=== PATIENT | female | born 1955 | race Caucasian/White ===

== ENCOUNTER 2021-10-20 09:18 | Outpatient (CLI) | payer MEDICARE, OTHER, SELFPAY ==
[2021-10-20 18:39] LABS: Alanine Aminotransferase 21 U/L (6-35); Albumin Level 4.3 g/dL (3.5-5.1); Alkaline Phosphatase 104 U/L (38-126); Anion Gap 10 mmol/L (8-16); Aspartate Amino Transferase 28 U/L (14-36); Bilirubin,Total 0.3 mg/dL (0.2-1.3); Blood Urea Nitrogen 24 mg/dL (7-17); Calcium 9.1 mg/dL (8.4-10.2); Carbon Dioxide 25 mmol/L (22-30); Chloride 110 mmol/L (98-107); Estimated Glomerular Filt Rate 30; Glucose 92 mg/dL (65-110); Potassium 3.9 mmol/L (3.4-5.0); Sodium 145 mmol/L (137-145)
[2021-10-20 18:41] LABS: Basophils Percent Auto 0.4 % (0.2-1.2); Eosinophils Absolute Auto 0.2 K/mm3 (0-0.3); Hematocrit 43.1 % (37.0-47.0); Hemoglobin 13.6 g/dL (12.0-15.0); Immature Granulocyte Absolute 0.04 K/mm3 (0.00-0.031); Immature Granulocyte Percent A 0.5 % (0-0.5); Lymphocytes Percent Auto 41.8 % (18.3-44.2); Mean Corpuscular HGB Conc 31.6 g/dl (32-36); Mean Corpuscular Volume 95.1 fl (80-100); Mean Platelet Volume 9.6 fl (7.4-10.4); Monocytes Absolute Auto 0.4 K/mm3 (0.1-0.6); Monocytes Percent Auto 5.7 % (2.6-8.5); Neutrophils Absolute Auto 3.8 K/mm3 (1.3-6.7); Neutrophils Percent Auto 49.6 % (45.5-73.1); Platelet Count Result 238 k/mm3 (150-375); Red Blood Count 4.53 M/mm3 (4.2-5.4); Red Cell Distribution Width 12.5 % (11.5-14.5); White Blood Count 7.7 K/mm3 (4.5-10.0)
[2021-10-20 19:08] LABS: Thyroid Stimulating Hormone 0.343 uIU/mL (0.465-4.680)
== END 2021-10-20 09:19 | disposition home or self-care (01) ==
PROVIDERS: PCP Emergency Medicine; Visit Provider Emergency Medicine
DX: E03.9 Hypothyroidism, unspecified (principal); Z87.448 Personal history of other diseases of urinary system
CPT/HCPCS: 36415; 80053; 84443; 85025

== ENCOUNTER 2021-10-22 15:31 | Outpatient (CLI) | payer MEDICARE, OTHER, SELFPAY ==
[2021-10-22 19:02] LABS: Free T4 Free Thyroxine 1.21 ng/mL (0.78-2.19)
== END 2021-10-22 15:32 | disposition home or self-care (01) ==
LOC: ANHGOSHLAB 15:33
PROVIDERS: PCP Emergency Medicine; Visit Provider Emergency Medicine
DX: E03.9 Hypothyroidism, unspecified (principal)
CPT/HCPCS: 36415; 84439

== ENCOUNTER → 2021-11-09 15:05 | Outpatient (CLI) | payer MEDICARE, OTHER, SELFPAY ==
--- NOTE | ~2021-11-09 | XR_ITS ---
EXAMINATION: XR knee LT 2V DATE: 11/09/2021 15:27 INDICATION: Left knee pain. TECHNIQUE: 2 views of left knee were obtained. COMPARISON: None. FINDINGS: There is a total left knee arthroplasty with patellar resurfacing in near-anatomic alignmen t. No fracture. No periprosthetic lucency to suggest loosening or infection. No knee joint effusion. IMPRESSION: 1. Total left knee arthroplasty in near-anatomic alignment. Reviewed, dictated and finalized at location A.
== END ==
PROVIDERS: PCP Emergency Medicine
DX: M25.562 Pain in left knee (principal)
CPT/HCPCS: 73560

== ENCOUNTER 2021-11-30 00:20 | Day surgery (SDC) | payer MEDICARE, OTHER, SELFPAY ==
[2021-11-15 13:34] VITALS: BMI 28.0
[2021-11-30 09:59] VITALS: BP 114/66; PULSE 64; RESP 16; TEMP 36.2; O2SAT 99; BMI 29.5
[2021-11-30] MEDS: LACTATED RINGERS 1,000 ML 150 ML IV CONT (10:12)
--- NOTE | 2021-11-30 10:47 | PM.HPGS ---
History of Present Illness History of Present Illness Consent: Risks, benefits, and alternatives have been discussed and questions answered. Patient agrees to proceed with procedure. 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 Review of Systems Constitutional: Constitutional: Denies headache(s) and Denies weakness Eyes: Eyes: Denies blurry vision ENT: Reports Normal hearing present, Denies headache(s) and Denies neck pain Cardiovascular: Cardiovascular: Denies chest pain and Denies dyspnea Respiratory: Respiratory: Denies dyspnea Gastrointestinal: Gastrointestinal: Reports no additional gastrointestinal complaints Genitourinary: Genitourinary: Denies dysuria Musculoskeletal: Musculoskeletal: Denies neck pain Integumentary/Breasts: Skin/Breast: Denies dry skin Neurologic: Reports Normal hearing present, Denies headache(s) and Denies weakness Psychiatric: Psychiatric: Denies anxiety Endocrine: Endocrine: Denies change in body appearance Hematologic/Lymphatic: Hematologic/Lymphatic: Denies easy bleeding Allergic/Immunologic: Allergic/Immunologic: Denies urticaria PMFSH Past Medical History Medical History (Updated 10/27/21 @ 15:57 by Kelli Kelly APRN) Colon cancer screening Diarrhea Esophageal dysmotility Obesity Surgical History Surgical History (Updated 10/27/21 @ 15:54 by Kelli Kelly APRN) History of Richy fundoplication Social History Social History Smoking status: Never smoker Alcohol intake: never Substance use: never Substance use type: does not use Living arrangements: with family Spiritual care concerns: No Meds Home Medications and Allergies Home Medications Medication Instructions Recorded Confirmed Type cyanocobalamin (vitamin B-12) 100 mcg subcut MONTHLY 10/18/21 11/30/21 History 1,000 mcg/mL injection solution diazepam 5 mg tablet (Valium) 5 mg PO QHS PRN Migraine Headache 10/18/21 11/30/21 History diphenoxylate-atropine 2.5 1 tablet PO QID PRN Diarrhea 10/18/21 11/30/21 History mg-0.025 mg tablet (Lomotil) droxidopa 200 mg capsule 200 mg PO TID 10/18/21 11/30/21 History fludrocortisone 0.1 mg tablet 0.05 mg PO DAILY 10/18/21 11/30/21 History gabapentin 100 mg capsule 100 mg PO BID 10/18/21 11/30/21 History levothyroxine 75 mcg tablet 75 mcg PO DAILY 10/18/21 11/30/21 History (Synthroid) meclizine 25 mg tablet 25 mg PO BID PRN Dizziness 10/18/21 11/30/21 History mirtazapine 15 mg tablet 15 mg PO QHS 10/18/21 11/30/21 History omega 9-dpt-loh-fish oil 1,200 mg 1,200 cap PO DAILY 10/18/21 11/30/21 History (144 mg-216 mg) capsule potassium citrate 10 mEq (1,080 10 meq PO TID 10/18/21 11/30/21 History mg) tablet,extended release psyllium husk 0.4 gram capsule 0.4 g PO DAILY 10/18/21 11/30/21 History (Daily Fiber) sertraline 50 mg tablet 50 mg PO DAILY 10/18/21 11/30/21 History tizanidine 4 mg capsule 4 mg PO QHS PRN Migraine Headache 10/18/21 11/30/21 History topiramate 100 mg tablet (Topamax) 125 mg PO DAILY 10/18/21 11/30/21 History valacyclovir 1 gram tablet 1,000 mg PO DAILY 10/18/21 11/30/21 History (Valtrex) needle (disp) 25 gauge 25 gauge x #3 ea 10/26/21 11/30/21 Rx 1 (BD PrecisionGlide) atogepant 60 mg tablet (Qulipta) 60 mg PO DAILY 11/15/21 11/30/21 History loratadine 10 mg tablet (Claritin) 10 mg PO DAILY #90 tabs 11/18/21 11/30/21 Rx Allergies Allergy/AdvReac Type Severity Reaction Status Date / Time adhesive Allergy Rash Verified 11/30/21 09:58 aloe Allergy Rash Verified 11/30/21 09:58 celecoxib [From Celebrex] Allergy Hives Verified 11/30/21 09:58 esomeprazole [From Nexium] Allergy Fatigued Verified 11/30/21 09:58 Penicillins Allergy Unknown Verified 11/30/21 09:58 Vital Signs Vital Signs - 24 hr 11/30/21 09:
[2021-11-30 11:05] VITALS: BP 101/52; PULSE 66; RESP 16; O2SAT 100
[2021-11-30 11:15] VITALS: BP 101/53; PULSE 63; RESP 12; O2SAT 100
[2021-11-30 11:25] VITALS: BP 119/68; PULSE 64; RESP 20; O2SAT 100
== END 2021-11-30 11:34 | disposition home or self-care (01) ==
PROVIDERS: PCP Emergency Medicine; Visit Provider Internal Medicine Gastroenterology
PROC: 0DJ08ZZ Inspection of Upper Intestinal Tract, Via Natural or Artificial Opening Endoscopic (ICD-10-PCS; CPT 43235; principal; 2021-11-30 10:30)
DX: R13.19 Other dysphagia (principal); R19.7 Diarrhea, unspecified; E03.9 Hypothyroidism, unspecified; K22.4 Dyskinesia of esophagus
CPT/HCPCS: 43239; 43248; 88305; J2704; J7120

== ENCOUNTER → 2021-12-16 12:53 | Outpatient (CLI) | payer MEDICARE, OTHER, SELFPAY ==
--- NOTE | ~2021-12-16 | XR_ITS ---
EXAMINATION: XR knee RT 2V DATE: 12/16/2021 13:20 INDICATION: Right knee pain TECHNIQUE: Two views of the right knee were obtained. COMPARISON: None. FINDINGS: Alignment is normal. No fracture or osteochondral lesion. There is mild tricompartmental os teoarthritis characterized by tiny marginal osteophytes. No joint effusion/synovitis. Soft tissues a re unremarkable. IMPRESSION: 1. No acute osseous abnormality. Reviewed, dictated and finalized at location F.
== END ==
PROVIDERS: PCP Emergency Medicine
DX: G89.29 Other chronic pain (principal); M25.561 Pain in right knee
CPT/HCPCS: 73560

== ENCOUNTER → 2021-12-21 13:26 | Outpatient (CLI) | payer MEDICARE, OTHER, SELFPAY ==
--- NOTE | ~2021-12-21 | US_ITS ---
US breast LT complete INDICATION: Palpable left breast abnormality TECHNIQUE: Dedicated complete left breast ultrasound including all 4 quadrants in the subareolar loca tion COMPARISON: Mammogram dated 12/21/2021 FINDINGS: At 3:00, 4 cm from the nipple, there is a 5 mm cyst. No suspicious masses are identified in the left breast to suggest malignancy. IMPRESSION: 1: No sonographic evidence for malignancy in the left breast. Benign 5 mm left breast cysts at 3:00. Routine yearly screening mammogram and regular clinical breast examination are recommended. BI-RADS CATEGORY 2 - BENIGN FINDINGS Reviewed, dictated and finalized at location A.
--- NOTE | ~2021-12-21 | MM_ITS ---
EXAMINATION: MM diagnostic milka BI w senthil HISTORY: Bilateral breast pain. Palpable left breast lumps. TECHNIQUE: Additional 3-D tomosynthesis images of the breasts were performed and synthetic 2-D images were generated. CAD analysis was submitted and interpreted. COMPARISON: Comparison to multiple prior studies sequentially, with oldest reviewed study dated 10/2015. BREAST PARENCHYMAL COMPOSITION: Breast composed of scattered areas of fibroglandular density. FINDINGS: The right breast is stable without evidence for malignancy. No masses are identified in the area of palpable concern in the upper outer quadrant. No new masses, calcifications or architectural distortion. IMPRESSION: 1. No evidence for malignancy in either breast. 2. Recommend follow-up targeted ultrasound of the area of palpable concern for complete evaluation. BI-RADS Category 0: Incomplete: Needs additional imaging evaluation. Reviewed, dictated and finalized at location A.
== END ==
PROVIDERS: PCP Emergency Medicine; Visit Provider Emergency Medicine
DX: N64.4 Mastodynia (principal)
CPT/HCPCS: 76641; 77062; 77066; G0279

== ENCOUNTER 2022-03-07 14:07 | Emergency (ER) | payer MEDICARE, OTHER, SELFPAY ==
[2022-03-07 16:00] VITALS: BP 151/93; PULSE 77; RESP 16; TEMP 37.1; O2SAT 100
--- NOTE | 2022-03-07 16:20 | ED.FEMALEGU ---
HPI - Female Genitourinary General Chief complaint: Urogenital-Female Stated complaint: uti Time Seen by Provider: 03/07/22 16:21 Source: patient and RN notes reviewed Mode of arrival: ambulatory Limitations: no limitations History of Present Illness HPI Narrative: 67 y/o female presented for c/o uti symptoms. Onset yesterday. Endorses burning with urination, frequency and urgency. She reports frequent uti's. Follows with urologist, and is scheduled to follow up this week. Denies abdominal pain, flank pain, nausea, vomiting, diarrhea, hematuria, fevers or chills. Related Data Home Medications Medication Instructions Recorded Confirmed cyanocobalamin (vitamin B-12) 100 mcg subcut MONTHLY 10/18/21 02/17/22 1,000 mcg/mL injection solution diazepam 5 mg tablet (Valium) 5 mg PO QHS PRN Migraine Headache 10/18/21 02/17/22 fludrocortisone 0.1 mg tablet 0.05 mg PO DAILY 10/18/21 02/17/22 levothyroxine 75 mcg tablet 75 mcg PO DAILY 10/18/21 02/17/22 (Synthroid) meclizine 25 mg tablet 25 mg PO BID PRN Dizziness 10/18/21 02/17/22 omega 9-oxl-fgw-fish oil 1,200 mg 1,200 cap PO DAILY 10/18/21 02/17/22 (144 mg-216 mg) capsule psyllium husk 0.4 gram capsule 0.4 g PO DAILY 10/18/21 02/17/22 (Daily Fiber) sertraline 50 mg tablet 50 mg PO DAILY 10/18/21 02/17/22 tizanidine 4 mg capsule 4 mg PO QHS PRN Migraine Headache 10/18/21 02/17/22 topiramate 100 mg tablet (Topamax) 125 mg PO DAILY 10/18/21 02/17/22 valacyclovir 1 gram tablet 1,000 mg PO DAILY 10/18/21 02/17/22 (Valtrex) Allergies Allergy/AdvReac Type Severity Reaction Status Date / Time adhesive Allergy Rash Verified 03/07/22 16:10 aloe Allergy Rash Verified 03/07/22 16:10 celecoxib [From Celebrex] Allergy Hives Verified 03/07/22 16:10 esomeprazole [From Nexium] Allergy Fatigued Verified 03/07/22 16:10 Penicillins Allergy Unknown Verified 03/07/22 16:10 Review of Systems Review of Systems: CONSTITUTIONAL: Denies body aches, fever, chills, or sweats. CARDIOVASCULAR: Denies chest pain, palpitations, or edema. RESPIRATORY: Denies cough or dyspnea. GASTROINTESTINAL: Denies abdominal pain, nausea, vomiting, or diarrhea. GENITOURINARY: Per HPI SKIN: Denies rash, itching, or wounds. MUSCULOSKELETAL: Denies back pain or myalgia. [facility] Past Medical History Medical History Colon cancer screening Diarrhea Esophageal dysmotility Irritable bowel syndrome with diarrhea Surgical History Surgical History History of Richy fundoplication Social History Social History Smoking status: Never smoker Alcohol intake: never Substance use: never Substance use type: does not use Spiritual care concerns: No Comments At time of signature, I have reviewed and agree with nursing past medical, surgical, social and family history unless otherwise noted. Please see nursing chart for further information. There is no relevant family history pertinent to the presenting complaint Exam Narrative: GENERAL: Well-appearing and in no acute distress. HEAD: Normocephalic EYES: EOMI. . ENT: Mucous membranes pink and moist. NECK: Normal AROM. Supple. CHEST: No respiratory distress. Clear to auscultation. HEART: Regular rate and rhythm. ABDOMEN: Soft, nontender, nondistended, normal active bowel sounds. No CVA tenderness MUSCULOSKELETAL: No bony tenderness. SKIN: Warm, dry, no rash. NEURO: No focal deficits. Alert and oriented x3. Course Course Emergency Course: Patient is aware of diagnosis, understands and agrees to treatment plan. Anticipatory guidance given. Patient agrees to follow-up as directed and is aware of reasons to seek care at the emergency department. Portions of this record may have been created with voice recognition software Level of Care: Express Care Visit Vital Signs
== END 2022-03-07 16:50 | disposition home or self-care (01) ==
PROVIDERS: Emergency Provider Nurse Practitioner Family; PCP Emergency Medicine
DX: N39.0 Urinary tract infection, site not specified (principal)
CPT/HCPCS: 81003; 87077; 87086; 87186; 99213; G0463

== ENCOUNTER → 2022-03-25 11:40 | Outpatient (CLI) | payer MEDICARE, OTHER, SELFPAY ==
--- NOTE | ~2022-03-25 | XR_ITS ---
XR abdomen/kub 1V DATE: 03/25/2022 12:37 INDICATION: Bilateral kidney stones TECHNIQUE: 2 AP views COMPARISON: None FINDINGS: Status post cholecystectomy. Approximately 3 x 6 mm calcification overlying the left kidney. There are probable calcified phleboliths overlying the lower abdomen and pelvis bilaterally. The psoas shadows are intact. No visceromegaly is detected. No evidence of bowel obstruction. Included skeletal structures are unremarkable. IMPRESSION: Nonspecific abdomen Status post cholecystectomy Reviewed, dictated and finalized at Location A. Reviewed, dictated and finalized at location B. SYSTEMS ENGINEER
== END ==
PROVIDERS: PCP Emergency Medicine; Visit Provider Urology
DX: N20.0 Calculus of kidney (principal); Z90.49 Acquired absence of other specified parts of digestive tract
CPT/HCPCS: 74018

== ENCOUNTER 2022-03-29 13:14 | Outpatient (CLI) | payer MEDICARE, OTHER, SELFPAY ==
[2022-03-29 14:23] LABS: Bilirubin Urine Negative (Negative); Blood Urine Negative (Negative); Color Urine Yellow (Yellow); Glucose Urine UA Negative (Negative); Ketones Urine Negative (Negative); Leukocyte Esterase Ur 1+ LEU/UL (Negative); Nitrate Urine Negative (Negative); Protein Urine Negative (Negative); Specific Grav Ur 1.015 (1.001-1.035); Urobilinogen Urine 0.2 mg/dL (<2.0)
[2022-03-29 14:24] LABS: Appearance Urine Slightly Cloudy (Clear)
[2022-03-29 14:30] LABS: Add Urine Microscopic? YES; Amorphous Sediment Urine Few; Bacteria Urine Trace /hpf; Mucus Urine Rare /lpf; Squamous Epithelial Cell Urine Rare /hpf (Few)
[2022-03-29 14:31] LABS: Anion Gap 8 mmol/L (8-16); Blood Urea Nitrogen 18 mg/dL (7-17); Calcium 9.3 mg/dL (8.4-10.2); Carbon Dioxide 24 mmol/L (22-30); Chloride 110 mmol/L (98-107); Estimated Glomerular Filt Rate 34; Glucose 114 mg/dL (65-110); Potassium 3.5 mmol/L (3.4-5.0); Sodium 142 mmol/L (137-145)
[2022-03-29 14:32] LABS: Partial Thromboplastin Time 27.8 SECONDS (22.3-36.8)
== END 2022-03-29 13:15 | disposition home or self-care (01) ==
PROVIDERS: Anesthesiology; PCP Emergency Medicine; Visit Provider Urology
DX: N18.9 Chronic kidney disease, unspecified (principal); N20.0 Calculus of kidney
CPT/HCPCS: 36415; 80048; 81001; 85610; 85730; 87086

== ENCOUNTER 2022-03-31 01:36 | Day surgery (SDC) | payer MEDICARE, OTHER, SELFPAY ==
[2022-03-29 08:39] VITALS: BMI 27.5
--- NOTE | 2022-03-29 09:18 | PC.NURSE ---
Report to the Outpatient Waiting Room, entrance under the green pavilion located off [facility], at time _10:00AM on date _03/31/22 . Planned Procedure Time: _12:00PM . Time changes happen often and if your time is changed the preop area will call you the afternoon before. - You and your visitor will be asked to self-screen and do not enter if you have any COVID symptoms. - Only one visitor is requested with a max of two and NO children visitors are allowed at this time. - The patient visitor may be requested to leave or wait in car when not with patient due to distancing restrictions. - A mask is optional within the hospital at this time. Patients may have clear liquids (water, carbonated beverages, clear teas, apple juice) until 3 hours prior to surgery with a maximum of 20 ounces. - No food from midnight until time of surgery Take the following medications with a SIP of water the morning of surgery: __DROXIDOPA, FLUDROCORTISONE, GABAPENTIN, LEVOTHYROXINE, MECLIZINE NEEDED, TOPIRAMATE, SERTRALINE DO NOT STOP ANY OF YOUR OTHER PRESCRIPTION MEDICATIONS PRIOR TO SURGERY ?EXCEPT THE FOLLOWING Medications to discontinue per physician ___HOLD ALL VITAMINS/SUPPLEMENTS 3 DAYS [id number] NOW Date to take last dose 03/29/22 Please no make-up, nail uzbek, hairspray, perfume, deodorant, or body powder the day of surgery. No jewelry (including any body piercings) or valuables the day of surgery, leave them at home. Please take a shower or bath the night before, or the morning of, surgery with an antibacterial soap. Wear comfortable, loose fitting clothing. Children are encouraged to wear pajamas. - Jewelry must be removed prior to entering the operating room. Rings and piercings that are not removed may be cut off. - The hospital will not accept responsibility for valuables. - Please leave all valuables, including medications, at home the day of surgery. If you are going home after surgery, a licensed airport driver must drive you home. - NO public transportation without another adult if you receive anesthesia. - We recommend that an adult stay with you for 24 hours following discharge. - We also recommend that you do not drive, make important decision, drink alcoholic beverages, or take any drugs that were not prescribed by your health care provider for at least 24 hours after your discharge time. Follow any additional instructions given to you from your surgeon. If you or anyone in your household have experienced Covid symptoms in the past week, please notify your surgeon or the nurse liaison at the phone number below for possible testing. Telephone instructions given to __PATIENT and asked if any additional questions and then verbalized understanding. Patient advised to call surgeon office or pre surgery nurse liaison [phone] if any additional questions.
--- NOTE | 2022-03-30 12:42 | WPDANESEPPF ---
Anes - Initial Pre Proc Eval Procedure: Operation Date: 03/31/22 12:00 Proposed Procedures p Left Extracorporeal Shock Wave Lithotripsy - Sudhakar Uribe MD Date/Time: 03/30/22 12:42 Surgeon: Sudhakar Uribe MD Pre Op Diagnosis: bilat kidney stones Patient Data Age: 67 Gender: F Height: 1.52 m Weight: 64 kg Allergies Allergy/AdvReac Type Severity Reaction Status Date / Time aloe Allergy SKIN Verified 03/29/22 08:19 IRRITATION/ITCHING celecoxib [From Celebrex] Allergy Hives Verified 03/29/22 08:19 Penicillins AdvReac Severe SEVERE Verified 03/29/22 08:19 WEAKNESS/UNABLE TO WALK adhesive AdvReac SKIN Verified 03/29/22 08:19 IRRITATION esomeprazole [From Nexium] AdvReac Fatigued/AC Verified 03/29/22 08:19 HINESS Home Medications Medication Instructions Recorded Confirmed Type cyanocobalamin (vitamin B-12) 100 mcg subcut MONTHLY 10/18/21 03/29/22 History 1,000 mcg/mL injection solution diazepam 5 mg tablet (Valium) 5 mg PO QHS PRN Insomnia 10/18/21 03/29/22 History fludrocortisone 0.1 mg tablet 0.1 mg PO BID 10/18/21 03/29/22 History levothyroxine 75 mcg tablet 75 mcg PO QAM 10/18/21 03/29/22 History (Synthroid) meclizine 25 mg tablet 25 mg PO BID PRN Dizziness 10/18/21 03/29/22 History omega 9-stz-wxc-fish oil 1,200 mg 1,200 cap PO DAILY 10/18/21 03/29/22 History (144 mg-216 mg) capsule psyllium husk 0.4 gram capsule 0.4 g PO BID 10/18/21 03/29/22 History (Daily Fiber) sertraline 50 mg tablet 50 mg PO QAM 10/18/21 03/29/22 History topiramate 100 mg tablet (Topamax) 125 mg PO BID 10/18/21 03/29/22 History loratadine 10 mg tablet (Claritin) 10 mg PO DAILY #90 tabs 11/18/21 03/29/22 Rx atogepant 60 mg tablet (Qulipta) 60 mg PO DAILY #90 tabs 12/31/21 03/29/22 Rx gabapentin 100 mg capsule 100 mg PO BID #180 caps 12/31/21 03/29/22 Rx mirtazapine 15 mg tablet 15 mg PO QHS #90 tabs 01/20/22 03/29/22 Rx colestipol 1 gram tablet 1 g PO BID #60 tabs 02/17/22 03/29/22 Rx diphenoxylate-atropine 2.5 1 - 2 tablet PO DAILY PRN Diarrhea 02/17/22 03/29/22 Rx mg-0.025 mg tablet (Lomotil) #60 tabs needle (disp) 25 gauge 25 gauge x ##3 02/18/22 Rx 1 (BD PrecisionGlide) cyclosporine 0.05 % eye drops in a 1 drp EACH EYE BID 03/29/22 03/29/22 History dropperette (Restasis) droxidopa 200 mg capsule See Rx Instructions .Route .COMPLEX 03/29/22 03/29/22 History onabotulinumtoxinA 100 unit 200 unit subcut [id number] 03/29/22 03/29/22 History solution for injection (Botox) potassium citrate 10 mEq (1,080 10 meq PO TID 03/29/22 03/29/22 History mg) tablet,extended release rizatriptan 10 mg tablet (Maxalt) 10 mg PO BID PRN Migraine Headache 03/29/22 03/29/22 History vit C 250 mg-vit E 90 mg-zinc 40 1 tablet PO BID 03/29/22 03/29/22 History mg-copper 1 [id number] capsule (PreserVision AREDS-2) Patient hx anesthesia problems: none Family hx anesthesia problems: none Results Review: All pre-operative results and documents have been reviewed as part of the pre-operative evaluation. [facility] Past Medical History Medical History (Updated 03/30/22 @ 12:43 by Hermann Terry DO) Anxiety Chronic kidney disease Colon cancer screening Diarrhea Esophageal dysmotility Hyperlipidemia Hypothyroidism Irritable bowel syndrome with diarrhea Surgical History Surgical History (Updated 03/30/22 @ 12:43 by Hermann Terry DO) History of appendectomy History of cholecystectomy History of Richy fundoplication Social History Social History Smoking status: Never smoker Alcohol intake: never Substance use: never Substance use type: does not use Living arrangements: with family Additional living arrangements comments: HUSB Spiritual care concerns: No Anes - Eval Final PreProcedure Day of Procedure 03/30/22 12:42 Patient weight: overweight Heart: regular rate and rhythm L
[2022-03-31] VITALS (13 sets, daily range): BP systolic 126–162; BP diastolic 64–99; PULSE 76–99; RESP 12–17; TEMP 36.5–36.6; O2SAT 98–100
--- NOTE | ~2022-03-31 | XR_ITS ---
EXAMINATION: XR abdomen/kub 1V DATE: 03/31/2022 09:53 INDICATION: Kidney stone. TECHNIQUE: A supine view of the abdomen on 2 radiographs was obtained. COMPARISON: Abdomen radiograph 03/25/2022 FINDINGS: There are no dilated loops of bowel. There is a 7 mm stone in left kidney. There are multip le calcifications in the pelvis. There are multiple calcifications along the expected courses of the ureters that may be in the ureters or the ovarian veins. IMPRESSION: 1. Left kidney stone. 2. Calcifications in the pelvis and along the expected courses of both ureters that may be renal ston es and/or phleboliths. Reviewed, dictated and finalized at location A. GER FITNESS IMPRESSION: 1. Left kidney stone. 2. Calcifications in the pelvis and along the expected courses of both ureters that may be renal stones and/or phleboliths.
--- NOTE | 2022-03-31 06:39 | WPDHPUPDATE1 ---
History and Physical Update Update Date/Time: 03/31/22 06:39 History and Physical has been reviewed, including an updated exam of the patient. There are NO changes in the patient's condition. Risks, benefits, and alternatives have been discussed and questions answered. Patient agrees to proceed with procedure.
[2022-03-31] MEDS: LACTATED RINGERS 1,000 ML 30 ML IV CONT (10:39)
[2022-03-31] MEDS: ceFAZolin 2 GM/D5W 50 ML 2 GM/50 ML BAG IVPB (11:02)
--- NOTE | 2022-03-31 11:13 | W.PM.PROC2 ---
Procedure Note - Detailed Date of Procedure 03/31/22 Pre-op Diagnosis Bilateral kidney stones Post-op Diagnosis Same Procedure Performed Left ESWL Surgeon Sudhakar Uribe MD Anesthesia General Description of Procedure The patient was brought to the operative suite where she was placed in the supine position on the Dornier lithotripsy table. The focal point of the lithotripter was placed at a 9mm left renal calculus. A total of 2500 shocks were delivered at a power setting of 4. There appeared to be good fragmentation of the stone. The patient tolerated the procedure well and was taken to the recovery room in good condition. Drains No Packing No Pathology None sent Complications No immediate complications Disposition PACU
[2022-03-31] MEDS: fentaNYL CITRATE INJ (*CRX) 100 MCG/2 ML VIAL 25 MCG IV PUSH ×3 (12:50→13:31)
[2022-03-31] MEDS: HYDROmorphone HCL INJ (*CRX) 1 MG/ML SYR 0.5 MG IV PUSH ×2 (13:52→14:44)
--- NOTE | 2022-03-31 14:31 | SUR.PHASEII ---
1428: RN went to check on patient to see if she was ready to get dressed and she stated she was having chest pain. RN contacted Dr. Rodríguez.
--- NOTE | 2022-03-31 15:17 | ECG_ITS ---
Measurements Intervals [place] Rate: 94 P: 38 ND: 176 QRS: -55 QRSD: 126 T: 9 QT: 379 QTc: 476 Interpretive Statements SINUS RHYTHM RIGHT BUNDLE BRANCH BLOCK LEFT ANTERIOR FASCICULAR BLOCK ABNORMAL ECG NO PREVIOUS ECG AVAILABLE FOR COMPARISON Electronically Signed On 03-31-2022 15:34:33 VASC TECH by Ronal Adhikari D.O.
[2022-03-31] MEDS: FAMOTIDINE 20 MG/2 ML VIAL IV PUSH (15:23)
== END 2022-03-31 15:58 | disposition home or self-care (01) ==
PROVIDERS: PCP Emergency Medicine; Visit Provider Urology
PROC: (CPT 50590; principal; 2022-03-31 12:00)
DX: N20.0 Calculus of kidney (principal); N18.9 Chronic kidney disease, unspecified; E78.5 Hyperlipidemia, unspecified; E03.9 Hypothyroidism, unspecified; K58.0 Irritable bowel syndrome with diarrhea; F41.9 Anxiety disorder, unspecified
CPT/HCPCS: 50590; 74018; 93005; A9270; J0131; J0690; J1100; J1170; J2250; J2405; J2704; J3010; J7030; J7120

== ENCOUNTER 2022-04-20 09:52 | Outpatient (CLI) | payer MEDICARE, OTHER, SELFPAY ==
[2022-04-20 21:22] LABS: Cholesterol 181 mg/dL (0-200); HDL Direct 27 mg/dL; Triglycerides 301 mg/dL (<150)
[2022-04-20 21:32] LABS: LDL Cholesterol Direct 78 mg/dL
== END 2022-04-20 09:53 | disposition home or self-care (01) ==
LOC: ANHGOSHLAB 09:54
PROVIDERS: PCP Emergency Medicine; Visit Provider Internal Medicine Cardiovascular Disease
DX: E03.9 Hypothyroidism, unspecified (principal); G90.3 Multi-system degeneration of the autonomic nervous system
CPT/HCPCS: 36415; 80061

== ENCOUNTER 2022-04-22 14:41 | Outpatient (CLI) | payer MEDICARE, OTHER, SELFPAY ==
--- NOTE | ~2022-04-22 | XR_ITS ---
XR abdomen/kub 1V 04/22/2022 14:57 Indication: Renal stones Procedure: KUB Comparison: Comparison to multiple prior studies sequentially, with oldest reviewed study dated 03/25. Findings: There is a stable left renal stone. Bowel gas pattern nonobstructive. There are multiple ca lcifications in the left pelvis along the expected course of the ureter. Cannot exclude distal ureter al stones. No acute osseous abnormality. Impression: 1: Stable left nephrolithiasis. 2: Possible distal left ureteral stones versus phleboliths. Reviewed, dictated and finalized at location A. AUTOMATION ARCHITECT Impression: 1: Stable left nephrolithiasis. 2: Possible distal left ureteral stones versus phleboliths.
== END 2022-04-22 14:42 | disposition home or self-care (01) ==
PROVIDERS: PCP Emergency Medicine; Visit Provider Urology
DX: N20.0 Calculus of kidney (principal)
CPT/HCPCS: 74018

== ENCOUNTER 2022-05-16 09:02 | Outpatient (CLI) | payer MEDICARE, OTHER, SELFPAY ==
--- NOTE | ~2022-05-16 | US_ITS ---
EXAMINATION: US retroperitoneal comp DATE: 05/16/2022 09:41 INDICATION: Bilateral nephrolithiasis TECHNIQUE: Multiple ultrasound grayscale images of the kidneys were obtained. COMPARISON: None. FINDINGS: The right kidney measures 9.2 x 4.8 x 4.5 cm. The left kidney measures 11.1 x 4.9 x 4.7 cm. The kidne ys demonstrate normal echogenicity. 5.1 cm anechoic cyst at the left kidney. Millimeter relatively li near . Relatively linear echogenic foci with associated twinkle artifact on color doppler at both kid neys measuring 1.6 cm in length on the left and 8 mm in length on the right which likely represent st ones/stone fragments. No hydronephrosis. The bladder is normal. IMPRESSION: 1. Hyperechoic likely renal stone/stone fragments at both kidneys. No hydronephrosis. Reviewed, dictated and finalized at location B. IMPRESSION: 1. Hyperechoic likely renal stone/stone fragments at both kidneys. No hydronep hrosis.
--- NOTE | ~2022-05-16 | XR_ITS ---
EXAMINATION: XR abdomen/kub 1V DATE: 05/16/2022 09:46 INDICATION: Bilateral kidney stones. TECHNIQUE: A supine view of the abdomen on 2 radiographs was obtained. COMPARISON: Abdomen radiographs 04/22/2022 FINDINGS: There are no dilated loops of bowel. Surgical clips in the right upper quadrant are likely from cholecystectomy. There are phleboliths in the pelvis. The kidneys are obscured by bowel. There a re least 3 stones in left kidney measuring up to 3 mm. IMPRESSION: 1. Left kidney stones. Reviewed, dictated and finalized at location A. IMPRESSION: 1. Left kidney stones.
--- NOTE | ~2022-05-16 | CT_ITS ---
EXAMINATION: CT brain wo con DATE: 05/16/2022 12:04 INDICATION: Severe headache post fall with head trauma TECHNIQUE: Computed tomography (CT) of the head was performed without intravenous contrast. Sagittal and coronal reconstructions were performed. The mA was adjusted according to patient size. Iterative reconstruction technique was employed. The dose-length product was 529.67 mGy-cm. COMPARISON: None FINDINGS: No fracture. No acute intracranial hemorrhage, acute infarction or abnormal extra axial fluid collect ion. Ventricles are normal and symmetric. No mass/mass effect. Small amount of bubbly mucus in the le ft sphenoid sinus. The orbits and mastoid air cells are normal. IMPRESSION: 1. No fracture or acute intracranial process. 2. Probable mucus in the left sphenoid sinus. Correlate clinically for acute sinusitis. Reviewed, dictated and finalized at location B. IMPRESSION: 1. No fracture or acute intracranial process. 2. Probable mucus in the left sphenoid sinus. Correlate clinically for acute si nusitis.
== END 2022-05-16 09:03 | disposition home or self-care (01) ==
PROVIDERS: PCP Emergency Medicine; Visit Provider Urology
DX: N20.0 Calculus of kidney (principal)
CPT/HCPCS: 70450; 74018; 76770

== ENCOUNTER 2022-05-18 11:11 | Outpatient (CLI) | payer MEDICARE, OTHER, SELFPAY ==
[2022-05-18 11:48] LABS: Add Urine Microscopic? YES; Appearance Urine Clear (Clear); Bacteria Urine None Seen /hpf; Bilirubin Urine Negative (Negative); Blood Urine Negative (Negative); Color Urine Yellow (Yellow); Glucose Urine UA Negative (Negative); Ketones Urine Negative (Negative); Leukocyte Esterase Ur 2+ LEU/UL (Negative); Need Manual Microscopic Reviewed; Nitrate Urine Negative (Negative); Non Pathogenic Casts 0-2; Protein Urine Negative (Negative); RBC Urine 0-2 /hpf (0-2); Specific Grav Ur 1.009 (1.001-1.035); Squamous Epithelial Cell Urine None seen /hpf (Few); Urobilinogen Urine 0.2 mg/dL (<2.0); WBC Urine 21-50 /hpf; pH Urine 5.5 (5.0-9.0)
== END 2022-05-18 11:12 | disposition home or self-care (01) ==
PROVIDERS: PCP Emergency Medicine; Visit Provider Nurse Practitioner
DX: R30.0 Dysuria (principal)
CPT/HCPCS: 81001; 87077; 87086; 87186

== ENCOUNTER 2022-05-18 11:34 | Emergency (ER) | payer MEDICARE, OTHER, SELFPAY ==
--- NOTE | ~2022-05-18 | CT_ITS ---
EXAMINATION: CTA brain carotid DATE: 05/18/2022 15:52 INDICATION: Headache. TECHNIQUE: Computed tomographic angiography (CTA) of the head was performed without and with 100 mL O mnipaque-350 intravenous contrast. CTA of the neck was performed with intravenous contrast. Automated exposure control and iterative reconstruction technique were employed. The dose-length product was 1 507.31 mGy-cm. Maximum intensity projection and volume rendered 3D-reconstructions were created by nelson quijano technologist on a separate workstation. COMPARISON: Head CT 05/16/2022 FINDINGS: HEAD CTA: There are scattered areas of low attenuation in the cerebral white matter and left basal ga nglia. There is no intracranial hemorrhage, acute infarction, or abnormal intracranial mass lesion. T he ventricles are normal in size. There are likely changes of ocular lens replacement surgeries. Ther e is mild mucosal thickening in the paranasal sinuses. The mastoid air cells are normal. The vertebra l arteries are codominant. There is no significant stenosis of basilar artery or the posterior cerebr al arteries. There is no significant stenosis of the intracranial internal carotid arteries or anteri or or middle cerebral arteries. Anterior communicating artery is normal. The posterior communicating arteries are normal. There is no aneurysm. NECK CTA: There are no pathologically enlarged lymph nodes. There is no significant stenosis of the v ertebral arteries. There is mild plaque in the proximal internal carotid arteries. There is 0% stenos is of the proximal right internal carotid artery relative to normal distal artery lumen diameter (JORDANA CET criteria). There is 0% stenosis of the proximal left internal carotid artery relative to normal d istal artery lumen diameter. There is moderate cervical spondylosis. IMPRESSION: 1. Mild nonspecific cerebral white matter disease and disease of the left basal ganglia, which likely represents chronic small vessel ischemic disease. 2. No aneurysm or significant intracranial arterial stenosis. 3. 0% stenosis of the proximal internal carotid arteries relative to normal distal artery lumen diame ters (NASCET criteria). Reviewed, dictated and finalized at location A. IMPRESSION: 1. Mild nonspecific cerebral white matter disease and disease of the left basal ganglia, which likely represents chronic small vessel ischemic disease. 2. No aneurysm or significant intracranial arterial stenosis. 3. 0% stenosis of the proximal internal carotid arteries relative to normal dis hany artery lumen diameters (NASCET criteria).
[2022-05-18 12:09] VITALS: BP 144/88; PULSE 81; RESP 18; TEMP 36.2; O2SAT 98
[2022-05-18] MEDS: diphenhydrAMINE HCl INJ 50 MG/ML VIAL 25 MG IV PUSH (12:59)
[2022-05-18] MEDS: METOCLOPRAMIDE HCL INJ 10 MG/2 ML VIAL IV PUSH (13:00)
--- NOTE | 2022-05-18 13:08 | ED.HA ---
HPI - Headache General Chief Complaint: Headache Stated Complaint: Headache, Fall 1 week ago Time Seen by Provider: 05/18/22 12:29 History of Present Illness HPI Narrative: Patient had fallen a week ago, hit her head, no loss of consciousness, went and saw her doctor who ordered a CT head that was normal. Since then she has been having a worse migraine than she has had in years. No focal numbness/weakness, no nausea/vomiting. Related Data Home Medications Medication Instructions Recorded Confirmed diazepam 5 mg tablet (Valium) 5 mg PO QHS PRN Insomnia 10/18/21 05/18/22 fludrocortisone 0.1 mg tablet 0.1 mg PO BID 10/18/21 05/18/22 meclizine 25 mg tablet 25 mg PO BID PRN Dizziness 10/18/21 05/18/22 omega 1-ngp-kiq-fish oil 1,200 mg 1,200 cap PO DAILY 10/18/21 05/18/22 (144 mg-216 mg) capsule psyllium husk 0.4 gram capsule 0.4 g PO BID 10/18/21 05/18/22 (Daily Fiber) topiramate 100 mg tablet (Topamax) 125 mg PO BID 10/18/21 05/18/22 cyclosporine 0.05 % eye drops in a 1 drp EACH EYE BID 03/29/22 05/18/22 dropperette (Restasis) droxidopa 200 mg capsule See Rx Instructions .Route .COMPLEX 03/29/22 05/18/22 onabotulinumtoxinA 100 unit 200 unit subcut [id number] 03/29/22 05/18/22 solution for injection (Botox) potassium citrate 10 mEq (1,080 10 meq PO TID 03/29/22 05/18/22 mg) tablet,extended release rizatriptan 10 mg tablet (Maxalt) 10 mg PO BID PRN Migraine Headache 03/29/22 05/18/22 vit C 250 mg-vit E 90 mg-zinc 40 1 tablet PO BID 03/29/22 05/18/22 mg-copper 1 jt-fhcbbx-tekkon capsule (PreserVision AREDS-2) Allergies Allergy/AdvReac Type Severity Reaction Status Date / Time aloe Allergy SKIN Verified 05/18/22 11:35 IRRITATION/ITCHING celecoxib [From Celebrex] Allergy Hives Verified 05/18/22 11:35 Penicillins AdvReac Severe SEVERE Verified 05/18/22 11:35 WEAKNESS/UNABLE TO WALK adhesive AdvReac SKIN Verified 05/18/22 11:35 IRRITATION esomeprazole [From Nexium] AdvReac Fatigued/AC Verified 05/18/22 11:35 HINESS Review of Systems Review of Systems: CONST: No fever. HEENT: No sore throat C/V: No chest pain RESP: No cough GI: No nausea or vomiting : No dysuria. M/S: No joint pain. SKIN: No rash. NEURO: [Headache without focal numbness or weakness] PSYCH: [No depression] FORMERLY [facility] Past Medical History Medical History Anxiety Chronic kidney disease Colon cancer screening Diarrhea Dysuria Esophageal dysmotility Headache Hyperlipidemia Hypothyroidism Irritable bowel syndrome with diarrhea Surgical History Surgical History History of appendectomy History of cholecystectomy History of Richy fundoplication Social History Social History Smoking status: Never smoker Alcohol intake: never Substance use: never Substance use type: does not use Lack of Transportation: No Lack of Food: Never True Current Housing: I Have Housing Concerned About Future Housing: No Difficulty Paying Gas/Electric Bills: No Difficulty Paying for Meds: No Currently Unemployed: No Education: High School Diploma/GED Difficulty w/ Childcare or Family Care: No Living arrangements: with family Additional living arrangements comments: HUSB Spiritual care concerns: No Exam Narrative: EXAMINATION OF ORGAN SYSTEMS/BODY AREAS: Constitutional: Vital signs per nursing GENERAL:[No acute distress, non-toxic appearing.] HEAD: Very minimal tenderness occiput EYES: EOMI, conjunctiva normal ENT: Hearing grossly intact NECK: Normal head turning, normal flexion/extension LUNGS: Nonlabored breathing. HEART: [Regular rate and rhythm] ABD: [Soft], [nontender to palpation] EXT: Normal range of motion SKIN: [No rashes or lesions.] NEURO: [Alert and oriented x 3. No focal sensory or strength deficits; good strength upper/lower
[2022-05-18] MEDS: LACTATED RINGERS 1,000 ML 999 ML IV CONT (14:10)
[2022-05-18 14:15] VITALS: BP 140/77; PULSE 68; RESP 16; O2SAT 100
[2022-05-18] MEDS: diphenhydrAMINE HCl INJ 50 MG/ML VIAL IV PUSH (15:14)
[2022-05-18] MEDS: PROCHLORPERAZINE EDISYLATE 10 MG/2 ML VIAL IV PUSH (15:14)
[2022-05-18 15:26] LABS: Basophils Percent Auto 0.3 % (0.2-1.2); Eosinophils Absolute Auto 0.2 K/mm3 (0-0.3); Eosinophils Percent Auto 1.9 % (0-4.4); Hematocrit 36.2 % (37.0-47.0); Hemoglobin 11.4 g/dL (12.0-15.0); Immature Granulocyte Absolute 0.05 K/mm3 (0.00-0.031); Immature Granulocyte Percent A 0.4 % (0-0.5); Lymphocytes Absolute Auto 3.09 K/mm3 (0.9-3.2); Lymphocytes Percent Auto 27.7 % (18.3-44.2); Mean Corpuscular HGB Conc 31.5 g/dl (32-36); Mean Corpuscular Hemoglobin 30.1 pg (26-34); Mean Corpuscular Volume 95.5 fl (80-100); Mean Platelet Volume 8.9 fl (7.4-10.4); Monocytes Absolute Auto 0.6 K/mm3 (0.1-0.6); Neutrophils Absolute Auto 7.2 K/mm3 (1.3-6.7); Neutrophils Percent Auto 64.7 % (45.5-73.1); Platelet Count Result 232 k/mm3 (150-375); Red Blood Count 3.79 M/mm3 (4.2-5.4); Red Cell Distribution Width 13.3 % (11.5-14.5); White Blood Count 11.2 K/mm3 (4.5-10.0)
[2022-05-18 15:34] LABS: Anion Gap 4 mmol/L (8-16); Blood Urea Nitrogen 24 mg/dL (7-17); Calcium 8.9 mg/dL (8.4-10.2); Carbon Dioxide 22 mmol/L (22-30); Chloride 115 mmol/L (98-107); Estimated CRCL calculation 29 ml/min; Estimated Glomerular Filt Rate 37; Glucose 90 mg/dL (65-110); Potassium 3.9 mmol/L (3.4-5.0); Sodium 141 mmol/L (137-145)
[2022-05-18 16:46] VITALS: BP 148/75; O2SAT 100
== END 2022-05-18 17:02 | disposition home or self-care (01) ==
PROVIDERS: Emergency Provider Emergency Medicine; PCP Emergency Medicine
DX: R51.9 Headache, unspecified (principal); N18.9 Chronic kidney disease, unspecified; E78.5 Hyperlipidemia, unspecified; E03.9 Hypothyroidism, unspecified
CPT/HCPCS: 36415; 70496; 70498; 80048; 81001; 85025; 87077; 87086; 87186; 96361; 96365; 96375; 99284; J0131; J0780; J1200; J2765; J7120; Q9967

== ENCOUNTER 2022-05-25 08:03 | Outpatient (CLI) | payer MEDICARE, OTHER, SELFPAY ==
--- NOTE | ~2022-05-25 | CT_ITS ---
EXAMINATION: CT abdomen pelvis w con DATE: 05/25/2022 08:28 INDICATION: Lower abdominal cramping pain TECHNIQUE: Computed tomography (CT) of the abdomen and pelvis was performed with 100 CC Omnipaque 350 intravenous contrast. Automated exposure control and iterative reconstruction technique were employe d. Exam dose: 458.15 mGy-cm total exam DLP. COMPARISON: 05/16/2022 KUB FINDINGS: Minimal bilateral dependent lower lobe atelectasis. Normal heart size. No pericardial or pleural effusion. Small sliding hiatal hernia. Status post cholecystectomy. Mild prominence of the bile ducts is likely secondary to the cholecystec polo. No hepatic, splenic, pancreatic or adrenal space-occupying mass lesion. Prominent left renal atrophy. There are several 3 mm or smaller nonobstructing left renal calculi. There is an up to 4.4 cm wide 2.7 cm AP dimension encapsulated fluid collection along the posteroinfe rior margin of the kidney. Approximately 7 mm right renal cyst. No ureteral calculi or hydroureteronephrosis on either side. Normal caliber of the abdominal aorta. No intraperitoneal or retroperitoneal or pelvic mass lesion or adenopathy or ascites. The urinary bladder is unremarkable. Status post hysterectomy. There is a prominent amount of fecal material in the colon. Occasional colonic diverticula; no CT madison dence of diverticulitis. No bowel obstruction, bowel wall thickening, pneumatosis or intraperitoneal free air is detected. Very small fat-containing umbilical hernia. No suspicious osteolytic or osteoblastic lesions are noted. Diffuse idiopathic skeletal hyperostosis of the thoracolumbar spine. Moderately severe degenerative disc disease and mild retrolisthesis at L5-S1. IMPRESSION: Status post cholecystectomy Status post hysterectomy Left renal atrophy Nonobstructive left nephrolithiasis Encapsulated pararenal left renal fluid collection 7 mm right renal cyst Reviewed, dictated and finalized at Location A. Reviewed, dictated and finalized at location B.
== END 2022-05-25 08:04 | disposition home or self-care (01) ==
PROVIDERS: PCP Emergency Medicine; Visit Provider Nurse Practitioner
DX: N20.0 Calculus of kidney (principal); N28.1 Cyst of kidney, acquired; Z90.49 Acquired absence of other specified parts of digestive tract
CPT/HCPCS: 74177; Q9967

== ENCOUNTER → 2022-07-26 16:28 | Outpatient (CLI) | payer MEDICARE, OTHER, SELFPAY ==
--- NOTE | ~2022-07-26 | MR_ITS ---
EXAMINATION: MR knee RT wo con DATE: 07/27/2022 07:58 INDICATION: Pain in knee. TECHNIQUE: Magnetic resonance imaging (MRI) of the right knee was performed without intravenous contr ast. Sequences included axial PD-weighted FS FSE, coronal PD-weighted FSE and PD-weighted FS FSE, sag ittal PD-weighted FSE, and sagittal T2-weighted FS FSE. COMPARISON: X-ray right knee 12/16/2021 FINDINGS: Medial compartment: Meniscus intact. Severe diffuse near full-thickness and punctate areas of full-thickness cartilage lo ss. Mild osteophytosis. Lateral compartment: Oblique undersurface tear of the body of the lateral meniscus, possibly with some bridging healing gr anulation tissue. Mild extrusion. Mild apical blunting of the body. Mild diffuse cartilage thinning. Moderate osteophytosis. Patellofemoral compartment: Partial-thickness medial and lateral facet cartilage signal abnormality. Full-thickness cartilage los s and fissuring along the median ridge. Retinacula intact. Mild osteophytosis. Ligaments and tendons: The ACL, PCL, MCL, and LCL are intact. Remaining flexor and extensor tendons are intact. Quadriceps a nd patellar enthesopathy. Fluid: Small volume joint fluid. Osseous/other: No suspicious focal or diffuse marrow signal. IMPRESSION: 1. Oblique undersurface tear of the body of the lateral meniscus, with mild protrusion. 2. Moderate tricompartmental knee osteoarthritis. Reviewed, dictated and finalized at location K. IMPRESSION: 1. Oblique undersurface tear of the body of the lateral meniscus, with mild pro trusion. 2. Moderate tricompartmental knee osteoarthritis.
== END ==
PROVIDERS: PCP Emergency Medicine; Visit Provider Orthopaedic Surgery
DX: S83.281A Other tear of lateral meniscus, current injury, right knee, initial encounter (principal); X58.XXXA Exposure to other specified factors, initial encounter; M17.11 Unilateral primary osteoarthritis, right knee
CPT/HCPCS: 73721

== ENCOUNTER → 2022-08-16 15:08 | Outpatient (CLI) | payer MEDICARE, OTHER, SELFPAY ==
--- NOTE | ~2022-08-16 | MR_ITS ---
EXAMINATION: MR cervical spine wo con DATE: 08/16/2022 15:56 INDICATION: Neck pain. TECHNIQUE: Magnetic resonance imaging (MRI) of the cervical spine was performed without intravenous c ontrast. Sequences included sagittal T2-weighted FSE, sagittal T2-weighted FS FSE, sagittal T1-weight ed FSE, axial MERGE, and axial T2-weighted FSE. COMPARISON: None FINDINGS: There is hypolordosis of cervical spine. Vertebral body heights are normal. There is mildly decreased disc height at C6-C7. The spinal cord signal intensity is normal. The following disc level s are specifically discussed: C2-C3: The disc does not extend beyond the endplate margin. There is no uncovertebral joint osteoarth ritis. There is severe bilateral facet joint osteoarthritis. There is mild left neural foraminal sten osis. There is no central canal stenosis. C3-C4: There is a central extrusion. There is mild bilateral uncovertebral joint osteoarthritis. Ther e is severe right and mild left facet joint osteoarthritis. There is mild right neural foraminal sten osis. There is mild central canal stenosis. C4-C5: There is a central extrusion. There is mild bilateral uncovertebral joint osteoarthritis. Ther e is mild right and severe left facet joint osteoarthritis. There is mild left neural foraminal steno sis. There is mild central canal stenosis. C5-C6: The disc is bulging. There is severe bilateral uncovertebral joint osteoarthritis. There is se emile bilateral facet joint osteoarthritis. There is mild bilateral neural foraminal stenosis. There i s mild central canal stenosis. C6-C7: The disc is bulging. There is severe bilateral uncovertebral joint osteoarthritis. There is mo derate right and mild left facet joint osteoarthritis. There is mild bilateral neural foraminal steno sis. There is mild central canal stenosis. C7-T1: There is a central extrusion. There is no uncovertebral joint osteoarthritis. There is severe right and mild left facet joint osteoarthritis. There is mild bilateral neural foraminal stenosis. Th ere is mild central canal stenosis. IMPRESSION: 1. Moderate cervical spondylosis. Reviewed, dictated and finalized at location A.
== END ==
PROVIDERS: PCP Emergency Medicine
DX: M47.892 Other spondylosis, cervical region (principal)
CPT/HCPCS: 72141

== ENCOUNTER → 2022-09-09 09:07 | Outpatient (CLI) | payer MEDICARE, OTHER, SELFPAY ==
--- NOTE | ~2022-09-09 | MMUS_ITS ---
EXAMINATION: MM diagnostic milka BI w senthil, US breast BI limited HISTORY: Bilateral breast pain and multiple palpable bilateral breast lumps TECHNIQUE: Craniocaudal, mediolateral, and mediolateral oblique 3-D tomosynthesis images of the breas ts were performed and synthetic 2-D images were generated. CAD analysis was submitted and interpreted . High resolution limited bilateral breast ultrasound was performed. COMPARISON: 12/21/2021, 06/23/2021, 08/28/2019 BREAST PARENCHYMAL COMPOSITION: There are scattered areas of fibroglandular density. FINDINGS: MAMMOGRAPHIC FINDINGS: No suspicious mass, calcification, or architectural distortion are identified malignancy. There has been no suspicious interval change. No mammographic correlate is identified for the reported palpabl e lumps of the breasts. ULTRASOUND: There is no evidence of focal abnormal solid or cystic mass in the vicinity of the reported palpable lumps of either breast. IMPRESSION: 1. No specific mammographic or sonographic correlate is identified for the reported palpable abnormal ities of concern. Further evaluation at this time should be based on clinical assessment. Continued f ollow-up physical examination is recommended. 2. Recommend routine screening mammography in one year. BI-RADS Category 1: Negative Reviewed, dictated and finalized at location A. IMPRESSION: 1. No specific mammographic or sonographic correlate is identified for the repo rted palpable abnormalities of concern. Further evaluation at this time should be based on clinical assessment. Continued follow-up physical examination is re commended. 2. Recommend routine screening mammography in one year. BI-RADS Category 1: Negative
== END ==
PROVIDERS: PCP Emergency Medicine; Visit Provider Nurse Practitioner Family
DX: N64.4 Mastodynia (principal); N63.0 Unspecified lump in unspecified breast
CPT/HCPCS: 76642; 77062; 77066; G0279

== ENCOUNTER 2022-09-30 14:02 | Outpatient (CLI) | payer MEDICARE, OTHER, SELFPAY ==
--- NOTE | ~2022-09-30 | XR_ITS ---
XR abdomen/kub 1V 09/30/2022 14:30 Indication: Bilateral renal stones. Issues with urination. Procedure: KUB Comparison: Comparison to multiple prior studies sequentially, with oldest reviewed study dated 03/25. Findings: Bowel gas pattern nonobstructive. Moderate colonic fecal loading. There are left renal ston es partially obscured by bowel content. There are cholecystectomy clips. There are unchanged pelvic p hleboliths. Impression: 1: Left nephrolithiasis. Reviewed, dictated and finalized at location A. Impression: 1: Left nephrolithiasis.
== END 2022-09-30 14:03 | disposition home or self-care (01) ==
PROVIDERS: PCP Emergency Medicine; Visit Provider Urology
DX: N20.0 Calculus of kidney (principal)
CPT/HCPCS: 74018

== ENCOUNTER 2022-10-03 14:26 | Outpatient (CLI) | payer MEDICARE, OTHER, SELFPAY ==
[2022-10-03 19:24] LABS: Alanine Aminotransferase 21 U/L (6-35); Albumin Level 4.8 g/dL (3.5-5.1); Alkaline Phosphatase 102 U/L (38-126); Anion Gap 10 mmol/L (8-16); Aspartate Amino Transferase 38 U/L (14-36); Bilirubin,Total 0.6 mg/dL (0.2-1.3); Blood Urea Nitrogen 30 mg/dL (7-17); Calcium 10.4 mg/dL (8.4-10.2); Carbon Dioxide 27 mmol/L (22-30); Chloride 104 mmol/L (98-107); Estimated Glomerular Filt Rate 28; Glucose 79 mg/dL (65-110); Potassium 4.1 mmol/L (3.4-5.0); Sodium 141 mmol/L (137-145)
[2022-10-03 19:46] LABS: Thyroid Stimulating Hormone 0.774 uIU/mL (0.465-4.680)
[2022-10-03 20:47] LABS: Free T4 Free Thyroxine 2.04 ng/mL (0.78-2.19)
== END 2022-10-03 14:27 | disposition home or self-care (01) ==
LOC: ANHGOSHLAB 14:30
PROVIDERS: PCP Emergency Medicine; Visit Provider Nurse Practitioner Family
DX: F41.9 Anxiety disorder, unspecified (principal); G90.3 Multi-system degeneration of the autonomic nervous system; M17.11 Unilateral primary osteoarthritis, right knee; N18.9 Chronic kidney disease, unspecified; R19.7 Diarrhea, unspecified
CPT/HCPCS: 36415; 80053; 82607; 84439; 84443

== ENCOUNTER 2022-10-10 15:18 | Outpatient (CLI) | payer MEDICARE, OTHER, SELFPAY ==
--- NOTE | ~2022-10-10 | CT_ITS ---
EXAMINATION: CT abdomen pelvis wo con DATE: 10/10/2022 15:43 INDICATION: DYSURIA TECHNIQUE: Computed tomography (CT) of the abdomen and pelvis was performed without intravenous contr ast. Automated exposure control and iterative reconstruction technique were employed. The dose-length product was 252.56 mGy-cm. COMPARISON: 05/25/2022. FINDINGS: Lower thorax: Unremarkable Liver: Normal. Biliary/Gallbladder: Gallbladder is absent. No bile duct dilation. Pancreas: No mass or duct dilation. Spleen: Normal. Adrenals:No mass. Kidneys: Interval resolution of the previously described left pararenal collection. The previously de scribed 7 mm right renal hypodensity, not well seen without contrast, associated hyperdensities may r eflect proteinaceous or hemorrhagic content. No stone or hydronephrosis. Left renal atrophy/scar. Non obstructing bilateral renal calcifications. GI tract: No small or large bowel dilation. Appendix not visualized. Mesentery/Peritoneum: No ascites, mass, or free air. Retroperitoneum: No mass. Mild atherosclerotic abdominal aortic and/or arterial calcifications. Pelvis: Absent uterus. Bladder wall thickening with incomplete bladder distention. Soft Tissues: Soft tissues and body wall unremarkable. Bones: No acute osseous finding. IMPRESSION: Cystitis versus wall thickening from incomplete urinary bladder distention. Otherwise, no acute abdominopelvic process detected Reviewed, dictated and finalized at location K.
== END 2022-10-10 15:19 | disposition home or self-care (01) ==
PROVIDERS: PCP Emergency Medicine; Visit Provider Urology
DX: R30.0 Dysuria (principal)
CPT/HCPCS: 74176

== ENCOUNTER 2022-11-28 14:49 | Outpatient (CLI) | payer MEDICARE, OTHER, SELFPAY ==
[2022-11-28 19:34] LABS: Basophils Percent Auto 0.1 % (0.2-1.2); Hemoglobin 12.4 g/dL (12.0-15.0); Immature Granulocyte Absolute 0.05 K/mm3 (0.00-0.031); Immature Granulocyte Percent A 0.3 % (0-0.5); Lymphocytes Absolute Auto 1.71 K/mm3 (0.9-3.2); Lymphocytes Percent Auto 10.6 % (18.3-44.2); Mean Corpuscular HGB Conc 31.8 g/dl (32-36); Mean Corpuscular Hemoglobin 31.2 pg (26-34); Mean Platelet Volume 9.1 fl (7.4-10.4); Monocytes Absolute Auto 0.2 K/mm3 (0.1-0.6); Monocytes Percent Auto 1.4 % (2.6-8.5); Neutrophils Absolute Auto 14.1 K/mm3 (1.3-6.7); Neutrophils Percent Auto 87.6 % (45.5-73.1); Platelet Count Result 355 k/mm3 (150-375); Red Blood Count 3.98 M/mm3 (4.2-5.4); Red Cell Distribution Width 12.1 % (11.5-14.5); White Blood Count 16.1 K/mm3 (4.5-10.0)
== END 2022-11-28 14:50 | disposition home or self-care (01) ==
LOC: ANHGOSHLAB 14:52
PROVIDERS: PCP Emergency Medicine; Visit Provider Emergency Medicine
DX: R23.3 Spontaneous ecchymoses (principal)
CPT/HCPCS: 36415; 85025

== ENCOUNTER 2022-12-02 11:24 | Outpatient (CLI) | payer MEDICARE, OTHER, SELFPAY ==
--- NOTE | ~2022-12-02 | XR_ITS ---
EXAMINATION: XR abdomen/kub 1V INDICATION: Bilateral kidney stones TECHNIQUE: Supine views of the abdomen were obtained on 2 radiographs. COMPARISON: 09/30/2022; CT, 10/10/2022 FINDINGS: Bowel contents project over the kidneys limiting sensitivity for renal stones. Known left k idney stones demonstrated on the comparison CT are not identified. No definite urolithiasis is seen. There are phleboliths of the pelvis. Phleboliths of the right ovarian vein are also noted. The bowel gas pattern is normal. Cholecystectomy clips are seen in the right upper quadrant. The visualized mary g bases are clear. A large volume of colonic stool is present. IMPRESSION: 1. No definite urolithiasis identified. Reviewed, dictated and finalized at location F.
== END 2022-12-02 11:25 | disposition home or self-care (01) ==
LOC: ANHIMG 11:27
PROVIDERS: PCP Emergency Medicine; Visit Provider Urology
DX: N20.0 Calculus of kidney (principal)
CPT/HCPCS: 74018

== ENCOUNTER 2022-12-07 13:30 | Outpatient (CLI) | payer MEDICARE, OTHER, SELFPAY ==
[2022-12-07 19:44] LABS: Thyroid Stimulating Hormone Reflex 0.138 uIU/mL (0.465-4.68)
[2022-12-07 21:03] LABS: Total Triiodothyronine (T3) 1.09 NG/ML (0.97-1.69)
[2022-12-10 22:49] LABS: Immunoglobulin A 264 mg/dL (70-320); TTG IGA AB <1.0 U/mL (<15.0)
== END 2022-12-07 13:31 | disposition home or self-care (01) ==
LOC: ANHGOSHLAB 13:35
PROVIDERS: Nurse Practitioner; PCP Emergency Medicine; Visit Provider Nurse Practitioner Family
DX: K22.4 Dyskinesia of esophagus (principal); R13.10 Dysphagia, unspecified; R30.0 Dysuria; R39.9 Unspecified symptoms and signs involving the genitourinary system; R19.7 Diarrhea, unspecified
CPT/HCPCS: 36415; 82784; 84439; 84443; 84480; 86364; 87086; 87088

== ENCOUNTER → 2023-01-16 10:34 | Outpatient (CLI) | payer MEDICARE, OTHER, SELFPAY ==
--- NOTE | ~2023-01-16 | XR_ITS ---
XR wrist RT min 3V DATE: 01/16/2023 11:34 INDICATION: Fall. Right wrist injury. TECHNIQUE: 4 views COMPARISON: None FINDINGS: There is resection of the trapezium. There is a prominently shortened fifth metacarpal bone. There is fusion at the first metacarpophalangeal joint. There is osteoarthritis at the joints including the radioscaphoid joint, triscaphe joint, second carp ometacarpal and interphalangeal joint of the first digit. No fracture or dislocation, periosteal reaction or bone destruction is detected. IMPRESSION: No recent fracture or dislocation Polyarticular osteoarthritis Status post trapezium resection Reviewed, dictated and finalized at location B. OR SCRUM MASTER
--- NOTE | ~2023-01-16 | XR_ITS ---
XR ankle RT min 3V DATE: 01/16/2023 11:34 INDICATION: Fall. Right ankle injury TECHNIQUE: 4 views COMPARISON: None FINDINGS: Prominent plantar and posterior calcaneal enthesopathy. No fracture or dislocation of the ankle or disruption of the ankle mortise is detected. IMPRESSION: No fracture or dislocation Prominent plantar and posterior calcaneal enthesopathy Reviewed, dictated and finalized at location B. EYING TEACHER
--- NOTE | ~2023-01-16 | XR_ITS ---
XR elbow RT 2V DATE: 01/16/2023 11:34 INDICATION: Fall. Right elbow injury. TECHNIQUE: AP and lateral views COMPARISON: None FINDINGS: Chronic approximately 4.5 and 5 mm corticated ossicles are noted at the lateral aspect of t he elbow joint. There is joint space narrowing and mild spurring at the elbow joint. No fracture or dislocation or joint effusion, periosteal reaction or bone destruction is detected. IMPRESSION: No recent fracture or dislocation or joint effusion Degenerative changes Reviewed, dictated and finalized at location B. CLEANER
== END ==
PROVIDERS: PCP Nurse Practitioner Family; Visit Provider Nurse Practitioner Family
DX: M77.31 Calcaneal spur, right foot (principal); W18.30XA Fall on same level, unspecified, initial encounter; M19.031 Primary osteoarthritis, right wrist; M19.021 Primary osteoarthritis, right elbow
CPT/HCPCS: 73070; 73110; 73610

== ENCOUNTER → 2023-03-01 11:49 | Outpatient (CLI) | payer MEDICARE, OTHER, SELFPAY ==
--- NOTE | ~2023-03-01 | XR_ITS ---
EXAM: XR hand RT min 3V DATE: 03/01/2023 12:27 HISTORY: W18.30XA - Fall on same level, unspecified, initial encou... . COMPARISON: X-ray right wrist 01/16/2023. FINDINGS: Decreased mineralization. No fracture or dislocation. No lytic or blastic lesion. Moderate polyarticular osteoarthritis. Status post trapezium resection. First MCP joint fusion. Short fifth m etacarpal. Stable subchondral cyst in the fifth metacarpal head. No erosion or periosteal change. Sof t tissues within normal limits. IMPRESSION: No acute osseous finding in the left hand. Reviewed, dictated and finalized at location K. 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
== END ==
PROVIDERS: PCP Nurse Practitioner Family; Visit Provider Nurse Practitioner Family
DX: S69.91XD Unspecified injury of right wrist, hand and finger(s), subsequent encounter (principal); X58.XXXD Exposure to other specified factors, subsequent encounter; W18.30XD Fall on same level, unspecified, subsequent encounter
CPT/HCPCS: 73130

== ENCOUNTER 2023-05-01 13:33 | Outpatient (CLI) | payer MEDICARE, OTHER, SELFPAY ==
[2023-05-05 04:40] LABS: Metanephrine, Free 40 pg/mL (<=57); Normetanephrine, Free 77 pg/mL (<=148); Total, Free (MN + NMN) 117 pg/mL (<=205)
== END 2023-05-01 13:34 | disposition home or self-care (01) ==
LOC: ANHLAB 13:36
PROVIDERS: PCP Nurse Practitioner Family; Visit Provider Internal Medicine Cardiovascular Disease
DX: I10 Essential (primary) hypertension (principal)
CPT/HCPCS: 36415; 83835

== ENCOUNTER 2023-05-19 07:38 | Outpatient (CLI) | payer MEDICARE, OTHER, SELFPAY ==
--- NOTE | 2023-05-19 07:56 | ECHO_ITS ---
Patient Info Name: Benita Giron Age: 68 years : 1955 Gender: Female Ht: 60 in Wt: 135 lbs BSA: 1.63 m2 HR: 88 bpm BP: 156 / 93 mmHg Technical Quality: Good Exam Date: 05/19/2023 8:11 AM Exam Location: [facility] Patient Status: Preadmit Admit Date: 05/19/2023 Environmental Sampling Technician: Samreen Carlos RDCS Attending Provider: Ronal Adhikari DO Exam Type: CA echo doppler color flow Study Info Indications I10 - Essential (primary) hypertension Complete two-dimensional, color flow and Doppler transthoracic echocardiogram is performed. Summary 1. Complete two-dimensional, color flow and Doppler transthoracic echocardiogram is performed. 2. Left ventricular chamber dimension is normal. 3. Left ventricular systolic function is normal, estimated at 60-65%. 4. The left ventricular diastolic function is grade I diastolic dysfunction. 5. E/e' 14 is mildly elevated. 6. Global longitudinal strain is mildly abnormal at -16.6%. 7. There is mild mitral valve regurgitation. 8. No pulmonary hypertension, estimated pulmonary arterial systolic pressure is 28 mmHg. Left Ventricle E/e' 14 is mildly elevated. Global longitudinal strain is mildly abnormal at -16.6%. Left ventricular chamber dimension is normal. Left ventricular systolic function is normal, estimated at 60-65%. The left ventricular diastolic function is grade I diastolic dysfunction. Right Ventricle Right ventricular systolic function is normal and with normal TAPSE 2.2 cm. Right ventricular chamber dimension is normal. Left Atria Left atrial chamber dimension is normal. Right Atria Right atrial chamber dimension is normal. Aortic Valve The aortic valve is trileaflet. There is no aortic valve stenosis. There is no aortic valve regurgitation. Pulmonic Valve There is no pulmonic regurgitation. Mitral Valve There is no mitral valve stenosis. There is mild mitral valve regurgitation. Tricuspid Valve There is no tricuspid valve regurgitation. No pulmonary hypertension, estimated pulmonary arterial systolic pressure is 28 mmHg. Pericardium/Pleural There is no pericardial effusion. Inferior Vena Cava Normal inferior vena cava with >50% collapse upon inspiration consistent with normal right atrial pressure, 5 mmHg. Aorta The aortic root size at the sinus of Valsalva is normal. Left Ventricular Outflow Tract Name Value Normal LVOT 2D LVOT Diameter 2.0 cm LVOT Doppler LVOT Peak Gradient 3 mmHg LVOT Mean Gradient 2 mmHg LVOT VTI 18 cm LVOT VTI/AV VTI Ratio 0.9 LVOT Stroke Volume 55 ml LVOT CO 4.8 l/min LVOT CI 2.9 l/min/m2 Pulmonic Valve Name Value Normal RVOT Doppler RVOT Peak Gradient 3 mmHg PV Doppler
== END 2023-05-19 07:39 | disposition home or self-care (01) ==
LOC: ANHCARD 07:38
PROVIDERS: PCP Nurse Practitioner Family; Visit Provider Internal Medicine Cardiovascular Disease
DX: R93.1 Abnormal findings on diagnostic imaging of heart and coronary circulation (principal); I34.0 Nonrheumatic mitral (valve) insufficiency; I10 Essential (primary) hypertension
CPT/HCPCS: 93306

== ENCOUNTER 2023-06-12 15:19 | Outpatient (CLI) | payer MEDICARE, OTHER, SELFPAY ==
--- NOTE | ~2023-06-12 | XR_ITS ---
EXAM: XR wrist LT min 3V DATE: 06/12/2023 15:43 HISTORY: M25.532 - Pain in left wrist . COMPARISON: None available. FINDINGS: Mildly decreased mineralization. No fracture or dislocation. No lytic or blastic lesion. S tatus post trapezium resection. Moderate degenerative change at the first CMC joint. Mild degenerativ e change in the radial carpal joint. Ulnar positive variance. Old ulnar styloid fracture. No erosion or periosteal change. Soft tissues within normal limits. IMPRESSION: No acute osseous finding in the left wrist. Degenerative and postsurgical changes as deta iled above. Reviewed, dictated and finalized at location K. IMPRESSION: No acute osseous finding in the left wrist. Degenerative and postsu rgical changes as detailed above.
--- NOTE | ~2023-06-12 | XR_ITS ---
EXAM: XR ankle RT min 3V DATE: 06/12/2023 15:43 HISTORY: M25.571 - Pain in right ankle and joints of right foot . COMPARISON: 01/16/2023. FINDINGS: Normal mineralization. No fracture or dislocation. No lytic or blastic lesion. Mild degene rative changes at the tibiotalar joint. Moderate Achilles and plantar enthesopathy. No erosion or per iosteal change. Soft tissues within normal limits. IMPRESSION: No acute osseous finding in the right ankle. Reviewed, dictated and finalized at location K.
== END 2023-06-12 15:20 ==
PROVIDERS: PCP Podiatrist Foot & Ankle Surgery; Visit Provider Nurse Practitioner Family
DX: M25.571 Pain in right ankle and joints of right foot (principal); M25.532 Pain in left wrist
CPT/HCPCS: 73110; 73610

== ENCOUNTER 2023-07-17 10:26 | Outpatient (CLI) | payer MEDICARE, OTHER, SELFPAY ==
[2023-07-17 11:18] LABS: Cholesterol 190 mg/dL (0-200); HDL Direct 34 mg/dL; Triglycerides 201 mg/dL (<150)
[2023-07-17 11:28] LABS: LDL Cholesterol Direct 115 mg/dL
[2023-07-17 11:37] LABS: Erythrocyte Sedimentation Rate 19 mm/hr (0-20)
[2023-07-18 14:58] LABS: CRP, High Sensitivity 0.9 mg/L
[2023-07-18 15:32] LABS: ANA Cascade Screen NEGATIVE (NEGATIVE)
== END 2023-07-17 10:27 | disposition home or self-care (01) ==
PROVIDERS: PCP Podiatrist Foot & Ankle Surgery; Referring Provider Nurse Practitioner Family; Visit Provider Internal Medicine Cardiovascular Disease
DX: E78.5 Hyperlipidemia, unspecified (principal); M25.50 Pain in unspecified joint; M79.89 Other specified soft tissue disorders
CPT/HCPCS: 36415; 80061; 85652; 86038; 86141; 86225; 86235; 86364

== ENCOUNTER 2023-07-20 10:58 | Outpatient (CLI) | payer MEDICARE, OTHER, SELFPAY ==
--- NOTE | ~2023-07-20 | XR_ITS ---
EXAMINATION: XR abdomen/kub 1V DATE: 07/20/2023 11:14 INDICATION: Bilateral kidney stones. Right flank pain. TECHNIQUE: A supine view of the abdomen on 2 radiographs was obtained. COMPARISON: Abdomen radiographs 12/02/2022, CT abdomen and pelvis 10/10/2022 FINDINGS: There are no dilated loops of bowel. There are phleboliths in the pelvis. There are two 4 m m stones in left kidney. There are phleboliths in the ovarian veins. Surgical clips in the right uppe r quadrant are likely from cholecystectomy. IMPRESSION: 1. Left kidney stones. Reviewed, dictated and finalized at location E. IMPRESSION: 1. Left kidney stones.
== END 2023-07-20 10:59 | disposition home or self-care (01) ==
LOC: ANHIMG 11:00
PROVIDERS: PCP Podiatrist Foot & Ankle Surgery; Visit Provider Urology
DX: N20.0 Calculus of kidney (principal)
CPT/HCPCS: 74018

== ENCOUNTER 2023-07-26 13:06 | Outpatient (CLI) | payer MEDICARE, OTHER, SELFPAY ==
--- NOTE | ~2023-07-26 | XR_ITS ---
XR shoulder RT min 2V DATE: 07/26/2023 13:27 INDICATION: Fall. Right shoulder injury, pain TECHNIQUE: 4 views of right shoulder COMPARISON: None FINDINGS: There is osteopenia. No fracture, dislocation, periosteal reaction or bone destruction or a bnormal soft tissue calcification is detected. IMPRESSION: Osteopenia Reviewed, dictated and finalized at location B. IMPRESSION: Osteopenia
--- NOTE | ~2023-07-26 | XR_ITS ---
XR knee RT min 4V DATE: 07/26/2023 13:27 INDICATION: Fall. Right knee injury, pain TECHNIQUE: 4 views COMPARISON: None FINDINGS: Superior pole and inferior pole patellar enthesopathy at the quadriceps and patellar tendon insertion sites. No fracture or dislocation or joint effusion, periosteal reaction or bone destruction, radiopaque int ra-articular loose body or chondrocalcinosis is evident. Joint spaces appear relatively preserved. IMPRESSION: No fracture or dislocation or joint effusion Reviewed, dictated and finalized at location B.
== END 2023-07-26 13:07 ==
LOC: MICIMG 13:09
PROVIDERS: PCP Nurse Practitioner Family; Visit Provider Nurse Practitioner Family
DX: M25.561 Pain in right knee (principal); W19.XXXA Unspecified fall, initial encounter; M85.811 Other specified disorders of bone density and structure, right shoulder
CPT/HCPCS: 73030; 73564

== ENCOUNTER 2023-08-07 14:48 | Outpatient (CLI) | payer MEDICARE, OTHER, SELFPAY ==
[2023-08-07 19:51] LABS: Thyroid Stimulating Hormone Reflex 0.538 uIU/mL (0.465-4.68)
== END 2023-08-07 14:49 | disposition home or self-care (01) ==
PROVIDERS: PCP Nurse Practitioner Family; Visit Provider Nurse Practitioner Family
DX: E03.9 Hypothyroidism, unspecified (principal)
CPT/HCPCS: 36415; 84443

== ENCOUNTER 2023-08-11 10:42 | Outpatient (CLI) | payer MEDICARE, OTHER, SELFPAY ==
--- NOTE | ~2023-08-11 | MM_ITS ---
EXAMINATION: MM screening milka BI w senthil HISTORY: Screening TECHNIQUE: Craniocaudal and mediolateral oblique 3-D tomosynthesis images were obtained and synthetic 2-D images were generated. CAD analysis was submitted and interpreted. COMPARISON: Comparison to multiple prior studies sequentially, with oldest reviewed study dated 08/02. BREAST PARENCHYMAL COMPOSITION: Not dense: There are scattered areas of fibroglandular density. FINDINGS: There is no evidence of suspicious mass, calcification, or architectural distortion to sugg est malignancy in either breast. There has been no suspicious interval change. IMPRESSION: 1. No mammographic evidence of malignancy. 2. Recommend routine screening mammography in one year. BI-RADS Category 1: Negative Reviewed, dictated and finalized at location B.
== END 2023-08-11 10:43 ==
PROVIDERS: PCP Surgery; Visit Provider Surgery
DX: Z12.31 Encounter for screening mammogram for malignant neoplasm of breast (principal); N64.4 Mastodynia
CPT/HCPCS: 77063; 77067

== ENCOUNTER 2023-08-11 10:46 | Outpatient (CLI) | payer MEDICARE, OTHER, SELFPAY ==
--- NOTE | ~2023-08-11 | XR_ITS ---
Right Hand Technique: PA, oblique, and lateral views were obtained. Clinical History: Pain COMPARISON: 03/01/2023 Findings: No acute fracture or dislocation is seen. Probable prior resection of the trapezium. There is probable fusion of the first MCP joint. There are scattered moderate degenerative change of the re maining interphalangeal joints in the fingers. Short fifth metacarpal is unchanged. Soft tissues are unremarkable. Impression: No acute abnormality. Status post trapezium resection. Fusion across the first MCP joint. Scattered degenerative changes the remaining bilateral joints. Reviewed, dictated and finalized at location . Impression: No acute abnormality. Status post trapezium resection. Fusion across the first MCP joint. Scattered degenerative changes the remaining bilateral joints.
== END 2023-08-11 10:47 ==
LOC: MICIMG 10:47
PROVIDERS: PCP Nurse Practitioner Family; Visit Provider Nurse Practitioner Family
DX: M79.641 Pain in right hand (principal)
CPT/HCPCS: 73130

== ENCOUNTER 2023-08-25 09:21 | Outpatient (CLI) | payer MEDICARE, OTHER, SELFPAY ==
--- NOTE | ~2023-08-25 | MR_ITS ---
EXAMINATION: MR ankle RT wo con DATE: 08/25/2023 10:06 INDICATION: Right foot and ankle pain TECHNIQUE: Magnetic resonance imaging (MRI) of the right ankle was performed without intravenous cont rast. Sequences included sagittal, coronal, and axial proton-density weighted fast spin echo without and with fat saturation. COMPARISON: None. FINDINGS: Medial ankle ligaments: Small amount of heterotopic ossification along the proximal deep deltoid ligament consistent with seq uela of chronic sprain. There is a lax attenuated appears to be anterior superficial deltoid ligament without surrounding edema also likely sequela of chronic sprain. The spring ligament complex is norm al. Lateral ankle ligaments: The anterior and posterior inferior tibiofibular ligaments are normal. The anterior talofibular, calc aneofibular and posterior talofibular ligaments are normal. Tendons: Minimal Achilles tendinosis without tear or peritendinitis with exercise enthesophytes at its calcane al insertion. The peroneus longus tendon is normal. There is mild tendinopathy and longitudinal split tearing of the peroneus brevis tendon with U-shaped configuration wrap around the anterior margin of the peroneus longus tendon at the level of the retromalleolar groove. The tibialis anterior and exte nsor hallucis longus and extensor digitorum longus tendons are normal. The tibialis posterior, flexor digitorum longus and flexor hallucis longus tendons are normal. Plantar fascia: Tiny plantar calcaneal spur at the calcaneal origin of the otherwise normal plantar aponeurosis. Bones/other: Bone alignment is normal. Normal marrow signal throughout with no reactive edema, fracture or patholo gic marrow replacing process. Fluid: Small amount of fluid extending along the normal tibialis posterior tendon consistent with mild tenos ynovitis. Physiologic amount fluid in the joint spaces. Nonspecific mild subcutaneous edema about the ankle and over the dorsum of the foot. IMPRESSION: 1. Chronic medial ankle sprain with attenuation and laxity of the anterior superficial deltoid ligame nt and small amount of heterotopic ossicles along the deep deltoid ligament. 2. Mild tenosynovitis along the normal tibialis posterior tendon. 3. Mild tendinopathy and longitudinal split tearing of the peroneus brevis tendon. Reviewed, dictated and finalized at location A. IMPRESSION: 1. Chronic medial ankle sprain with attenuation and laxity of the anterior supe rficial deltoid ligament and small amount of heterotopic ossicles along the radha p deltoid ligament. 2. Mild tenosynovitis along the normal tibialis posterior tendon. 3. Mild tendinopathy and longitudinal split tearing of the peroneus brevis tend on.
== END 2023-08-25 09:22 ==
LOC: MICIMG 09:22
PROVIDERS: PCP Nurse Practitioner Family; Visit Provider Podiatrist Foot & Ankle Surgery
DX: S92.001D Unspecified fracture of right calcaneus, subsequent encounter for fracture with routine healing (principal); S93.491D Sprain of other ligament of right ankle, subsequent encounter; X58.XXXD Exposure to other specified factors, subsequent encounter
CPT/HCPCS: 73721

== ENCOUNTER 2023-08-27 12:58 | Emergency (ER) | payer MEDICARE, OTHER, SELFPAY ==
[2023-08-27 13:05] VITALS: BP 129/71; PULSE 64; RESP 16; TEMP 36; O2SAT 100
--- NOTE | 2023-08-27 13:16 | ED.FEMALEGU ---
HPI - Female Genitourinary General Chief complaint: Urogenital-Female Stated complaint: Uti Symptoms Time Seen by Provider: 08/27/23 13:01 Source: patient Mode of arrival: ambulatory Limitations: no limitations History of Present Illness HPI Narrative: Benita is a 68-year-old female patient presenting to the clinic today with complaints of possible urinary tract infection. She reports that symptoms started this morning with burning, frequency, or and urgency. She denies any fever or chills. Does have history of frequent UTIs. She sees Dr. Dior-urologist. Related Data Home Medications Medication Instructions Recorded Confirmed meclizine 25 mg tablet 25 mg PO BID PRN Dizziness 10/18/21 08/27/23 psyllium husk 0.4 gram capsule 0.4 g PO BID 10/18/21 08/27/23 (Daily Fiber) cyclosporine 0.05 % eye drops in a 1 drp EACH EYE BID 03/29/22 08/27/23 dropperette (Restasis) omega 6-ini-qlk-fish oil 1,200 mg 1,000 cap PO BID 07/25/22 08/27/23 (144 mg-216 mg) capsule gabapentin 100 mg capsule 100 mg PO BID 07/14/23 08/27/23 Allergies Allergy/AdvReac Type Severity Reaction Status Date / Time aloe Allergy SKIN Verified 08/27/23 13:11 IRRITATION/ITCHING celecoxib [From Celebrex] Allergy Hives Verified 08/27/23 13:11 Penicillins AdvReac Severe SEVERE Verified 08/27/23 13:11 WEAKNESS/UNABLE TO WALK adhesive AdvReac SKIN Verified 08/27/23 13:11 IRRITATION esomeprazole [From Nexium] AdvReac Fatigued/AC Verified 08/27/23 13:11 HINESS Review of Systems Review of Systems: Pertinent positives per HPI. Patient denies any fever, chills, rash, headache, visual changes, dizziness, cough, runny nose, sore throat, shortness of breath, chest pain, palpitations, nausea, vomiting, diarrhea, constipation, abdominal pain. PMFSH Past Medical History Medical History Anxiety Chronic kidney disease Colon cancer screening Diarrhea Dysuria Esophageal dysmotility Headache Hyperlipidemia Hypothyroidism Irritable bowel syndrome with diarrhea Surgical History Surgical History History of appendectomy History of bilateral knee arthroplasty History of cholecystectomy History of Richy fundoplication Social History Social History Smoking status: Never smoker Alcohol intake: never Substance use: never Substance use type: does not use Lack of Transportation: No Lack of Food: Never True Current Housing: I Have Housing Concerned About Future Housing: No Difficulty Paying Gas/Electric Bills: No Difficulty Paying for Meds: No Currently Unemployed: No Education: High School Diploma/GED Difficulty w/ Childcare or Family Care: No Living arrangements: with family Additional living arrangements comments: [facility] Spiritual care concerns: No Comments At the time of my signature, I reviewed and agree with the nursing past medical, surgical, social, and family history. There is no relevant family history pertinent to the patient complaint. Exam Narrative: General: Well-developed, well nourished, in no apparent distress. Head: Normocephalic, atraumatic. Cardio: Regular rate and rhythm, s1 and s2 normal, no murmur appreciated. Resp: Clear to auscultation bilaterally, no rhonchi, rales, wheezing or rubs. Abdomen: Soft, pliable, bowel sounds present in all quadrants, mild tender to palpation, no organomegly, no CVAT tenderness. Course Course Emergency Course: Portions of this record may have been created with voice recognition software. Level of Care: Express Care Visit Vital Signs Vital signs: Vital Signs Temperature 36.0 C L 08/27/23 13:05 Pulse Rate 64 08/27/23 13:05 Respiratory Rate 16 08/27/23 13:05 Blood Pressure 129/71 08/27/23 13:05 Pulse Oximetry 100 08/27/23 13:05 T
== END 2023-08-27 13:30 | disposition home or self-care (01) ==
PROVIDERS: Emergency Provider Nurse Practitioner Family; PCP Emergency Medicine
DX: N39.0 Urinary tract infection, site not specified (principal); B96.89 Other specified bacterial agents as the cause of diseases classified elsewhere; E78.5 Hyperlipidemia, unspecified; E03.9 Hypothyroidism, unspecified; Z96.653 Presence of artificial knee joint, bilateral
CPT/HCPCS: 81003; 87077; 87086; 87088; 87186; 99213; G0463

== ENCOUNTER 2023-09-11 12:30 | Outpatient (CLI) | payer MEDICARE, OTHER, SELFPAY ==
--- NOTE | ~2023-09-11 | XR_ITS ---
XR hand LT min 3V Ordering provider: Callum Askew, History: . PAIN IN LEFT HAND after fall 2 months ago . Comparison: June 12, 2023 FINDINGS: BONES: No acute fracture or dislocation. JOINT SPACES: Narrowing of the proximal and distal interphalangeal joints. Osteoarthritic changes of the first carpometacarpal joint. Small residual of the trapezium bone is noted. SOFT TISSUES: Unremarkable. IMPRESSION: No acute osseous abnormality left hand. Osteoarthritic changes of the proximal and distal interphalangeal joint. Osteoarthritic changes of th e first carpometacarpal joint. Reviewed, dictated and finalized at location A. IMPRESSION: No acute osseous abnormality left hand. Osteoarthritic changes of the proximal and distal interphalangeal joint. Osteoa rthritic changes of the first carpometacarpal joint.
== END 2023-09-11 12:31 ==
PROVIDERS: PCP Nurse Practitioner Family; Visit Provider Orthopaedic Surgery Hand Surgery
DX: M19.042 Primary osteoarthritis, left hand (principal)
CPT/HCPCS: 73130

== ENCOUNTER 2023-09-14 12:18 | Outpatient (CLI) | payer MEDICARE, OTHER, SELFPAY ==
--- NOTE | ~2023-09-14 | DEXA_ITS ---
Bone Density Report Name: DULCE GALEANA Age: 68 Sex: Female Ethnicity: White Date of : 1955 Indication: postmenopausal; screening for osteoporosis; history of glucocorticoids; hysterectomy; rheumatoid arthritis; Referring Provider: DACIA MG Study: Bone densitometry was performed. Exam Date: September 14, 2023 Accession number: [id number] Bone Density: Region BMD T-score Z-score Classification AP Spine(L1-L4) 1.079 0.3 2.4 Normal Femoral Neck (Left) 0.668 -1.6 0.2 Osteopenia Total Hip (Left) 0.901 -0.3 1.2 Normal Femoral Neck (Right) 0.666 -1.6 0.2 Osteopenia Total Hip (Right) 0.933 -0.1 1.5 Normal Total Hip Mean 0.917 -0.2 1.4 Normal World Health Organization criteria for BMD impression classify patients as: Normal (T-score at or above -1.0), Osteopenia (T-score between -1.0 and -2.5), or Osteoporosis (T-score at or below -2.5). 10-year Fracture Risk(1): Major Osteoporotic Fracture 21% Hip Fracture 4.2% Reported Risk Factors: [place] (), Neck BMD=0.668, BMI=27.4, glucocorticoids, rheumatoid arthritis (1) FRAX(R) Version 3.08. Fracture probability calculated for an untreated patient. Fracture probability may be lower if the patient has received treatment. Clinical Information Provided by Patient: Has taken Glucocorticoids Has rheumatoid arthritis Has the following medical conditions: Hysterectomy, KIDNEY DISEASE, DIVERTICULITIS Patient maximum height was 60.0 Menopause Age: 22 Onset of menses at age 5 Number of children 2 Impression: The patient has low bone mass, based on the Left Femoral Neck T-score. The patient has an estimated ten-year risk of hip fracture of 4.2% and an estimated ten-year risk of major fracture of 21%, based on the WHO FRAX algorithm. The patient has risk factors, including: history of glucocorticoid therapy. Discussion: BONE DENSITY IS LOW AT ONE OR MORE SKELETAL SITES. THE PATIENT'S BMD AND CLINICAL RISK FACTORS CONTRIBUTE TO THIS PATIENT'S HIGH RISK OF FRACTURE. This patient's lowest T-score is low at one or more skeletal sites. It meets the World Health Organization's (WHO) criteria for ?low bone mass? (T-score between -1.0 and -2.5). The patient's 10-year risk of hip fracture and 10 year risk of a major osteoporotic fracture as calculated by FRAX exceeds the threshold where pharmacological therapy is recommended by the National Osteoporosis Foundation (NOF). However, all treatment decisions require clinical judgment and consideration of individual patient factors, including patient preferences, comorbidities, previous drug use, risk factors not captured in the FRAX model (e.g., frailty, falls, vitamin D deficiency, increased bone turnover, interval significant decline in bone density) and possible under or overestimation
== END 2023-09-14 12:19 | disposition home or self-care (01) ==
LOC: ANHIMG 12:20
PROVIDERS: PCP Nurse Practitioner Family; Visit Provider Nurse Practitioner Family
DX: Z78.0 Asymptomatic menopausal state (principal); M85.852 Other specified disorders of bone density and structure, left thigh; M85.851 Other specified disorders of bone density and structure, right thigh
CPT/HCPCS: 77080

== ENCOUNTER 2023-10-07 08:27 | Emergency (ER) | payer MEDICARE, OTHER, SELFPAY ==
--- NOTE | ~2023-10-07 | XR_ITS ---
EXAMINATION: XR abdomen/kub 1V DATE: 10/07/2023 09:41 INDICATION: Left flank pain. TECHNIQUE: A supine view of the abdomen on 2 radiographs was obtained. COMPARISON: Abdomen radiographs 07/20/2023, CT abdomen and pelvis 10/10/2022 FINDINGS: There are dilated loops of small bowel in left abdomen. The colon is normal in caliber. Gamaliel gical clips in the right upper quadrant are likely from cholecystectomy. There are phleboliths in the pelvis and right ovarian vein. IMPRESSION: 1. Dilated small bowel, consistent with adynamic ileus versus small bowel obstruction. Reviewed, dictated and finalized at location A. IMPRESSION: 1. Dilated small bowel, consistent with adynamic ileus versus small bowel obstr uction.
--- NOTE | 2023-10-07 08:33 | ED.FEMALEGU ---
HPI - Female Genitourinary General Chief complaint: Abdominal Pain Stated complaint: Kidney Pain Time Seen by Provider: 10/07/23 09:30 Source: patient and RN notes reviewed Mode of arrival: ambulatory Limitations: no limitations History of Present Illness HPI Narrative: 68-year-old female presents with concern for 2 day history of left flank pain, left lower quadrant abdominal pain. She reports she has history of kidney stones. She reports she did pass material which she believes to be a small stone. She reports pain is worse when she is going from sitting to standing or vice versa. She reports nothing relieves the pain. She reports occasional frequency. She denies dysuria, fever, body aches, chills, sweats. Denies hematuria, nausea, vomiting. MD elicited complaint: UTI Related Data Home Medications Medication Instructions Recorded Confirmed meclizine 25 mg tablet 25 mg PO BID PRN Dizziness 10/18/21 10/07/23 psyllium husk 0.4 gram capsule 0.4 g PO BID 10/18/21 10/07/23 (Daily Fiber) cyclosporine 0.05 % eye drops in a 1 drp EACH EYE BID 03/29/22 10/07/23 dropperette (Restasis) omega 5-ukt-eid-fish oil 1,200 mg 1,000 cap PO BID 07/25/22 10/07/23 (144 mg-216 mg) capsule gabapentin 100 mg capsule 100 mg PO BID 07/14/23 10/07/23 calcium carbonate 600 mg PO BID 09/18/23 10/07/23 cholecalciferol (vitamin D3) 50 50 mcg PO DAILY 09/18/23 10/07/23 mcg (2,000 unit) capsule Allergies Allergy/AdvReac Type Severity Reaction Status Date / Time aloe Allergy SKIN Verified 10/07/23 08:43 IRRITATION/ITCHING celecoxib [From Celebrex] Allergy Hives Verified 10/07/23 08:43 Penicillins AdvReac Severe SEVERE Verified 10/07/23 08:43 WEAKNESS/UNABLE TO WALK adhesive AdvReac SKIN Verified 10/07/23 08:43 IRRITATION esomeprazole [From Nexium] AdvReac Fatigued/AC Verified 10/07/23 08:43 HINESS Review of Systems Review of Systems: CONSTITUTIONAL: Denies malaise, chills, sweats, or fever. CARDIOVASCULAR: Denies chest pain, palpitations, or edema. RESPIRATORY: Denies cough or dyspnea. GASTROINTESTINAL: Reports LLQ abdominal pain. Denies nausea, vomiting, diarrhea GENITOURINARY: Denies dysuria, urgency, suprapubic pressure. Reports left flank pain. Denies hematuria. SKIN: Denies rash or itching. MUSCULOSKELETAL: Denies back pain or myalgia. All systems reviewed & are unremarkable except as noted in HPI and below PMFSH Past Medical History Medical History Anxiety Chronic kidney disease Colon cancer screening Diarrhea Dysuria Esophageal dysmotility Headache Hyperlipidemia Hypothyroidism Irritable bowel syndrome with diarrhea Surgical History Surgical History History of appendectomy History of bilateral knee arthroplasty History of cholecystectomy History of Richy fundoplication Social History Social History Smoking status: Never smoker Alcohol intake: never Substance use: never Substance use type: does not use Lack of Transportation: No Lack of Food: Never True Current Housing: I Have Housing Concerned About Future Housing: No Difficulty Paying Gas/Electric Bills: No Difficulty Paying for Meds: No Currently Unemployed: No Education: High School Diploma/GED Difficulty w/ Childcare or Family Care: No Living arrangements: with family Additional living arrangements comments: [facility] Spiritual care concerns: No Comments At time of signature, agree with nursing past medical, surgical, social and family history. There is no relevant family history pertinent to the presenting complaint Exam Narrative: GENERAL: Well-appearing, well-nourished, and in no acute distress. HEAD: Normocephalic. EYES: PERRLA, conjunctivae clear. NECK: Supple. No lymphadenopathy CHEST: Clear to auscultat
[2023-10-07 08:36] VITALS: BP 134/75; PULSE 71; RESP 16; TEMP 36.3; O2SAT 100
[2023-10-07 09:29] LABS: EDUAAPPEAR Clear; EDUABILI Negative; EDUABLOOD Negative; EDUACOLOR1 Yellow; EDUAGLUCOSE Negative; EDUAKETONE Negative; EDUALEUKO Trace; EDUANITRATE Negative; EDUAPH 7.5; EDUAPROTEIN Negative; EDUASPGRAVITY 1.015; EDUAUROBILI 0.2
== END 2023-10-07 09:59 | disposition short-term general hospital (02) ==
PROVIDERS: Emergency Provider Nurse Practitioner; PCP Emergency Medicine
DX: R10.32 Left lower quadrant pain (principal); R10.9 Unspecified abdominal pain; E78.5 Hyperlipidemia, unspecified; E03.9 Hypothyroidism, unspecified
CPT/HCPCS: 74018; 81003; 99213; G0463

== ENCOUNTER 2023-10-07 10:19 | Emergency (ER) | payer MEDICARE, OTHER, SELFPAY ==
[2023-10-07] VITALS (30 sets, daily range): BP systolic 130–164; BP diastolic 66–92; PULSE 65–97; RESP 12–20; TEMP 36.4–36.6; O2SAT 93–100
--- NOTE | ~2023-10-07 | CT_ITS ---
EXAMINATION: CT abdomen pelvis w con DATE: 10/07/2023 12:49 INDICATION: Left lower quadrant abdominal tenderness. TECHNIQUE: Computed tomography (CT) of the abdomen and pelvis was performed with 100 mL Omnipaque 350 intravenous contrast. Automated exposure control and iterative reconstruction technique were employe d. The dose-length product was 329.89 mGy-cm. COMPARISON: CT abdomen and pelvis 10/10/2022 FINDINGS: The visualized portions of lung bases demonstrate mild atelectasis. There is mild scarring in paraspinal right lower lobe. No pleural effusion. The heart size is normal. No pericardial effusio n. There is mild intrahepatic biliary duct dilatation, likely secondary to cholecystectomy. The splee n, pancreas, and adrenal glands are normal. There is a 7 mm cyst in right kidney. There is moderate a trophy of left kidney. There is a 4 mm stone in left kidney. The bladder is distended. There are no d ilated loops of bowel. The appendix is not enlarged visualized. There are no pathologically enlarged lymph nodes. There is no free intraperitoneal fluid. There is severe lower lumbar spondylosis. IMPRESSION: 1. No etiology for the patient's symptoms. Reviewed, dictated and finalized at location A.
--- NOTE | 2023-10-07 11:24 | ED.ABDPAIN ---
HPI - Abdominal Pain General Chief Complaint: Abdominal Pain Stated Complaint: sent from with abdominal pain Time Seen by Provider: 10/07/23 11:09 History of Present Illness HPI narrative: Patient is a 68 year female presenting with abdominal pain. Patient states that for the last 2 days she has had left lower quadrant pain that goes into her left flank. Has a history of diverticulitis and kidney stones. Went to urgent care today who advised that she come here. Had a normal bowel movement this morning. No dysuria or hematuria but states that she may have passed some stone like material this morning. No fevers or nausea. No further complaints. Related Data Home Medications Medication Instructions Recorded Confirmed meclizine 25 mg tablet 25 mg PO BID PRN Dizziness 10/18/21 10/07/23 psyllium husk 0.4 gram capsule 0.4 g PO BID 10/18/21 10/07/23 (Daily Fiber) cyclosporine 0.05 % eye drops in a 1 drp EACH EYE BID 03/29/22 10/07/23 dropperette (Restasis) omega 2-iam-stf-fish oil 1,200 mg 1,000 cap PO BID 07/25/22 10/07/23 (144 mg-216 mg) capsule gabapentin 100 mg capsule 100 mg PO BID 07/14/23 10/07/23 calcium carbonate 600 mg PO BID 09/18/23 10/07/23 cholecalciferol (vitamin D3) 50 50 mcg PO DAILY 09/18/23 10/07/23 mcg (2,000 unit) capsule Allergies Allergy/AdvReac Type Severity Reaction Status Date / Time aloe Allergy SKIN Verified 10/07/23 10:19 IRRITATION/ITCHING celecoxib [From Celebrex] Allergy Hives Verified 10/07/23 10:19 Penicillins AdvReac Severe SEVERE Verified 10/07/23 10:19 WEAKNESS/UNABLE TO WALK adhesive AdvReac SKIN Verified 10/07/23 10:19 IRRITATION esomeprazole [From Nexium] AdvReac Fatigued/AC Verified 10/07/23 10:19 HINESS Review of Systems Review of Systems: All systems reviewed & are unremarkable except as noted in HPI and below PMFSH Past Medical History Medical History Anxiety Chronic kidney disease Colon cancer screening Diarrhea Dysuria Esophageal dysmotility Headache Hyperlipidemia Hypothyroidism Irritable bowel syndrome with diarrhea Surgical History Surgical History History of appendectomy History of bilateral knee arthroplasty History of cholecystectomy History of Richy fundoplication Social History Social History Smoking status: Never smoker Alcohol intake: never Substance use: never Substance use type: does not use Lack of Transportation: No Lack of Food: Never True Current Housing: I Have Housing Concerned About Future Housing: No Difficulty Paying Gas/Electric Bills: No Difficulty Paying for Meds: No Currently Unemployed: No Education: High School Diploma/GED Difficulty w/ Childcare or Family Care: No Living arrangements: with family Additional living arrangements comments: [facility] Spiritual care concerns: No Exam Narrative: GENERAL: Well-appearing, in no acute distress, pleasant and cooperative HEAD: Normocephalic, atraumatic. EYES: PERRLA and EOMI. ENT: Mucous membranes moist. NECK: Supple. CHEST: Clear to auscultation. No respiratory distress. HEART: Regular rate and rhythm ABDOMEN: Soft, + left lower quadrant tenderness without guarding or rebound; +CVA tenderness EXTREMITIES: Normal range of motion SKIN: Warm, dry, no rash. NEURO: No focal deficits. Alert and oriented x3. PSYCH: Normal mood and affect. Course Vital Signs Vital signs: Vital Signs Temperature 97.6 F 10/07/23 10:25 Pulse Rate 66 10/07/23 10:25 Respiratory Rate 18 10/07/23 10:25 Blood Pressure 148/74 H 10/07/23 10:25 Pulse Oximetry 100 10/07/23 10:25 Oxygen Delivery Room Air 10/07/23 10:25 Temperature 97.7 F 10/07/23 18:42 Pulse Rate 70 10/07/23 18:42 Respiratory Rate 19 10/07/23 18:42 Blood Pressure
[2023-10-07 12:14] LABS: Basophils Percent Auto 0.3 % (0.2-1.2); Eosinophils Absolute Auto 0.1 K/mm3 (0-0.3); Eosinophils Percent Auto 1.7 % (0-4.4); Hematocrit 39.1 % (37.0-47.0); Hemoglobin 13.2 g/dL (12.0-15.0); Immature Granulocyte Absolute 0.02 K/mm3 (0.00-0.031); Immature Granulocyte Percent A 0.3 % (0-0.5); Lymphocytes Absolute Auto 2.57 K/mm3 (0.9-3.2); Lymphocytes Percent Auto 40.2 % (18.3-44.2); Mean Corpuscular HGB Conc 33.8 g/dl (32-36); Mean Corpuscular Hemoglobin 29.7 pg (26-34); Mean Corpuscular Volume 87.9 fl (80-100); Mean Platelet Volume 8.5 fl (7.4-10.4); Monocytes Absolute Auto 0.5 K/mm3 (0.1-0.6); Monocytes Percent Auto 7.4 % (2.6-8.5); Neutrophils Absolute Auto 3.2 K/mm3 (1.3-6.7); Neutrophils Percent Auto 50.1 % (45.5-73.1); Platelet Count Result 232 k/mm3 (150-375); Red Blood Count 4.45 M/mm3 (4.2-5.4); Red Cell Distribution Width 12.1 % (11.5-14.5); White Blood Count 6.4 K/mm3 (4.5-10.0)
[2023-10-07 12:20] LABS: Add Urine Microscopic? YES; Appearance Urine Clear (Clear); Bacteria Urine None Seen /hpf; Bilirubin Urine Negative (Negative); Blood Urine Negative (Negative); Color Urine Yellow (Yellow); Glucose Urine UA Negative (Negative); Ketones Urine Negative (Negative); Leukocyte Esterase Ur Trace LEU/UL (Negative); Nitrate Urine Negative (Negative); Non Pathogenic Casts 0-2; Protein Urine Negative (Negative); RBC Urine 0-2 /hpf (0-2); Specific Grav Ur 1.013 (1.001-1.035); Squamous Epithelial Cell Urine Few /hpf (Few); Urobilinogen Urine 0.2 mg/dL (<2.0); WBC Urine 0-5 /hpf (0-3); pH Urine 7.5 (5.0-9.0)
[2023-10-07] MEDS: MORPHINE SULFATE (*CRX) 4 MG/ML INJ IV PUSH ×2 (12:21→14:56)
[2023-10-07] MEDS: SODIUM CHLORIDE 0.9% IV 1,000 ML 999 ML IV CONT ×2 (12:22→14:55)
[2023-10-07 12:24] LABS: Alanine Aminotransferase 24 U/L (6-35); Albumin Level 4.5 g/dL (3.5-5.1); Alkaline Phosphatase 80 U/L (38-126); Anion Gap 6 mmol/L (4-12); Aspartate Amino Transferase 28 U/L (14-36); Bilirubin,Total 0.7 mg/dL (0.2-1.3); Blood Urea Nitrogen 19 mg/dL (7-17); Calcium 9.3 mg/dL (8.4-10.2); Carbon Dioxide 33 mmol/L (22-30); Chloride 85 mmol/L (98-107); Estimated CRCL calculation 30 ml/min; Estimated Glomerular Filt Rate 40; Glucose 95 mg/dL (65-110); Lipase 275 U/L (23-300); Potassium 3.5 mmol/L (3.4-5.0); Sodium 124 mmol/L (137-145)
[2023-10-07 14:43] LABS: Anion Gap 8 mmol/L (4-12); Blood Urea Nitrogen 17 mg/dL (7-17); Calcium 8.5 mg/dL (8.4-10.2); Carbon Dioxide 29 mmol/L (22-30); Chloride 90 mmol/L (98-107); Estimated CRCL calculation 35 ml/min; Estimated Glomerular Filt Rate 49; Glucose 100 mg/dL (65-110); Potassium 3.7 mmol/L (3.4-5.0); Sodium 127 mmol/L (137-145)
[2023-10-07] MEDS: KETOROLAC 15 MG/ML VIAL (*BKC) IV PUSH (14:56)
[2023-10-07 17:42] LABS: Anion Gap 6 mmol/L (4-12); Blood Urea Nitrogen 15 mg/dL (7-17); Calcium 8.5 mg/dL (8.4-10.2); Carbon Dioxide 28 mmol/L (22-30); Chloride 96 mmol/L (98-107); Estimated CRCL calculation 32 ml/min; Estimated Glomerular Filt Rate 44; Glucose 101 mg/dL (65-110); Potassium 4.1 mmol/L (3.4-5.0); Sodium 130 mmol/L (137-145)
== END 2023-10-07 18:44 | disposition home or self-care (01) ==
PROVIDERS: Emergency Provider Emergency Medicine; PCP Emergency Medicine
DX: R10.32 Left lower quadrant pain (principal); E86.0 Dehydration; N18.9 Chronic kidney disease, unspecified; E78.5 Hyperlipidemia, unspecified; E03.9 Hypothyroidism, unspecified; K58.0 Irritable bowel syndrome with diarrhea; Z87.442 Personal history of urinary calculi; Z96.653 Presence of artificial knee joint, bilateral; Z90.49 Acquired absence of other specified parts of digestive tract; Z79.899 Other long term (current) drug therapy
CPT/HCPCS: 36415; 74018; 74177; 80048; 80053; 81001; 81003; 83690; 85025; 96361; 96374; 96375; 96376; 99284; J1885; J2270; J7030; Q9967

== ENCOUNTER 2023-10-24 14:30 | Outpatient (RCR) | payer MEDICARE, OTHER, SELFPAY ==
--- NOTE | 2023-09-15 16:45 | OPREHPOC ---
Outpatient Therapy Plan of Care This is a Multidisciplinary Plan of Care that may contain components documented by all disciplines (PT, OT, and ST.) PT Problem 1 PT Problem #1 Knowledge Deficit PT Goal 1 Goal Weston with HEP Target Visit 4 PT Problem 2 PT Problem #2 Pain PT Goal 1 Goal Report no pain greater than 3/10 with ambulatory activity Target Visit 8 PT Problem 3 PT Problem #3 Impaired Range of Motion PT Goal 1 Goal Achieve 10 degrees of R ankle dorsiflexion for improved terminal stance of gait Target Visit 8 PT Goal 2 Goal Improve R ankle inversion to 30 degrees to improve gross functional motion Target Visit 8 PT Problem 4 PT Problem #4 Impaired Strength PT Goal 1 Goal Improve gross R ankle strength to 4+/5 to improve stability for proprioceptive activity Target Visit 8 PT Goal 2 Goal Patient will ambulate with even stride length bilaterally and use of single point cane Target Visit 8
--- NOTE | 2023-09-15 16:45 | PTOPEVAL1 ---
Assessment and note entered by Yang Dockery, PT Evaluation Information Assessment Status Evaluation Diagnosis Peroneal tendonitis of Right ankle ICD-10 Condition Codes (PT) M25.571 Subjective Information Reports that she had a miss set last year. She went for a long time with ankle pain and finally was placed in a CAM boot 8 weeks ago. She has been out of the boot for 2 weeks. Reports that she feels being in the boot helped, but she now has a lot of stiffness and pain. She has been having trouble getting around and has been using a cane for about 6 years following her left knee replacement. Pain is not bad in the AM but has more pain the longer she is gone. She is currently driving. Reported Pain Level Pain Score 5: Self Report Assessment PT Clinical Summary Patient presents with loss in ankle ROM and weakness in multidirectional planes affecting gait and gross mobility. 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 Plan of Care Interventions Gait Training,Hot Pack/Cold Pack,Intermittent Compression,Manual Therapy,Neuro Re-education, Therapeutic Activities,Therapeutic Exercise PT Services Indicated Yes Treatment Frequency and 2x/week for 8 visits Duration These treatments will address the objective and functional deficits as defined above. The patient will be advanced safely and appropriately in order for the patient to progress towards his/her prior level of function. Additional exercises will be introduced and as well as a comprehensive home exercise program upon discharge, if needed, ?to ensure carryover of functional gains achieved in the clinic. This treatment plan has been reviewed and agreement upon by the patient.
--- NOTE | 2023-10-24 15:16 | OPREHPOC ---
Outpatient Therapy Plan of Care This is a Multidisciplinary Plan of Care that may contain components documented by all disciplines (PT, OT, and ST.) PT Problem 1 PT Problem #1 Knowledge Deficit PT Goal 1 Goal / Goal Update [place] with HEP Target Visit 4 Progress Met PT Problem 2 PT Problem #2 Pain PT Goal 1 Goal / Goal Update Report no pain greater than 3/10 with ambulatory activity Target Visit 14 Progress Partially Met Comment Was improved prior to reinjury PT Problem 3 PT Problem #3 Impaired Range of Motion PT Goal 1 Goal / Goal Update Achieve 10 degrees of R ankle dorsiflexion for improved terminal stance of gait Target Visit 14 Comment Improved but still lacking due to pain PT Goal 2 Goal / Goal Update Improve R ankle inversion to 30 degrees to improve gross functional motion Target Visit 8 Progress Met PT Problem 4 PT Problem #4 Impaired Strength PT Goal 1 Goal / Goal Update Improve gross R ankle strength to 4+/5 to improve stability for proprioceptive activity Target Visit 8 Progress Partially Met Comment Improved. Some pain limitation PT Goal 2 Goal / Goal Update Patient will ambulate with even stride length bilaterally and use of single point cane Target Visit 8 Progress Partially Met Comment Returned to CAM boot this week secondary to pain
--- NOTE | 2023-10-24 15:16 | PTOPPROG ---
Assessment and note entered by Yang Dockery, PT Evaluation Information Assessment Status Discharge Diagnosis Peroneal tendonitis of Right ankle ICD-10 Condition Codes (PT) M25.571 Subjective Information Reports that she had a fall 10/14/23. She returned home on the and started wearing her CAM boot again because her ankle was hurting so bad after the fall. States that she did not feel that she can wear the brace because it maker her feel worse . She was knocked over by her dog which caused the fall. Reports that she did bump her head. Did not seek medical care. She is following up with the foot doctor on 10/26/23. Reports that before the fall she was still hurting a bit but was getting around okay. She is currently concerned that she may have done more damage to the foot. Pain is on bottom of heel and back of ankle. Patient arrived to clinic in CAM boot. Assessment PT Clinical Summary Patient was making excellent overall progress with therapy and was independent of CAM boot for all activity. Upon return from vacations he reported reinjury and increased pain. She is following up with MD this 10/25 to assess. She has made objective improvement even with reinjury but still lacks mild dorsiflexion ROM due to pain. Gross strength improved. We will follow MD recommendation but plan would be to continue therapy to ensure maintained gait independence and full ankle stability following injury. Plan of Care Interventions Gait Training,Hot Pack/Cold Pack,Intermittent Compression,Manual Therapy,Neuro Re-education, Therapeutic Activities,Therapeutic Exercise PT Services Indicated Yes Treatment Frequency and 1=2x/week for 6 visits Duration These treatments will address the objective and functional deficits as defined above. The patient will be advanced safely and appropriately in order for the patient to progress towards his/her prior level of function. Additional exercises will be introduced and as well as a comprehensive home exercise program upon discharge, if needed, ?to ensure carryover of functional gains achieved in the clinic. This treatment plan has been reviewed and agreement upon by the patient.
--- NOTE | 2023-10-26 14:26 | PCPTNOTE ---
Patient called to cancel appointment and future appointments due to new weight bearing status.
--- NOTE | 2023-10-26 14:26 | PCPTNOTE ---
Pt to be placed on therapy hold at this time. Her orthopedic doctor does not want her completing therapy while in a boot. She will follow up with the clinic 11/23/23 after doctor. Also has order for back, agreed to wait to address this until she is wrapped up with her ankle.
--- NOTE | 2023-12-12 09:20 | PTOPDC ---
Assessment and note entered by Zurdo Gonzalez, PT, DPT Evaluation Information Assessment Status Discharge - Pt Not Present Diagnosis Peroneal tendonitis of Right ankle ICD-10 Condition Codes (PT) M25.571 Subjective Information Called and spoke with pt, she states she had ankle surgery last week and will be in a cast for 4-8 weeks and then a boot for an additional 4 weeks. She is unable to start therapy until she if out of her boot. Will need a new order when she is able to start therapy. Assessment PT Clinical Summary Pt will be d/c'ed at this time d/t a change in medical status warranting a new evaluation.
== END 2023-12-12 13:36 | disposition home or self-care (01) ==
LOC: ANHGOSHPT 14:30
PROVIDERS: PCP Family Medicine
DX: M25.571 Pain in right ankle and joints of right foot (principal); M76.71 Peroneal tendinitis, right leg
CPT/HCPCS: 97110; 97140; 97161; 97530

== ENCOUNTER 2024-03-19 12:26 | Emergency (ER) | payer MEDICARE, OTHER, SELFPAY ==
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
[2024-03-19 12:37] VITALS: BP 119/79; PULSE 64; RESP 16; TEMP 36.3; O2SAT 94
== END 2024-03-19 13:06 | disposition home or self-care (01) ==
PROVIDERS: Emergency Provider Nurse Practitioner Family; PCP Nurse Practitioner Family
DX: L98.499 Non-pressure chronic ulcer of skin of other sites with unspecified severity (principal); L08.9 Local infection of the skin and subcutaneous tissue, unspecified; E78.5 Hyperlipidemia, unspecified; E03.9 Hypothyroidism, unspecified; N18.9 Chronic kidney disease, unspecified
CPT/HCPCS: 99213; G0463

== ENCOUNTER 2024-06-07 09:05 | Outpatient (CLI) | payer MEDICARE, OTHER, SELFPAY ==
--- OUTSIDE RECORDS SUMMARY | 2024-06-07 09:11 | XMS_ITS | Referral Summary ---
Author Organization [facility] Address [address] [place] [address] Care Team Providers Care Natural Science Curator Name Role Phone Yvan Best MD Primary Care Provider [phone] Allergies Active Allergy Reactions Criticality Noted Date Comments Adhesive Rash Medium 12/16/2021 Aloe-Lact Ac-Ceramide 3,3b,6,1 Rash Medium 12/16 Celecoxib Hives Medium 12/16/2021 Esomeprazole Fatigue Low 12/16/2021 Penicillins Unknown 12/16/2021 Medications atogepant 60 mg tablet Take 1 tablet by mouth daily Active diazePAM (VALIUM) 5 mg tablet Take 1 tablet (5 mg total) by mouth Take prior to botox injections. 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 Active cycloSPORINE (RESTASIS) 0.05 % ophthalmic emulsion 1 drop 2 (two) times a day Active docusate sodium (COLACE) 100 mg capsuleIndicati ons:constipatio n Take 1 capsule (100 mg total) by mouth nightly Active vitamins A,C,E-zinc-ebony er 7,160-113-100 aiun-pm-nsdy tablet,delayed release (DR/EC) Take by mouth 2 (two) times a day Active joxzs-0-xbi-epa -dpa-fish oil 1,050-1,200 mg capsule 1 capsule 4 (four) times a day Active potassium citrate ER (UROCIT-K) 10 mEq (1,080 mg) CR tablet Take 1 tablet (10 mEq total) by mouth 3 (three) times a day Active cyanocobalamin (Vitamin B-12) 1,000 mcg/mL injection Inject into the muscle as instructed every 30 (thirty) days 3 Active hyoscyamine ER (LEVBID) 0.375 mg 12 hr tablet TAKE 1 TABLET (0.375 MG) ORALLY EVERY 12 HOU[address] (CYMBALTA) 60 mg capsule Take 1 capsule (60 mg total) by mouth daily 3 Active colestipoL (COLESTID) 1 gram tablet Take 1 tablet (1 g total) by mouth 2 (two) times a day Active polycarbophil (FIBERCON) 625 mg tablet Take 1 tablet (625 mg total) by mouth 2 (two) times a day Active traMADoL (ULTRAM) 50 mg tablet Take 1 tablet (50 mg total) by mouth every 6 (six) hours as needed for pain Active hydrALAZINE (APRESOLINE) 25 mg tablet Take 1 tablet (25 mg total) by mouth 3 (three) times a day Take 1 tab when BP is over 160 Active psyllium (METAMUCIL) powder Take 1 packet by mouth 3 (three) times a day Active carvediloL (COREG) 6.25 mg tablet Take 1 tablet (6.25 mg total) by mouth 2 (two) times a day with meals Active gabapentin (NEURONTIN) 300 mg capsule Take 1 capsule (300 mg total) by mouth 3 (three) times a day Active tiZANidine (ZANAFLEX) 4 mg tablet Take 1 tablet (4 mg total) by mouth every 6 (six) hours as needed for muscle spasms Active Active Problems Problem Noted Date Diagnosed Date Orthostatic dizziness 10/11/2022 Dysphagia 07/06/2022 Social History Tobacco Use Types Packs/Day Years Used Date Smoking Tobacco: Never AUDIT-C Answer Date Recorded Q1: How often do you have a drink containing alc ohol? Monthly or less 12/20/2023 Average Number of Drinks Not on file 024 Frequency of Binge Drinking Not on file 12/04 Personal Safety Answer Date Recorded Have you ever been in or are you currently in a harmful physical or emotional relationship or is someone making you feel afraid or unsafe? 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 Gender Identity Not on file Sexual Orientation Not on file Last Filed Vital Signs Vital Sign Reading Time Taken Comments Blood Pressure 93/59 12/20/2023 1:47 PM CDT Pulse 69 12/20/2023 1:47 PM CDT Temperature 36.4 C (97.6 F) 12/20/2023 1:47 PM CDT Respiratory Rate 16 10/19/2022 9:15 AM CDT Oxygen Saturation 100% 10/19/2022 9:15 AM CDT Inhaled Oxygen Concentration - - Weight 61.2 kg (135 lb) 12/20/2023 1:47 PM CDT Height 152.4 cm (5') 12/20/2023 1:47 PM CDT Body Mass Index 26.37 12/20/2023 1:47 PM CDT Plan of Treatment Not on file Insurance MEDICARE [employer] MEDICARE [facility] MEDICARE [facility] Advance Directives For more information, please contact: [phone] * Full Code (Latest Code Status on File) Date Activated Date Inactivated Comments 09/08/2022 9:23 AM 09/08/2022 3:46 PM * Full Code Date Activated Date Inactivated Comments 03/30/2022 7:13 AM 03/30/2022 1:38 PM Care Teams Natural Science Curator Relationship Specialty Start Date End Date Yvan Best MD PCP - General Family Medicine 12/29/21
--- OUTSIDE RECORDS SUMMARY | 2024-06-07 09:11 | XMS_ITS | Clinical Summary ---
Author Organization [facility] Address [address] [place] [address] Care Team Providers Care Real Estate Broker Associate Name Role Phone Benedict Decker MD Unavailable [phone] Kellie Vernon Primary Care Provider Source Comments [facility],non-owned Affiliates and Associated Physician Practices is amultiple site organization consisting of ambulatory clinics and hospital sitesin [place], [place], [place] and [place]. This disclosure is being madepursuant to the Care Everywhere program and may not contain all information available regarding this patient. Last updated 17.[facility] Allergies Active Allergy Reactions Criticality Noted Date Comments Acetaminophen GI Discomfort Medium 11/17/2023 No vomiting just sick to my stomach Adhesive Sensitivity Rash Medium 08/26/2021 Aloe Itching Medium 10/23/2023 Sulfamethoxazole W-Trimethoprim Other 04/01/2024 Itching to cheeks/neck, redness to skin Celecoxib Rash High 08/26/2021 Ciprofloxacin Rash Medium 08/26/2021 Ibuprofen GI Discomfort Medium 11/17/2023 Latex Rash High 10/23/2023 Esomeprazole Myalgias High 08/26/2021 Penicillins Other Medium 08/26/2021 inablity to walk Medications * Be aware that medications may not be up to date on this document. Alwaysverify current medications with the patient. Medication Sig Dispensed Refills Start Date End Date Status Atogepant (Qulipta) 60 MG TABSIndications:Mi graine Reasons: Migraine Headache 03/16/2023 Active colestipol (Colestid) 1 GM tablet 04/10/2023 Active cyanocobalamin (Vitamin B-12) injection 05/09/2022 Active cycloSPORINE (Restasis) 0.05 % ophthalmic suspension 1 (one) drop 2 times daily Active diphenoxylate-atro pine (Lomotil) 2.5-0.025 MG tablet Take 1 (one) tablet by mouth 3 times daily as needed Active DULoxetine (Cymbalta) 60 MG capsule 03/28/2023 Active fludrocortisone (Florinef) 0.1 MG tablet 01/13/2023 Active levothyroxine (Synthroid) 75 MCG tablet 02/01/2023 Active onabotulinumtoxin A (Botox) 100 units injection Every 90 days Active potassium citrate (Urocit K 10) 10 MEQ (1080 MG) tablet 03/02/2023 Active traZODone (Desyrel) 50 MG tablet PLEASE SEE ATTACHED FOR DETAILED DIRECTIONS 09/02/2022 Active BD SafetyGlide Shielded Needle 25G X 1 MISC 11/13/2022 Active traMADol (Ultram) 50 MG tablet 09/18/2023 Active carvedilol (Coreg) 12.5 MG tablet Take 1 (one) tablet by mouth 2 times daily with morning and evening meal 10/23/2023 Active gabapentin (Neurontin) 300 MG capsuleIndications :Other migraine without status migrainosus, not intractable Take 1 (one) capsule by mouth 3 times daily 90 capsule 12/13/2023 Active fish oil/omega-3 fatty acids (Promega;Cardi-Ome ga 3) 1111.1111 mg/ml syringe Take 0.45 mL by mouth 4 times daily Active diazePAM (Valium) 5 MG tablet Take 1 (one) tablet by mouth every 6 hours as needed Active Calcium Polycarbophil (Fiber) 625 MG Take 1 (one) tablet by mouth 2 times daily Active mupirocin calcium (Bactroban) 2 % cream Apply to affected area 3 times daily 15 g 03/21/2024 Active mupirocin (Bactroban) 2 % ointment Apply to affected area 2 times daily 03/19/2024 Active valACYclovir (Valtrex) 1 GM tabletIndications: Scalp lesion Take 1 (one) tablet by mouth 3 times daily 21 tablet 03/27/2024 Active mupirocin (Bactroban) 2 % ointmentIndication s:Scalp lesion Apply to affected area 3 times daily 22 g 04/05/2024 Active clobetasol (Temovate) 0.05 % ointmentIndication s:Rash and other nonspecific skin eruption Apply to rash on the forehead and scalp twice daily as needed. Use for a maximum for 1 week then take a 3-4 day break before resuming. 60 g 1 04/10/2024 Active doxycycline hyclate 100 MG tabletIndications: Rash and other nonspecific skin eruption TAKE 1 (ONE) TABLET BY MOUTH 2 TIMES DAILY FOR 21 DAYS FOR ACNE 42 tablet 05/22/2024 Active doxycycline hyclate 100 MG tabletIndications: Acne Vulgaris TAKE 1 (ONE) TABLET BY MOUTH 2 TIMES DAILY FOR 21 DAYS REASONS: COMMON ACNE 42 tablet 04/30/2024 05/23/19 Discontinued Active Problems Problem Noted Date Diagnosed Date Lumbar spondylosis 05/28/2024 GERD without esophagitis 05/28/2024 Depression, major, in remission 05/28/2024 Chronic pain disorder 05/28/2024 Intractable chronic migraine with aura and without status migrainosus 11/17/2023 Secondary osteoarthritis, right hand 09/14/2023 Irritable bowel syndrome with diarrhea Hyperlipidemia 09/08/2023 Esophageal dysmotility 09/08/2023 Chronic kidney disease 09/08/2023 Anxiety 09/08/2023 Acquired hypothyroidism 09/08/2023 Ptosis of both eyelids 08/26/2023 Encounters Date Type Department Care Team Description 06/05/2024 1:45 PM CDT Office Visit [facility] - Plastic Surgery [address] [address] Juan Samson MD Impetigo (Primary Dx) 06/05/2024 Travel 05/28/2024 9:00 AM CDT Office Visit [facility] - Infectious Disease [address] [place] [phone] Ricky Sherman MD Rash (Primary Dx) 05/28/2024 Travel 05/21/2024 Refill [facility] - Dermatology [address] [place] [phone] Derrell Ovalle MD Refill Request 05/07/2024 Orders Only [facility] - [facility]astic Surgery [address] [place] [address], [place] [address] Juan Samson MD Scalp lesion 05/03/2024 Telephone [facility] Dermatology [address] , [facility] [address] [place] [phone] Derrell Ovalle MD 04/28/2024 Refill [facility] - Dermatology [address] [place] [address], [place] [address] Derrell Ovalle MD Refill Request 04/10/2024 8:20 AM RESIDENTIAL COLLECTIONS [facility] [address] [place] [address], [place] [address] Derrell Ovalle MD Rash and other nonspecific skin eruption (Primary Dx); Scalp lesion 04/10/2024 Travel 04/05/2024 Orders Only [facility] - Plastic Surgery [address] [place] [address], [place] [address] Juan Samson MD Scalp lesion 04/01/2024 Orders Only [facility] - Plastic Surgery [address] [place] [address], [place] [address] Juan Samson MD Scalp lesion 03/27/2024 1:15 PM RESIDENTIAL COLLECTIONS [facility] [address] [facility] [address] [place] [address] Juan Samson MD Impetigo (Primary Dx) 03/27/2024 Orders Only [facility]astic Surgery [address] [place] [address], [place] [address] Juan Samson MD Scalp lesion 03/27/2024 Orders Only [facility] - [facility]astic Surgery [address] [place] [address], [place] [address] Juan Samson MD Scalp lesion 03/27/2024 Travel 03/21/2024 12:20 PM RESIDENTIAL COLLECTIONS Clinical Support [facility] - Ophthalmology [address] [place] [address] Abena Cary, PUBLIC HEALTH DIETITIAN-SUPERVISOR AREA Ptosis, left (Primary Dx) 03/21/2024 11:00 AM RESIDENTIAL COLLECTIONS Office Visit [facility] - Ophthalmology [address] [place] [address] Abena Cary, PUBLIC HEALTH DIETITIAN-SUPERVISOR AREA Ptosis, left (Primary Dx) 03/21/2024 Orders Only [facility] [address] [place] [address] Candice Rocha MD 03/21/2024 Travel from Last 3 Months Immunizations Name Administration Dates Next Due INFLUENZA VACCINE, QUADR. (F LUZONE; FLULAVAL; FLUARIX; AFLURIA QUADRIVALENT; 6MO+), 0.5 ML (IIV4) 12/13/2018 PNEUMOCOCCAL PPSV23 02/09/2019 Social History Tobacco Use Types Packs/Day Years Used Date Smoking Tobacco: Never Smokeless Tobacco: Never Tobacco Cessation:Counseling Given: Not Answered Alcohol Use Standard Drinks/Week Comments Yes 0 (1 standard drink = 0.6 oz pur e alcohol) very rare PHQ-2 Answer Date Recorded Patient Health Questionnaire-2 Score 2 05/28/2024 Sex and Gender Information Value Date Recorded Sex Assigned at Not on file Gender Identity Not on file Sexual Orientation Not on file Last Filed Vital Signs Vital Sign Reading Time Taken Comments Blood Pressure 154/73 06/05/2024 2:18 PM CDT Pulse 65 06/05/2024 2:18 PM CDT Temperature 36.2 C (97.2 F) 06/05/2024 2:18 PM CDT Respiratory Rate 16 06/05/2024 2:18 PM CDT Oxygen Saturation 92% 06/05/2024 2:18 PM CDT Inhaled Oxygen Concentration - - Weight 59 kg (130 lb) 06/05/2024 2:18 PM CDT Height 154.9 cm (5' 1 ) 06/05/2024 2:18 PM CDT Body Mass Index 24.56 06/05/2024 2:18 PM CDT Plan of Treatment Upcoming Encounters Date Type Department Care Team (Late st Contact Info) Description 06/12/2024 11:00 AM CDT Office Visit [facility] - Dermatology [address] [facility] [place] [address] Derrell Ovalle MD [facility] [facility] [address] [place] [phone] 06/26/2024 1:00 PM CDT Office Visit [facility] - Plastic Surgery [address] [facility] [address] [place] [address] Juan Samson MD [address] [place] [address] 09/04/2024 1:30 PM CDT Office Visit [facility] - Plastic Surgery [address] [facility] [address] [place] [address] Juan Samson MD [address] [place] [address] Health Maintenance Due Date Last Done Comments COLOGUARD (AGES 45-75) - COL ON CA SCREENING [address] COLONOGRAPHY - COLON CA SCREENING 1955 FIT - COLON CA SCREENING 1955 FLEX SIG - COLON CA SCREENING 1955 LIPID TESTING 1955 MAMMOGRAM 1955 MEDICARE AWV 12 MONTHS 1953 HEPATITIS C SCREENING 01/11/1971 DTAP/TDAP/TD VACCINES (1 - Tdap) 01/16/1972 ZOSTER VACCINE (1 of 2) 2003 Respiratory Syncytial Virus (RSV) Vaccine Pt: or over 60 yrs (1 - Risk 60-74 years 1-dose series) 2013 PNEUMOCOCCAL VACCINE 50+ (2 of 2 - PCV) 02/10/2020 02/09/2019 COVID-19 VACCINE ( - 2023-2 5 season) 2023 INFLUENZA VACCINE (Season Ended) 2024 12/14/19 COLONOSCOPY - COLON CA SCREENING 12/05/2028 12/06/19 Colorectal Cancer Screening 12/05/2028 BONE DENSITY TESTING Completed 05/31/2021 DEPRESSION SCREENING Completed 05/28/2024 HEPATITIS B VACCINE Aged Out No longe r eligible based on patient's age to complete this topic HIB VACCINE Aged Out No longer eligi ble based on patient's age to complete this topic HPV VACCINE Aged Out No longer eligi ble based on patient's age to complete this topic MENINGOCOCCAL (Group B) VACC INE SHARED DECISION-MAKING Aged Out No longer eligibl e based on patient's age to complete this topic MENINGOCOCCAL GROUPS A/C/Y/W VACCINE Aged Out No longer eligible b ased on patient's age to complete this topic Medical Devices Implanted Type Area Pharmacy Manager Device Identifier Shelf Expiration Date Model / Serial / Lot Ultratine Forehead 3.5 Bioabsorbable Implant Implanted:Qty: 2 on 11/17/2023 by Juan Samson MD at [facility] Forehead [employer] 07/03/2025 [id number] / / [id number] Procedures Procedure Name Priority Date/Time Associated Diagnosis Comments MILLAN AUTO VISUAL FIELD EXTENDED Routine 03/21/2024 12:17 PM RESIDENTIAL COLLECTIONS Ptosis, left from Last 3 Months Results * MILLAN AUTO VISUAL FIELD EXTENDED (03/21/2024 12:17 PM RESIDENTIAL COLLECTIONS) Anatomical Region Laterality Modality Head External-Camera Photography Narrative 04/01/2024 2:05 PM RESIDENTIAL COLLECTIONS Images from the original result were not included. Millan visual field Reversible superior visual field deficit Left: 26 degrees to 38 degrees Abena Cary PUBLIC HEALTH DIETITIAN-SUPERVISOR AREA OPHTHALMOLOGY S CHED ORD W PACS from Last 3 Months Advance Directives * Full Code (Latest Code Status on File) Date Activated Date Inactivated Comments 11/17/2023 3:46 PM 11/18/2023 4:34 PM Care Teams Real Estate Broker Associate Relationship Specialty Start Date End Date Kellie Vernon PCP - General 03/01/24 Benedict Decker MD [facility] [address] [place] [address] Nephrology 11/04/21
--- OUTSIDE RECORDS SUMMARY | 2024-06-07 09:11 | XMS_ITS | Encounter Summary ---
Author Organization [facility] Address [address] [place] [address] Care Team Providers Care Flight/Transport Nurse Name Role Phone Ronal Adhikari DO Unavailable None, Provider Primary Care Provider Unavaila ble Encounter Details Date Type Department Care Team (Late st Contact Info) Description 12/08/2023 Prep for Procedure [facility] Pre-[place] [address] Rolf Prather, DPM [address] [address] Social History Tobacco Use Types Packs/Day Years Used Date Smoking Tobacco: Never Smokeless Tobacco: Never Alcohol Use Standard Drinks/Week Comments Not Currently 0 (1 standard drink = 0.6 oz pur e alcohol) a rare glass of wine Comments No Sex and Gender Information Value Date Recorded Sex Assigned at Not on file Legal Sex Female 2:51 PM CDT Gender Identity Not on file Sexual Orientation Not on file documented as of this encounter Plan of Treatment Not on file documented as of this encounter Results * (ABNORMAL) BASIC METABOLIC PANEL (12/08/2023 7:40 AM CDT) GLUCOSE 101(H) 70 - 99 MG/DL 12/08/2023 8:12 AM CDT [facility] BUN 18 7 - 18 MG/DL 12/08/2023 8:12 AM CDT [facility] CREATININE S/P/B 1.51(H) 0.55 - 1.02 MG/DL 12/08/2023 8:12 AM CDT [facility] SODIUM S/P/B 133(L) 136 - 145 MMOL/L 12/08/2023 8:12 AM CDT [facility] POTASSIUM S/P/B 4.2 3.5 - 5.1 MMOL/L 12/08/2023 8:12 AM CDT [facility] CHLORIDE S/P/B 99 97 - 115 MMOL/L 12/08/2023 8:12 AM CDT [facility] CO2 28.9 21 - 32 MMOL/L 12/08/2023 8:12 AM T [facility] CALCIUM S/P/B 9.6 8.5 - 10.1 MG/DL 12/08/2023 8:12 AM T [facility] ANION GAP 5.1 2 - 10 MMOL/L 12/08/2023 8:12 AM T [facility] BUN CREATININE RATIO 11.9 6 - 26 12/08/2023 8:12 AM T [facility] GFR ESTIMATE 37(L) >90 ML/MIN/1.7 3 M2 12/08/2023 8:12 AM T [facility] Comment: NOTE: eGFR is not calculated for patients <18 years of age or gender unknown. This is an estimated GFR calculation using the new CKD EPI creatinine equation without race and so does not require a correction factor for race. This estimated GFR should not be used for calculating drug doses. 12/08/2023 7:40 AM CDT Hillary Escudero ASSISTANT CUSTOMER SERVICE MANAGER LABORATORY Final R esult [facility] [address] [place] [address], documented in this encounter Visit Diagnoses Diagnosis Preoperative testing- Primary Preoperative examination, unspecified documented in this encounter Care Teams Flight/Transport Nurse Relationship Specialty Start Date End Date None, Provider, PCP - General UNKNOWN PHYSICIAN SPECIALTY 12/08/23 Ronal Adhikari DO [address] [place] [address] INTERNAL MEDICINE 11/30/23 documented as of this encounter
--- OUTSIDE RECORDS SUMMARY | 2024-06-07 09:11 | XMS_ITS | Clinical Summary ---
Author Organization [facility] Address [address] [place] [address] Care Team Providers Care English Professor Name Role Phone Yvan Best MD Primary Care Provider [phone] Allergies Active Allergy Reactions Criticality Noted Date [...] 1 tablet (75 mcg total) by mouth swimming coach before breakfast Active cycloSPORINE (RESTASIS) 0.05 % ophthalmic emulsion 1 drop 2 (two) times a day Active docusate sodium (COLACE) 100 mg capsuleIndicati ons:constipatio n Take 1 capsule (100 mg total) by mouth nightly Active vitamins A,C,E-zinc-ebony er 7,160-113-100 ymuq-nw-qgty tablet,delayed release (DR/EC) Take by mouth 2 (two) times a day Active cglcz-6-brp-epa -dpa-fish oil 1,050-1,200 mg capsule 1 capsule [...] Diagnosed Date Orthostatic dizziness 10/11/2022 Dysphagia 07/06/2022 Surgical History Surgery Date Site/Laterality Comments CHOLECYSTECTOMY APPENDECTOMY MURPHY FUNDOPLICATION HYSTERECTOMY N/A OTHER SURGICAL HISTORY 03/15/2022 Right eyelid lift ESOPHAGEAL DILATION Medical History Medical History Date Comments Kidney stones Chronic diarrhea Hypothyroidism Depression Migraine CKD (chronic kidney disease) Family History Medical History Relation Name Comments solitary kidney Brother Heart disease Father Stomach cancer Maternal Grandmother Cancer Sister Relation Name Status Comments Brother Father Maternal Grandmother Sister Social History Tobacco Use Types Packs/Day Years [...] on file Legal Sex 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 Gender Identity Not on file Sexual Orientation Not on file Obstetrics History Last Filed Vital Signs Vital Sign Reading [...] 12/20/2023 1:47 PM CDT Plan of Treatment Health Maintenance Due Date Last Done Comments Breast Cancer Screening-Mammogram 1955 Colon Cancer Screening-Colonoscopy 1955 Depression Screening 1955 Hepatitis C Screening 1955 DTaP/Tdap/Td Vaccine (1 - Tdap) 01/16/1964 Hepatitis B Screening 1971 Pneumococcal vaccine 65+ (1 of 1 - PCV) 2003 Well Visit 65+ 2018 Zoster Vaccine (2 of 2) 03/04/2022 01/07/2022 Osteoporosis Screening-Bone Density Scan 06/01/2023 05/31/2021, 05/31/2021 Fall Risk Assessment 09/09/2023 09/08/2022 Influenza Vaccine (Season Ended) 2024 01/07/20 22, 01/05/2010 Insurance MEDICARE [facility] Address: [address] [phone] FOR LIFE MEDICARE [facility] Address: [address] [place] [phone] FOR LIFE MEDICARE [facility] Advance Directives For more information, please contact: [phone] * Full Code (Latest Code Status on File) Date Activated Date Inactivated Comments 09/08/2022 9:23 AM 09/08/2022 3:46 PM * Full Code Date Activated Date Inactivated Comments 03/30/2022 7:13 AM 03/30/2022 1:38 PM Care Teams English Professor Relationship Specialty Start Date End Date Yvan Best MD PCP - General Family Medicine 12/29/21
--- OUTSIDE RECORDS SUMMARY | 2024-06-07 09:12 | XMS_ITS | Patient Health Record ---
Author Organization [facility] Address [address] [place], [place] [id number] Care Team Providers Care Edi Consultant Name Role Phone LATA QURESHI Unavailable [phone] Yvan Best Unavailable Unavailable Allergies Allergen (clinical drug ingredient) Drug/Non Drug Allergy documented on EMR Reaction Allergy Type Onset Date Status celecoxib CeleBREX Unknown Drug Allergy Active esomeprazole NexIUM Unknown Drug Allergy Acti ve Penicillin Unknown Drug Allergy Active Results Component Value Reference Range Notes MRI : Ankle, Right Without C ontrast Reviewed date:08/28/2023 03:14:29 PM Interpretation:SEE MRI REPORT Performing Lab: Notes/Report: SEE MRI REPORT Reason For Referral No Information Medications Medication SIG (Take, Route, Frequency, Duration) Notes Start Date End Date Status Medrol 4 MG as directed Orally Active Social History Tobacco Use: Social History Observation Description Date Details (start date - stop date) Never Smoker NA - NA Tobacco Use/Smoking Question Answer Notes Tobacco use: nonsmoker Vital Signs Height-cm 152.4 cm 03/21/2024 Weight-kg 63.5 kg 03/21/2024 Height 60 in 03/21/2024 Weight 140 lbs 03/21/2024 BMI 27.34 kg/m2 03/21/2024 Procedures Procedure Date Ordered Date Performed Result Body Sit e PHYSICAL THERAPY 08/31/2023 09/15/2023 SEE PHYSICAL THERAP Y REPORT PHYSICAL THERAPY 01/11/2024 02/06/2024 SEE PHYSICAL THERAP Y REPORT Encounters Encounter Location Date Provider Diagnosis [address] [id number] 12/08/2023 LATA QURESHI [facility] [place] [address] [address] [place] [address] [id number] 06/30/2023 LATA JANBURG Achilles tendinitis of right lower extremity M76.61 ; 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 ; Unspecified fracture of right calcaneus, initial encounter for closed fracture S92.001A and Pain in right foot M79.671 [facility] [place] [address] [address] [place] [id number] 07/28/2023 LATA JANBURG Achilles tendinitis of right lower extremity M76.61 ; Unspecified fracture of right calcaneus, subsequent encounter for fracture with routine healing S92.001D ; 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 and Pain in right foot M79.671 [facility] [place] [address] [address] [place] [address] [id number] 08/17/2023 LATA KIERA Achilles tendinitis of right lower extremity M76.61 ; Unspecified fracture of right calcaneus, subsequent encounter for fracture with routine healing S92.001D ; 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 and Pain in right foot M79.671 [facility] [place] [address] [address] [place] [address] [id number] 08/31/2023 LATA KIERA Achilles tendinitis of right lower extremity M76.61 ; Unspecified fracture of right calcaneus, subsequent encounter for fracture with routine healing S92.001D ; 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 and Pain in right foot M79.671 [facility] [place] [address] [address] [place] [address] [id number] 10/26/2023 LATA KIERA Achilles tendinitis of right lower extremity M76.61 ; Unspecified fracture of right calcaneus, subsequent encounter for fracture with routine healing S92.001D ; 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 and Pain in right foot M79.671 [facility] [address] [id number] 11/03/2023 LATAJUAN QURESHI Tarsal tunnel syndrome, right lower limb G57.51 ; Achilles tendinitis of right lower extremity M76.61 ; Unspecified fracture of right calcaneus, subsequent encounter for fracture with routine healing S92.001D ; 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 and Pain in right foot M79.671 [facility] [place] [address] [place] [address] [id number] 11/23/2023 LATA QURESHI Tarsal tunnel syndrome, right lower limb G57.51 ; Achilles tendinitis of right lower extremity M76.61 ; Unspecified fracture of right calcaneus, subsequent encounter for fracture with routine healing S92.001D ; 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 and Pain in right foot M79.671 [facility] [place] [facility] [address] [place] [id number] 12/21/2023 LATA KIERA Peroneal tendinitis of right lower extremity M76.71 and Encounter for other specified surgical aftercare Z48.89 [facility] [address] [facility] [address] [place], [place] [id number] 01/02/2024 LATA KIERA Peroneal tendinitis of right lower extremity M76.71 and Encounter for other specified surgical aftercare Z48.89 [facility] [place] [facility] [address] [place] [address] [id number] 01/11/2024 LATA KIERA Peroneal tendinitis of right lower extremity M76.71 and Encounter for other specified surgical aftercare Z48.89 [facility] [place] [address] [place] [address] [id number] 01/25/2024 LATA KIERA Peroneal tendinitis of right lower extremity M76.71 ; Encounter for other specified surgical aftercare Z48.89 ; Achilles tendinitis, right leg M76.61 ; Achilles tendinitis, left leg M76.62 ; Pain in right foot M79.671 and Left foot pain M79.672 [facility] [place] [address] [place] [address] [id number] 02/22/2024 LATA KIERA Peroneal tendinitis of right lower extremity M76.71 ; Encounter for other specified surgical aftercare Z48.89 ; Achilles tendinitis, right leg M76.61 ; Achilles tendinitis, left leg M76.62 ; Pain in right foot M79.671 and Left foot pain M79.672 [facility] [place] [address] [id number] 03/21/2024 LATA QURESHI Peroneal tendinitis of right lower extremity M76.71 ; Encounter for other specified surgical aftercare Z48.89 ; Achilles tendinitis, right leg M76.61 ; Achilles tendinitis, left leg M76.62 ; Pain in right foot M79.671 and Left foot pain M79.672 [facility] [place] [address] [id number] 08/28/2023 LATA QURESHI [facility] [address] [id number] 08/31/2023 LATA QURESHI [facility] [address] [id number] 11/27/2023 LATA QURESHI [facility] [place] [address] [id number] 01/01/2024 LATA QURESHI [facility] [place] [address] [id number] 01/23/2024 LATA QURESHI [facility] [address] [id number] 02/07/2024 LATA QURESHI Assessments Encounter Date Diagnosis (ICD Code) Assessment Notes Treatment Notes Treatment Clinical Notes Section Notes 06/30/2023 Other acquired deformities of right foot (ICD-10 - M21.6X1) 06/30/2023 Achilles tendinitis of right lower extremity (ICD-10 - M76.61) 07/28/2023 Unspecified fracture of right calcaneus, subsequent encounter for fracture with routine healing (ICD-10 - S92.001D) 07/28/2023 Achilles tendinitis of right lower extremity (ICD-10 - M76.61) 08/17/2023 Achilles tendinitis of right lower extremity (ICD-10 - M76.61) 08/31/2023 Achilles tendinitis of right lower extremity (ICD-10 - M76.61) 10/26/2023 Achilles tendinitis of right lower extremity (ICD-10 - M76.61) 11/03/2023 Tarsal tunnel syndrome, right lower limb (ICD-10 - G57.51) 11/23/2023 Tarsal tunnel syndrome, right lower limb (ICD-10 - G57.51) 12/21/2023 Encounter for other specified surgical aftercare (ICD-10 - Z48.89) 12/21/2023 Peroneal tendinitis of right lower extremity (ICD-10 - M76.71) 01/11/2024 Peroneal tendinitis of right lower extremity (ICD-10 - M76.71) She has a cam walker at home that she will start wearing. It was emphasized that she cannot put any weight on the foot without the boot Refer to PT 01/02/2024 Peroneal tendinitis of right lower extremity (ICD-10 - M76.71) 01/25/2024 Encounter for other specified surgical aftercare (ICD-10 - Z48.89) 01/25/2024 Peroneal tendinitis of right lower extremity (ICD-10 - M76.71) 02/22/2024 Peroneal tendinitis of right lower extremity (ICD-10 - M76.71) 03/21/2024 Peroneal tendinitis of right lower extremity (ICD-10 - M76.71) 02/22/2024 Encounter for other specified surgical aftercare (ICD-10 - Z48.89) 03/21/2024 Encounter for other specified surgical aftercare (ICD-10 - Z48.89) 01/11/2024 Encounter for other specified surgical aftercare (ICD-10 - Z48.89) 01/25/2024 Achilles tendinitis, right leg (ICD-10 - M76.61) Reading heel lifts were dispensed 01/02/2024 Encounter for other specified surgical aftercare (ICD-10 - Z48.89) 11/23/2023 Achilles tendinitis of right lower extremity (ICD-10 - M76.61) 11/03/2023 Unspecified fracture of right calcaneus, subsequent encounter for fracture with routine healing (ICD-10 - S92.001D) Following skin prep, a total of 3 ccs of a 1-1-1 mix of 0.5% marcaine plain, Kenalog, and dexamethasone sodium phosphate was injected into the patients right tarsal tunnel. 11/03/2023 Achilles tendinitis of right lower extremity (ICD-10 - M76.61) 08/31/2023 Unspecified fracture of right calcaneus, subsequent encounter for fracture with routine healing (ICD-10 - S92.001D) 10/26/2023 Unspecified fracture of right calcaneus, subsequent encounter for fracture with routine healing (ICD-10 - S92.001D) 06/30/2023 Unspecified fracture of right calcaneus, initial encounter for closed fracture (ICD-10 - S92.001A) 08/17/2023 Unspecified fracture of right calcaneus, subsequent encounter for fracture with routine healing (ICD-10 - S92.001D) 07/28/2023 Other acquired deformities of right foot (ICD-10 - M21.6X1) 07/28/2023 Pain in right foot (ICD-10 - M79.671) 06/30/2023 Pain in right foot (ICD-10 - M79.671) 08/17/2023 Other acquired deformities of right foot (ICD-10 - M21.6X1) 08/31/2023 Other acquired deformities of right foot (ICD-10 - M21.6X1) 10/26/2023 Other acquired deformities of right foot (ICD-10 - M21.6X1) 11/03/2023 Other acquired deformities of right foot (ICD-10 - M21.6X1) 11/23/2023 Unspecified fracture of right calcaneus, subsequent encounter for fracture with routine healing (ICD-10 - S92.001D) 01/25/2024 Achilles tendinitis, left leg (ICD-10 - M76.62) 02/22/2024 Achilles tendinitis, right leg (ICD-10 - M76.61) Reading heel lifts were dispensed 03/21/2024 Achilles tendinitis, right leg (ICD-10 - M76.61) Surgical correction was discussed. The patient opted not to proceed at this time. 03/21/2024 Achilles tendinitis, left leg (ICD-10 - M76.62) 02/22/2024 Achilles tendinitis, left leg (ICD-10 - M76.62) 01/25/2024 Pain in right foot (ICD-10 - M79.671) 11/03/2023 Pain in right foot (ICD-10 - M79.671) 11/23/2023 Other acquired deformities of right foot (ICD-10 - M21.6X1) 10/26/2023 Pain in right foot (ICD-10 - M79.671) 08/31/2023 Pain in right foot (ICD-10 - M79.671) 08/17/2023 Pain in right foot (ICD-10 - M79.671) 11/23/2023 Pain in right foot (ICD-10 - M79.671) A trilok ankle brace was dispensed for the pateint's right and the patient was instructed on it's use. 02/22/2024 Pain in right foot (ICD-10 - M79.671) 01/25/2024 Left foot pain (ICD-10 - M79.672) 03/21/2024 Pain in right foot (ICD-10 - M79.671) 03/21/2024 Left foot pain (ICD-10 - M79.672) 02/22/2024 Left foot pain (ICD-10 - M79.672) 06/30/2023 Other Continue with c am walker for another month 07/28/2023 Other Continue with cam walker for another month If not improved will consider MRI 08/17/2023 Other Discontinue: Patient was advised to discontinue wearing the cam walker. MRI of the right ankle ordered 08/31/2023 Other Discussed tx options. She is unable to have surgery now so we will try PT and a trilok brace. May consider surgery in late october. 10/26/2023 Other She is having rastafarian surgery in 2 weeks so we will immobilize for 1 month and then revisit surgical correction of the tendon Dispense: A cam walker was fitted and dispensed. The patient was instructed in its use. 11/23/2023 Other We discussed ngoc th conservative and surgical treatment options. We discussed the intra-operative and post-operative treatment course. We discussed the risks and complications including, but not limited to: pain, infection, swelling, numbness, under-correction, over-correction, stiffness, no improvement, and need for further surgery. No guarantees were given, nor implied. Questions encouraged and answered. Consent reviewed and placed in chart. The following procedures are proposed - peroneal tendon repair 12/21/2023 Other Below the Knee (BK) Cast: The patient was fitted with a well-padded below the knee fiberglass cast. Suture Removal: The sutures were removed. 01/02/2024 Other Below the Knee (BK) Cast: The patient was fitted with a well-padded below the knee fiberglass cast. Plan Of Treatment No Information Insurance Providers Payer Name Payer Address Payer Phone Subscriber Number Group Number Insured Name Patient Relationship to Insured Coverage Start Date Coverage End Date Medicare Part B [place] [address] [place] [address] [id number] Benita Giron Self - patient is the insured [facility] [employer] [address] [place], [place] [phone] [id number] Benita Giron Self - patient is the insured [facility] [address] [place], [place] [phone] [id number] Benita Giron Self - patient is the insured Medical (General) History Medical History History ICD Code artificial joint kidney stones Leg/Feet cramps Arthritis hypertension
--- OUTSIDE RECORDS SUMMARY | 2024-06-07 09:12 | XMS_ITS ---
Author Organization [facility] Address [address] [place] [address] Care Team Providers Care Ware Finisher Name Role Phone Nasir Yvan Primary Care Provider Dr. Kevin Tuttle Unavailable [phone] Carmenza Alvarado Unavailable [phone] Allergies Allergen (clinical drug ingredient) Drug/Non Drug Allergy documented on EMR Reaction Allergy Type Onset Date Status celecoxib CeleBREX rash Drug Allergy Active esomeprazole NexIUM other reaction Drug Allergy Active Penicillin other reaction Drug Allergy A ctive REASON FOR VISIT Xeomin BB Only Medications Medication SIG (Take, Route, Frequency, Duration) Notes Start Date End Date Status Voltaren Arthritis Pain 1 % as directed applied topically 4 times a day Not-Taking Qulipta 60 MG 1 tab(s) orally once a day Not-Taking SERTRALINE 50 mg 1 tab(s) orally once a day Not-Taking Eszopiclone 1 MG 1 tab(s) orally once a day (at bedtime) Not-Taking Sertraline HCl 50 MG 1 tab(s) orally onc e a day Not-Taking VOLTAREN ARTHRITIS PAIN 1% as directed applied topically 4 times a day Not-Taking QULIPTA 60 mg 1 tab(s) orally once a day Not-Taking ESZOPICLONE 1 mg 1 tab(s) orally once a day (at bedtime) Not-Taking Rizatriptan Benzoate 10 MG 1 tab(s) orally once a day Active Gabapentin 100 MG 1 cap(s) orally 3 times a day for 30 days Active Northera 200 MG 3 cap(s) orally 3 times a day 07/28/2022 Active Potassium Citrate ER 10 MEQ (1080 MG) 1 tab(s) orally 3 times a day for 30 day(s) 07/28/2022 Active Fludrocortisone Acetate 0.1 MG 1 tab(s) orally once a day for 30 day(s) 07/28/2022 Active PreserVision AREDS 2 ANTIOXIDANT MULTIPLE VITAMINS AND MINERALS 1 TAB(S) CHEWED 2 TIMES A DAY *Please review and pick correct strength-formula tion from [employer] options. If intended option is not shown, discontinue and re-order from Quick Search* 07/28/2022 Active Fish Oil 1000 MG 1 cap(s) orally qid 07/28/2022 Active Cyanocobalamin 1000 MCG/ML as directed intramuscularly once a month for 30 day(s) Active Lomotil 2.5-0.025 MG 2 tab(s) orally 4 times a day Active Synthroid 75 MCG 1 tab(s) orally once a day for 30 day(s) 07/28/2022 Active Restasis 0.05 % 1 gtt in each affected eye every 12 hours for 30 day(s) Active FiberCon 625 MG 2 tab(s) orally Qday Active RIZATRIPTAN 10 mg 1 tab(s) orally once a day Active DULOXETINE 60 mg 1 cap(s) orally Qday Active GABAPENTIN 100 mg 1 cap(s) orally 3 times a day for 30 days Active QULIPTA 60 mg 1 tab(s) orally once a day Active Belsomra 10 MG 1 tab(s) orally once a day (at bedtime) Active PRESERVISION AREDS 2 Antioxidant Multiple Vitamins and Minerals 1 tab(s) chewed 2 times a day 07/28/2022 Active NORTHERA 200 mg 3 cap(s) orally 3 times a day 07/28/2022 Active POTASSIUM CITRATE 10 mEq 1 tab(s) orally 3 times a day for 30 day(s) 07/28/2022 Active DULoxetine HCl 60 MG 1 cap(s) orally Onc e a day for 30 days Active FISH OIL 1000 mg 1 cap(s) orally qid 07/28/2022 Active FIBERCON 625 mg 2 tab(s) orally Qday Active SYNTHROID 75 mcg (0.075 mg) 1 tab(s) orally once a day for 30 day(s) 07/28/2022 Active FLUDROCORTISONE 0.1 mg 1 tab(s) orally once a day for 30 day(s) 07/28/2022 Active CYANOCOBALAMIN 1000 mcg/mL as directed intramuscularly once a month for 30 day(s) Active LOMOTIL 0.025 mg-2.5 mg 2 tab(s) orally 4 times a day Active Qulipta 60 MG 1 tab(s) orally once a day for 30 days Active RESTASIS 0.05% 1 gtt in each affected eye every 12 hours for 30 day(s) Active BELSOMRA 10 mg 1 tab(s) orally once a day (at bedtime) Active Social History Tobacco Use: Social History Observation Description Date Details (start date - stop date) Never Smoker NA - NA Smoking Smart Form: Question Answer Notes Are you a: never smoker Vital Signs Blood pressure systolic 105 mm Hg 04/04/19 25 Blood pressure diastolic 69 mm Hg 025 Height 60 in 04/04/2024 Weight 144 lbs 04/04/2024 BMI 28.12 kg/m2 04/04/2024 Oximetry 100 % 04/04/2024 Encounters Encounter Location Date Provider Diagnosis [facility] [address] [facility] [address] [place] [address] 04/04/2024 Carmenza Alvarado Chronic migraine without aura, intractable, with status migrainosus G43.711 ; Occipital neuralgia M54.81 and Myalgia, unspecified site M79.10 Assessments Encounter Date Diagnosis (ICD Code) Assessment Notes Treatment Notes Treatment Clinical Notes Section Notes 04/04/2024 Chronic migraine without aura, intractable, with status migrainosus (ICD-10 - G43.711) -Abortive treatment plan: Continue rizatriptan. Continue tramadol. Continue Nerivio device. -Preventive treatment plan: Continue Botox. Continue Qulipta. -Educated the patient on migraine lifestyle recommendations. I recommended the following measures: avoid known triggers of migraine, drink > 100 fluid ounces of non-caffeinated fluid daily, limit caffeine to 2 servings/day, sleep 7-8 hours/night and address any sleep concerns with us and report symptoms of snoring or fatigue; healthy management of stress; avoid treating headaches more than 2 days/week with abortive medication unless approved in treatment plan; can take Riboflavin 400 mg and Magnesium 500 mg daily as supplements; keep scheduled follow-up appointments 04/04/2024 Occipital neuralgia (ICD-10 - M54.81) Continue duloxetine. 04/04/2024 Myalgia, unspecified site (ICD-10 - M79.10) Symptoms have improved with Botox injections. Plan Of Treatment Medication Medication Name Sig Start Date Stop Date Notes DULoxetine HCl 60 MG 1 cap(s) orally Onc e a day for 30 days Qulipta 60 MG 1 tab(s) orally once a day for 30 days Treatment Notes Assessment Notes Chronic migraine without aur a, intractable, with status migrainosus -Abortive treatment plan: Continue rizatriptan. Continue tramadol. Continue Nerivio device. -Preventive treatment plan: Continue Botox. Continue Qulipta. -Educated the patient on migraine lifestyle recommendations. I recommended the following measures: avoid known triggers of migraine, drink > 100 fluid ounces of non-caffeinated fluid daily, limit caffeine to 2 servings/day, sleep 7-8 hours/night and address any sleep concerns with us and report symptoms of snoring or fatigue; healthy management of stress; avoid treating headaches more than 2 days/week with abortive medication unless approved in treatment plan; can take Riboflavin 400 mg and Magnesium 500 mg daily as supplements; keep scheduled follow-up appointments Occipital neuralgia Continue duloxetine. Myalgia, unspecified site Symptoms have improved with Botox injections. Next Appt Details Follow Up: 3 Months, Reason: Evaluation and Management. Toxin injection Provider Name:Carmenza avalos, 06/27/2024 10:50:00 AM, [address] [facility], [address], [place], [address], Procedure Notes * Category Sub-Category Detail Notes Toxin Administration incobotulinumtoxinA (XEOMIN) Administration Indication: Chronic Migraine Locations and Dosages: Tempo ralis (Left) 30 Units, Temporalis (Right) 30 Units, Occipitalis (Left) 25 Units, Occipitalis (Right) 25 Units, Cervical paraspinals (Left) 10 Units, Cervical paraspinals (Right) 10 Units, Trapezius (Left) 15 Units, Trapezius (Right) 15 Units, Masseter (Left) 5 Units, Masseter (Right) 5 Units No frontalis, procerus, or bone glue maker injections due to a skin infection. Frequency: 12 weeks Lot Number / Expiration: See Notes Xeomi n Lot# [id number], Exp 03/2026 Medication Source: Buy and Bill Source Verification:: Who pu lled drug (please type name in notes)? Emnaa Felderigley Units Administered: See Notes 170 Units Units Wasted: See Notes 30 Units Adverse Reaction(s): None Progress Notes * Benita GIRON SDOB:[birth year] (69 yo F)Acc No.[id number]:04/04/2024 Progress Notes Patient: Benita FRAGA Provider: Carl Alvarado APRN :1955 A ge:69 Y S ex:Female Date:04/04/2024 Address:[address] [place] [address] [id number] Pcp:Yvan Best Subjective: * Chief Complaints: * X eomin BB Only * HPI: * Introduction: I had the pleasure of seeing Wally Giron, who presented for botulinum toxin. * Initial History: INITIAL VISIT HISTORY: The patient first developed migraine at age 5 and has persisted throughout adult life. There is a strong family history. Her migraines did not improve after menopause, she actually had a hysterectomy at age 21 and went through early menopause, there was never a correlation with migraines and hormones. Typical migraine starts in the posterior head, develops in the right scientology region, always starts on the right side then can generalize, feels sharp and throbbing, worsened with movement or activity, associated with light sensitivity and sometimes sound sensitivity, associated with dizziness, associated with blurry vision, no associated nausea, if unsuccessfully treated can hours to days. She has always had a fairly high frequency of migraine, she developed chronic migraine 15 years ago. She has had medication overuse headaches compounding this pattern for this timeframe as well. She has been through numerous anti-migraine treatments, the only one that helped was Botox, which she did respond to for several years, but over time the effect seemed to wane. She is on topiramate and Qulipta; she is not sure if the topiramate has helped or not, has been on it for years, the Qulipta does help some, because when she ran out of it recently she was worse. She has a constant daily headache in the posterior head region which feels like aching pain, with superimposed migrainous headaches about 16-17 days/month. She is treating headaches daily with Maxalt (she apparently gets 30 pills per month). Other symptom is chronic neck pain as described below. In addition, she has intermitent bilateral hand paresthesias, which can awaken from sleep with paresthesias. She has a remote h/o bilateral carpal tunnel surgery and redo surgery x 2, symptoms initially remitted but now have recurred. LAST VISIT HISTORY: Last visit was on 0 09/14/2023 for botulinum toxin injection. She is s/p bilateral occipital nerve surgery by Dr. Samson. Dr. Samson is planning on bilateral supraorbital and auriculotemporal nerve surgeries next month. She presents for nerve blocks today. * Previous Impression & Plan: Notes Previous Diagnoses: 1. Chronic migraine without aura, intractable, with status migrainosus - G43.711 (Primary) 2. Occipital neuralgia - M54.81 3. Myalgia, unspecified site - M79.10 Previous Recommendations: 1. Continue current treatment. Proceed with surgery next month with Dr. Samson. 2. Resolved s/p bilateral occipital nerve surgery by Dr. Samson. 3. Assess effect of injections today. Proceed with surgery next month with Dr. Samson. * Interval History: Notes Pharmacologic Treatment: -Current abortive treatment: Rizatriptan 10 mg (partially effective) and/or tramadol, Nerivio -Previous abortive treatment: Imitrex (side effects), Relpax (ineffective), Ubrelvy (ineffective), Nurtec (ineffective), Reyvow (ineffective) -Current preventive treatment: Duloxetine 60 mg, Qulipta 60 mg, Botulinum toxin -Previous preventive treatment: Vyepti (she did a single infusion which was ineffective), Topiramate (ineffective), Propranolol (ineffective), Metoprolol (ineffective), Amitriptyline (ineffective), Depakote (ineffective), Gabapentin (ineffective), Aimovig (ineffective), Emgality (ineffective), Ajovy (ineffective) -Medication overuse: Present (taking rizatriptan, tramadol at least 5 days/week) -Other modalities: Chiropractic, Physical Therapy, Massage therapy Headache Frequency: Initial/baseline headache/migraine days/month: 30/15 Current headache/migraine days/month (after Botox + Qulipta): 20/4-6 Headache Scales: HIT-6 current score: 57 Interval History: Last visit was on 03/12/2023 for Botox injection. She reports that her headaches have been less frequent and intense since her occiptal nerve and supraorbital nerve decompression surgery. Her migraine frequency improved from 30 days per month to 20 days per month. She has at least ten headache free days per month. Rizatriptan and Tramadol have been reliable abortive medications. She is concerned about an allergic reaction that she had two months ago following an at home hair coloring treatment. She states that her forehead and scalp broke out in open sores that have since scabbed over. The scabs, redness, and irritation are still present after two months. . * Headache: Last injection on 01/11/24: Procerus 5 Units, Cv Rn (Left) 5 Units, Cv Rn (Right) 5 Units, Frontalis (Left) 12.5 Units, Frontalis (Right) 12.5 Units, Temporalis (Left) 25 Units, Temporalis (Right) 25 Units, Occipitalis (Left) 20 Units, Occipitalis (Right) 20 Units, Cervical paraspinals (Left) 10 Units, Cervical paraspinals (Right) 10 Units, Trapezius (Left) 15 Units, Trapezius (Right) 15 Units, Masseter (Left) 10 Units, Masseter (Right) 10 Units. * ROS: A LLERGY: itchy eyes Y es. C ONSTITUTIONAL: weight gain Y es. l oss of appetite Y es. w eakness Y es. f atigue Y es. E NT: cough Y es. R ESPIRATORY: cough Y es. O PHTHALMOLOGY: itching Y es. s ensitivity to light Y es. b lurring of vision Y es. E NDOCRINOLOGY: fatigue Y es. c old intolerance Y es. ? C ARDIOLOGY: dizziness Y es. G ASTROENTEROLOGY: abdominal pain Y es. d iarrhea Y es. ? U ROLOGY: recurrent UTI Y es. D ERMATOLOGY: Positive for n one. N EUROLOGY: headache Y es. t ingling numbness Y es. d izziness Y es. H EMATOLOGY/LYMPH: Positive for n one. M USCULOSKELETAL: joint stiffness Y es. j oint pain Y es. j oint swelling Y es. P SYCHOLOGY: depression Y es. a nxiety Y es. * Medical History: * Surgical History: S /p ureteral stent and lithotripsy S/p knee replacement * Hospitalization/Major Diagno stic Procedure: * Family History: S iblings: Yes. C hildren: Yes. 3 brother(s) , 2 sister(s) - healthy. . sister, hx of breast cancer 1 sister 1 brother . * Social History: M arital Status What is your marital status? m arried A lcohol Screening Do you ever drink alcoholic beverages? N o C affeine: No. S moking Additional Findings: Tobacco Non-User N ever chewed tobacco Are you a : n ever smoker S moking Smart Form Are you a: n ever smoker O ccupation Are you currenly employed? N o Have you ever worked in any of the following: f [employer] Have you had any job with high exposure to fumes, chemicals, dust or other noxious substances? N o Are you currently a student? N o * Medications: T akingBELSOMRA 10 mg tablet 1 tab(s) orally once a day (at bedtime) RESTASIS 0.05% emulsion 1 gtt in each affected eye every 12 hours FIBERCON 625 mg tablet 2 tab(s) orally Qday CYANOCOBALAMIN 1000 mcg/mL solution as directed intramuscularly once a month LOMOTIL 0.025 mg-2.5 mg tablet 2 tab(s) orally 4 times a day SYNTHROID 75 mcg (0.075 mg) tablet 1 tab(s) orally once a day FLUDROCORTISONE 0.1 mg tablet 1 tab(s) orally once a day PRESERVISION AREDS 2 Antioxidant Multiple Vitamins and Minerals tablet, chewable 1 tab(s) chewed 2 times a day NORTHERA 200 mg capsule 3 cap(s) orally 3 times a day POTASSIUM CITRATE 10 mEq tablet, extended release 1 tab(s) orally 3 times a day FISH OIL 1000 mg capsule 1 cap(s) orally qid GABAPENTIN 100 mg capsule 1 cap(s) orally 3 times a day RIZATRIPTAN 10 mg tablet 1 tab(s) orally once a day DULOXETINE 60 mg delayed release capsule 1 cap(s) orally Qday QULIPTA 60 mg tablet 1 tab(s) orally once a day Belsomra 10 MG Tablet 1 tab(s) orally once a day (at bedtime) Restasis 0.05 % Emulsion 1 gtt in each affected eye every 12 hours FiberCon 625 MG Tablet 2 tab(s) orally Qday Cyanocobalamin 1000 MCG/ML Solution as directed intramuscularly once a month Lomotil 2.5-0.025 MG Tablet 2 tab(s) orally 4 times a day Synthroid 75 MCG Tablet 1 tab(s) orally once a day Fludrocortisone Acetate 0.1 MG Tablet 1 tab(s) orally once a day PreserVision AREDS 2 ANTIOXIDANT MULTIPLE VITAMINS AND MINERALS TABLET, CHEWABLE 1 TAB(S) CHEWED 2 TIMES A DAY , Notes to Pharmacist: *Please review and pick correct strength-formulation from [employer] options. If intended option is not shown, discontinue and re-order from Quick Search*Northera 200 MG Capsule 3 cap(s) orally 3 times a day Potassium Citrate ER 10 MEQ (1080 MG) Tablet Extended Release 1 tab(s) orally 3 times a day Fish Oil 1000 MG Capsule 1 cap(s) orally qid Gabapentin 100 MG Capsule 1 cap(s) orally 3 times a day Rizatriptan Benzoate 10 MG Tablet 1 tab(s) orally once a day DULoxetine HCl 60 MG Capsule Delayed Release Particles 1 cap(s) orally Qday Qulipta 60 MG Tablet 1 tab(s) orally once a day Taking BELSOMRA 10 mg tablet 1 tab(s) orally once a day (at bedtime) Taking RESTASIS 0.05% emulsion 1 gtt in each affected eye every 12 hours Taking FIBERCON 625 mg tablet 2 tab(s) orally Qday Taking CYANOCOBALAMIN 1000 mcg/mL solution as directed intramuscularly once a month Taking LOMOTIL 0.025 mg-2.5 mg tablet 2 tab(s) orally 4 times a day Taking SYNTHROID 75 mcg (0.075 mg) tablet 1 tab(s) orally once a day Taking FLUDROCORTISONE 0.1 mg tablet 1 tab(s) orally once a day Taking PRESERVISION AREDS 2 Antioxidant Multiple Vitamins and Minerals tablet, chewable 1 tab(s) chewed 2 times a day Taking NORTHERA 200 mg capsule 3 cap(s) orally 3 times a day Taking POTASSIUM CITRATE 10 mEq tablet, extended release 1 tab(s) orally 3 times a day Taking FISH OIL 1000 mg capsule 1 cap(s) orally qid Taking GABAPENTIN 100 mg capsule 1 cap(s) orally 3 times a day Taking RIZATRIPTAN 10 mg tablet 1 tab(s) orally once a day Taking DULOXETINE 60 mg delayed release capsule 1 cap(s) orally Qday Taking QULIPTA 60 mg tablet 1 tab(s) orally once a day Taking Belsomra 10 MG Tablet 1 tab(s) orally once a day (at bedtime) Taking Restasis 0.05 % Emulsion 1 gtt in each affected eye every 12 hours Taking FiberCon 625 MG Tablet 2 tab(s) orally Qday Taking Cyanocobalamin 1000 MCG/ML Solution as directed intramuscularly once a month Taking Lomotil 2.5-0.025 MG Tablet 2 tab(s) orally 4 times a day Taking Synthroid 75 MCG Tablet 1 tab(s) orally once a day Taking Fludrocortisone Acetate 0.1 MG Tablet 1 tab(s) orally once a day Taking PreserVision AREDS 2 ANTIOXIDANT MULTIPLE VITAMINS AND MINERALS TABLET, CHEWABLE 1 TAB(S) CHEWED 2 TIMES A DAY , Notes to Pharmacist: *Please review and pick correct strength-formulation from [employer] options. If intended option is not shown, discontinue and re-order from Quick Search*Taking Northera 200 MG Capsule 3 cap(s) orally 3 times a day Taking Potassium Citrate ER 10 MEQ (1080 MG) Tablet Extended Release 1 tab(s) orally 3 times a day Taking Fish Oil 1000 MG Capsule 1 cap(s) orally qid Taking Gabapentin 100 MG Capsule 1 cap(s) orally 3 times a day Taking Rizatriptan Benzoate 10 MG Tablet 1 tab(s) orally once a day Taking DULoxetine HCl 60 MG Capsule Delayed Release Particles 1 cap(s) orally Qday Taking Qulipta 60 MG Tablet 1 tab(s) orally once a day Not-Taking/PRNVOLTAREN ARTHRITIS PAIN 1% gel as directed applied topically 4 times a day QULIPTA 60 mg tablet 1 tab(s) orally once a day ESZOPICLONE 1 mg tablet 1 tab(s) orally once a day (at bedtime) SERTRALINE 50 mg tablet 1 tab(s) orally once a day Voltaren Arthritis Pain 1 % Gel as directed applied topically 4 times a day Qulipta 60 MG Tablet 1 tab(s) orally once a day Eszopiclone 1 MG Tablet 1 tab(s) orally once a day (at bedtime) Sertraline HCl 50 MG Tablet 1 tab(s) orally once a day Not-Taking/PRN VOLTAREN ARTHRITIS PAIN 1% gel as directed applied topically 4 times a day Not-Taking/PRN QULIPTA 60 mg tablet 1 tab(s) orally once a day Not-Taking/PRN ESZOPICLONE 1 mg tablet 1 tab(s) orally once a day (at bedtime) Not-Taking/PRN SERTRALINE 50 mg tablet 1 tab(s) orally once a day Not-Taking/PRN Voltaren Arthritis Pain 1 % Gel as directed applied topically 4 times a day Not-Taking/PRN Qulipta 60 MG Tablet 1 tab(s) orally once a day Not-Taking/PRN Eszopiclone 1 MG Tablet 1 tab(s) orally once a day (at bedtime) Not-Taking/PRN Sertraline HCl 50 MG Tablet 1 tab(s) orally once a day * Allergies: P enicillin: other reactionCeleBREX: rashNexIUM: other reaction Objective: * Vitals: B P:105/69mm Hg, HR:71/min, Pulse Oximetry:100%, Ht: 60 in, Wt:144lbs, BMI:28.12Index. * Examination: G eneral examination: General appearance: P leasant, well-developed, no distress.? HEENT: N ormocephalic, atraumatic. Neck, thyroid : S upple. Neurologic exam: A lert and oriented x 4. Fluent speech. CN II-XII intact. Motor 5/5 strength in all extremities. Reflexes 2+/2 and symmetric in all extremities. Cerebellar testing no tremors. Gait normal. Assessment: * Assessment: 1. C hronic migraine without aura, intractable, with status migrainosus - G43.711 (Primary)? 2. O ccipital neuralgia - M54.81 3 . M yalgia, unspecified site - M79.10 Plan: * Treatment: 2. O ccipital neuralgia Refill DULoxetine HCl Capsule Delayed Release Particles, 60 MG, 1 cap(s), orally, Once a day, 30 days, 30, Refills 5. Notes:Continue duloxetine. 3. M yalgia, unspecified site Notes:Symptoms have improved with Botox injections. * Procedures: T oxin Administration: incobotulinumtoxinA (XEOMIN) Administration I ndication C hronic Migraine L ocations and Dosages T emporalis (Left) 30 Units, Temporalis (Right) 30 Units, Occipitalis (Left) 25 Units, Occipitalis (Right) 25 Units, Cervical paraspinals (Left) 10 Units, Cervical paraspinals (Right) 10 Units, Trapezius (Left) 15 Units, Trapezius (Right) 15 Units, Masseter (Left) 5 Units, Masseter (Right) 5 Units No frontalis, procerus, or bone glue maker injections due to a skin infection. F requency 1 2 weeks L ot Number / Expiration S ee Notes Xeomin Lot# [id number], Exp 03/2026 M edication Source B lluvia and Jay Avalos ourelier Verification: W ho pulled drug (please type name in notes)? Em De Luna U nits Administered S ee Notes 170 Units U nits Wasted S ee Notes 30 Units A dverse Reaction(s) N one * Procedure Codes: 6 4615 CHEMODENERV MUSC [id number] PT-FOCUSED HLTH RISK [id number] DOC MEDS VERIFIED W/PT OR [id number] Complex e/m visit add [id number] INJECTION INCOBOTULINUMTOXIN 1 UNIT, Units: 170.00 J0588 INJECTION INCOBOTULINUMTOXIN 1 UNIT, Units: 30.00 , Modifiers: JW * Follow Up: 3 Months (Reason: Evaluation and Management. Toxin injection) * Billing Information: * Visit Code: 29828 Office Visit, Est Pt., Level 4. Modifiers: 25 * Procedure Codes: 99209 CHEMODENERV MUSC MIGRAINE. 03650 PT-FOCUSED HLTH RISK ASSMT. G8427 DOC MEDS VERIFIED W/PT OR RE. G2211 Complex e/m visit add on. J0588 INJECTION INCOBOTULINUMTOXIN 1 UNIT. Units: 170.00. J0588 INJECTION INCOBOTULINUMTOXIN 1 UNIT. Units: 30.00. Modifiers: JW * TRY KILLER Electronically co-signed by Dr. Kevin Baptiste MD on 04/18/2024 at 08:09 AM POULTRY KILLER Sign off status: Completed true * Provider: Carl Alvarado APRN Date: 0 04/04/2024 Generated for Marycarmeni ng/Fajamieg/eTransmitting on: 0 06/07/2024 09:11 AM CDT History and Physical Notes * HPI (History of Present Illness) Category Sub-Category Detail Notes Category Notes *Introduction I had the pleasure of seeing Benita Giron, who presented for botulinum toxin *Headache Last injection on 01/11/24: Procerus 5 Units, Cv Rn (Left) 5 Units, Cv Rn (Right) 5 Units, Frontalis (Left) 12.5 Units, Frontalis (Right) 12.5 Units, Temporalis (Left) 25 Units, Temporalis (Right) 25 Units, Occipitalis (Left) 20 Units, Occipitalis (Right) 20 Units, Cervical paraspinals (Left) 10 Units, Cervical paraspinals (Right) 10 Units, Trapezius (Left) 15 Units, Trapezius (Right) 15 Units, Masseter (Left) 10 Units, Masseter (Right) 10 Units *Initial History INITIAL VISIT HISTORY: The patient first developed migraine at age 5 and has persisted throughout adult life. There is a strong family history. Her migraines did not improve after menopause, she actually had a hysterectomy at age 21 and went through early menopause, there was never a correlation with migraines and hormones. Typical migraine starts in the posterior head, develops in the right scientology region, always starts on the right side then can generalize, feels sharp and throbbing, worsened with movement or activity, associated with light sensitivity and sometimes sound sensitivity, associated with dizziness, associated with blurry vision, no associated nausea, if unsuccessfully treated can hours to days. She has always had a fairly high frequency of migraine, she developed chronic migraine 15 years ago. She has had medication overuse headaches compounding this pattern for this timeframe as well. She has been through numerous anti-migraine treatments, the only one that helped was Botox, which she did respond to for several years, but over time the effect seemed to wane. She is on topiramate and Qulipta; she is not sure if the topiramate has helped or not, has been on it for years, the Qulipta does help some, because when she ran out of it recently she was worse. She has a constant daily headache in the posterior head region which feels like aching pain, with superimposed migrainous headaches about 16-17 days/month. She is treating headaches daily with Maxalt (she apparently gets 30 pills per month). Other symptom is chronic neck pain as described below. In addition, she has intermitent bilateral hand paresthesias, which can awaken from sleep with paresthesias. She has a remote h/o bilateral carpal tunnel surgery and redo surgery x 2, symptoms initially remitted but now have recurred. LAST VISIT HISTORY: Last visit was on 09/14/2023 for botulinum toxin injection. She is s/p bilateral occipital nerve surgery by Dr. Samson. Dr. Samson is planning on bilateral supraorbital and auriculotemporal nerve surgeries next month. She presents for nerve blocks today *Previous Impression & Plan Notes Previous Diagnoses:1. Chroni c migraine without aura, intractable, with status migrainosus - G43.711 (Primary)2. Occipital neuralgia - M54.813. Myalgia, unspecified site - M79.10Previous Recommendations:1. Continue current treatment. Proceed with surgery next month with Dr. Samson. 2. Resolved s/p bilateral occipital nerve surgery by Dr. Samson. 3. Assess effect of injections today. Proceed with surgery next month with Dr. Samson *Interval History Notes Pharmacologic Treatment: -Cu rrent abortive treatment: Rizatriptan 10 mg (partially effective) and/or tramadol, Nerivio -Previous abortive treatment: Imitrex (side effects), Relpax (ineffective), Ubrelvy (ineffective), Nurtec (ineffective), Reyvow (ineffective) -Current preventive treatment: Duloxetine 60 mg, Qulipta 60 mg, Botulinum toxin -Previous preventive treatment: Vyepti (she did a single infusion which was ineffective), Topiramate (ineffective), Propranolol (ineffective), Metoprolol (ineffective), Amitriptyline (ineffective), Depakote (ineffective), Gabapentin (ineffective), Aimovig (ineffective), Emgality (ineffective), Ajovy (ineffective) -Medication overuse: Present (taking rizatriptan, tramadol at least 5 days/week) -Other modalities: Chiropractic, Physical Therapy, Massage therapy Headache Frequency: Initial/baseline headache/migraine days/month: 30/15 Current headache/migraine days/month (after Botox + Qulipta): 20/-6 Headache Scales: HIT-6 current score: 57 Interval History: Last visit was on 01/11/2024 for Botox injection. She reports that her headaches have been less frequent and intense since her occiptal nerve and supraorbital nerve decompression surgery. Her migraine frequency improved from 30 days per month to 20 days per month. She has at least ten headache free days per month. Rizatriptan and Tramadol have been reliable abortive medications. She is concerned about an allergic reaction that she had two months ago following an at home hair coloring treatment. She states that her forehead and scalp broke out in open sores that have since scabbed over. The scabs, redness, and irritation are still present after two months. Examination Category Sub-Category Detail Notes Category Not es General examination HEENT: Normocephalic, atraum atic Neck, thyroid : Supple General appearance: Pleasant, well-devel oped, no distress Neurologic exam: Alert and oriented x 4. Fluent speech. CN II-XII intact. Motor 5/5 strength in all extremities. Reflexes 2+/2 and symmetric in all extremities. Cerebellar testing no tremors. Gait normal
--- OUTSIDE RECORDS SUMMARY | 2024-06-07 09:13 | XMS_ITS | Clinical Summary ---
Author Organization [facility] Address [address] [place] [address] Care Team Providers Care Supreme Court Judge Name Role Phone Ronal Adhikari DO Unavailable None, Provider MD Primary Care Provider Unavaila ble Allergies Active Allergy Reactions Criticality Noted Date Comments Celecoxib Anaphylaxis,Hives,Rash High 08/26/2021 Other reaction(s): Not available Ciprofloxacin Palpitations Low 08/26/2021 Does not remember Esomeprazole Fatigue,Itching,Hive s,Pal pitations Low 08/26/2021 All over body soreness Other reaction(s): Not available Latex Hives 12/08/2023 Penicillins Nausea and Vomiting,Palpitations,Unk nown Low 08/26/2021 inablity to walk Tape Rash Medium 08/26/2021 Medications [place]-3 Fatty Acids (OMEGA 3 500 OR) Take 1 capsule by mouth 4 (four) times daily. Active Multiple Vitamin (MULTIVITAMIN) capsule Take 1 capsule by mouth daily. Active levothyroxine (SYNTHROID) 75 MCG tablet Take 1 tablet (75 mcg total) by mouth every morning. 3 Active hydroCHLOROthia zide (HYDRODIURIL) 25 MG tablet Take 1 tablet (25 mg total) by mouth daily. 4 Active hydrALAZINE (APRESOLINE) 25 MG tablet Take 1 tablet (25 mg total) by mouth 2 (two) times daily. 3 Active gabapentin (NEURONTIN) 100 MG capsule Take 1 capsule (100 mg total) by mouth 2 (two) times daily. 4 Active fludrocortisone (FLORINEF) 0.1 MG tablet Take 1 tablet (0.1 mg total) by mouth daily. 3 Active DULoxetine (CYMBALTA) 60 MG capsule Take 1 capsule (60 mg total) by mouth daily. 4 Active Docusate Sodium (DSS) 100 MG Cap Take 100 mg by mouth nightly. Active diphenoxylate-a tropine (LOMOTIL) 2.5-0.025 MG tablet Take 1 tablet by mouth 4 (four) times daily. Active diazePAM (VALIUM) 5 MG tablet Take 1 tablet (5 mg total) by mouth every 6 (six) hours as needed for Anxiety. Before botox injections only Active cycloSPORINE (RESTASIS) 0.05 % ophthalmic emulsion Place 1 drop into both eyes 2 (two) times daily. Active colestipol (COLESTID) 1 g tablet Take 1 tablet (1 g total) by mouth daily. 4 Active polycarbophil (FIBERCON) 625 MG tablet Take 1 tablet (625 mg total) by mouth 2 (two) times daily. Active oxyCODONE-aceta minophen (PERCOCET) 5-325 MG tabletIndicatio ns:Acute Pain < 7 Day Supply Take 1 tablet by mouth every 4 (four) hours as needed for Pain. Indications: Acute Pain < 7 Day Supply 21 tablet 4 Active Active Problems No known active problems Social History Tobacco Use Types Packs/Day Years Used Date Smoking Tobacco: Never Smokeless Tobacco: Never Tobacco Cessation:Counseling Given: Not Answered Alcohol Use Standard Drinks/Week Comments Not Currently [...] Sign Reading Time Taken Comments Blood Pressure 127/75 12/08/2023 1:50 PM CDT Pulse 82 12/08/2023 1:50 PM CDT Temperature 36.2 C (97.2 F) 12/08/2023 1:50 PM CDT Respiratory Rate 16 12/08/2023 1:50 PM CDT Oxygen Saturation 100% 12/08/2023 1:50 PM CDT Inhaled Oxygen Concentration - - Weight 63.1 kg (139 lb 1.8 oz) 12/08/2023 8:15 A M CDT Height 152.4 cm (5') 12/08/2023 8:15 AM CDT Body Mass Index 27.17 12/08/2023 8:15 AM CDT Plan of Treatment Health Maintenance Due Date Last Done Comments Colorectal Cancer Screening Colonoscopy (10 Years) 1955 Hepatitis C 1971 DTaP, Tdap and Td Vaccines ( 1 - Tdap) 01/16/1972 Mammogram Screening 1993 Annual Medicare Wellness Visit 2018 COVID-19 Vaccine (2 - 2023-2 5 season) 2023 12/26/2022 PHQ-2 (Physician [place]) 03/06/2024 RSV Immunization or 60+ Years (1 - 1-dose 75+ series) 01/16/2028 Dexa Scan (General) Completed 05/31/2021 Zoster Vaccines Completed 05/04/2022, 01/07/2022 Pneumococcal Vaccine: 65+ Years Completed 12/26/2022 Meningococcal B Vaccine Aged Out No l onger eligible based on patient's age to complete this topic Meningococcal Vaccine Aged Out No raina sharad eligible based on patient's age to complete this topic RSV Immunizations Under 20 Months Aged Out No longer eligible b ased on patient's age to complete this topic Medical Devices Implanted Type Area Mainframe Systems Administrator Device Identifier Shelf Expiration Date Model / Serial / Lot Graft Jacket Now Implanted:Qty: 1 on 12/08/2023 by Rolf Prather DPM at [facility] Right: Foot 05/28/2024 [id number] / / [id number] Viaflow Implanted:Qty: 1 on 12/08/2023 by Rolf Prather DPM at [facility] Right: Foot 03/30/2028 [id number] / [id number] / Insurance MEDICARE MEDICARE Care Teams Supreme Court Judge Relationship Specialty Start Date End Date None, Provider, MD PCP - General UNKNOWN PHYSICIAN SPECIALTY 12/08/23 Ronal Adhikari DO [address] [place] [address] INTERNAL MEDICINE 11/30/23
--- OUTSIDE RECORDS SUMMARY | 2024-06-07 09:13 | XMS_ITS | Encounter Summary ---
Author Organization [facility] Address [address] [place] [address] Care Team Providers Care Trend Investigator Name Role Phone Benedict Decker MD Unavailable [phone] Kellie Vernon Primary Care Provider [phone] Encounter Details Date Type Department Care Team (Late Contact Info) Description 05/03/2024 Telephone [facility] - Dermatology [address] [place] [address] Derrell Ovalle MD [address] [place] [address] Social History Tobacco Use Types Packs/Day Years Used Date Smoking Tobacco: Never Smokeless Tobacco: Never Alcohol Use Standard Drinks/Week Comments Yes 0 (1 standard drink = 0.6 oz pur e alcohol) very rare Sex and Gender Information Value Date Recorded Sex Assigned at Not on file Gender Identity Not on file Sexual Orientation Not on file documented as of this encounter Miscellaneous Notes * Telephone Encounter - Geovanni Tapia - 05/03/2024 8:45 AM CST Clobetasol is causing irritaions. Please reach out to pt for further instructions. O AND CONTAINER INSPECTOR documented in this encounter Plan of Treatment Upcoming Encounters Date Type Department Care Team (Late Contact Info) Description 06/12/2024 11:00 AM CDT Office Visit [facility] - Dermatology [address] [facility] [place] [address] Derrell Ovalle MD [address] [facility] [address] [place] [address] 06/26/2024 1:00 PM CDT Office Visit [facility] - Plastic Surgery [address] [address] Juan Samson MD [address] [place] [address] 09/04/2024 1:30 PM CDT Office Visit [facility] - Plastic Surgery [address] [address] Juan Samson MD [facility] [place] [address] documented as of this encounter Visit Diagnoses Not on filedocumented in this encounter Care Teams Trend Investigator Relationship Specialty Start Date End Date Saulo Kellie PCP - General 03/01/24 Benedict Decker MD [address] [facility] [address] [address] Nephrology 11/04/21 documented as of this encounter
--- OUTSIDE RECORDS SUMMARY | 2024-06-07 09:13 | XMS_ITS ---
Author Organization [facility] Address [address] [place], [place] [id number] Care Team Providers Care Diet Kitchen Cook Name Role Phone KIERA LATA Unavailable [phone] Yvan Best Unavailable Unavailable REASON FOR VISIT *Post operative - no xrays Medications Medication SIG (Take, Route, Frequency, Duration) Notes Start Date End Date Status Medrol 4 MG as directed Orally Active Encounters Encounter Location Date Provider Diagnosis [facility] [address] [place], [place] [id number] 02/22/2024 LATA PRATHER Peroneal tendinitis of right lower extremity M76.71 ; Encounter for other specified surgical aftercare Z48.89 ; Achilles tendinitis, right leg M76.61 ; Achilles tendinitis, left leg M76.62 ; Pain in right foot M79.671 and Left foot pain M79.672 Assessments Encounter Date Diagnosis (ICD Code) Assessment Notes Treatment Notes Treatment Clinical Notes Section Notes 02/22/2024 Peroneal tendinitis of right lower extremity (ICD-10 - M76.71) 02/22/2024 Encounter for other specified surgical aftercare (ICD-10 - Z48.89) 02/22/2024 Achilles tendinitis, right leg (ICD-10 - M76.61) Katy heel lifts were dispensed 02/22/2024 Achilles tendinitis, left leg (ICD-10 - M76.62) 02/22/2024 Pain in right foot (ICD-10 - M79.671) 02/22/2024 Left foot pain (ICD-10 - M79.672) Plan Of Treatment Medication Medication Name Sig Start Date Stop Date Notes Medrol 4 MG as directed Orally Treatment Notes Assessment Notes Achilles tendinitis, right leg Katy heel lifts were dispensed Progress Notes * Benita GIRONB:1955 (69 yo F)Acc No.[id number]:02/22/2024 Patient: Benita FRAGA Provider: Mayelin Prather DPM :1955 A ge:69 Y S ex:Female Date:02/22/2024 Address:[place] [address] [id number] Subjective: * Chief Complaints: * * Post operative - no xrays * HPI: H PI: Follow Up Visit P dustin presents for follow-up visit for surgery on her right foot. She states she has been doing physical therapy, and she thinks its helping, but she is still having a lot of pain in both her heels. She is hoping to get out of the boot today. Patient states their problem is improving. MA: curt. * ROS: G eneral / Constitutional: Patient denies c hills, fever. C ardiovascular: Patient denies c hest pain. * Medical History: * Surgical History: * Hospitalization/Major Diagno stic Procedure: * Medications: T akingMedrol 4 MG Tablet Therapy Pack as directed Orally Medication List reviewed and reconciled with the patientTaking Medrol 4 MG Tablet Therapy Pack as directed Orally Medication List reviewed and reconciled with the patient Objective: * Vitals: * Examination: P hysical Examination: Gen: T he patient is awake, alert, well developed, well groomed and well nourished. They are in no apparent distress. . Musc: T he pain is decreasing. Foot structure is normal. Pain on palpation of b il A chilles tendon. . Derm: W ound clean and well approximated without drainage.?. Neuro: G rossly intact to light touch bilateral. . Vasc: D orsalis pedis and posterior tibial pulses 2+ bilaterally. Edema consistent with post-operative course noted. Capillary fill time < 3 seconds to all digits. Negative Hemal's sign . X -Ray: LEFT FOOT X -rays reveal a retrocalcaneal exostosis. . RIGHT FOOT X -rays reveal a retrocalcaneal exostosis. .? Assessment: * Assessment: 1. P eroneal tendinitis of right lower extremity - M76.71 (Primary) 2 . E ncounter for other specified surgical aftercare - Z48.89 3 . A chilles tendinitis, right leg - M76.61 4 . A chilles tendinitis, left leg - M76.62 5. P ain in right foot - M79.671 6 . L eft foot pain - M79.672 ? Plan: * Treatment: * Procedure Codes: 9 9024 POSTOP FOLLOW-UP VISIT * Billing Information: * Visit Code: 99671 Office Visit, Est Pt., Level 3. Modifiers: 24 * Procedure Codes: 09311 POSTOP FOLLOW-UP VISIT. * Sign off status: Completed true * Provider: Mayelin Prather DPM Date: 04/24/2023 Generated for Rola paris/Kym/Gustabo on: 0 06/07/2024 09:12 AM CDT History and Physical Notes * HPI (History of Present Illness) Category Sub-Category Detail Notes Category Not es HPI Follow Up Visit Patient presents for follow-up visit for surgery on her right foot. She states she has been doing physical therapy, and she thinks its helping, but she is still having a lot of pain in both her heels. She is hoping to get out of the boot today. Patient states their problem is improving. MA: sea Examination Category Sub-Category Detail Notes Category Not es X-Ray LEFT FOOT X-rays reveal a retrocalcane al exostosis. RIGHT FOOT X-rays reveal a retr ocalcaneal exostosis. Physical Examination Gen: The patient is awake, alert, well developed, well groomed and well nourished. They are in no apparent distress. Vasc: Dorsalis pedis and p osterior tibial pulses 2+ bilaterally. Edema consistent with post-operative course noted. Capillary fill time < 3 seconds to all digits. Negative Hemal's sign Neuro: Grossly intact to li ght touch bilateral. Musc: The pain is decreasi ng. Foot structure is normal. Pain on palpation of nate Achilles tendon. Dressing: Derm: Wound clean and well approximated without drainage.
--- OUTSIDE RECORDS SUMMARY | 2024-06-07 09:13 | XMS_ITS | Data Portability ---
Author Organization [facility] Dumont [facility] (In patient) Address [address] [place] [address] Care Team Providers Care Destination Coordinator Name Role Phone LUIS SELLERS Primary Care Provider MALAIKA STONE Referring Provider [phone] LUIS SELLERS Primary Care Provider Assessment Encounter Date Assessment Date Assessment LastModified by Organization Details LastModified Time 09/17/2020 09/17/2020 assessment: Chronic osteoarthritis right knee unresponsive to previous nonsurgical treatment Plan: At patient's request, we will schedule for right total knee replacement. Discussed with her the iindications for the pprocedure, possible complications and hopeful prognosis. We will need medical clearance prior to surgery. We will schedule as the patient wishes. Not available 09/18/2020 13:46:48 02/22/2021 02/22/2021 Assessment: Contusion right lateral elbow Plan: I explained her diagnosis to her in detail. Also reviewed x-rays. I believe that she had an aggravation of previous chronic elbow issue as well. She will apply ice and modify activities. Otherwise follow-up as needed. Not available 02/22/2021 17:52:45 04/14/2021 04/14/2021 Assessment: Inflammation right forearm with lateral epicondylitis of the elbow Plan: Patient is unable to tolerate NSAIDs. We will place her on a Medrol Dosepak and asked her to modify activities. I will see her back in 2 to 3 weeks for recheck. At that point should she continue to be significantly symptomatic, formal physical therapy or consideration of lateral epicondylar injection may be given. Not available 04/14/2021 11:55:07 05/10/2021 05/10/2021 Assessment: Chronic lateral epicondylitis right elbow Plan: [place] decision was made for lateral epicondylar injection. This was performed as dictated tolerated well. Postinjection instructions given. Patient to follow-up after 6 weeks as needed. Not available 05/10/2021 16:27:35 08/11/2021 08/11/2021 Assessment: #1 recurrent lateral epicondylitis right elbow #2 lateral right ankle inflammation. Plan: Patient request repeat right elbow injection which was performed as dictated tolerated well. Postinjection instructions given. With regards to the right ankle we will place her in a likely lace up ankle support and have her apply ice at night. I have asked her to give this 2 to 3 weeks and follow-up from that point as needed. Not available 08/11/2021 16:21:51 Plan of Treatment Reminders Order Date Submit Date Provider Last Modified By Organization Details Last Modified Time Details Appointments None recorded. Lab None recorded. Referral None recorded. Procedures None recorded. Surgeries None recorded. Imaging XR, elbow, 3 or more view 021 In-House Test, For Internal Use Only, Do Not Delete/merge, [id number] 17:44:54 XR, knee, 3 view 021 In-House Test, For Internal Use Only, Do Not Delete/merge, [id number] 18:27:32 Medication Orders Medrol (Blayne) 4 mg tablets in a dose pack 022 022 [facility] [id number], [address], [place], [address], 15:37:24 Patient TargetsNo targets recorded. Patient Instructions Encounter Date Encounter Id Patient Instructions Last Modified By Organization Details Last Modified Time 09/17/2020 [id number] This encounter was documented with the use of voice recognition software and may contain errors. Not available 09/17/2020 14:33:31 02/22/2021 [id number] This encounter was documented with the use of voice recognition software and may contain errors. [email or web address] Not available 02/22/2021 16:35:27 04/14/2021 [id number] This encounter was documented with the use of voice recognition software and may contain errors. Not available 04/14/2021 11:32:19 05/10/2021 [id number] This encounter was documented with the use of voice recognition software and may contain errors. Not available 05/10/2021 15:58:36 08/11/2021 [id number] This encounter was documented with the use of voice recognition software and may contain errors. [email or web address] Not available 08/11/2021 14:43:05 Reason for Referral None Reported. Results Created Date Observation Date Name Description Value Unit Range Abnormal Flag Note LastModifiedBy Organization Detail LastModifiedTime 09/18/19 21 XR, knee, 3 view No observ ation record ed. In-House Test For Internal Use Only, Do Not Delete/merge, [id number] 09/18/2020 13:48:01 02/23/20 21 XR, elbow , 3 or more view No observ ation record ed. In-House Test For Internal Use Only, Do Not Delete/merge, [id number] 02/22/2021 17:53:12 Result Notes None recorded. Problems Name Problem SNOMED Code Status Onset Date Resolution Date Notes Provider Name and Address Organization Details Recorded Time Muscle weakness 46665028 Active Sydney Jeffrey null, [place] - [facility] 16:33:18 Knee stiff 822493225 Active Sydney Jeffrey null[place] [facility] 16:33:18 Knee pain Active Sydney Jeffrey null[place] [facility] 16:33:18 Joint stiffness 38316174 Active Sydney Jeffrey null, [place] [facility] 16:33:18 Shoulder joint painful on movement 160476255 Active Sydney Jeffrey null, [place] [facility] 16:33:18 Impingemen t syndrome of shoulder region 665251210 Active Sydney Jeffrey null, - [facility] 16:33:18 Glenoid labrum tear 252888941 Active Sydney Jeffrey null, - [facility] 16:33:18 Shoulder pain 17632410 Active Sydney Jeffrey null, - [facility] 16:33:18 Shoulder stiff 719975880 Active Sydney Jeffrey null, [facility] 16:33:18 Shoulder girdle weakness 859188804 Active Sydney Jeffrey null, - [facility] 16:33:18 Chronic pain syndrome 082620233 Active Sydney Jeffrey null, - [facility] 16:33:18 Low back pain 138438524 Active Sydney Jeffrey null, [facility] 16:33:18 Lumbosacra l radiculiti s 00296100 Active Sydney Jeffrey null, - [facility] 16:33:18 Lumbar spondylosi s 733054902 Active Sydney Jeffrey null, - [facility] 16:33:18 Pain in wrist 85676348 Active Sydney Jeffrey null, - [facility] 16:33:18 Foot pain 62242462 Active Sydney Jeffrey null, - [facility] 16:33:18 Sprain of ankle 55075316 Active David Fagan Jr, MD [address] [place], [address] , - [facility] 16:27:09 Sprain of wrist 53219373 Active Sydney Jeffrey null, - [facility] 16:33:18 Sprain of right wrist 1724809125902 9103 Active Sydney Jeffrey null, - [facility] 16:33:18 Small joint arthritis 616699660 Active Sydney Jeffrey null, - [facility] 16:33:18 Interverte bral disc disorder 74028490 Active Sydney Jeffrey null, [place] - [facility] 16:33:18 Pain in right hand 8778130748682 09 Active 2018 Meet Ballesteros null, [place] - [facility] 13:55:15 Ankle pain 810846684 Active 2021 Kasandra Bahena null, [place] - [facility] 15:39:50 Problem Notes None recorded. Procedures Surgical History Date Name Laterality Status Provider Name and Address Organization Details Recorded Time 10/14/19 62443: Therapeutic Exercise (1:1) completed Yousuf Gonzalez [address], [address], [place] - [facility] 10/14/2019 11:55:43 10/14/19 99320: Neuromuscular Re-Education completed Yousuf Gonzalez [address], [address], [place] - [facility] 10/14/2019 13:56:24 10/14/19 G0283: E-Stim - Unattended completed Yousuf Gonzalez [address], [address], [place] [facility] 10/14/2019 11:55:43 10/10/19 55298: Therapeutic Exercise (1:1) completed Yousuf Gonzalez [address], [address], [place] [facility] 10/10/2019 10:41:42 10/10/19 71619: Neuromuscular Re-Education completed Yousuf Gonzalez [address], [address], [place] [facility] 10/10/2019 12:04:18 10/10/19 G0283: E-Stim - Unattended completed Yousuf Gonzalez [address], [address], [place] - [facility] 10/10/2019 10:41:42 10/09/19 74285: Therapeutic Exercise (1:1) completed Yousuf Gonzalez [address], [address], [place] - [facility] 10/09/2019 14:20:53 10/09/19 20 16614: Neuromuscular Re-Education completed Yousuf Gonzalez, KATHRIN [address] [place] [address] [place], [address], [place] [facility] 10/09/2019 11:29:36 10/09/19 20 G0283: E-Stim - Unattended completed Yousuf Gonzalez, KATHRIN [address] [place] [address] [place], [address], [place] [facility] 10/09/2019 11:29:36 10/04/19 20 73613: Therapeutic Exercise (1:1) completed THELMA MONZON [address] [place] [address] [place], [address], [place] - [facility] 10/04/2019 12:55:15 10/04/19 83242: Neuromuscular Re-Education completed THELMA MONZON [address] [place] [address] [place], [address], [place] - [facility] 10/04/2019 10:12:26 10/04/19 20 G0283: E-Stim - Unattended completed THELMA MONZON [address] [place] [address] [place], [address], [place] [facility] 10/04/2019 10:12:26 10/01/19 82738: Therapeutic Exercise (1:1) completed Yousuf Gonzalez, KATHRIN [address] [place] [address] [place], [address], [place] [facility] 10/01/2019 15:58:55 10/01/19 20 28195: Neuromuscular Re-Education completed Yousuf Gonzalez, LITIGATOR [address] [place] [address] [place], [address], [place] [facility] 10/01/2019 15:58:55 10/01/19 20 G0283: E-Stim - Unattended completed Yousuf Gonzalez, [address], [address], [place] [facility] 10/01/2019 15:58:55 09/27/19 20 68481: Therapeutic Exercise (1:1) completed THELMA MONZON [address] [place] [address] [place], [address], [place] - [facility] 09/27/2019 10:16:56 09/27/19 91834: Neuromuscular Re-Education completed [address], [address], [facility] - [facility] 09/27/2019 10:16:24 09/27/19 G0283: E-Stim - Unattended completed [address], [address], [facility] - [facility] 09/27/2019 10:16:52 09/23/19 PT Evaluation completed [address], [address], [facility] - [facility] 09/23/2019 12:49:42 09/23/19 60840: Therapeutic Exercise (1:1) completed [address], [address], [facility] - [facility] 09/23/2019 12:49:37 09/23/19 37738: ADL/Self Care Management completed [address], [address], [facility] - [facility] 09/23/2019 12:49:40 09/13/19 Intramuscular Depo-Medrol completed Carrie Cedeno [place] - [facility] 09/13/2019 09:39:21 08/22/19 20 FS Injection - Knee completed David Fagan Jr, MD [address] [place] [address], [address], [place] - [facility] 08/23/2019 13:10:51 06/26/19 20 FS Injection - Knee completed David Fagan Jr, MD [address] [place] [address], [address], [facility] - [facility] 06/26/2019 13:24:21 11/16/19 19 [place]oulkes off BASAL JNT INJ completed Peter Gilmore [place] - [facility] 11/15/2018 14:33:55 07/07/19 19 PT Evaluation completed Yarely Nicolas, PT, MS, ATC, [address], [address], [place] - [facility] 07/06/2018 11:19:57 07/07/19 19 71394: Therapeutic Exercise (1:1) completed Yarely Nicolas, PT, MS, ATC, [address], [address], [place] [facility] 07/06/2018 11:20:28 07/07/19 19 18175: Manual Therapy completed Yarely Nicolas PT, MS, ATC, [address], [address], [place] - [facility] 07/06/2018 11:20:13 06/26/19 19 FS Injection - Shoulder completed Franco Porter PA-C [address] [place] [address], [address], [place] - [facility] 06/25/2018 17:14:28 05/25/19 19 FS Injection - Knee completed David Fagan Jr, MD [address] [place] [address], [address], [place] [facility] 05/28/2018 18:03:37 01/11/20 18 FS Injection - Knee completed David Fagan Jr, MD [address] [place] [address], [address], [place] [facility] 01/11/2018 13:38:23 Imaging Results Imaging Date Name Status LastModified by Organiz ation Details LastModified Time 09/17/2020 XR, knee, 3 view completed In-House Test For Internal Use Only, Do Not Delete/merge, [id number] 09/18/2020 13:48:01 02/22/2021 XR, elbow, 3 or more view completed In-House Test For Internal Use Only, Do Not Delete/merge, [id number] 02/22/2021 17:53:12 Procedure Notes None recorded. Medical Equipment None Reported. Allergies Allergen ID Allergen Name Allergen Category Reaction Reaction Severity Criticality Documentation Date Start Date Code Code System Note Provider Name and Address Organization Details Recorded Time 002460 Celebrex medicatio n rash severe Not available 10/30/2015 64279 7 RxNorm Sophie Clubb null, - [facility] 14:29:38 746209 adhesive environme nt,medica tion rash severe Not available 10/30/2015 43047 UNK Sophie Clubb null, [facility] 14:29:38 089469 Nexium medicatio n other severe Not available 10/30/2015 43721 9 RxNorm PER PATIE NT WHOL E BODY HURTS Rosemarie Sanabria null, [facility] 10:30:06 17351 gabapenti n medicatio n Not available Not available Not available 04/15/2014 78124 RxNorm Sophie Clubb null, [facility] 14:29:38 83995 latex environme nt,medica tion rash severe Not available 04/15/2014 35716 91 RxNorm Irish Frank null, [facility] 23:35:37 56188 Substance with sulfonami de structure and antibacte rial mechanism of action (substanc e) medicatio n Not available Not available Not available 04/15/2014 91190 8003 SNOMED Sophie Clubb null, [facility] 14:29:38 12028 ampicilli n medicatio n Not available Not available Not available 04/15/2014 733 RxNorm Sophie Clubb null, [facility] 14:29:38 34600 codeine medicatio n Not available Not available Not available 04/15/2014 2670 RxNorm Sophie Clubb null, - [facility] 14:29:38 10153 Product containin g penicilli n (product) medicatio n other severe Not available 04/15/2014 90036 8001 SNOMED PER PATIE NT CAN' T WALK AFTER Rosemarie Sanabria null, [facility] 10:30:06 Medications Name Sig Start Date Stop Date Status Note LastModified by Organization Details LastModified Time fluoxetine 40 mg capsule active Not Available Not Available Not Available cyclobenzap rine 10 mg tablet 06/25 completed Not Available Not Available Not Available fluconazole 100 mg tablet 06/25 completed Not Available Not Available Not Available oxybutynin chloride ER 15 mg tablet,exte nded release 24 hr 06/25 completed Not Available Not Available Not Available cefuroxime axetil 250 mg tablet 11/15 completed Not Available Not Available Not Available clindamycin HCl 300 mg capsule 02/22 completed Not Available Not Available Not Available hydrocortis one-pramoxi ne 2.5 %-1 % rectal cream active Not Available Not Available Not Available trazodone 50 mg tablet 02/22 completed Not Available Not Available Not Available amitriptyli ne 150 mg tablet 11/15 completed Not Available Not Available Not Available Iron (ferrous sulfate) 325 mg (65 mg iron) tablet Take 1 tablet every day by oral route. active Not Available Not Available No t Available oxybutynin chloride ER 10 mg tablet,exte nded release 24 hr 06/25 completed Not Available Not Available Not Available ibuprofen 800 mg tablet active Not Available Not Available Not Available ofloxacin 0.3 % eye drops 11/15 completed Not Available Not Available Not Available nystatin 100,000 unit/gram topical ointment 09/15 completed Not Available Not Available Not Available tizanidine 4 mg tablet active Not Available Not Available Not Available fluconazole 150 mg tablet TAKE 1 TABLET BY MOUTH 1 TIME FOR 1 DOSE active Not Available Not Available No t Available valacyclovi r 1 gram tablet Take 1 tablet every day by oral route. active Not Available Not Available No t Available hydrocodone 5 mg-acetamin ophen 325 mg tablet Take 1 tablet(s) EVERY 6 HOURS by oral route. 06/25 completed Not Available Not Available Not Available ondansetron HCl 8 mg tablet Take 1 tablet every 8 hours by oral route as needed. 06/25 completed Not Available Not Available Not Available Medrol (Blayne) 4 mg tablets in a dose pack Take by oral route. 2021 active Not Available Not Available Not Avai lable prednisone 20 mg tablet active Not Available Not Available Not Available clonazepam 0.5 mg tablet Take 1 tab BID active Not Available Not Available No t Available rizatriptan 10 mg tablet Take as needed by oral route. active Not Available Not Available No t Available sertraline 100 mg tablet 11/15 completed Not Available Not Available Not Available methylpredn isolone 4 mg tablet active Not Available Not Available No t Available midodrine 5 mg tablet BID 02/22 completed Not Available Not Available Not Available diphenoxyla te-atropine 2.5 mg-0.025 mg tablet Take 2 tablets 4 times a day by oral route as needed. active Not Available Not Available No t Available topiramate 25 mg tablet bid active Not Available Not Available Not Available metronidazo le 500 mg tablet active Not Available Not Available Not Available ciprofloxac in 250 mg tablet 06/25 completed Not Available Not Available Not Available prochlorper azine maleate 10 mg tablet 11/15 completed Not Available Not Available Not Available doxepin 10 mg capsule active Not Available Not Available N ot Available valacyclovi r 500 mg tablet one tab PO daily active Not Available Not Available No t Available ciprofloxac in 500 mg tablet 02/22 completed Not Available Not Available Not Available sulfamethox azole 800 mg-trimetho prim 160 mg tablet 01/10 completed Not Available Not Available Not Available omeprazole 40 mg capsule,del ayed release active Not Available Not Available Not Available aspirin 81 mg tablet,pastor yed release Take 1 tablet every day by oral route. 11/15 completed Not Available Not Available Not Available tramadol 50 mg tablet Take 1 tablet every 4-6 hours by oral route. active Not Available Not Available No t Available amitriptyli ne 50 mg tablet Take 1 tablet every day by oral route. 05/04 completed Not Available Not Available Not Available triamcinolo ne acetonide 0.1 % topical cream 11/15 completed Not Available Not Available Not Available temazepam 7.5 mg capsule 02/22 completed Not Available Not Available Not Available ketorolac 10 mg tablet 06/25 completed Not Available Not Available Not Available levothyroxi ne 75 mcg tablet active Not Available Not Available Not Available zonisamide 100 mg capsule 11/15 completed Not Available Not Available Not Available cyproheptad ine 4 mg tablet Take 1 tablet 3 times a day by oral route. active Not Available Not Available No t Available oxycodone-a cetaminophe n 5 mg-325 mg tablet Take 1 tablet every 8 hours by oral route as needed. active Not Available Not Available No t Available levothyroxi ne 88 mcg tablet one tab PO daily 01/10 completed Not Available Not Available Not Available amitriptyli ne 25 mg tablet 01/10 completed Not Available Not Available Not Available prednisolon e acetate 1 % eye drops,suspe nsion 11/15 completed Not Available Not Available Not Available temazepam 15 mg capsule Take 1 capsule every day by oral route. 06/25 completed Not Available Not Available Not Available tamsulosin 0.4 mg capsule 06/25 completed Not Available Not Available Not Available dicyclomine 20 mg tablet active Not Available Not Available Not Available temazepam 30 mg capsule one capsule daily at bedtime 06/25 completed Not Available Not Available Not Available amitriptyli ne 10 mg tablet one tab daily 01/10 completed Not Available Not Available Not Available meclizine 25 mg tablet active Not Available Not Available Not Available phenazopyri dine 100 mg tablet 11/15 completed Not Available Not Available Not Available potassium citrate ER 10 mEq (1,080 mg) tablet,exte nded release active Not Available Not Available Not Available hyoscyamine 0.125 mg disintegrat ing tablet 06/25 completed Not Available Not Available Not Available hydrocodone 7.5 mg-acetamin ophen 325 mg tablet Take 1 tablet every 4-6 hours by oral route. active Not Available Not Available No t Available cyanocobala min (vit B-12) 1,000 mcg/mL injection solution one inj monthly active Not Available Not Available No t Available fluoxetine 20 mg tablet active Not Available Not Available Not Available triamcinolo ne acetonide 0.1 % topical ointment active Not Available Not Available Not Available cevimeline 30 mg capsule 11/15 completed Not Available Not Available Not Available clotrimazol e-betametha sone 1 %-0.05 % topical cream 09/15 completed Not Available Not Available Not Available pyridostigm ine bromide 60 mg tablet 11/15 completed Not Available Not Available Not Available lansoprazol e 30 mg capsule,del ayed release 06/25 completed Not Available Not Available Not Available fluoxetine 10 mg capsule 1 tab PO daily active Not Available Not Available No t Available Synthroid 50 mcg tablet active Not Available Not Available Not Available oxybutynin chloride ER 5 mg tablet,exte nded release 24 hr one tab daily 05/04 completed Not Available Not Available Not Available sertraline 25 mg tablet Take 1 tablet every day by oral route. 02/22 completed Not Available Not Available Not Available omeprazole 20 mg capsule,del ayed release active Not Available Not Available Not Available magnesium 250 mg tablet Take by oral route. 09/15 completed Not Available Not Available Not Available mirtazapine 15 mg tablet active Not Available Not Available Not Available gabapentin 100 mg capsule active Not Available Not Available Not Available diazepam 10 mg tablet 11/15 completed Not Available Not Available Not Available levofloxaci n 500 mg tablet 02/22 completed Not Available Not Available Not Available oxycodone-a cetaminophe n 7.5 mg-325 mg tablet Take 1 tablet every 4-6 hours by oral route as needed. active Not Available Not Available No t Available topiramate 100 mg tablet active Not Available Not Available Not Available fluticasone propionate 50 mcg/actuati on nasal spray,suspe nsion active Not Available Not Available Not Available clotrimazol e 1 % topical cream active Not Available Not Available Not Available sertraline 50 mg tablet Take 1 tablet every day by oral route. active Not Available Not Available No t Available fludrocorti sone 0.1 mg tablet TAKE 2 TABLETS BY MOUTH EVERY DAY active Not Available Not Available No t Available amitriptyli ne 100 mg tablet 01/10 completed Not Available Not Available Not Available loratadine 10 mg tablet active Not Available Not Available Not Available Lotemax 0.5 % eye drops,suspe nsion active Not Available Not Available Not Available diazepam 5 mg tablet Take 1 tablet every 3 months by oral route. 02/22 completed Not Available Not Available Not Available tobramycin 0.3 %-dexametha sone 0.1 % eye drops,suspe nsion 11/15 completed Not Available Not Available Not Available Botox 100 unit injection one injection every 3 months active Not Available Not Available No t Available desmopressi n 0.1 mg tablet 02/22 completed Not Available Not Available Not Available neomycin 3.5 mg/g-polymy jamie B 10,000 unit/g-dexa meth 0.1 % eye oint 11/15 completed Not Available Not Available Not Available midodrine 10 mg tablet 06/25 completed Not Available Not Available Not Available eletriptan 40 mg tablet 11/15 completed Not Available Not Available Not Available cyclobenzap rine 5 mg tablet 06/25 completed Not Available Not Available Not Available Restasis 0.05 % eye drops in a dropperette one drop each eye BID active Not Available Not Available No t Available acyclovir 5 % topical cream 06/25 completed Not Available Not Available Not Available Premarin 0.625 mg tablet one tab daily 06/25 completed Not Available Not Available Not Available Golytely 227.1 gram-21.5 gram-6.36 gram oral powder packet active Not Available Not Available Not Available vitamin O90-almnc acid injection solution Take by injection route. 11/15 completed Not Available Not Available Not Available cholestyram ine (with sugar) 4 gram powder for susp in a packet Take 1 packet twice a day by oral route. 05/04 completed Not Available Not Available Not Available memantine 10 mg tablet 06/25 completed Not Available Not Available Not Available zonisamide 25 mg capsule 01/10 completed Not Available Not Available Not Available topiramate 50 mg tablet 10/23 completed Not Available Not Available Not Available mirtazapine 7.5 mg tablet 02/22 completed Not Available Not Available Not Available nitrofurant oin monohydrate /macrocryst als 100 mg capsule 05/04 completed Not Available Not Available Not Available duloxetine 30 mg capsule,del ayed release 05/14 completed Not Available Not Available Not Available duloxetine 60 mg capsule,del ayed release 06/25 completed Not Available Not Available Not Available eszopiclone 3 mg tablet 06/25 completed Not Available Not Available Not Available Enablex 15 mg tablet,exte nded release active Not Available Not Available Not Available tizanidine 4 mg capsule 06/25 completed Not Available Not Available Not Available Lyrica 75 mg capsule active Not Available Not Available N ot Available aspirin 81mg daily active Not Available Not Available No t Available vitamin E 1 tab PO daily active Not Available Not Available No t Available Fish Oil active Not Available Not Avai lable Not Available ferrous sulfate active Not Available Not Available Not Available iron 65mg daily active Not Available Not Available No t Available Colace active Not Available Not Availa ble Not Available Synthroid active Not Available Not Sudha ilable Not Available FiberCon BID active Not Available Not Avai lable Not Available multivitami n one tab daily 09/15 completed Not Available Not Available Not Available Calcium 500 1 tab PO daily active Not Available Not Available No t Available Premarin active Not Available Not Avai lable Not Available vitamin I26-tffoo acid active Not Available Not Available Not Available cholestyram ine (bulk) active Not Available Not Available N ot Available Lyrica active Not Available Not Availa ble Not Available magnesium oxide (bulk) active Not Available Not Available Not Available oxycodone 10 mg tablet active Not Available Not Available Not Available diclofenac 1 % topical gel APPLY 2 GRAM TO THE AFFECTED AREA(S) BY TOPICAL ROUTE 4 TIMES PER DAY 11/15 completed Not Available Not Available Not Available Gavilyte-C 240 gram-22.72 gram-6.72 gram-5.84 gram oral solution 06/25 completed Not Available Not Available Not Available Botox 200 unit injection 06/25 completed Not Available Not Available Not Available Dexilant 60 mg capsule, delayed release active Not Available Not Available Not Available Xifaxan 550 mg tablet 09/15 completed Not Available Not Available Not Available Butrans 10 mcg/hour transdermal patch APPLY 1 PATCH (10 MCG/HOUR) BY TRANSDERM AL ROUTE EVERY 7 DAYS active Not Available Not Available No t Available Oscimin SL 0.125 mg sublingual tablet active Not Available Not Available Not Available Myrbetriq 25 mg tablet,exte nded release TAKE 1 TABLET (25 MG) BY ORAL ROUTE ONCE DAILY SWALLOWIN G WHOLE WITH WATER. DO NOT CRUSH, CHEW AND/OR DIVIDE. active Not Available Not Available No t Available Myrbetriq 50 mg tablet,exte nded release active Not Available Not Available Not Available Prolensa 0.07 % eye drops 11/15 completed Not Available Not Available Not Available Trokendi XR 50 mg capsule, extended release active Not Available Not Available Not Available Trokendi XR 100 mg capsule, extended release one tab PO daily active Not Available Not Available No t Available Trokendi XR 200 mg capsule, extended release one tab PO daily active Not Available Not Available No t Available Trokendi XR active Not Available Not A vailable Not Available Butrans 15 mcg/hour transdermal patch apply 1 patch every 7 days active Not Available Not Available No t Available Monovisc 88 mg/4 mL intra-artic ular syringe Take 1 mL by intraarti cular route. 10/23 completed RT KNEE Not Available Not Available Not Available droxidopa 300 mg capsule active Not Available Not Available Not Available droxidopa 200 mg capsule 08/11 completed Not Available Not Available Not Available Belbuca [address] 1 film twice a day by buccal route. active Not Available Not Available No t Available Fluzone Quad 2017-(PF) 60 mcg(15 mcgx4)/0.5 mL intramuscul ar syringe 05/04 completed Not Available Not Available Not Available Ajovy Syringe 225 mg/1.5 mL subcutaneou s 06/25 completed Not Available Not Available Not Available Emgality Pen 120 mg/mL subcutaneou s pen injector active Not Available Not Available Not Available Emgality 120 mg/mL subcutaneou s syringe 02/22 completed Not Available Not Available Not Available Reyvow 100 mg tablet active Not Available Not Available No t Available Qulipta 60 mg tablet active Not Available Not Available No t Available Vitals Date Recorded Body height Body mass index (BMI) Body weight Provider Name and Address Organization Details Last Updated DateTime 09/17/2020 152.4 cm 24.4 kg/m2 70074.05 g Veronique BOTELLO - [facility] 09/17/2020 14:33:36 Date Recorded Body height Body mass index (BMI) Body weight Provider Name and Address Organization Details Last Updated DateTime 02/22/2021 152.4 cm 24.4 kg/m2 19370.05 g Maricarmen Cuellar [facility] 02/22/2021 16:50:44 Date Recorded Body height Body mass index (BMI) Body weight Provider Name and Address Organization Details Last Updated DateTime 04/14/2021 152.4 cm 24.4 kg/m2 43984.05 g Maricarmen BOTELLO [facility] 04/14/2021 11:32:25 Date Recorded Body height Body mass index (BMI) Body weight Provider Name and Address Organization Details Last Updated DateTime 05/10/2021 152.4 cm 24.4 kg/m2 68537.05 g Maricarmen BOTLELO - [facility] 05/10/2021 15:58:44 Date Recorded Body height Body mass index (BMI) Body weight Provider Name and Address Organization Details Last Updated DateTime 08/11/2021 152.4 cm 24.4 kg/m2 81246.05 stevo Bahena AYAN Cuellar [facility] 08/11/2021 14:43:24 Social History Question Answer Notes LastModified by Organizat ion Details LastModified Time Tobacco Smoking Status Never Smoker Sophie MathisAYAN bell [facility] 03/10/2015 11:31:38 What Is Your Level Of Alcohol Consumption? None Information not available 03/10/2015 Auto Related Injury? No Information not available 05/10/2021 How Much Tobacco Do You Chew? None Information not available 04/15/2014 Are You Currently Employed? No Information not available 06/02/2014 Which Illicit Or Recreational Drugs Have You Used? None Information not available 03/10/2015 Do You Or Have You Ever Used E-cigarettes Or Vape? Never Used Electronic Cigarettes Information not available 05/10/2021 Which Of Your Hands Is Dominant? Right Information not available 04/15/2014 Currently ? No [email or web address] Information not available 11/15/2018 Marital Status [email or web address] Informatio n not available 05/10/2021 What Was The Date Of Your Most Recent Tobacco Screening? 07/06/2018 Information not available 05/10/2021 If Injured, Is Litigation Ongoing? No Information not available 05/10/2021 Do You Or Have You Ever Used Smokeless Tobacco? Never Used Smokeless Tobacco Information not available 05/10/2021 How Much Tobacco Do You Smoke? No Information not available 04/15/2014 Work Related Injury? No Information not available 05/10/2021 Sex: Unknown Functional Status None recorded. Mental Status None recorded. Family History Relationship Description Onset Age of this Age Resolved Age Notes LastModified by Organization Details LastModified Time Father Malignant neoplastic disease [email or web address] Not available 2015 16:34:31 Father Heart disease [email or web address] Not available 2015 16:34:31 Father Osteoarthrit is Not available 03/07/ 2022 15:54:47 Father Osteoporosis Not avail able 05/10/2021 15:54:48 Mother Diabetes mellitus [email or web address] Not available 2015 16:34:31 Mother Osteoporosis bree Not avail able 05/10/2021 15:54:48 Medical History Condition Response THYROID DISEASE Y DEPRESSION Y LATEX ALLERGY Y MIGRAINE HEADACHES Y KIDNEY DISEASE Y HEART DISEASE N BLOOD THINNERS Y Gynecological HistoryNo gynecological history recorded. Obstetrics History GPAL:G 0 P 0 0 0 0 Past Encounters Encounter ID Performer Location Encounter Start Date Encounter Closed Date Diagnosis/Indication Diagnosis SNOMED-CT Code Diagnosis ICD10 Code Diagnosis Note [id number] [facility] [address] [place] [address] 01/22/2014 16:31:18 02/08/2014 09:16:55 Replacement of total knee joint 411106459 Muscle weakness 75882529 Knee stiff 077216527 Knee pain 13756471 [id number] [facility] [address] [place] [address] 01/24/2014 10:24:29 01/24/2014 14:09:35 Replacement of total knee joint 014211944 Muscle weakness 07200256 Knee stiff 971506174 Knee pain 84749782 [id number] [facility] [address] [place] [address] 01/27/2014 13:31:37 01/27/2014 15:16:07 Replacement of total knee joint 127848663 Muscle weakness 95895586 Knee stiff 718617348 Knee pain 74391700 [id number] [facility] [address] [place] [address] 01/29/2014 15:57:39 01/29/2014 17:27:52 Replacement of total knee joint 962271212 Muscle weakness 02432940 Knee stiff 339912011 Knee pain 68152768 [id number] [facility] [address] [place] [address] 02/03/2014 14:10:59 02/03/2014 17:33:49 Replacement of total knee joint 183535802 Muscle weakness 52690775 Knee stiff 908773782 Knee pain 42868263 [id number] [facility] [address] [place] [address] 02/05/2014 16:34:20 02/05/2014 18:20:26 Replacement of total knee joint 794352746 Muscle weakness 10888328 Knee stiff 477271209 Knee pain 77924322 [id number] [facility] [address] [place] [address] 02/07/2014 16:26:44 02/07/2014 18:22:42 Replacement of total knee joint 198033393 Muscle weakness 37932914 Knee stiff 756390120 Knee pain 71462638 [id number] [facility] [address] [place] [address] 02/11/2014 16:33:00 02/12/2014 09:13:56 Replacement of total knee joint 625489438 Muscle weakness 46188591 Knee stiff 520513268 Knee pain 96712217 [id number] [facility] [address] [place] [address] 02/14/2014 16:29:57 02/18/2014 03:45:45 Replacement of total knee joint 542542760 Muscle weakness 49217709 Knee stiff 293499870 Knee pain 73272007 [id number] [facility] [address] [place] [address] 02/17/2014 17:23:04 02/17/2014 18:49:31 Replacement of total knee joint 250686623 Muscle weakness 14679085 Knee stiff 848544252 Knee pain 09528275 [id number] [facility] (PT) [address] [place] [address] 02/20/2014 16:27:58 02/23/2014 20:07:15 Replacement of total knee joint 679750905 Muscle weakness 07303453 Knee stiff 730928070 Knee pain 84259594 [id number] [facility] [address] [place] [address] 02/21/2014 16:18:58 02/21/2014 18:37:16 Replacement of total knee joint 945716112 Muscle weakness 12092047 Knee stiff 153541448 Knee pain 21354624 [id number] [facility] [address] [place] [address] 02/24/2014 16:27:36 02/24/2014 17:46:33 Replacement of total knee joint 355703574 Muscle weakness 10720941 Knee stiff 497199324 Knee pain 39878744 [id number] [facility] [address] [place] [address] 02/25/2014 16:27:48 02/25/2014 18:11:53 Replacement of total knee joint 214910068 Muscle weakness 60453098 Knee stiff 500288329 Knee pain 24606129 [id number] [facility] [address] [place] [address] 02/26/2014 08:43:34 02/26/2014 13:09:21 Replacement of total knee joint 942096664 Muscle weakness 69368879 Knee stiff 202930612 Knee pain 95459290 [id number] [facility] [address] [place] [address] 03/03/2014 16:23:19 03/04/2014 11:36:29 Replacement of total knee joint 194360973 Muscle weakness 10798531 Knee stiff 544728514 Knee pain 24222992 [id number] [facility] [address] [place] [address] 03/05/2014 10:56:47 03/05/2014 14:32:09 Replacement of total knee joint 516510574 Muscle weakness 76763503 Knee stiff 050903310 Knee pain 98489757 [id number] [facility] [address] [place] [address] 03/12/2014 16:40:38 03/13/2014 07:48:50 Replacement of total knee joint 783806404 Muscle weakness 45118127 Knee stiff 750028824 Knee pain 54992685 [id number] [facility] [address] [place] [address] 03/14/2014 16:32:38 03/16/2014 20:52:13 Replacement of total knee joint 848494243 Muscle weakness 85312005 Knee stiff 422609631 Knee pain 09961940 [id number] [facility] [address] [place] [address] Renard Blankenship joi Neftali AYAN RAMOS [address] 03/17/2014 15:03:28 03/17/2014 16:40:46 Replacement of total knee joint 866833710 Muscle weakness 65275695 Knee stiff 738674167 Knee pain 46585376 [id number] [facility] [address] [place] [address] Renard Blankenship joi Neftali AYAN RAMOS [address] 03/19/2014 14:58:26 03/20/2014 07:40:27 Replacement of total knee joint 883238393 Muscle weakness 23264667 Knee stiff 890600595 Knee pain 16669071 [id number] [facility] [address] [place] [address] Renard Blankenship joi Neftali AYAN RAMOS [address] 03/21/2014 14:58:24 03/23/2014 16:06:49 Replacement of total knee joint 164084004 Muscle weakness 27788514 Knee stiff 288903655 Knee pain 29050393 [id number] [facility] [address] [place] [address] Renard Blankenshipkacy Neftali AYAN RAMOS [address] 4 03/24/2014 14:26:36 03/24/2014 16:34:32 Replacement of total knee joint 288452825 Muscle weakness 23202742 Knee stiff 694600528 Knee pain 89462252 [id number] [facility] [address] [place] [address] Renard Blankenship joi Neftali AYAN RAMOS [address] 4 03/26/2014 14:51:14 03/26/2014 16:40:21 Replacement of total knee joint 649390589 Muscle weakness 25108642 Knee stiff 176419243 Knee pain 83522789 [id number] [facility] [address] [place] [address] Estee Blankenshipgodfrey tamez Neftali AYAN RAMOS [address] 03/28/2014 14:58:17 03/28/2014 17:43:22 Replacement of total knee joint 136221756 Muscle weakness 65864155 Knee stiff 200626802 Knee pain 17111176 [id number] [facility] [address] [place] [address] Estee BlankenshipAYAN Turk [address] 04/02/2014 14:45:32 04/02/2014 16:25:27 Replacement of total knee joint 214312276 Muscle weakness 98947965 Knee stiff 588797005 Knee pain 86883802 [id number] [facility] [address] [place] [address] [place] [address] 04/04/2014 15:02:50 04/07/2014 08:22:55 Replacement of total knee joint 121242354 Muscle weakness 91228960 Knee stiff 620864340 Knee pain 65941249 [id number] [facility] [address] [place] [address] [place] [address] 04/07/2014 15:08:39 04/07/2014 17:07:59 Replacement of total knee joint 323029754 Muscle weakness 20220507 Knee stiff 564375074 Knee pain 38627786 [id number] [facility] [address] [place] [address] [place] [address] 04/11/2014 14:58:03 04/11/2014 17:15:04 Replacement of total knee joint 590948292 Muscle weakness 71864197 Knee stiff 598193848 Knee pain 14214510 [id number] [facility] [address] [place] [address] [place] [address] 04/14/2014 10:45:31 04/14/2014 13:14:56 Replacement of total knee joint 250490854 Muscle weakness 35885826 Knee stiff 038120262 Knee pain 09455283 [id number] [facility] [address] [place] [address] [place] [address] 04/16/2014 14:57:17 04/17/2014 08:22:55 Replacement of total knee joint 335475908 Muscle weakness 74962511 Knee stiff 245627576 Knee pain 81496195 [id number] David Fagan Jr, MD [facility] [address] [facility] [address] 04/17/2014 15:18:54 04/17/2014 16:23:12 Postoperative visit 939359660 Joint stiffness 75973544 [id number] Florentin Bingham, PT Rehab (PT) [address] [place] [address] 04/18/2014 09:39:25 04/18/2014 16:15:59 Replacement of total knee joint 977582523 Muscle weakness 05158551 Knee stiff 893902198 Knee pain 93526438 [id number] David Fagan Jr, MD [facility] [address] [place] [address] 06/02/2014 16:00:59 06/02/2014 16:49:08 Postoperative visit 178742161 [id number] [facility] [address] [place] [address] 09/10/2014 16:02:59 09/10/2014 17:50:13 Replacement of total knee joint 459074226 [id number] [facility] [address] [place] [address] 10/08/2014 15:14:38 10/08/2014 15:46:56 Impingement syndrome of shoulder region 447442705 Shoulder j oint painful on movement 278008089 [id number] Blanca Harrington [address] [address] 11/27/2014 15:30:01 11/27/2014 16:12:38 Shoulder joint painful on movement 344842232 Impingemen t syndrome of shoulder region 955927523 [id number] David Fagan Jr, MD [address] [address] 12/24/2014 16:19:36 12/24/2014 17:20:24 Postoperative visit 200210654 Z09 Impingemen t syndrome of shoulder region 938878879 M75.41 Glenoid labrum tear 3 93269 S43.431S [id number] Avery Rowland MD [facility] [address] [place] [address] 12/29/2014 16:01:28 12/29/2014 17:20:25 Shoulder joint painful on movement 357102427 M25.519 [id number] Bree Fernandop, OTR/L, CHT Rehab (OT) [address] [place], [place] [address]kacy [place] [address] 01/01/2015 14:03:21 01/01/2015 14:45:28 Joint stiffness 65735240 M25.611 [id number] Bree Andria, OTR/L, CHT Rehab (OT) [address] [place], [place] [address] [address] 01/13/2015 13:26:56 01/13/2015 14:26:59 Joint stiffness 46472258 M25.611 [id number] Bree Andria, OTR/L, CHT Rehab (OT) [address] [place], [place] [address] [address] 2015 10:13:49 2015 11:12:43 Joint stiffness 16343376 M25.611 [id number] Bree Andria, OTR/L, CHT Rehab (OT) [address] [place], [place] [address] [address] 01/20/2015 09:55:55 01/20/2015 10:29:07 Joint stiffness 43093700 M25.611 [id number] Bree Andria, OTR/L, CHT Rehab (OT) [address] [place], [place] [address] [address] 01/22/2015 09:44:09 01/22/2015 10:30:02 Joint stiffness 90880804 M25.611 [id number] Bree Andria, OTR/L, CHT Rehab (OT) [address] [place], [place] [address] [address] 01/26/2015 14:38:42 01/26/2015 15:41:52 Joint stiffness 53190411 M25.611 [id number] Avery Rowland MD [facility] [address] [place] [address] 01/26/2015 15:48:37 01/26/2015 16:39:41 Shoulder pain 38810309 M25.511 [id number] Avery Rowland MD [facility] [address] [place] [address] 03/09/2015 15:51:22 03/09/2015 16:54:06 Impingement syndrome of shoulder region 547637768 M75.41 Joint stiffness 43319382 M25.611 [id number] [facility] [address] [place] [address] 03/10/2015 11:07:32 03/10/2015 16:35:18 [id number] HENRRY PrattT, CERT MDT [facility] (PT) [address] [place] [address] 03/20/2015 13:58:33 03/20/2015 15:55:06 Shoulder pain 08645487 M25.511 Shoulder stiff 419816299 M25.611 Shoulder g irdle weakness 800415444 M99.07 [id number] Pam Hicks DPT, CERT MDT [facility] (PT) [address] [place] [address] 03/23/2015 16:45:04 03/23/2015 18:18:17 Shoulder pain 63311715 M25.511 Shoulder stiff 649281725 M25.611 Shoulder g irdle weakness 380400775 M99.07 [id number] Erin Matta, PT, Cert. MDT [facility] (PT) [address] [place] [address] 03/25/2015 16:04:55 03/25/2015 17:57:12 Shoulder pain 07486413 M25.511 Shoulder stiff 814964217 M25.611 Shoulder g irdle weakness 808412627 M99.07 [id number] Melisa Jarrett, PT, Cert. MDT [facility] (PT) [address] [place] [address] 03/27/2015 15:58:13 03/27/2015 16:44:13 Shoulder pain 04101610 M25.511 Shoulder stiff 978531990 M25.611 Shoulder g irdle weakness 446741018 M99.07 [id number] Melisa Jarrett, PT, Cert. MDT [facility] (PT) [address] [place] [address] 03/30/2015 16:04:40 03/30/2015 16:57:44 Shoulder pain 36222226 M25.511 Shoulder stiff 953972222 M25.611 Shoulder g irdle weakness 474519947 M99.07 [id number] Pam Hicks DPT, CERT MDT [facility] (PT) [address] [place] [address] 04/01/2015 16:12:03 04/01/2015 18:01:18 Shoulder pain 94762741 M25.511 Shoulder stiff 868370090 M25.611 Shoulder g irdle weakness 257783234 M99.07 [id number] Dmitriy Westbrook, OFFICE MAIL CLERK-C [facility] [address] [place] [address] 04/03/2015 10:00:37 04/03/2015 10:41:44 Aftercare 509558656 Z47.89 [id number] Pam Hicks DPT, CERT MDT [facility] (PT) [address] [place] [address] 04/03/2015 10:46:02 04/06/2015 09:32:43 Shoulder pain 01557620 M25.511 Shoulder stiff 684762343 M25.611 Shoulder g irdle weakness 199649294 M99.07 [id number] Pam Hicks DPT, CERT MDT [facility] (PT) [address] [place] [address] 04/06/2015 16:29:17 04/06/2015 18:03:08 Shoulder pain 04077258 M25.511 Shoulder stiff 329449920 M25.611 Shoulder g irdle weakness 275919045 M99.07 [id number] Pam Hicks DPT, CERT MDT [facility] (PT) [address] [place] [address] 04/08/2015 16:37:27 04/08/2015 17:26:08 Shoulder pain 23304565 M25.511 Shoulder stiff 847967950 M25.611 Shoulder g irdle weakness 357382236 M99.07 [id number] Pam Hicks DPT, CERT MDT [facility] (PT) [address] [place] [address] 8 04/10/2015 16:39:00 04/10/2015 17:50:35 Shoulder pain 00462264 M25.511 Shoulder stiff 123468282 M25.611 Shoulder g irdle weakness 705461372 M99.07 [id number] Pam Hicks DPT, CERT MDT [facility] (PT) [address] [place] [address] 8 04/13/2015 16:34:16 04/14/2015 13:49:33 Shoulder pain 83783935 M25.511 Shoulder stiff 197073030 M25.611 Shoulder g irdle weakness 346068435 M99.07 [id number] Pam Hicks DPT, CERT MDT [facility] (PT) [address] [place] [address] 8 04/15/2015 16:33:49 04/15/2015 17:12:18 Shoulder pain 33852152 M25.511 Shoulder stiff 564513328 M25.611 Shoulder g irdle weakness 258039583 M99.07 [id number] Dmitriy Westbrook, OFFICE MAIL CLERK-C [facility] [address] [place] [address] 04/17/2015 15:09:14 04/17/2015 15:39:32 Aftercare 994374263 Z47.89 [id number] Pam Hicks DPT, CERT MDT [facility] (PT) [address] [place] [address] 8 04/20/2015 16:22:24 04/20/2015 17:37:26 Shoulder pain 37532756 M25.511 Shoulder stiff 484309616 M25.611 Shoulder g irdle weakness 828427653 M99.07 [id number] Pam Hicks DPT, CERT MDT [facility] (PT) [address] [place] [address] 8 04/22/2015 16:30:00 04/23/2015 13:38:05 Shoulder pain 42196090 M25.511 Shoulder stiff 018792721 M25.611 Shoulder g irdle weakness 797757156 M99.07 [id number] Pam Hicks DPT, CERT MDT [facility] (PT) [address] [place] [address] 8 04/24/2015 16:28:16 04/24/2015 17:36:47 Shoulder pain 09579694 M25.511 Shoulder stiff 805338981 M25.611 Shoulder g irdle weakness 514465594 M99.07 [id number] Pam Hicks DPT, CERT MDT [facility] (PT) [address] [place] [address] 8 04/27/2015 16:00:10 04/27/2015 18:18:10 Shoulder pain 35763168 M25.511 Shoulder stiff 265713857 M25.611 Shoulder g irdle weakness 016234445 M99.07 [id number] Pam Hicks DPT, CERT [facility]T [facility] (PT) [address] [place] [address] 8 04/29/2015 16:32:15 04/29/2015 17:46:59 Shoulder pain 53353636 M25.511 Shoulder stiff 226150680 M25.611 Shoulder g irdle weakness 909288597 M99.07 [id number] Pam Hicks DPT, CERT MDT [facility] (PT) [address] [place] [address] 8 05/01/2015 16:31:11 05/01/2015 18:28:42 Shoulder pain 65798411 M25.511 Shoulder stiff 834958861 M25.611 Shoulder g irdle weakness 123029653 M99.07 [id number] Pam Hicks DPT, CERT MDT [facility] (PT) [address] [place] [address] 8 05/04/2015 14:57:29 05/04/2015 15:36:22 Shoulder pain 79985979 M25.511 Shoulder stiff 652460392 M25.611 Shoulder g irdle weakness 272788590 M99.07 [id number] Avery Rowland MD [facility] [address] [place] [address] 8 05/04/2015 15:51:43 05/04/2015 17:05:33 Aftercare 044655471 Z47.89 [id number] Pam Hicks DPT, CERT MDT [facility] (PT) [address] [place] [address] 05/06/2015 17:00:49 05/06/2015 17:42:10 Shoulder pain 16260173 M25.511 Shoulder stiff 538695547 M25.611 Shoulder g irdle weakness 013813277 M99.07 [id number] Melisa Jarrett, PT, Cert. MDT [facility] (PT) [address] [place] [address] 8 05/08/2015 16:30:58 05/08/2015 17:40:40 Shoulder pain 66512608 M25.511 Shoulder stiff 422274956 M25.611 Shoulder g irdle weakness 647898323 M99.07 [id number] Pam Hicks DPT, CERT MDT [facility] (PT) [address] [place] [address] 8 05/11/2015 16:21:02 05/12/2015 12:53:21 Shoulder pain 98425615 M25.511 Shoulder stiff 868399120 M25.611 Shoulder g irdle weakness 232245047 M99.07 [id number] Melisa Jarrett, PT, Cert. MDT [facility] (PT) [address] [place] [address] 8 05/22/2015 16:32:55 05/22/2015 17:23:06 Shoulder pain 02607459 M25.511 Shoulder stiff 617527959 M25.611 Shoulder g irdle weakness 019848099 M99.07 [id number] Pam Hicks DPT, CERT MDT [facility] (PT) [address] [place] [address] 8 05/25/2015 15:06:36 05/25/2015 17:36:39 Shoulder pain 41021127 M25.511 Shoulder stiff [id number] M25.611 Shoulder g irdle weakness 169165177 M99.07 [id number] Dmitriy Westbrook, OFFICE MAIL CLERK-C [facility] [address] [place] [address] 99945-067 8 05/25/2015 15:57:35 05/25/2015 17:12:46 Aftercare [id number] Z47.89 [id number] Pam Hicks DPT, CERT MDT Rehab FS (PT) [address] [place] [address] 78495-882 8 05/27/2015 16:33:19 05/27/2015 17:55:22 Shoulder pain 70047100 M25.511 Shoulder stiff 963470839 M25.611 Shoulder g irdle weakness 013144064 M99.07 [id number] Pam Hicks DPT, CERT MDT Rehab FS (PT) [address] [place] [address] 30135-111 8 05/29/2015 16:30:21 05/29/2015 17:12:38 Shoulder pain 49947481 M25.511 Shoulder stiff 284387014 M25.611 Shoulder g irdle weakness 171067438 M99.07 [id number] Pam Hicks DPT, CERT MDT Rehab FS (PT) [address] [place] [address] 06/01/2015 16:29:04 06/01/2015 18:16:29 Shoulder pain 82439230 M25.511 Shoulder stiff 978491675 M25.611 Shoulder g irdle weakness 439283361 M99.07 [id number] Pam Hicks DPT, CERT MDT Rehab FS (PT) [address] [place] [address] 12003-800 8 06/03/2015 16:23:12 06/03/2015 18:01:17 Shoulder pain 54691101 M25.511 Shoulder stiff 184907537 M25.611 Shoulder g irdle weakness 543165025 M99.07 [id number] Pam Hicks DPT, CERT MDT Rehab FS (PT) [address] [place] [address] 56154-846 8 06/05/2015 16:19:28 06/05/2015 16:55:18 Shoulder pain 54125901 M25.511 Shoulder stiff 972858882 M25.611 Shoulder g irdle weakness 796596943 M99.07 [id number] Pam Hicks DPT, CERT MDT Rehab FS (PT) [address] [place] [address] 95163-525 8 06/08/2015 16:33:24 06/08/2015 17:23:33 Shoulder pain 99508666 M25.511 Shoulder stiff 907575038 M25.611 Shoulder g irdle weakness 755187077 M99.07 [id number] Pam Hicks DPT, CERT MDT Rehab FS (PT) [address] [place] [address] 78133-611 8 06/12/2015 16:16:03 06/12/2015 17:52:48 Shoulder pain 07802201 M25.511 Shoulder stiff 521757488 M25.611 Shoulder g irdle weakness 603273308 M99.07 [id number] Pam Fabiola, DPT, CERT MDT Rehab FS (PT) [address] [place] [address] 64311-030 8 06/15/2015 15:59:58 06/16/2015 15:58:40 Shoulder pain 95209813 M25.511 Shoulder stiff 574033997 M25.611 Shoulder g irdle weakness 789509742 M99.07 [id number] Pam Hicks DPT, CERT MDT Rehab FS (PT) [address] [place] [address] 03972-816 8 06/19/2015 16:32:51 06/19/2015 17:07:36 Shoulder pain 83056252 M25.511 Shoulder stiff 227211589 M25.611 Shoulder g irdle weakness 204795204 M99.07 [id number] Avery Rowland MD [facility] [address] [place] [address] 20933-494 8 06/22/2015 15:08:34 06/22/2015 15:37:37 Knee pain 53908608 M25.562 Aftercare [id number] Z47. 89 [id number] Avery Rowland MD [facility] [address] [place] [address] 94610-464 8 07/31/2015 07:57:20 07/31/2015 08:34:51 Knee pain 96276815 M25.562 M25.561 [id number] Dmitriy Westbrook NP-C [facility] [address] [place] [address] 99262-842 8 10/02/2015 08:11:12 10/02/2015 08:40:18 Aftercare [id number] Z47.89 Knee pain 86380576 M25.5 62 M25.561 [id number] FRIDA Joseph [facility] [address] [place] [address] 64720[address]761 8 10/21/2015 09:03:34 10/21/2015 09:49:02 Knee pain 97035718 M25.562 History of total knee arthroplasty 9346081157 105 Z96.659 Chronic pain syndrome 37 5016861 G89.4 [id number] Sophie Dos Santos [facility] [address] [place] [address] 02584-288 8 10/30/2015 14:09:29 10/30/2015 14:47:06 [id number] Avery Rowland MD [facility] [address] [place] [address], [place] [address] 8 11/02/2015 15:54:36 11/02/2015 16:45:42 Shoulder pain 70306219 M25.511 [id number] José Miguel Gregory MD [facility] [address] [place] [address] 11/05/2015 10:07:00 11/05/2015 11:42:27 [id number] FRIDA Joseph [facility] [address] [place] [address] 8 12/02/2015 08:54:12 12/02/2015 09:24:56 Knee pain 26546975 M25.562 History of total knee arthroplasty 8785687078 105 Z96.659 Chronic pain syndrome 37 3714561 G89.4 Low back pain 839734649 M54.5 Lumbosacra l radiculitis 92704905 M54.17 Lumbar spondylosis 78554 0009 M47.896 [id number] Meagan Mix [place] [address] [place] [address]80-963 4 12/10/2015 14:50:46 12/13/2015 23:48:27 Pain in wrist 58909244 M25.531 Foot pain 59537833 M79.6 71 Sprain of ankle 10397371 S93.431A Sprain of wrist 41723507 S63.521A [id number] Dmitriy Westbrook NP-C [facility] [address] [place] [address]95[address]988 8 12/22/2015 15:14:43 12/22/2015 15:48:42 Knee pain 09486061 M25.562 M25.561 Shoulder pain 10005068 M 25.511 Aftercare 902882250 Z47. 89 [id number] Peter Gilmore [facility] Office [address] [place] [address]306 4 12/31/2015 12:59:15 12/31/2015 17:47:29 Pain in wrist 48511790 M25.531 Sprain of right wrist 11 05695320 9769513 S63.501A Small joint arthritis 25 7197322 M15.2 [id number] David Fagan Jr, MD [facility] [address] [place] [address] 01/04/2016 15:51:38 01/04/2016 16:43:41 Sprain of ankle 65877437 S93.491D [id number] FRIDA Joseph [facility] [address] [place] [address] 8 01/06/2016 10:00:10 01/06/2016 10:28:37 Lumbar spondylosis 130602056 M47.896 Chronic pain syndrome 37 6890864 G89.4 Knee pain 72082555 M25.5 62 Knee stiff 232912581 M25 .669 Interverte bral disc disorder 77224080 M51.9 Lumbosacra l radiculitis 27331083 M54.17 History of total knee arthroplasty 3760681115 105 Z96.659 [id number] Elvie Olmedo [facility] [address] [place] [address] 8 01/11/2016 15:48:12 01/11/2016 16:16:26 [id number] José Miguel Gregory MD [facility] [address] [place] [address] 8 01/12/2016 13:55:53 01/12/2016 16:18:32 [id number] David Fagan Jr, MD [facility] [address] [place] [address] 31176[address]766 8 02/01/2016 16:30:11 02/01/2016 16:56:36 Sprain of ankle 31553687 S93.491D [id number] Brianne Yao , PT Rehab FS (PT) [address] [place] [address] 40366[address] 8 02/04/2016 13:53:09 02/09/2016 13:56:00 Ankle pain 156688716 M25.571 Muscle weakness 29521438 M62.81 [id number] Brianne Yao , PT Rehab FS (PT) [address] [place] [address] 05952-592 8 02/09/2016 12:07:19 02/09/2016 13:56:23 Ankle pain 819836996 M25.571 Muscle weakness 49253073 M62.81 [id number] Brianne Yao , PT Rehab FS (PT) [address] [place] [address] 21272-207 8 02/11/2016 12:46:06 02/12/2016 10:34:30 Ankle pain 115607051 M25.571 Muscle weakness 31154111 M62.81 [id number] Peter Gimlore [facility] [address] [facility] [address] [place] [address] 02/11/2016 14:35:34 02/11/2016 18:08:34 Sprain of right wrist 2468457615 0057457 S63.501A [id number] FRIDA Joseph [facility] [address] [place] [address] 02/12/2016 09:14:44 02/12/2016 10:17:15 Knee pain 95664068 M25.562 Low back pain 141910701 M54.5 Lumbosacra l radiculitis 92215775 M54.17 Lumbar spondylosis 32813 0009 M47.896 [id number] Brianne Yao , PT Rehab [facility] (PT) [address] [place] [address] 19996-482 8 02/16/2016 11:54:42 02/16/2016 13:59:31 Ankle pain 838412140 M25.571 Muscle weakness 79517077 M62.81 [id number] Brianne Yao , PT Rehab [facility] (PT) [address] [place] [address] 26901[address]012 8 02/18/2016 11:58:33 02/18/2016 13:49:09 Ankle pain 578985601 M25.571 Muscle weakness 83640935 M62.81 [id number] Frank Amado MD [facility] [address] [place] [address] 8 02/18/2016 13:01:11 02/18/2016 14:24:05 Lumbar radiculopathy 461187975 M54.16 Spinal lowell nosis of lumbar region 58792570 M48.06 [id number] David Fagan Jr, MD [facility] [address] [place] [address] 16669[address] 8 01/10/2018 09:36:06 01/10/2018 10:23:49 Knee pain 90668457 M25.569 Osteoarthr itis of knee 790366304 M17.11 [id number] David Fagan Jr, MD [facility] [address] [place] [address] [place] [address] 4 05/04/2018 08:41:12 05/04/2018 09:26:56 Pain in right knee 0527454514 45764 M25.561 History of total knee arthroplasty 1025024357 105 Z96.882 [id number] David Fagan Jr, MD [facility] [address] [place] [address] [place] [address] 4 05/14/2018 15:48:13 05/14/2018 16:26:07 Osteoarthritis of right knee joint 7881551090 26460 M17.11 [id number] David Fagan Jr, MD [facility] [address] [place] [address] [place] [address] 4 05/24/2018 09:20:29 05/24/2018 10:15:07 Osteoarthritis of right knee joint 2129068057 14531 M17.11 [id number] Franco Porter PA-C [facility] [address] [place] [address] [place] [address] 4 06/25/2018 15:11:58 06/25/2018 16:58:47 Pain of right shoulder joint 5579329755 5360050 M25.034 [id number] Yarely Nicolas, PT, MS, ATC, CSCS Rehab [facility] (PT) [address] [place] [address] [place] [address] 4 07/06/2018 09:48:17 07/06/2018 11:21:45 Shoulder stiff 608006161 M25.612 Shoulder pain 68117223 M 25.040 [id number] Peter Gilmore [facility] Office [address] [place] [address] [place] [address] 4 11/15/2018 13:37:20 11/15/2018 14:45:05 Pain in right hand 6187414037 57708 M79.975 [id number] David Fagan Jr, MD [facility] [address] [place] [address] [place] [address] 4 06/26/2019 09:53:42 06/26/2019 11:05:28 Knee pain 52013853 M25.569 Osteoarthr itis of right knee joint 1741056079 96300 M17.11 Chronic pa in following left total knee arthroplasty 4616194014 5563080 T84.84XD [id number] David Fagan Jr, MD [facility] [address] [place], [place] [address] [address] 4 08/22/2019 09:26:46 08/22/2019 10:00:20 Osteoarthritis of right knee joint 2154899269 88782 M17.11 [id number] Mehreen Thompson NP-C [facility] [address] [place], [place] [address] [address] 4 09/13/2019 08:53:40 09/17/2019 10:44:34 Low back pain 826775265 M54.5 Degenerati on of lumbar intervertebral disc 41816002 M51.36 Lumbar radiculopathy 128 597784 M54.16 [id number] THELMA MONZON Rehab (PT) [address] [place], [place] [address] [address] 4 09/23/2019 11:05:00 09/23/2019 12:50:42 Low back pain 718102103 M54.5 Lumbar radiculopathy 128 757808 M54.16 Muscle weakness 12487120 M62.81 [id number] THELMA MONZON Rehab (PT) [address] [place], [place] [address] [address] 4 09/27/2019 08:56:56 09/27/2019 11:07:03 Low back pain 043168891 M54.5 Lumbar radiculopathy 128 466264 M54.16 Muscle weakness 06374882 M62.81 [id number] Yousuf Gonzalez PTA Rehab (PT) [address] [place], [place] [address] [address] 4 10/01/2019 15:51:38 10/01/2019 17:42:39 Low back pain 749643334 M54.5 Lumbar radiculopathy 128 827013 M54.16 Muscle weakness 90402522 M62.81 [id number] Mehreen Thompson NP-C [facility] [address] [place], [place] [address] [address] 4 10/04/2019 09:25:51 10/08/2019 10:30:55 Neck pain 39797812 M54.2 Low back pain 220844913 M54.5 [id number] THELMA NA Rehab (PT) [address] [place] [address] [employer] AYAN [address] 4 10/04/2019 10:09:35 10/04/2019 12:55:44 Low back pain 419983936 M54.5 Lumbar radiculopathy 128 615822 M54.16 Muscle weakness 37384543 M62.81 [id number] Yousuf Gonzalez LITIGATOR Rehab (PT) [address] [place] [address] [employer] AYAN [address]1183[address] 4 10/09/2019 11:24:01 10/09/2019 14:21:41 Low back pain 953422974 M54.5 Lumbar radiculopathy 128 918306 M54.16 Muscle weakness 64561531 M62.81 [id number] Yousuf Gonzalez LITIGATOR Rehab (PT) [address] [place] [address] [employer] AYAN [address] 4 10/10/2019 10:27:31 10/10/2019 12:05:27 Low back pain 546046238 M54.5 Lumbar radiculopathy 128 758578 M54.16 Muscle weakness 73658002 M62.81 [id number] Yousuf Gonzalez LITIGATOR Rehab (PT) [address] [place] [address] [employer] AYAN 38689-313 4 10/14/2019 11:46:13 10/14/2019 14:15:55 Low back pain 800139024 M54.5 Lumbar radiculopathy 128 340398 M54.16 Muscle weakness 30129301 M62.81 [id number] Yousuf Gonzalez LITIGATOR Rehab (PT) [address] [place] [address] [employer] AYAN [address]83[address]-117 4 10/16/2019 11:25:41 10/16/2019 13:48:18 Low back pain 328028727 M54.5 Lumbar radiculopathy 128 305660 M54.16 Muscle weakness 86336718 M62.81 [id number] Mehreen Thompson OFFICE MAIL CLERK-C [facility] [address] [place] [address] [employer] AY[place] [address] 4 10/23/2019 08:36:37 10/28/2019 08:55:42 Low back pain 113578276 M54.5 Degenerati on of lumbar intervertebral disc 72322201 M51.36 Cervical spondylosis 387 916726 M47.812 Degenerati on of cervical intervertebral disc 27245109 M50.30 [id number] David Fagan Jr, MD [facility] [address] [place] [address]-259 4 10/24/2019 10:30:28 10/24/2019 11:05:08 Knee pain 13406002 M25.569 Contusion of left knee 4109364760 4922488 S80.02XA [id number] David Fagan Jr, MD [facility] [address] [place] [address]90-450 4 06/01/2020 15:58:48 06/01/2020 16:43:12 History of total knee arthroplasty 0195810238 105 Z96.652 Knee pain 91460396 M25.5 69 [id number] David Fagan Jr, MD [facility] [address] [place] [address] 46553-839 4 09/17/2020 14:20:57 09/17/2020 15:37:22 Pain in right knee 8646631764 04134 M25.561 Osteoarthr itis of right knee joint 4133518527 35597 M17.11 [id number] David Fagan Jr, MD [facility] [address] [place] [address] 29167-420 4 02/22/2021 15:42:35 02/22/2021 17:05:16 Pain of right elbow joint 2075777618 5211976 M25.171 [id number] David Fagan Jr, MD [facility] [address] [place] [address] 26628-284 4 04/14/2021 11:17:52 04/14/2021 11:52:45 Pain of right elbow joint 2621792912 3498544 M25.521 Lateral ep icondylitis of right humerus 7182887636 37073 M77.11 Swelling o f right upper limb 4498480152 2682444 R22.31 [id number] David Fagan Jr, MD [facility] [address] [place] [address] [place] [address] 4 05/10/2021 15:48:45 05/10/2021 16:34:59 Lateral epicondylitis of right humerus 1081397455 06887 M77.11 [id number] David Fagan Jr, MD [facility] [address] [place] [address],[place] [address] 4 08/11/2021 14:16:48 08/11/2021 15:40:36 Ankle pain 135617469 M25.579 Lateral ep icondylitis of right humerus 9882325045 64645 M77.11 Health Concerns Section Related Observation LastModified by Organization Detai ls LastModified Time None Recorded Concern Status LastModified by Organization Details LastModified Time None Recorded Advance Directives Directive None Recorded Payers Encounter Date Sequence Insurance Name Policy Number Policy [place] Covered Member ID Kan Member ID Guarantor Name 09/17/2020 1 [place] Benita S Mack [id number] Benita S Mack 09/17/2020 2 WPS - FOR LIFE (MEDICARE SUPPLEMENT) Frank Giron [id number] Benita S Mack 02/22/2021 1 [place] Benita S Mack [id number] Benita S Mack 02/22/2021 2 WPS - FOR LIFE (MEDICARE SUPPLEMENT) Frank Giron [id number] Benita S Mack 04/14/2021 1 [place] Benita S Mack [id number] Benita S Mack 04/14/2021 2 WPS - FOR LIFE (MEDICARE SUPPLEMENT) Frank Giron [id number] Benita S Mack 05/10/2021 1 [place] Benita S Mack [id number] Benita S Mack 05/10/2021 2 WPS - FOR LIFE (MEDICARE SUPPLEMENT) Frank Giron [id number] Benita S Mack 08/11/2021 1 [place] Benita S Mack [id number] Benita S Mack 08/11/2021 2 WPS - FOR LIFE (MEDICARE SUPPLEMENT) Frank Giron [id number] Benita Giron Notes Date Note Type Note Provider Name and Address Organization Details Recorded Time 09/17/2020 text/html patient today fo r follow-up of her chronic right knee pain and discomfort. She unfortunately continues to be significantly symptomatic despite previous treatment over the last several months. She states that she cannot go on with the pain as it currently is. She has not responded to activity modifications, NSAIDs, pull injections to include both thhis go supplements and steroid, the supports, etc. 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 she request scheduling for right total knee arthroplasty. David Fagan Jr, MD [address] [place] [address], [phone], [facility] 09/18/2020 13:48:29 02/22/2021 text/html Patient is in to day with chief complaint right lateral elbow discomfort. She states that she hit her elbow during a fall that occurred last Monday which I believe was 12 February. She does not recall the specifics of the injury. The patient has had a previous right elbow dislocation approximately 26 years ago. The patient states that she had no significant bruising about the elbow but did have some swelling that has resolved. David Fagan Jr, MD [address] [place] [address], [phone], [facility] 02/22/2021 17:53:29 04/14/2021 text/html Patient is in to see me today with chief complaint of right forearm and hand swelling and some mild tingling. She states that she did actually bump this again a couple of days ago but was having some swelling in the extremity prior to that. She has had no treatment for this complaint. She does not feel that she has any weakness in the right arm. She denies any neck pain. David Fagan Jr, MD [address] [place] [address], [phone], [facility] 04/14/2021 11:55:39 05/10/2021 text/html Patient returns today for follow-up lateral epicondylitis right elbow. She states that she is no better after taking the Dosepak. She continues to have some swelling in the forearm with pain when lifting objects and extending the elbow. David Fagan Jr, MD [address] [place] [address], [phone], [facility] 05/10/2021 17:29:05 08/11/2021 text/html Patient returns today with complaints of recurrent lateral right elbow pain and discomfort. And also states that she has had more cute onset of lateral right ankle pain and discomfort not associated with any history of injury or trauma. She states that previous injection of the elbow that was performed on May 10 worked extremely well but the pain has returned. She has not had recent treatment for the right ankle complaint. She states that she only has a minimal limp but she does have soreness to touch on the lateral side of the ankle. David Fagan Jr, MD [address] [place] [address], [phone], [facility] 08/11/2021 16:22:56 OBGyn Episode No OBEpisode recorded.
--- OUTSIDE RECORDS SUMMARY | 2024-06-07 09:13 | XMS_ITS | Patient Health Record ---
Author Organization [facility] Address [address] [place], [place] [id number] Care Team Providers Care Meat Grader Name Role Phone Adrian South Primary Care Provider [phone] Allergies Allergen (clinical drug ingredient) Drug/Non Drug Allergy documented on EMR Reaction Allergy Type Onset Date Status celecoxib Celebrex dizziness Drug Allergy Active esomeprazole Nexium hives Drug Allergy Acti ve penicillin G Penicillin G Sodium anaphylaxis Drug Allergy Active Reason For Referral No Information Medications Medication SIG (Take, Route, Frequency, Duration) Notes Start Date End Date Status Fish Oil 1200 MG 1 capsule Orally Once a day Active Topiramate 100 MG TAKE ONE TABLET BY MOUTH TWICE A DAY; Duration: 30 Active valACYclovir HCl 1 GM 1 tablet as needed for herpes flare up Orally TID Active Topiramate 25 MG 1 tablet Orally Twice a day with 100 mg topiramate twice a day Active Doxepin HCl 10 MG TAKE ONE CAPSULE BY MOUTH EVERY NIGHT AT BEDTIME; Duration: 30 Active Synthroid 75 MCG 1 tablet on an empty stomach in the morning Orally Once a day Active Restasis 0.05 % 1 drop into affected eye Ophthalmic Twice a day Active Flonase 50 MCG/ACT 1 spray in each nostril Nasally Once a day; Duration: 30 day(s) *Reorder from [employer]) for eRx and Interaction Alerts* 06/29/2020 Active Sertraline HCl 50 MG TAKE ONE TABLET BY MOUTH EVERY MORNING; Duration: 90 Active traMADol HCl 50 MG 1 tablet as needed Orally Once a day Active Loratadine 10 MG TAKE ONE TABLET BY MOUTH DAILY; Duration: 30 Active Mirtazapine 15 MG 1 tablet at bedtime Orally Once a day; Duration: 90 days Active Magnesium 400 MG 1 tablet with a meal Orally Once a day Active Reyvow 100 MG 1 tablet as needed Orally Once a day; Duration: 30 days 05/31/2021 Active Hyoscyamine Sulfate 0.125 MG 1 tablet as needed Orally every 4 hrs Active Qulipta 60 MG 1 tablet Orally Once a day *Reorder from [employer] ([employer]) for eRx and Interaction Alerts* Active Fludrocortisone Acetate 0.1 MG 2 tablet Orally Once a day Active Gabapentin 100 MG 1 capsule Orally Two times a day; Duration: 90 days 05/29/2021 Active Klor-Con 10 10 MEQ 1 tablet with food Orally TID Active Northera 300 MG 1 capsule Orally Three times a day Active Immunizations Vaccine Route Administration Date Status Comme nts Influenza, quadrivalent (IIV4), split virus, 6-35 months dosage IM Intramuscular 12/13/2018 Administered Pneumococcal polysaccharide PPV23 IM Intramuscular 02/09/2019 Administered Social History Social History Additional Details Category Social Info Options Details Migrated Social History Drugs/Alcohol: (Do you smoke marijuana?): Denies (Do you drink alcohol?): No (Alcohol Screen (Audit-C)): Did you have a drink containing alcohol in the past year?: No, Points: 0, Interpretation: Negative Tobacco/ (Smoking History): :: nonsmoker Problems Problem Type SNOMED Code ICD Code Onset Dates Problem Status W/U Status Risk Notes Problem 379603407 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) Active confirmed Problem Irritable bowel syndrome with diarrhea (272125475) Irritable bowel syndrome with diarrhea (K58.0) Active confirmed Problem 95632888 Age-related osteoporosis without current pathological fracture (M81.0) Active confirmed Problem 591351184 Overactive bladder (N32.81) Active confirmed Problem 61154035 Alzheimer''s disease with early onset (G30.0) Active confirmed Problem 519863418 GERD without esophagitis (K21.9) Active confirmed Problem 763319719 Pre-syncope (R55) Active confirmed Problem 267718270 Acquired hypothyroidism (E03.9) Active confirmed Problem 96874394 Depression, major, 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) Active confirmed Problem 593594815 Intractable migraine with aura without status migrainosus (G43.119) Active confirmed Problem Insomnia due to mental disorder (22286577) Insomnia due to mental disorder (F51.05) Active confirmed Problem 49211010290158394 White matter disease (R90.82) Active confirmed Plan Of Treatment No Information Insurance Providers Payer Name Payer Address Payer Phone Subscriber Number Group Number Insured Name Patient Relationship to Insured Coverage Start Date Coverage End Date [employer] of [place] [address] SUDEEP LOZANO [id number] [phone] [id number] DULCE GIRON Self - patient is the insured [facility] [address] [place], [place] [phone] [id number] DULCE GIRON Self - patient is the insured Medications Administered Medication Instructions Date of Administration Dosage Notes Dexamethasone(decadron) 06/01/2019 10 mg Ketorolac (Toradol) 30MG 05/18/2021 30 mg Medical (General) History Medical History History ICD Code migraines lightheaded, low blood pressure left knee replacement diverticulitis Surgical History Surgery Date(Month/Year) hesterectomy shoulder surgeis bilateral knee surgery left wyvnk-gyoywarrb-kfblaj tunnel Hernia eye surgery breast reduction
--- OUTSIDE RECORDS SUMMARY | 2024-06-07 09:13 | XMS_ITS ---
Author Organization [facility] Address [address] [place], [place] [id number] Care Team Providers Care Timber Treatment [employer] Operator Name Role Phone KIERA LATA Unavailable [phone] Yvan Best Unavailable Unavailable Allergies Allergen (clinical drug ingredient) Drug/Non Drug Allergy documented on EMR Reaction Allergy Type Onset Date Status celecoxib CeleBREX Unknown Drug Allergy Active esomeprazole NexIUM Unknown Drug Allergy Acti ve Penicillin Unknown Drug Allergy Active REASON FOR VISIT *Post operative no x-rays and haglunds follow-up Medications Medication SIG (Take, Route, Frequency, Duration) Notes Start Date End Date Status Medrol 4 MG as directed Orally Active Social History Tobacco Use: Social History Observation Description Date Details (start date - stop date) Never Smoker NA - NA Tobacco Use/Smoking Question Answer Notes Tobacco use: nonsmoker Vital Signs Height 60 in 03/21/2024 Weight 140 lbs 03/21/2024 BMI 27.34 kg/m2 03/21/2024 Height-cm 152.4 cm 03/21/2024 Weight-kg 63.5 kg 03/21/2024 Encounters Encounter Location Date Provider Diagnosis [facility] [address] [place], [place] [id number] 03/21/2024 LATA PRATHER Peroneal tendinitis of right lower extremity M76.71 ; Encounter for other specified surgical aftercare Z48.89 ; Achilles tendinitis, right leg M76.61 ; Achilles tendinitis, left leg M76.62 ; Pain in right foot M79.671 and Left foot pain M79.672 Assessments Encounter Date Diagnosis (ICD Code) Assessment Notes Treatment Notes Treatment Clinical Notes Section Notes 03/21/2024 Peroneal tendinitis of right lower extremity (ICD-10 - M76.71) 03/21/2024 Encounter for other specified surgical aftercare (ICD-10 - Z48.89) 03/21/2024 Achilles tendinitis, right leg (ICD-10 - M76.61) Surgical correction was discussed. The patient opted not to proceed at this time. 03/21/2024 Achilles tendinitis, left leg (ICD-10 - M76.62) 03/21/2024 Pain in right foot (ICD-10 - M79.671) 03/21/2024 Left foot pain (ICD-10 - M79.672) Plan Of Treatment Treatment Notes Assessment Notes Achilles tendinitis, right leg Surgical correction was discussed. The patient opted not to proceed at this time. Progress Notes * Benita GIRONDOB:1955 (69 yo F)Acc No.[id number]:03/21/2024 Patient: Tushar SAWYER Benita Provider: Mayelin Prather DPM :1955 A ge:69 Y S ex:Female Date:03/21/2024 [address] [id number] Subjective: * Chief Complaints: * * Post operative no x-rays and haglunds follow-up * HPI: H PI: Follow Up Visit P atient presents for follow-up visit for bilateral heel pain and surgery on her right foot. Patient states her left heel is really hurting her today. She has been doing physical therapy and states it helps for a couple of hours. She was dispensed a Trilock last visit, but states physical therapy told her not to wear. MA: sea. * ROS: G eneral / Constitutional: Patient denies c hills, fever. C ardiovascular: Patient denies c hest pain. * Medical History: * Surgical History: * Hospitalization/Major Diagno stic Procedure: * Family History: F ather: unknown, heart disease. M other: unknown, COPD. B rother: unknown, COPD. S ister: unknown, Cancer. * Social History: T obacco Use: T obacco Use/Smoking T obacco use: n onsmoker D rugs/Alcohol: D o you drink alcohol?: No. * Medications: T akingMedrol 4 MG Tablet Therapy Pack as directed Orally Taking Medrol 4 MG Tablet Therapy Pack as directed Orally * Allergies: P enicillinNexIUMCeleBREX Objective: * Vitals: S hoe Size: 6, Wt:140lbs, Wt-k.5 kg, Ht: 60 in, Ht-cm: 152.4 cm, BMI:27.34Index, Body Surface Area: 1.64. * Examination: P hysical Examination: Gen: T [...] to all digits. Negative Hemal's sign . Assessment: * Assessment: 1. P eroneal tendinitis [...] VISIT * Billing Information: * Visit Code: * Procedure Codes: 17626 POSTOP FOLLOW-UP VISIT. * [place] MARKETING MANAGER Sign off status: Completed true * Provider: Mayelin Prather DPM Date: 0 03/21/2024 Generated for Rola paris/Kym/Gustabo on: 0 06/07/2024 09:13 AM CDT History and Physical Notes * HPI (History of Present Illness) Category Sub-Category Detail Notes Category Not es HPI Follow Up Visit Patient presents for follow-up visit for bilateral heel pain and surgery on her right foot. Patient states her left heel is really hurting her today. She has been doing physical therapy and states it helps for a couple of hours. She was dispensed a Trilock last visit, but states physical therapy told her not to wear. MA: sea Examination Category Sub-Category Detail Notes Category Not es Physical Examination Gen: The patient is awake, [...]
--- OUTSIDE RECORDS SUMMARY | 2024-06-07 09:14 | XMS_ITS ---
Author Organization [facility] Address [address] [place], [place] [id number] Care Team Providers Care Motor Bus Driver Name Role Phone LATA QURESHI Unavailable [phone] Yvan Best Unavailable Unavailable Encounters Encounter Location Date Provider Diagnosis [facility] [address] [place], [place] [phone] 02/07/2024 LATA QURESHI Plan Of Treatment No Information Progress Notes * Benita GIRONDOB:1955 (69 yo F)Acc No.[id number]:02/07/2024 Patient: Benita FRAGA :1955 A ge:69 Y S ex:Female [place] [address] * true * Date: Generated for Rola paris/Kym/eTurbanosmitting on: 0 06/07/2024 09:14 AM CDT
--- OUTSIDE RECORDS SUMMARY | 2024-06-07 09:14 | XMS_ITS | Patient Health Record ---
Author Organization [facility] Billing Info Address [address] [place] [address] [place] [address] Care Team Providers Care Rolls Baker Name Role Phone Adrian South Primary Care Provider STUART Bond Unavailable [phone] SAIGE GOMEZ Unavailable Unavailable Allergies Allergen (clinical drug ingredient) Drug/Non Drug Allergy documented on EMR Reaction Allergy Type Onset Date Status Aloe Unknown Drug Allergy Active celecoxib Celebrex Unknown Drug Allergy Active nitrofurantoin Macrodantin Unknown Drug Allergy Active esomeprazole Nexium Unknown Drug Allergy Acti ve Bactrim Unknown Drug Allergy Active codeine Codeine Unknown Drug Allergy Active Penicillin Unknown Drug Allergy Active Reason For Referral No Information Medications Medication SIG (Take, Route, Frequency, Duration) Notes Start Date End Date Status Sertraline HCl 25 MG (Prior Auth#:[id number]) Oral for 30 Active Valium 5 MG 1 tablet as needed Orally Once a day 06/16/2020 Active Cholestyramine 4 GM Orally Not-Taking Diphenoxylate-Atropine 2.5-0.025 MG (Schedule V Drug) (Prior Auth#:[id number]) Oral for 30 Active Fish Oil 1000 MG 1 capsule Orally Onc e a day for 30 day(s) 06/16/2020 Active Aspirin 81 MG Orally Active Amitriptyline HCl No t-Taking Potassium Citrate ER 10 MEQ (1080 MG) (Prior Auth#:[id number]) Oral for 90 Active Lomotil 2.5-0.025 MG 1 tablet as needed Orally Four times a day 06/16/2020 Active Botox 100 UNIT as directed Injection 06/16/2020 Active Rizatriptan Benzoate 10 MG (Prior Auth#:[id number]) Oral for 90 Active Memantine HCl 10 MG Orally Not-Taking Maxalt 10 MG Orally Active Valacyclovir HCl 1 GM (Prior Auth#:[id number]) Oral for 90 Active Fludrocortisone Acetate 0.1 MG TAKE 2 TABLETS BY MOUTH EVERY DAY Oral for 30 Active Emgality 120 MG/ML (Prior Auth#:[id number]) Subcutaneous for 90 Active Topiramate 100 MG (Prior Auth#:[id number]) Oral for 30 Active Synthroid 50 MCG Orally Act obi Premarin Not-Taking Iron 325 (65 Fe) MG 1 tablet Orally Once a day for 30 day(s) 06/16/2020 Active Oxybutynin Chloride Not-Taking Omeprazole 40 MG Orally Once a day Not-Taking Trazodone HCl 50 MG (Prior Auth#:[id number]) Oral for 30 Active Dicyclomine HCl 20 MG (Prior Auth#:[id number]) Oral for 20 Active Stool Softener 100 MG 1 capsule as neede d Orally Once a day for 30 day(s) 06/16/2020 Active Temazepam 30 MG Orally Not- Taking Restasis 0.05 % Ophthalmic Act obi Xifaxan 550 MG (Prior Auth#:[id number]) Oral for 14 Active Cyanocobalamin 1000 MCG/ML (Prior Auth#:[id number]) Injection for 90 Active Social History Tobacco Use: Social History Observation Description Date Details (start date - stop date) Never Smoker NA - NA Sex Assigned At : Social History Observation Description Sex Assigned At Female Tobacco Status: Question Answer Notes Patient is a never smoker Problems Problem Type SNOMED Code ICD Code Onset Dates Problem Status W/U Status Risk Notes Problem 01409529 Other chronic pain (G89.29) Active confirmed Problem 666994367 Gastro-esophagea l reflux disease without esophagitis (K21.9) Active confirmed Problem 091547984 Dorsalgia, unspecified (M54.9) Active confirmed Problem 6689927 Arthritis (M19.90) Active confirmed Problem 06658322 Essential hypertension (I10) Active confirmed Problem 86222835 Mastalgia (N64.4) Active confirmed Tender area in the lower outer quadrant left breast and it is unclear why she has pain in that area. She cannot use topical Voltaren because of her renal insufficiency but will try to use Aspercreme for the pain. I really do not have an explanation as to why she is hurting, I do not think this is due to costochondriti s, there is no abnormality in the breast in this location to explain the pain. This lady has had a long history of pain management issues. Problem 139903116 History of kidney stones (Z87.442) Active confirmed Problem 585897013 Acquired hypothyroidism (E03.9) Active confirmed Problem 238564189 GERD without esophagitis (K21.9) Active confirmed Problem 482851369 History of migraine (Z86.69) Active confirmed Problem 027243691282457 History of diverticulitis (Z87.19) Active confirmed Problem 844785529 Migraine with status migrainosus, not intractable, unspecified migraine type (G43.901) Active confirmed Problem 768723232 Chronic renal impairment, unspecified CKD stage (N18.9) Active confirmed Plan Of Treatment No Information Insurance Providers Payer Name Payer Address Payer Phone Subscriber Number Group Number Insured Name Patient Relationship to Insured Coverage Start Date Coverage End Date [place] [address] [address] [place], [place] [id number] Benita Giron Self - patient is the insured 7 1 [employer] [facility] [address] [place], [place] [id number] Benita Giron Self - patient is the insured 1 1 Medical (General) History Medical History History ICD Code Other chronic pain G89.29 Dorsalgia, unspecified M54.9 History of diverticulitis Z87.19 GERD without esophagitis K21.9 History of migraine Z86.69 Chronic renal impairment, unspecified CK D stage N18.9 Arthritis M19.90 Acquired hypothyroidism E03.9 History of kidney stones Z87.442 Surgical History Surgery Date(Month/Year) total hysterectomy breast reduction knee replacement, left elbow surgery, left bilateral shoulder surgery foot surgery lap shakir carpal tunnel release colonoscopy, had polyps now on 5yr f/u r outine 2015 Hospitalization History Reason Date(Month/Year) see surgical hx
--- OUTSIDE RECORDS SUMMARY | 2024-06-07 09:14 | XMS_ITS | Data Portability ---
Author Organization [place] [facility], [facility] V[facility] Address [address] [place] [address] Care Team Providers [employer] Specialist Name Role Phone KEVIN ASKEW Referring Provider [phone] DACIA MG Primary Care Provider KEVIN ASKEW Orthopedic Surgeon Assessment No assessment recorded. Plan of Treatment Reminders Order Date Submit Date Provider Last Modified By Organization Details Last Modified Time Details Appointments None recorded. Lab None recorded. Referral None recorded. Procedures None recorded. Surgeries None recorded. Imaging None recorded. Medication Orders Kenalog 40 mg/mL suspension for injection 2023 024 [email or web address] Not available 4 15:44:09 Medrol (Blayne) 4 mg tablets in a dose pack 2023 024 [email or web address] [facility] [id number] In [facility], [facility] [place], [address], 17:24:46 Patient TargetsNo targets recorded. Patient InstructionsNo instructions recorded. Reason for Referral None Reported. Results Created Date Observation Date Name Description Value Unit Range Abnormal Flag Note LastModifiedBy Organization Detail LastModifiedTime 09/06/19 24 08/11/2023 XR, hand, 3 or more view No observ ation record ed. [email or web address] Not Available 2023 11:16:22 09/06/19 24 06/12/2023 XR, wrist , 3 or more view No observ ation record ed. [email or web address] Not Available 2023 11:16:43 09/06/19 24 03/01/2023 XR, hand, 3 or more view No observ ation record ed. [email or web address] Not Available 2023 11:16:59 09/06/19 24 01/16/2023 XR, wrist , 3 or more view No observ ation record ed. [email or web address] Not Available 2023 11:17:15 09/26/19 24 09/11/2023 XR, hand, 3 or more view No observ ation record ed. [email or web address] [facility] [address], [place], [address], 10/03/2023 11:17:42 Result Notes None recorded. Problems Name Problem SNOMED Code Status Onset Date Resolution Date Notes Provider Name and Address Organization Details Recorded Time Anxiety 63025430 Active 2023 Skylar davidson, [facility] 4 09:35:22 Chronic kidney disease 048664523 Active 2023 Skylar Merino null, [facility] 4 09:35:31 Diarrhea 19738345 Active 2023 Skylar Wilber null, [facility] 4 09:35:39 Dysuria 15270412 Active 2023 Skylar Merino null, [facility] 4 09:35:46 Esophageal dysmotility 522757505 Active 2023 Skylar Merino null, [facility] 4 09:36:00 Hyperlipide trevor 21950637 Active 2023 Skylar Merino null, [facility] 4 09:36:07 Hypothyroid ism 83144458 Active 2023 Skylar Merino null, [facility] 4 09:36:17 Irritable bowel syndrome 95818590 Active 2023 Skylar Merino null, [facility] 4 09:36:29 Pain of left hand 3548619823190 03 Active 2023 Skylar Merino null, [facility] 4 10:08:28 Pain of right wrist 9478541658454 00 Active 2023 Earl davidson, [facility] 17:12:19 Secondary osteoarthri tis of bilateral hands Active 2023 Kevin Askew MD [address] [place], [address], [place] [facility] 17:23:51 Problem Notes None recorded. Procedures Surgical History Date Name Laterality Status Provider Name and Address Organization Details Recorded Time Appendectomy completed Skylar Daltonrobert [facility] 09/08/2023 09:38:03 arthroplasty of knee completed Skylar Daltonrobert [facility] 09/08/2023 09:38:32 [facility] 09/08/2023 09:38:41 Richy fundoplication completed Skylar Daltonrobert [facility] 09/08/2023 09:38:54 Imaging Results Imaging Date Name Status LastModified by Organiz ation Details LastModified Time 08/11/2023 XR, hand, 3 or more view completed Information not available 10/03/2023 11:16:22 06/12/2023 XR, wrist, 3 or more view completed Information not available 10/03/2023 11:16:43 03/01/2023 XR, hand, 3 or more view completed Information not available 10/03/2023 11:16:59 01/16/2023 XR, wrist, 3 or more view completed Information not available 10/03/2023 11:17:15 09/11/2023 XR, hand, 3 or more view completed [email or web address] [facility] [address], [place], [address], 10/03/2023 11:17:42 Procedure Notes None recorded. Medical Equipment None Reported. Allergies Allergen ID Allergen Name Allergen Category Reaction Reaction Severity Criticality Documentation Date Start Date Code Code System Note Provider Name and Address Organization Details Recorded Time 027870 aloe extract food,medi cation itching Not available Not available 09/08/2023 23521 RxNorm Skylar Wilber [facility], [facility] 4 09:30:27 954966 celecoxib medicatio n hives Not available Not available 09/08/2023 90149 7 RxNorm Skylar Wilber [facility], [facility] 4 09:30:41 206114 Product containin g penicilli n (product) medicatio n Not available Not available Not available 09/08/2023 45341 8001 SNOMED Skylar Wilber [facility], [facility] 4 09:30:58 637534 adhesive environme nt,medica tion Not available Not available Not available 09/08/2023 82140 UNK Skylar Merino [facility], [facility] 4 09:31:11 506159 esomepraz ole Not available Not available Not available Not available 09/08/2023 33974 2 RxNorm Skylar Merino [facility], [facility] 4 09:31:21 Medications Name Sig Start Date Stop Date Status Note LastModified by Organization Details LastModified Time BD Luer-Claudy Syringe 3 mL 23 x 1 USE TO INJECT B12 MONTHLY active Not Available Not Available No t Available carvedilo l 6.25 mg tablet TAKE 2 TABLETS BY MOUTH EVERY 12 HOURS MUST ADMINIST ER WITH A MEAL/SALVADOR D active Not Available Not Available No t Available prednison e 10 mg tablet TAKE 1 TABLET DAILY FOR 3 WEEKS, THEN TAKE 1/2 TABLET DAILY FOR 2 WEEKS DIRECTED 09/07 completed Not Available Not Available Not Available azithromy cynthia 250 mg tablet TAKE 2 TABLETS BY MOUTH TODAY, THEN TAKE 1 TABLET DAILY FOR 4 DAYS 09/07 completed Not Available Not Available Not Available tizanidin e 4 mg tablet TAKE 1 TABLET BY MOUTH EVERY DAY AT BEDTIME NEEDED FOR MUSCLE SPASTICI TY active Not Available Not Available No t Available benzonata te 200 mg capsule TAKE 1 CAPSULE BY MOUTH THREE TIMES A DAY NEEDED FOR COUGH 09/07 completed Not Available Not Available Not Available sulfameth oxazole 400 mg-trimet hoprim 80 mg tablet TAKE 1 TABLET ORALLY TWICE A DAY FOR 7 DAYS 09/07 completed Not Available Not Available Not Available prednison e 20 mg tablet TAKE 1 TABLET BY MOUTH EVERY DAY 09/07 completed Not Available Not Available Not Available midodrine 5 mg tablet PLEASE SEE ATTACHED FOR DETAILED DIRECTIO NS active Not Available Not Available No t Available clobetaso l 0.05 % topical cream APPLY TOPICALL Y TWICE A DAY FOR 2 WEEKS 09/07 completed Not Available Not Available Not Available diphenoxy late-atro pine 2.5 mg-0.025 mg tablet TAKE 1 - 2 TABLET(S ) BY MOUTH DAILY NEEDED FOR DIARRHEA active Not Available Not Available No t Available hydralazi ne 25 mg tablet PLEASE SEE ATTACHED FOR DETAILED DIRECTIO NS active Not Available Not Available No t Available ciproflox acin 500 mg tablet TAKE 1 TABLET BY MOUTH TWICE A DAY 09/07 completed Not Available Not Available Not Available tramadol 50 mg tablet TAKE 1 TABLET BY MOUTH EVERY 6 HOURS NEEDED FOR PAIN active Not Available Not Available No t Available triamcino lone acetonide 0.1 % topical cream APPLY TOPICALL Y TO AFFECTED AREA(S) TWICE A DAY 09/07 completed Not Available Not Available Not Available Kenalog 40 mg/mL suspensio n for injection Take 2 mL by injectio n route. 10/18 completed 2ml Kenalog 40mg/ml with 2ml 1% lidocain e injected into right wrist Not Available Not Available Not Available potassium citrate ER 10 mEq (1,080 mg) tablet,ex tended release TAKE 1 TABLET BY MOUTH 3 TIMES A DAY active Not Available Not Available No t Available benzonata te 100 mg capsule TAKE 1 CAPSULE BY MOUTH THREE TIMES A DAY NEEDED FOR COUGH 09/07 completed Not Available Not Available Not Available cyanocoba jorge (vit B-12) 1,000 mcg/mL injection solution active Not Available Not Available Not Available Synthroid 75 mcg tablet active Not Available Not Available Not Available codeine 10 mg-guaife nesin 100 mg/5 mL oral liquid TAKE 5 ML ORALLY EVERY 6 HOURS NEEDED FOR COUGH 09/07 completed Not Available Not Available Not Available hydrochlo rothiazid e 25 mg tablet TAKE 1 TABLET BY MOUTH EVERY DAY active Not Available Not Available No t Available midodrine 2.5 mg tablet PLEASE SEE ATTACHED FOR DETAILED DIRECTIO NS 09/07 completed Not Available Not Available Not Available zolpidem 5 mg tablet TAKE ONE-HALF TABLET BY MOUTH EVERY DAY AT BEDTIME active Not Available Not Available No t Available furosemid e 20 mg tablet TAKE 1 TABLET BY MOUTH EVERY MORNING 09/07 completed Not Available Not Available Not Available gabapenti n 100 mg capsule TAKE 1 CAPSULE BY MOUTH THREE TIMES A DAY FOR 30 DAYS active Not Available Not Available No t Available methylpre dnisolone 4 mg tablets in a dose pack TAKE 6 TABLETS ON DAY 1 DIRECTED ON PACKAGE AND DECREASE BY 1 TAB EACH DAY FOR A TOTAL OF 6 DAYS active Not Available Not Available No t Available Symax-SR 0.375 mg tablet,ex tended release 09/07 completed Not Available Not Available Not Available fludrocor tisone 0.1 mg tablet active Not Available Not Available Not Available colestipo l 1 gram tablet TAKE 1 TABLET BY MOUTH TWICE A DAY active Not Available Not Available No t Available neomycin 3.5 mg/g-poly myxin B 10,000 unit/g-de xameth 0.1 % eye oint PLEASE SEE ATTACHED FOR DETAILED DIRECTIO NS 09/07 completed Not Available Not Available Not Available cyclospor ine 0.05 % eye drops in a dropperet te active Not Available Not Available Not Available nitrofura ntoin monohydra te/macroc rystals 100 mg capsule TAKE 1 CAPSULE BY MOUTH TWICE A DAY active Not Available Not Available No t Available BD Integra Syringe 3 mL 23 gauge x 1 USE TO INJECT B12 09/07 completed Not Available Not Available Not Available duloxetin e 30 mg capsule,d elayed release TAKE 1 CAPSULE BY MOUTH EVERY DAY 09/07 completed Not Available Not Available Not Available duloxetin e 60 mg capsule,d elayed release active Not Available Not Available Not Available BD SafetyGli de Needle 25 gauge x 1 active Not Available Not Available Not Available droxidopa 200 mg capsule active Not Available Not Available Not Available Belsomra 5 mg tablet TAKE 1 TABLET BY MOUTH EVERY DAY AT BEDTIME 10/18 completed Not Available Not Available Not Available Belsomra 15 mg tablet TAKE 1 TABLET BY MOUTH AT BEDTIME active Not Available Not Available No t Available Belsomra 10 mg tablet TAKE 1 TABLET BY MOUTH EVERY DAY AT BEDTIME 09/07 completed Not Available Not Available Not Available Qulipta 60 mg tablet active Not Available Not Available Not Available Vitals Date Recorded Body height Body mass index (BMI) Body weight Heart rate Oxygen saturation Oxygen saturation in Arterial blood by Pulse oximetry Systolic blood pressure Diastolic blood pressure Provider Name and Address Organization Details Last Updated DateTime 4 152.4 cm 27.3 kg/m2 21130.9 3 g 142 /min 96 % 96 % 117 mm[Hg] 74 mm[Hg] Skylar Merino [facility] 16:44:41 Social History Question Answer Notes LastModified by Organizat ion Details LastModified Time Tobacco Smoking Status Never Smoker Skylar Merino [facility] 09/08/2023 09:37:49 What Was The Date Of Your Most Recent Tobacco Screening? 11/02/2023 Information not available 10/19/2023 Do You Use Any Illicit Or Recreational Drugs? No Information not available 09/14/2023 Do You Or Have You Ever Used Any Other Forms Of Tobacco Or Nicotine? No Information not available 09/08/2023 Sex: Unknown Functional Status None recorded. Mental Status None recorded. Family History Nothing Reported. Medical History Condition Response HIGH CHOLESTEROL / HYPERLIPIDEMIA Y ANXIETY DISORDER Y Gynecological HistoryNo gynecological history recorded. Obstetrics History GPAL:G 0 P 0 0 0 0 Past Encounters Encounter ID Performer Location Encounter Start Date Encounter Closed Date Diagnosis/Indication Diagnosis SNOMED-CT Code Diagnosis ICD10 Code Diagnosis Note [id number] Kevin Askew MD [facility] [address] [address] 09/14/2023 15:26:15 09/14/2023 17:28:11 Body mass index 25-29 - overweight 983918417 Z68.27 Pain of right wrist 3169 408207 53260 M25.531 sterile technique standard protocol injected the right scaphotrap ezoid joint with 2 cc of xylocaine and 2 cc or 80 mg of Kenalog sterile technique standard protocol. She can continue with protective bracing. No improvemen t over time consider resection of the proximal half of the trapezoid with palmaris longus tendon interposit ion Secondary osteoarthritis of bilateral hands 4108035367 3007564 M19.241 We will put her on Medrol Dosepak for the flare-up of the arthritis in both hands. We will see her in 6 weeks for follow-up. Health Concerns Section Related Observation LastModified by Organization Detai ls LastModified Time None Recorded Concern Status LastModified by Organization Details LastModified Time None Recorded Advance Directives Directive None Recorded Payers Encounter Date Sequence Insurance Name Policy Number Policy [place] Covered Member ID [place] Member ID Guarantor Name 09/14/2023 2 [employer] - FOR LIFE (MEDICARE SUPPLEMENT) Benita Giron [id number] Benita Giron 09/14/2023 1 [place] Benita Giron [id number] Benita Giron Notes Date Note Type Note Provider Name and Address Organization Details Recorded Time 09/14/2023 text/html patient years ag o had left and right [facility] arthroplasties. She has developed [id number] at the right scaphotrapezoid joint and having lot of pain on the right. Patient still has some pain intermittently on the left comes in for evaluation no triggering or numbing or tingling Kevin Askew MD [address] [place], [address], [facility] 09/14/2023 17:24:39 OBGyn Episode No OBEpisode recorded.
--- OUTSIDE RECORDS SUMMARY | 2024-06-07 09:14 | XMS_ITS | Data Portability ---
Author Organization [facility] [employer], Main Office Address [address] [place] [address] Care Team Providers Care Information Services Manager Name Role Phone LINDA BEST Primary Care Provider LINDA BEST Referring Provider [phone] Assessment Encounter Date Assessment Date Assessment LastModified by Organization Details LastModified Time 07/18/2022 07/18/2022 Impression: Apolonia ruiz has anterior knee pain right knee and generalized rather severe tenderness. . She has had symptoms since 2019 with a fall and has had cortisone injection and physical therapy and continues to have problems with the right knee. I recommended obtaining an MRI scan to evaluate this further. I am suspicious she may have more significant patellofemoral arthritis than the x-rays which show today. Clinically her symptoms are most consistent with anterior knee pain syndrome. I have discussed her previous physical therapy with her that she had for her right knee which consisted of quadriceps strengthening primarily and recommended different approach focusing on hip abduction external rotation core strengthening and hamstring and quadriceps stretching and specifically avoiding any quadriceps strengthening. We will arrange this for. She does have history of depression and she might benefit from medication such as Cymbalta as that can help with chronic pain and I would recommend she discuss this with her primary care physician Dr. Best. Will see her back after the MRI is completed. 45 minutes were spent in total care this patient than half the time spent in [id number] care per Not available 08/03/2022 09:48:59 08/15/2022 08/15/2022 Patient returns after MRI scan of right knee. It demonstrates oblique undersurface tear of the body lateral meniscus which looks like maceration of the inner 30-40% of the midbody lateral meniscus with mild extrusion. The medial compartment there is near full-thickness cartilage loss in localized areas and there is some full-thickness cartilage loss and fissuring along the median ridge the patella. Patient states she started Cymbalta 2 and half weeks ago for pain management. Her right knee is her chief complaint today. She has chronic but tolerable mild pain in her left knee where she has had a knee replacement years ago. We obtained Stork view x-rays which demonstrate mild medial joint space narrowing and spurring along the medial femoral condyle consistent with mild medial compartment osteoarthritis. Patient cannot take nonsteroidal anti-inflammatory medications because of history of diverticulosis which gets aggravated when she takes Nonsteroidals. She has been going to physical therapy and feels this is helping. Impression: Patient has mild patellofemoral and medial compartment osteoarthritis the right knee as well as some maceration type tearing of the inner margin of the midbody of the lateral meniscus. I have discussed treatment options with her. We talked about the option of a cortisone shot. She has had 1 in the past that worked very well for her and would like 1 today. I discussed risks of injection including risk of infection with her. After ChloraPrep prep, 20 mg of Kenalog and 4 cc of 0.5% ropivacaine were injected into the right knee without difficulty. She will continue with physical therapy I will see her back in 6 weeks assess her progress. 20 minutes were spent in total care this patient with more than half of this time spent in hefc-ca-ahub care Not available 09/04/2022 09:30:31 09/26/2022 09/26/2022 Patient returns. We saw her 6 weeks ago for her right knee and we gave her cortisone shot that time she felt it was very helpful and she feels that physical therapy also has been very helpful which she finished. She is tolerating the Cymbalta in taking that. She reports that at worst the pain the right knee is 4/10 at rest 0 10. Her x-rays MRI scan demonstrate mild patellofemoral and medial compartment arthritis in the knee and some maceration of the inner margin of the lateral meniscus which is not thought to be contributing to her symptoms. I have discussed possible side effects of having numerous cortisone shots repeated which may Cell rate progression of arthritis. We also discussed the option of viscosupplementation injections as another option which might be appropriate for her. She had those on the left knee thought they were helpful as well. I will see her back in 6 weeks assess her progress. If she is asymptomatic she was simply: Canceled. 20 minutes were spent in total care this patient more than half the time spent in bjlk-cs-scpc care. Not available 09/26/2022 16:28:20 11/14/2022 11/14/2022 HPI: Patient ret urns. She had cortisone injection right knee 3 months ago. She does not think that it helped a lot. She did fall going up the stairs at the house. Her dog got under her feet and she slipped forward while going up the stairs. She hit both of the anterior aspects of both knees on the steps. This was 3 or 4 days ago. Previous MRI showed early osteoarthritis of the patellofemoral joint as well as the medial compartment. There was some chronic wear to the lateral meniscus but no jared tear noted. Patient is unable take anti-inflammatories due to GI intolerance. Patient has had viscosupplementation injections in the past before having her left knee replaced and she wished to have 1 in the right knee today to see if it would do any better than the cortisone. Physical exam: 67-year-old female she walks with a cane. She has a very mild effusion in the right knee. Range of motion from 0-135 degrees. Moderate tenderness over medial joint line to palpation moderate patellofemoral grind. No swelling in either lower extremity. ChloraPrep was used on the skin 3mg of 0.5% ropivacaine was used to inject a local area to the lateral knee to this area Monovisc injection given through 20 gauge needle. Patient tolerated this well. Impression: 67-year-old female who has early osteoarthritis behind the patellofemoral joint as well as the medial compartment seen on the MRI scan. She has no tolerance for anti-inflammatories due to GI irritability. Cortisone 3 months ago did not seem to give her satisfactory improvement. Again she wished to try the Visco injection. She can repeat has a 6 month since she will keep that in mind. At this point we will see her back as needed. 20 minutes was spent in treatment patient more than half of this in ysec-ir-folm conversation Not available 11/14/2022 14:22:48 Plan of Treatment Reminders Order Date Submit Date Provider Last Modified By Organization Details Last Modified Time Details Appointments None recorded. Lab None recorded. Referral None recorded. Procedures knee aspiration/ injection (PROC) 2022 023 In-Office Order, Internal Use Only DO Not Attach Compendium DO Not Attach Compendium, Do Not Delete/merge, [id number] 3 14:13:15 injection/a spiration joint/bursa (PROC) - in office procedure, administere d by provider 2022 023 [email or web address] In-Office Order, Internal Use Only DO Not Attach Compendium DO Not Attach Compendium, Do Not Delete/merge, [id number] 3 16:19:44 Surgeries None recorded. Imaging XR, knee 2022 023 [email or web address] [facility] [place], [address], [place], [address], 3 09:30:42 XR, knee 2022 023 [email or web address] [facility] [place], [address], [place], [address], 3 12:03:43 Medication Orders ropivacaine (PF) 5 mg/mL (0.5 %) injection solution 2022 023 [email or web address] Not available 4 10:44:31 Monovisc 88 mg/4 mL intra-artic ular syringe 2022 023 [email or web address] Not available 4 10:43:34 Kenalog 10 mg/mL suspension for injection 2022 023 [email or web address] [id number] [place], [address], 3 14:49:39 ropivacaine (PF) 5 mg/mL (0.5 %) injection solution 2022 023 [email or web address] [facility] [address], [place], [address], 10:44:31 Patient TargetsNo targets recorded. Patient Instructions Encounter Date Encounter Id Patient Instructions Last Modified By Organization Details Last Modified Time 03/16/2023 [id number] plantar fasciitis: exercises Not available 04/04/2023 13:37:58 plantar fasciiti s education Not available 04/04/2023 13:37:58 achilles tendon: exercises Not available 04/04/2023 13:38:16 achilles tendonitis education Not available 04/04/2023 13:38:15 Reason for Referral None Reported. Results Created Date Observation Date Name Description Value Unit Range Abnormal Flag Note LastModifiedBy Organization Detail LastModifiedTime 07/19/19 XR, knee No observ ation record ed. [facility] [place] [address], [place], [address], 08/03/2022 09:46:25 07/20/1912/16/2021 XR, knee No observ ation record ed. [email or web address] Not Available 2022 09:29:43 07/28/1907/27/2022 MRI, knee, w/o contr ast No observ ation record ed. [email or web address] [facility] [address], [place], [address], 07/27/2022 15:57:52 08/16/19 XR, knee No observ ation record ed. [facility] [place] [address], [place], [address], 09/04/2022 09:25:55 09/06/1907/26/2022 MRI, knee, w/o contr ast No observ ation record ed. [email or web address] Not Available 2022 18:27:13 07/24/19 24 07/20/2023 XR, abdom en + pelvi s No observ ation record ed. [facility] [address], [place], [address], 07/25/2023 12:41:53 Result Notes None recorded. Problems Name Problem SNOMED Code Status Onset Date Resolution Date Notes Provider Name and Address Organization Details Recorded Time Pain of right knee joint 9248883963349 00 Active 2022 Sophie Patterson RMNeftali davidson, [place] [facility] 3 13:54:25 Pain of bilateral knee joints 0343673173204 04 Active 2022 Sophie Patterson RMA null, [place] [facility] 3 15:03:57 Osteoarthr itis of right knee joint 1446200886378 00 Active 2022 Sophie Patterson RMA null, [place] - [facility] 3 13:55:23 Arthritis 0703025 Active 2023 Jessica davidson, [place] - [facility] 4 10:46:01 Bowel problem 633938547 Active 2023 Jessica davidson, [place] [facility] 4 10:46:11 Breast problem 645895981 Active 2023 Jessica davidson, [place] [facility] 4 10:46:24 Dizziness 766306079 Active 2023 Jessica davidson, [place] [facility] 4 10:46:32 Disorder of eye 038459184 Active 2023 Jessica davidson, [place] [facility] 4 10:46:40 Headache 43519828 Active 2023 Jessica davidson, [place] [facility] 4 10:46:52 Migraine 92448512 Active 2023 Jessica davidson, [place] [facility] 4 10:47:06 Plantar fasciitis of right foot 3326962527234 9101 Active 2023 Emanuel Edward DPM [address], [address], [place], [address] , [facility] [employer] 10:49:42 Right Achilles tendinitis 8984017352294 02 Active 2023 Emanuel Edward DPM [address], [address], [place], [address] , [facility] [employer] [facility] 10:49:48 Notes:URINARY/BLADDER/KIDNEY Problem Notes None recorded. Procedures Surgical History Date Name Laterality Status Provider Name and Address Organization Details Recorded Time 03/16/19 Plantar Fascia Injection Right Foot completed Emanuel Edward DPM [address], [address], [place], [address], [facility] 03/16/2023 10:49:32 Hysterectomy completed Sophie Patterson [facility] 07/18/2022 13:53:25 Breast Surgery completed Sophie santana [facility] 07/18/2022 13:53:33 Knee Surgery completed Sophie Patterson [facility] 07/18/2022 13:53:50 Imaging Results Imaging Date Name Status LastModified by Organiz ation Details LastModified Time 07/18/2022 XR, knee completed [facility] [place] [address], [place], [address], 08/03/2022 09:46:25 12/16/2021 XR, knee completed Information no t available 07/19/2022 09:29:43 07/27/2022 MRI, knee, w/o contrast completed [facility] [address], [place], [address], 07/27/2022 15:57:52 08/15/2022 XR, knee completed [facility] [place] [address], [place], [address], 09/04/2022 09:25:55 07/26/2022 MRI, knee, w/o contrast completed Information not available 09/05/2022 18:27:13 07/20/2023 XR, abdomen + pelvis completed [facility] [address], [place], [address], 07/25/2023 12:41:53 Procedure Notes None recorded. Medical Equipment None Reported. Allergies Allergen ID Allergen Name Allergen Category Reaction Reaction Severity Criticality Documentation Date Start Date Code Code System Note Provider Name and Address Organization Details Recorded Time 56828 Product containin g penicilli n (product) medicatio n Not available Not available Not available 07/18/2022 64593 8001 SNOMED Sophie Patterson RMA null, [facility] 13:52:22 23535 Celebrex medicatio n Not available Not available Not available 07/18/2022 89620 7 RxNorm Sophie Patterson RMA null, [facility] 13:52:34 17508 Nexium medicatio n Not available Not available Not available 07/18/2022 48047 9 RxNorm Sophie Patterson RMA null, [facility] 13:52:44 Medications Name Sig Start Date Stop Date Status Note LastModified by Organization Details LastModified Time BD Luer-Caludy Syringe 3 mL 23 x 1 USE [...] 1/2 TABLET DAILY FOR 2 WEEKS DIRECTED active Not Available Not Available No t Available trazodone 50 mg tablet PLEASE SEE ATTACHED FOR DETAILED DIRECTIO NS 03/16 completed Not Available Not Available Not Available azithromy cynthia 250 mg tablet TAKE 2 TABLETS BY MOUTH TODAY, THEN TAKE 1 TABLET DAILY FOR 4 DAYS 03/16 completed Not Available Not Available Not Available Lidocaine Viscous 2 % mucosal solution APPLY TO THE AFFECTED AREA FOUR TIMES DAILY NEEDED FOR PAIN. 11/14 completed Not Available Not Available Not Available tizanidin e 4 mg tablet TAKE 1 TABLET BY MOUTH EVERY DAY AT BEDTIME NEEDED FOR MUSCLE SPASTICI TY active Not Available Not Available No t Available benzonata te 200 mg capsule TAKE 1 CAPSULE BY MOUTH THREE TIMES A DAY NEEDED FOR COUGH active Not Available Not Available No t Available hydrocodo ne 5 mg-acetam inophen 325 mg tablet TAKE 1 TABLET BY MOUTH EVERY 6 HOURS NEEDED FOR SEVERE PAIN 09/26 completed Not Available Not Available Not Available sucralfat e 100 mg/mL oral suspensio n TAKE 1 GRAM (10 MILLILIT ERS) BY MOUTH FOUR TIMES DAILY NEEDED FOR THROAT PAIN 08/15 completed Not Available Not Available Not Available prednison e 20 mg tablet TAKE 1 TABLET BY MOUTH EVERY DAY active Not Available Not Available No t Available rizatript an 10 mg tablet 08/15 completed Not Available Not Available Not Available metronida zole 250 mg tablet TAKE 1 TABLET BY MOUTH EVERY 8 HOURS 08/15 completed Not Available Not Available Not Available midodrine 5 mg tablet PLEASE SEE ATTACHED FOR DETAILED DIRECTIO NS active Not Available Not Available No t Available clobetaso l 0.05 % topical cream APPLY TOPICALL Y TWICE A DAY FOR 2 WEEKS active Not Available Not Available No t Available diphenoxy late-atro pine 2.5 mg-0.025 mg tablet TAKE 1 - 2 TABLET(S ) BY MOUTH DAILY NEEDED FOR DIARRHEA 03/16 completed Not Available Not Available Not Available topiramat e 25 mg tablet 11/14 completed Not Available Not Available Not Available hydralazi ne 25 mg tablet PLEASE SEE ATTACHED FOR DETAILED DIRECTIO NS active Not Available Not Available No t Available doxepin 10 mg capsule 11/14 completed Not Available Not Available Not Available ciproflox acin 500 mg tablet TAKE 1 TABLET BY MOUTH TWICE A DAY active Not Available Not Available No t Available sulfameth oxazole 800 mg-trimet hoprim 160 mg tablet TAKE 1 TABLET BY MOUTH TWICE A DAY 08/15 completed Not Available Not Available Not Available omeprazol e 40 mg capsule,d elayed release TAKE 1 CAPSULE BY MOUTH EVERY MORNING 30 MINUTES BEFORE MORNING MEAL 03/16 completed Not Available Not Available Not Available tramadol 50 mg tablet TAKE 1 TABLET BY MOUTH EVERY 6 HOURS NEEDED FOR PAIN active Not Available Not Available No t Available triamcino lone acetonide 0.1 % topical cream APPLY TOPICALL Y TO AFFECTED AREA(S) TWICE A DAY active Not Available Not Available No t Available Kenalog 10 mg/mL suspensio n for injection in office braedenur e, administ ered by provider 09/26 completed [facility]: [id number] 4-20 Not Available Not Available Not Available meclizine 25 mg tablet TAKE 1 TABLET BY MOUTH EVERY 8 HOURS NEEDED FOR DIZZINES S 08/15 completed Not Available Not Available Not Available potassium citrate ER 10 mEq (1,080 mg) tablet,ex tended release TAKE 1 TABLET BY MOUTH 3 TIMES A DAY active Not Available Not Available No t Available benzonata te 100 mg capsule TAKE 1 CAPSULE BY MOUTH THREE TIMES A DAY NEEDED FOR COUGH 03/16 completed Not Available Not Available Not Available cephalexi n 500 mg capsule TAKE 1 CAPSULE BY MOUTH EVERY 8 HOURS 08/15 completed Not Available Not Available Not Available erythromy cynthia 5 mg/gram (0.5 %) eye ointment PLEASE SEE ATTACHED FOR DETAILED DIRECTIO NS 08/15 completed Not Available Not Available Not Available cyanocoba jorge (vit B-12) 1,000 mcg/mL injection solution active Not Available Not Available Not Available Synthroid 75 mcg tablet TAKE 1 TABLET BY MOUTH EVERY MORNING active Not Available Not Available No t Available codeine 10 mg-guaife nesin 100 mg/5 mL oral liquid TAKE 5 ML ORALLY EVERY 6 HOURS NEEDED FOR COUGH 03/16 completed Not Available Not Available Not Available midodrine 2.5 mg tablet PLEASE SEE ATTACHED FOR DETAILED DIRECTIO NS 09/26 completed Not Available Not Available Not Available zolpidem 5 mg tablet TAKE ONE-HALF TABLET BY MOUTH EVERY DAY AT BEDTIME 03/16 completed Not Available Not Available Not Available furosemid e 20 mg tablet TAKE 1 TABLET BY MOUTH EVERY MORNING active Not Available Not Available No t Available mirtazapi ne 15 mg tablet TAKE 1 TABLET BY MOUTH EVERY NIGHT AT BEDTIME 08/15 completed Not Available Not Available Not Available gabapenti n 100 mg capsule TAKE 1 CAPSULE BY MOUTH THREE TIMES A DAY FOR 30 DAYS active Not Available Not Available No t Available methylpre dnisolone 4 mg tablets in a dose pack PLEASE SEE ATTACHED FOR DETAILED DIRECTIO NS active Not Available Not Available No t Available Symax-SR 0.375 mg tablet,ex tended release TAKE 1 TABLET (0.375 MG) ORALLY EVERY 12 HOURS 03/16 completed Not Available Not Available Not Available topiramat e 100 mg tablet 09/26 completed Not Available Not Available Not Available sertralin e 50 mg tablet 03/16 completed Not Available Not Available Not Available fludrocor tisone 0.1 mg tablet active Not Available Not Available Not Available colestipo l 1 gram tablet TAKE 1 TABLET BY MOUTH TWICE A DAY active Not Available Not Available No t Available loratadin e 10 mg tablet 11/14 completed Not Available Not Available Not Available neomycin 3.5 mg/g-poly myxin B 10,000 unit/g-de xameth 0.1 % eye oint PLEASE SEE ATTACHED FOR DETAILED DIRECTIO NS 09/26 completed Not Available Not Available Not Available cyclospor ine 0.05 % eye drops in a dropperet te active Not Available Not Available Not Available nitrofura ntoin monohydra te/macroc rystals 100 mg capsule TAKE 1 CAPSULE BY MOUTH EVERY 12 HOURS FOR 7 DAYS MUST ADMINIST ER WITH A MEAL/SALVADOR D active Not Available Not Available No t Available duloxetin e 30 mg capsule,d elayed release TAKE 1 CAPSULE BY MOUTH EVERY DAY 03/16 completed Not Available Not Available Not Available duloxetin e 60 mg capsule,d elayed release active Not Available Not Available Not Available eszopiclo ne 1 mg tablet TAKE 1 TABLET BY MOUTH EVERY DAY AT BEDTIME 08/15 completed Not Available Not Available Not Available BD Precision Marion 25 gauge x 1 needle INJECT INTRAMUS CULARLY IN DELTOID AREA ONCE A MONTH 07/18 completed Not Available Not Available Not Available BD SafetyGli de Needle 25 gauge x 1 active Not Available Not Available Not Available ropivacai ne (PF) 5 mg/mL (0.5 %) injection solution in office 03/16 completed [facility] 81628-18 06-04 lot [id number] exp:10/24 23 Not Available Not Available Not Available Monovisc 88 mg/4 mL intra-art icular syringe in office 03/16 completed [facility]: [id number] 20- lot: [id number] exp:05/03 Not Available Not Available Not Available droxidopa 200 mg capsule active Not Available Not Available Not Available Belsomra 5 mg tablet TAKE 1 TABLET BY MOUTH EVERY DAY AT BEDTIME 03/16 completed Not Available Not Available Not Available Belsomra 10 mg tablet TAKE 1 TABLET BY MOUTH EVERY DAY AT BEDTIME active Not Available Not Available No t Available Reyvow 100 mg tablet TAKE 1 TABLET BY MOUTH ONCE DAILY 08/15 completed Not Available Not Available Not Available Qulipta 60 mg tablet TAKE 1 TABLET BY MOUTH DAILY active Not Available Not Available No t Available Vitals Date Recorded Body height Body mass index (BMI) Body weight Provider Name and Address Organization Details Last Updated DateTime 07/18/2022 152.4 cm 28.5 kg/m2 97826.49 g Sophie Leonardo [facility] [employer] [facility] [employer] 07/18/2022 14:00:06 Date Recorded Body height Provider Name an d Address Organization Details Last Updated DateTime 08/15/2022 152.4 cm Sophie Leonardo [facility] [employer] [facility] [employer] 08/15/2022 15:00:31 Date Recorded Body height Provider Name an d Address Organization Details Last Updated DateTime 09/26/2022 152.4 cm Sophie Patterson [facility] [employer] [facility] [employer] [facility] 09/26/2022 14:47:10 Date Recorded Body height Provider Name an d Address Organization Details Last Updated DateTime 11/14/2022 152.4 cm Sophie Leonardo [facility] [employer] [facility] [employer] [facility] 11/14/2022 13:53:48 Date Recorded Body height Heart rate Respiratory rate Oxygen saturation Oxygen saturation in Arterial blood by Pulse oximetry Systolic blood pressure Diastolic blood pressure Provider Name and Address Organization Details Last Updated DateTime 152.4 cm 76 /min 14 /min 98 % 98 % 152 mm[Hg] 91 mm[Hg] Kayleigh Jarvis [employer] [facility] [employer] 10:06:23 Date Recorded Body mass index (BMI) Body weight Provider Name and Address Organization Details Last Updated DateTime 03/16/2023 24.4 kg/m2 08590.05 g Jessica Cook [place] [facility] [employer] [facility] 03/16/2023 10:41:34 Social History Question Answer Notes LastModified by Organizat ion Details LastModified Time Tobacco Smoking Status Never Smoker Jessica davidson, [place] - [facility] 03/16/2023 10:47:31 What Is Your Level Of Alcohol Consumption? None [email or web address] Information not available 03/16/2023 Sex: Unknown Functional Status None recorded. Mental Status None recorded. Family History Nothing Reported. Medical History Condition Response ARTHRITIS Y BOWEL PROBLEMS Y HEADACHES/MIGRAINES Y DIZZINESS Y URINARY/BLADDER/KIDNEY PROBLEMS Y Gynecological HistoryNo gynecological history recorded. Obstetrics History GPAL:G 0 P 0 0 0 0 Past Encounters Encounter ID Performer Location Encounter Start Date Encounter Closed Date Diagnosis/Indication Diagnosis SNOMED-CT Code Diagnosis ICD10 Code Diagnosis Note [id number] Jaskaran Elliott MD [facility] [address] [facility] [address] [place] [address] 07/18/2022 13:26:54 08/03/2022 12:03:43 Pain of right knee joint [id number] 01186 M25.[id number] [facility] [address] [place] [address] 08/15/2022 14:43:37 09/05/2022 09:30:42 Pain of right knee joint [id number] M25.561 [id number] J[address]aran Elliott MD [facility] [address] [place] [address] 09/26/2022 14:33:27 09/26/2022 16:36:07 Pain of right knee joint [id number] 38626 M25.[id number] [facility] [address] [facility] [address] [place] [address] 11/14/2022 13:46:58 11/14/2022 14:35:49 Osteoarthritis of right knee joint [id number] 92437 M17.11 [id number] Emanuel Edward DPM [facility] [address] [place] [address] 03/16/2023 09:54:32 04/04/2023 19:07:32 Plantar fasciitis of right foot [id number] M72.2 injection, right plantar heel onlyrice therapystr etching revieweded ucated on shoe gearfollow up in 4 weeks Right Achi lles tendinitis [id number] 87933 M76.61 as above Health Concerns Section Related Observation LastModified by Organization Detai ls LastModified Time None Recorded Concern Status LastModified by Organization Details LastModified Time None Recorded Advance Directives Directive None Recorded Payers Encounter Date Sequence Insurance Name Policy Number Policy [place] Covered Member ID Kan Member ID Guarantor Name 07/18/2022 1 [place]ICARE[place] (MEDICARE[place] Benita Giron [id number] Benita Giron 07/18/2022 2 EAST - [place] PRIOR TO 2024 - [employer] () Benita Giron [id number] Benita Giron 08/15/2022 1 [place]) Benita Giron [id number] Benita Giron 08/15/2022 2 EAST - [place] PRIOR TO 2024 - [employer] () Benita Giron [id number] Benita Giron 09/26/2022 1 [place] Benita Giron [id number] Benita Giron 09/26/2022 2 EAST - [place] PRIOR TO 2024 - [employer] () Benita Giron [id number] Benita Giron 11/14/2022 1 [place] Benita Giron [id number] Benita Giron 11/14/2022 2 EAST - DOS PRIOR TO 2024 - [employer] () Benita Giron [id number] Benita Giron 03/16/2023 1 [place] ([place]ARE) Benita Giron [id number] Benita Giron 03/16/2023 2 EAST - DOS PRIOR TO 2024 - [employer] () Benita Giron [id number] Benita Giron Notes Date Note Type Note Provider Name and Address Organization Details Recorded Time 07/18/2022 text/html patient is a 67-year-old female referred better [facility] [place] for evaluation of her right knee. She also has longstanding pain in her left knee. Both knees hurt in a band distribution across the infrapatellar tendon. She had physical therapy for right knee many years ago. She had a cortisone shot in the right knee 7 months ago that helped for about 5 or 6 months. She is unable to tolerate nonsteroidal anti-inflammatory medications because of diverticulitis. She states she has had problems with right since a fall June 26, 2019 when she fell onto both knees. Her right knee bothers her walking squatting kneeling going up and down stairs standing up from a seated position and she complains of giving way symptoms. Occasionally she limps when very painful. She underwent left total knee arthroplasty cemented with patellar resurfacing in 2010. She has had problems with chronic pain in the left knee ever since. she underwent left knee genicular nerve block radiofrequency ablation of the superior medial superolateral inferomedial genicular nerves on May 02, 2022 at [facility]. She has history of chronic lower back pain Patient moved here September of 2021 from [place]. Her knee replacement was in [place]. The Jaskaran Elliott MD [address], [facility] [address], [place], [address], [facility] 08/03/2022 09:49:15 03/16/2023 text/html . Patient is a 68-year-old female who presents the office with complaints of right foot pain. Patient states the pain started on 2007 when she slipped and hit her foot. Patient states that walking causes more pain she rates it as 7 out 10 and describes it as stabbing, aching and constant nature. Patient states that she has tried using walker to alleviate some of the discomfort but continues to have pain. Patient states when she is at rest it does feel better. Patient denies any other complaints. Emanuel Edward DPM [address], [facility] [address], [place], [address], [facility] 04/04/2023 13:39:11 OBGyn Episode No OBEpisode recorded.
--- OUTSIDE RECORDS SUMMARY | 2024-06-07 09:14 | XMS_ITS ---
Author Organization [facility] Address [address] [place] [address] Care Team Providers Care Farm Tractor Operator Name Role Phone Yvan Best Primary Care Provider Dr. Kevin Tuttle Unavailable [phone] Carmenza Alvarado [phone] REASON FOR VISIT Headache follow-up Encounters Encounter Location Date Provider Diagnosis [facility] [address] [place] [address] 12/28/2023 Carmenza Alvarado Plan Of Treatment Next Appt Details Provider Name:Carmenza avalos, 06/27/2024 10:50:00 AM, [address], [place], [address], Progress Notes * Benita GIRON SDOB:[birth year] (69 yo F)Acc No.[id number]:12/28/2023 Progress Notes Patient: Randal FRAGAtru Avalos Provider: Carl Alvarado APRN :1955 A ge:68 Y S ex:Female Date:12/28/2023 [id number] Pcp:Yvan Best Subjective: * Chief Complaints: * 1 . Headache follow-up. * Medical History: Objective: * Vitals: Assessment: Plan: * Treatment: * Billing Information: * Visit Code: * Procedure Codes: * Electronic signature of PRAKASH Barroso-Jeanne on 06/07/2024 at 09:14 AM CDT Sign off status: Pending * Provider: Carl Alvarado APRN Date: 1 Generated for Rola paris/Kym/Gustabo on: 0 06/07/2024 09:14 AM CDT
--- OUTSIDE RECORDS SUMMARY | 2024-06-07 09:14 | XMS_ITS ---
Author Organization [facility] Address [address] [place] [address] Care Team Providers Care Windows Application Administrator Name Role Phone Yvan Best Primary Care Provider UnavailDr. Kevin Lovell Unavailable [phone] Carmenza Alvarado Unavailable [phone] Allergies Allergen (clinical drug ingredient) Drug/Non Drug Allergy documented on EMR Reaction Allergy Type Onset Date Status celecoxib CeleBREX rash Drug Allergy Active esomeprazole NexIUM other reaction Drug Allergy Active Penicillin other reaction Drug Allergy A ctive REASON FOR VISIT Headache follow-up, Occipital neuralgia, Myalgia Medications Medication SIG (Take, Route, Frequency, Duration) Notes Start Date End Date Status SERTRALINE 50 mg 1 tab(s) orally once a day Not-Taking Eszopiclone 1 MG 1 tab(s) orally once a day (at bedtime) Not-Taking Voltaren Arthritis Pain 1 % as directed applied topically 4 times a day Not-Taking Qulipta 60 MG 1 tab(s) orally once a day Not-Taking Sertraline HCl 50 MG 1 tab(s) orally onc e a day Not-Taking ESZOPICLONE 1 mg 1 tab(s) orally once a day (at bedtime) Not-Taking VOLTAREN ARTHRITIS PAIN 1% as directed applied topically 4 times a day Not-Taking QULIPTA 60 mg 1 tab(s) orally once a day Not-Taking DULoxetine HCl 60 MG 1 cap(s) orally Qday Active Qulipta 60 MG 1 tab(s) orally once a day Active Potassium Citrate ER 10 MEQ (1080 MG) 1 tab(s) orally 3 times a day for 30 day(s) 07/28/2022 Active Fish Oil 1000 MG 1 cap(s) orally qid 07/28/2022 Active Northera 200 MG 3 cap(s) orally 3 times a day 07/28/2022 Active Gabapentin 100 MG 1 cap(s) orally 3 times a day for 30 days Active Rizatriptan Benzoate 10 MG 1 tab(s) orally once a day Active Synthroid 75 MCG 1 tab(s) orally once a day for 30 day(s) 07/28/2022 Active Fludrocortisone Acetate 0.1 MG 1 tab(s) orally once a day for 30 day(s) 07/28/2022 Active Cyanocobalamin 1000 MCG/ML as directed intramuscularly once a month for 30 day(s) Active Lomotil 2.5-0.025 MG 2 tab(s) orally 4 times a day Active PreserVision AREDS 2 ANTIOXIDANT MULTIPLE VITAMINS AND MINERALS 1 TAB(S) CHEWED 2 TIMES A DAY *Please review and pick correct strength-formula tion from Lagiar options. If intended option is not shown, discontinue and re-order from Quick Search* 07/28/2022 Active FiberCon 625 MG 2 tab(s) orally Qday Active DULOXETINE 60 mg 1 cap(s) orally Qday Active QULIPTA 60 mg 1 tab(s) orally once a day Active Belsomra 10 MG 1 tab(s) orally once a day (at bedtime) Active Restasis 0.05 % 1 gtt in each affected eye every 12 hours for 30 day(s) Active POTASSIUM CITRATE 10 mEq 1 tab(s) orally 3 times a day for 30 day(s) 07/28/2022 Active FISH OIL 1000 mg 1 cap(s) orally qid 07/28/2022 Active NORTHERA 200 mg 3 cap(s) orally 3 times a day 07/28/2022 Active GABAPENTIN 100 mg 1 cap(s) orally 3 times a day for 30 days Active RIZATRIPTAN 10 mg 1 tab(s) orally once a day Active PRESERVISION AREDS 2 Antioxidant Multiple Vitamins and Minerals 1 tab(s) chewed 2 times a day 07/28/2022 Active CYANOCOBALAMIN 1000 mcg/mL as directed intramuscularly once a month for 30 day(s) Active FLUDROCORTISONE 0.1 mg 1 tab(s) orally once a day for 30 day(s) 07/28/2022 Active LOMOTIL 0.025 mg-2.5 mg 2 tab(s) orally 4 times a day Active SYNTHROID 75 mcg (0.075 mg) 1 tab(s) orally once a day for 30 day(s) 07/28/2022 Active FIBERCON 625 mg 2 tab(s) orally Qday Active BELSOMRA 10 mg 1 tab(s) orally once a day (at bedtime) Active RESTASIS 0.05% 1 gtt in each affected eye every 12 hours for 30 day(s) Active Social History Tobacco Use: Social History Observation Description Date Details (start date - stop date) Never Smoker NA - NA Smoking Smart Form: Question Answer Notes Are you a: never smoker Encounters Encounter Location Date Provider Diagnosis [facility] [address] [facility] [address] [place] [address] 01/11/2024 Carmenza Alvarado Chronic migraine without aura, not intractable, without status migrainosus G43.709 Assessments Encounter Date Diagnosis (ICD Code) Assessment Notes Treatment Notes Treatment Clinical Notes Section Notes 01/11/2024 Chronic migraine without aura, not intractable, without status migrainosus (ICD-10 - G43.709) Plan Of Treatment Next Appt Details Follow Up: 3 Months, Reason: Toxin injection Provider Name:Carmenza avalos, 06/27/2024 10:50:00 AM, [address] [facility], [address], [place], [address], Procedure Notes * Category Sub-Category Detail Notes Toxin Administration incobotulinumtoxinA (XEOMIN) Administration Indication: Chronic Migraine Locations and Dosages: Proce corrie 5 Units, Patent Solicitor (Left) 5 Units, Patent Solicitor (Right) 5 Units, Frontalis (Left) 12.5 Units, Frontalis (Right) 12.5 Units, Temporalis (Left) 25 Units, Temporalis (Right) 25 Units, Occipitalis (Left) 20 Units, Occipitalis (Right) 20 Units, Cervical paraspinals (Left) 10 Units, Cervical paraspinals (Right) 10 Units, Trapezius (Left) 15 Units, Trapezius (Right) 15 Units, Masseter (Left) 10 Units, Masseter (Right) 10 Units Frequency: 12 weeks Lot Number / Expiration: See Notes Xeshini n Lot# [id number], Exp 03/2026 Medication Source: Buy and Bill Units Administered: 200 Units Units Wasted: 0 Units Adverse Reaction(s): None Progress Notes * Benita GIRON SDOB:[birth year] (69 yo F)Acc No.[id number]:01/11/2024 Progress Notes Patient: Benita FRAGA Provider: Carl Alvarado APRN :1955 A ge:68 Y S ex:Female Date:01/11/2024 [id number] Pcp:Yvan Best Subjective: * Chief Complaints: * H eadache follow-upOccipital neuralgiaMyalgia * HPI: * Headache: Last injection on 09/14/23: Procerus 5 Units, Patent Solicitor (Left) 5 Units, Patent Solicitor (Right) 5 Units, Frontalis (Left) 12.5 Units, Frontalis (Right) 12.5 Units, Temporalis (Left) 30 Units, Temporalis (Right) 30 Units, Occipitalis (Left) 25 Units, Occipitalis (Right) 25 Units, Cervical paraspinals (Left) 10 Units, Cervical paraspinals (Right) 10 Units, Trapezius (Left) 15 Units, Trapezius (Right) 15 Units -Current abortive treatment: Rizatriptan 10 mg (partially [...] (ineffective), Aimovig (ineffective), Emgality (ineffective), Ajovy (ineffective) Baseline Headache/Migraine Frequency (prior to Botox) ( days/month): 3 0/15 Current Headache/Migraine Frequency with Botox ( days/month): 20/6-8 In the interim about 6 weeks ago she underwent bilateral supraorbital and auriculotemporal neurectomies by Dr. Samson. * Medical History: * Surgical History: S [...] worked in any of the following: f [employer] Have you had any job with high [...] *Please review and pick correct strength-formulation from Lagiar options. If intended option is not shown, [...] *Please review and pick correct strength-formulation from Medispan options. If intended option is not shown, [...] reactionCeleBREX: rashNexIUM: other reaction Objective: * Vitals: Assessment: * Assessment: 1. C hronic migraine without aura, not intractable, without status migrainosus - G43.709 (Primary) Plan: * Treatment: * Procedures: T oxin Administration: incobotulinumtoxinA (XEOMIN) Administration I ndication C hronic Migraine L ocations and Dosages P rocerus 5 Units, Patent Solicitor (Left) 5 Units, Patent Solicitor (Right) 5 Units, Frontalis (Left) 12.5 Units, Frontalis (Right) 12.5 Units, Temporalis (Left) 25 Units, Temporalis (Right) 25 Units, Occipitalis (Left) 20 Units, Occipitalis (Right) 20 Units, Cervical paraspinals (Left) 10 Units, Cervical paraspinals (Right) 10 Units, Trapezius (Left) 15 Units, Trapezius (Right) 15 Units, Masseter (Left) 10 Units, Masseter (Right) 10 Units F requency 1 2 weeks L ot Number / Expiration S ee Notes X[employer]omin Lot# [id number], Exp 03/2026 M edication Source B uy and Bill U nits Administered 2 00 Units U nits Wasted 0 Units A dverse Reaction(s) N one * Procedure Codes: 6 4615 CHEMODENERV MUSC [id number] INJECTION INCOBOTULINUMTOXIN 1 UNIT, Units: 200.00 , Modifiers: JZ * Follow Up: 3 Months (Reason: Toxin injection) * Billing Information: * Visit Code: * Procedure Codes: 82182 CHEMODENERV MUSC MIGRAINE. J0588 INJECTION INCOBOTULINUMTOXIN 1 UNIT. Units: 200.00. Modifiers: JZ * Y DRIER OPERATOR Sign off status: Completed true * Provider: Carl Alvarado APRN Date: 1 03/12/2023 Generated for Rola ng/Faxing/eTransmitting on: 0 06/07/2024 09:14 AM CDT History and Physical Notes * HPI (History of Present Illness) Category Sub-Category Detail Notes Category Not es *Headache Last injection on 09/14/23: Procerus 5 Units, Patent Solicitor (Left) 5 Units, Patent Solicitor (Right) 5 Units, Frontalis (Left) 12.5 Units, Frontalis (Right) 12.5 Units, Temporalis (Left) 30 Units, Temporalis (Right) 30 Units, Occipitalis (Left) 25 Units, Occipitalis (Right) 25 Units, Cervical paraspinals (Left) 10 Units, Cervical paraspinals (Right) 10 Units, Trapezius (Left) 15 Units, Trapezius (Right) 15 Units -Current abortive treatment: Rizatriptan 10 mg (partially [...] (ineffective), Aimovig (ineffective), Emgality (ineffective), Ajovy (ineffective) Baseline Headache/Migraine Frequency (prior to Botox) (days/month): Current Headache/Migraine Frequency with Botox (days/month): 20/6-8 In the interim about 6 weeks ago she underwent bilateral supraorbital and auriculotemporal neurectomies by Dr. Samson.
--- OUTSIDE RECORDS SUMMARY | 2024-06-07 09:14 | XMS_ITS | Encounter Summary ---
Author Organization [facility] Address [address] [place] [address] Care Team Providers Care Recording Studio Intern Name Role Phone Yvan Best Primary Care Provider Benedict Ansari MD Unavailable [phone] Kellie Vernon Primary Care Provider [phone] Reason for Visit * Reason Onset Date Comments Appointment 05/18/2023 Encounter Details Date Type Department Care Team (Late st Contact Info) Description 05/18/2023 Telephone [facility] - Centralized Scheduling [address] [place] [address] Yeny Wilde MD [address] [facility] [place] [address] Appointment Social History Tobacco Use Types Packs/Day Years Used Date Smoking Tobacco: Never Smokeless Tobacco: Never Alcohol Use Standard Drinks/Week Comments Never 0 (1 standard drink = 0.6 oz pur e alcohol) Sex and Gender Information Value Date Recorded Sex Assigned at Not on file Gender Identity Not on file Sexual Orientation Not on file documented as of this encounter Miscellaneous Notes * Telephone Encounter - Wenide Mo - 05/18/2023 4:24 PM CDT Patient called for her appt in August with Dr Wilde, she would like to know if there was anything sooner cbn [phone] documented in this encounter Plan of Treatment Upcoming Encounters Date Type Department Care Team (Late st Contact Info) Description 06/12/2024 11:00 AM CDT Office Visit [facility] - Dermatology [address] [facility] [place] [address] Derrell Ovalle MD [facility] [facility] [address] [place] [address] 06/26/2024 1:00 PM CDT Office Visit [facility] - Plastic Surgery [address] [facility] [address] [place] [address] Juan Samson MD [facility] [place] [address] 09/04/2024 1:30 PM CDT Office Visit [facility] - Plastic Surgery [address] [facility] [address] [place] [address] Juan Samson MD [address] [place] [address] documented as of this encounter Visit Diagnoses Not on filedocumented in this encounter Care Teams Recording Studio Intern Relationship Specialty Start Date End Date Yvan Best PCP - General 02/03/23 02/29/24 Kellie Vernon PCP - General 03/01/24 Benedict Decker MD [address] [facility] [address] [address] Nephrology 11/04/21 documented as of this encounter
[2024-06-07 14:54] LABS: Alanine Aminotransferase 28 U/L (6-35); Albumin Level 4.2 g/dL (3.5-5.1); Alkaline Phosphatase 94 U/L (38-126); Anion Gap 10 mmol/L (4-12); Aspartate Amino Transferase 43 U/L (14-36); Bilirubin,Total 0.4 mg/dL (0.2-1.3); Blood Urea Nitrogen 23 mg/dL (7-17); Calcium 9.6 mg/dL (8.4-10.2); Carbon Dioxide 28 mmol/L (22-30); Chloride 105 mmol/L (98-107); Cholesterol 195 mg/dL (0-200); Estimated Glomerular Filt Rate 31; Glucose 88 mg/dL (65-110); HDL Direct 39 mg/dL; Potassium 4.6 mmol/L (3.4-5.0); Sodium 143 mmol/L (137-145); Triglycerides 236 mg/dL (<150)
[2024-06-07 15:08] LABS: LDL Cholesterol Direct 100 mg/dL
[2024-06-07 15:28] LABS: Thyroid Stimulating Hormone 0.839 uIU/mL (0.465-4.680)
== END 2024-06-07 09:06 | disposition home or self-care (01) ==
PROVIDERS: PCP Nurse Practitioner Family; Visit Provider Nurse Practitioner Family
DX: E03.9 Hypothyroidism, unspecified (principal); E78.5 Hyperlipidemia, unspecified; N18.9 Chronic kidney disease, unspecified
CPT/HCPCS: 36415; 80053; 80061; 84443

== ENCOUNTER 2024-06-15 08:11 | Outpatient (CLI) | payer MEDICARE, OTHER, SELFPAY ==
--- NOTE | ~2024-06-15 | MR_ITS ---
MRI of the cervical spine Clinical History: Upper extremity weakness and numbness Technique: Axial T2-weighted and gradient images, and sagittal T1-weighted, T2-weighted, and STIR sylvia ges were acquired. COMPARISON: 08/16/2022 Findings: There is no acute fracture or subluxation of the cervical spine. Osseous alignment is uncha nged from prior exam. No suspicious bone marrow signal abnormality seen. At C2-C3, there is no disc bulge or herniation. There is minimal facet arthropathy. No central canal stenosis, cord compression, or neural foraminal narrowing. At C3 and C4, there is no significant disc bulge or herniation. There is bilateral facet arthropathy, right worse than left, probable minimal right neural foraminal narrowing. Left neural foramen preser dev. No canal stenosis or cord compression. At C4-C5, there is minimal disc osteophyte complex and minimal facet arthropathy. No central canal st enosis, cord compression, or definite neural foraminal narrowing. At C5-C6, there is mild disc osteophyte complex, most prominent at the right foraminal region. There is mild bilateral neural foraminal narrowing, right worse than left. No canal stenosis or cord compre ssion. At C6-C7, there is minimal disc osteophyte complex. No canal stenosis or cord compression. Probable m ild bilateral neural foraminal narrowing. No abnormal signal seen in the spinal cord. Paravertebral soft tissues are unremarkable. Impression: Mild to moderate degenerative spondylosis overall, with multilevel mild neural foraminal narrowing. P lease see details above. Reviewed, dictated and finalized at location . Impression: Mild to moderate degenerative spondylosis overall, with multilevel mild neural foraminal narrowing. Please see details above.
== END 2024-06-15 08:12 | disposition home or self-care (01) ==
LOC: MICIMG 08:12
PROVIDERS: PCP Nurse Practitioner Family; Visit Provider Nurse Practitioner Family
DX: M47.812 Spondylosis without myelopathy or radiculopathy, cervical region (principal); R29.898 Other symptoms and signs involving the musculoskeletal system
CPT/HCPCS: 72141

== ENCOUNTER 2024-06-28 12:03 | Outpatient (CLI) | payer MEDICARE, OTHER, SELFPAY ==
--- NOTE | ~2024-06-28 | MM_ITS ---
EXAMINATION: MM diagnostic milka BI w senthil HISTORY: Breast pain TECHNIQUE: Additional 3-D tomosynthesis images of the breasts were performed and synthetic 2-D images were generated. CAD analysis was submitted and interpreted. COMPARISON: Comparison to multiple prior studies sequentially, with oldest reviewed study dated 07/03. BREAST PARENCHYMAL COMPOSITION: Not dense: There are scattered areas of fibroglandular density. FINDINGS: There are no suspicious masses, calcifications or architectural distortion in either breast to suggest malignancy. IMPRESSION: 1. No mammographic evidence for malignancy in either breast. 2. Routine yearly screening mammogram and regular clinical breast examination are recommended. BI-RADS Category 1: Negative Reviewed, dictated and finalized at location A. IMPRESSION: 1. No mammographic evidence for malignancy in either breast. 2. Routine yearly screening mammogram and regular clinical breast examination a re recommended. BI-RADS Category 1: Negative
== END 2024-06-28 12:04 | disposition home or self-care (01) ==
LOC: MICIMG 12:05
PROVIDERS: PCP Nurse Practitioner Family; Visit Provider Surgery
DX: N64.4 Mastodynia (principal); Z98.890 Other specified postprocedural states
CPT/HCPCS: 77062; 77066; G0279

== ENCOUNTER 2024-07-19 14:01 | Outpatient (CLI) | payer MEDICARE, OTHER, SELFPAY ==
--- NOTE | ~2024-07-19 | XR_ITS ---
XR abdomen/kub 1V Ordering provider: Lowell Dior MD History: . Left renal mass; KUB; Bilateral kidney stones . Comparison: None. FINDINGS: BOWEL: Nonobstructive bowel gas pattern. ORGANOMEGALY: None. SIGNIFICANT PATHOLOGIC CALCIFICATIONS: Faint calcification seen between the right transverse process of L2 and L3. OTHER: No free air is seen under the diaphragm. Degenerative spine. Bilateral hip severe osteoarthrit ic changes. IMPRESSION: NO ACUTE ABDOMINAL FINDINGS. Highly suggestive stone in the right paraspinal area. Follow-up and further evaluation with noncontra st CT is advised. Reviewed, dictated and finalized at location A. IMPRESSION: NO ACUTE ABDOMINAL FINDINGS. Highly suggestive stone in the right paraspinal area. Follow-up and further ricardo luation with noncontrast CT is advised.
--- OUTSIDE RECORDS SUMMARY | 2024-07-19 14:05 | XMS_ITS | Referral Summary ---
Author Organization [facility] Address [address] [place] [address] Care Team Providers Care Corporate Development Officer Name Role Phone Yvan Best MD Primary Care Provider [phone] Encounters Date Type Department Care Team Description 06/19/2024 Results Follow-Up [facility] Nephrology at [address] [place] [phone] Benedict Decker MD 06/19/2024 1:05 PM CDT Lab [facility] [address] [place] [phone] Stage 3b chronic kidney disease (HCC) 06/19/2024 1:30 PM CDT Office Visit [facility] Nephrology at [address] [phone] Benedict Decker MD Stage 3b chronic kidney disease (HCC) (Primary Dx); Nephrolithiasis; 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); Secondary hyperparathyroidism from Last 3 Months Allergies Active Allergy Reactions Criticality Noted Date [...] 1 tablet (75 mcg total) by mouth arc cutter before breakfast Active cycloSPORINE (RESTASIS) 0.05 % ophthalmic emulsion 1 drop 2 (two) times a day Active docusate sodium (COLACE) 100 mg capsuleIndicati ons:constipatio n Take 1 capsule (100 mg total) by mouth nightly Active vitamins A,C,E-zinc-ebony er 7,160-113-100 tmiu-bo-ioep tablet,delayed release (DR/EC) Take by mouth 2 (two) times a day Active mqjaa-6-jdb-epa -dpa-fish oil 1,050-1,200 mg capsule 1 capsule [...] tab when BP is over 160 Active carvediloL (COREG) 6.25 mg tablet Take [...] drink containing alc ohol? Monthly or less 06/19/2024 Average Number of Drinks Not on file 025 Frequency of Binge Drinking Not on file 06/04 Personal Safety Answer Date Recorded Have you ever been in or are you currently in a harmful physical or emotional relationship or is someone making you feel afraid or unsafe? Denies 09/08/2022 Comments No Sex and Gender Information Value Date Recorded Sex Assigned at Not on file Legal Sex Female 2:18 AM [employer] Gender Identity Not on file Sexual Orientation Not on file Last Filed Vital Signs Vital Sign Reading Time Taken Comments Blood Pressure 140/77 06/19/2024 1:24 PM CDT Pulse 75 06/19/2024 1:24 PM CDT Temperature 36.1 C (97 F) 06/19/2024 1:24 PM CDT Respiratory Rate 16 10/19/2022 9:15 AM CDT Oxygen Saturation 100% 10/19/2022 9:15 AM CDT Inhaled Oxygen Concentration - - Weight 64.9 kg (143 lb) 06/19/2024 1:24 PM CDT Height 152.4 cm (5') 06/19/2024 1:24 PM CDT Body Mass Index 27.93 06/19/2024 1:24 PM CDT Plan of Treatment Not on file Procedures Procedure Name Priority Date/Time Associated Diagnosis Comments PROTEIN / CREATININE RATIO, URINE, RANDOM Routine 06/19/2024 1:19 PM CDT Stage 3b chronic kidney disease (HCC) EGFR Routine 06/19/2024 1:16 PM CDT Stage 3b chronic kidney disease (HCC) DIFFERENTIAL AUTO Routine 06/19/2024 1:1 6 PM CDT Stage 3b chronic kidney disease (HCC) CBC WITH AUTO DIFFERENTIAL Routine 06/19/2024 1:16 PM CDT Stage 3b chronic kidney disease (HCC) VITAMIN D 25 HYDROXY Routine 06/19/2024 1:16 PM CDT Stage 3b chronic kidney disease (HCC) RENAL FUNCTION PANEL Routine 06/19/2024 1:16 PM CDT Stage 3b chronic kidney disease (HCC) PTH Routine 06/19/2024 1:16 PM CDT Stage 3b chronic kidney disease (HCC) from Last 3 Months Results * Protein / creatinine ratio, urine, random (06/19/2024 1:19 PM CDT) Protein, ur, quant 16.0 mg/dL Comment: Interpretive Data No reference range established. Current interpretive data was last revised 2018. Testing performed by: [address] [address] Creatinine Ur 150.0 mg/dL MIGUELINA FINE Comment: Interpretive Data No reference range established. Current interpretive data was last revised 2018. Testing performed by: [address] [address] Protein/creatinin e ratio 106.7 0.0 - 180.0 mg/g CR MIGUELINA Comment:Testing performed by : [address] [address] Urine 06/19/2024 1:19 PM CDT 06/19/2024 4:04 PM CDT Benedict Decker MD LAB URINE ORDERABLES Final Result Performing Organization Address [facility] de Phone Number MIGUELINA [address] [facility] [place] [address] * (ABNORMAL) eGFR (06/19/2024 1:16 PM CDT) eGFR 37(L) >=60 mL/min/1. 73 m2 Comment: Interpretive Data Reference Interval Normal >/= 90 mL/min/1.73m2 Mildly decreased* 60 - 89 mL/min/1.73m2 Mildly to moderately decreased 45 - 59 mL/min/1.73m2 Moderately to severely decreased 30 - 44 mL/min/1.73m2 Severely decreased 15 - 29 mL/min/1.73m2 Kidney Failure < 15 mL/min/1.73m2 *Relative to young adult level Estimated glomerular filtration rate is determined by the 2020 CKD-EPI equation recommended by the National Kidney Foundation (A Unifying Approach to GFR Estimation: Recommendations of the NKF-ASK Task Force on Reassessing the Inclusion of Race in Diagnosing Kidney Disease, JASN 2020). The CKD-EPI equation should not be used for patients with unstable renal function and has not been validated in children and those over 70. Current interpretive data was last reviewed 2021. Testing performed by: [address] [address] Blood 06/19/2024 1:16 PM CDT 06/19/2024 1:40 PM CDT Benedict Decker MD LAB BLOOD ORDERABLES Final Result Performing Organization Address [facility] Co de Phone Number MIGUELINA [address] [facility] [employer] [place] [address] * Differential, auto (06/19/2024 1:16 PM CDT) Neutrophil abs 4.53 1.50 - 6.50 K/cumm Comment:Testing performed by : [address] [address] Imm gran abs 0.02 0.00 - 0.10 K/cumm MIGUELINA Comment:Testing performed by : [address] [address] Lymphocyte abs 2.41 0.80 - 3.30 K/cumm MIGUELINA Comment:Testing performed by : [address], [place]., [address] Monocyte abs 0.50 0.20 - 0.80 K/cumm MIGUELINA Comment:Testing performed by : [address], [place]., [address] Eosinophil abs 0.15 0.00 - 0.50 K/cumm MIGUELINA Comment:Testing performed by : [address], [place]., [address] Basophil abs 0.03 0.00 - 0.10 K/cumm MIGUELINA Comment:Testing performed by : [address] [address] Neutrophil pct 59.3 % [facility] Comment: Interpretive Data Percent cell count reference ranges are not reported, since discordance with absolute values may lead to misinterpretation of CBC data. Current Interpretive Data was last revised on 2017. Testing performed by: [address] [address] Imm gran pct 0.3 % [facility] Comment: Interpretive Data Percent cell count reference ranges are not reported, since discordance with absolute values may lead to misinterpretation of CBC data. Current Interpretive Data was last revised on 2017. Testing performed by: [address] [address] Lymphocyte pct 31.5 % [facility] Comment: Interpretive Data Percent cell count reference ranges are not reported, since discordance with absolute values may lead to misinterpretation of CBC data. Current Interpretive Data was last revised on 2017. Testing performed by: [address] [address] Monocyte pct 6.5 % [facility] Comment: Interpretive Data Percent cell count reference ranges are not reported, since discordance with absolute values may lead to misinterpretation of CBC data. Current Interpretive Data was last revised on 2017. Testing performed by: [address] [address] Eosinophil pct 2.0 % MIGUELINA FINE Comment: Interpretive Data Percent cell count reference ranges are not reported, since discordance with absolute values may lead to misinterpretation of CBC data. Current Interpretive Data was last revised on 2017. Testing performed by: [address] [address] Basophil pct 0.4 % MIGUELINA FINE Comment: Interpretive Data Percent cell count reference ranges are not reported, since discordance with absolute values may lead to misinterpretation of CBC data. Current Interpretive Data was last revised on 2017. Testing performed by: [address] [address] Blood 06/19/2024 1:16 PM CDT 06/19/2024 1:40 PM CDT Benedict Decker MD LAB BLOOD ORDERABLES Final Result Performing Organization Address City/State/[facility] Co de Phone Number MIGUELINA [facility] [place] [address] * (ABNORMAL) CBC with auto differential (06/19/2024 1:16 PM CDT) WBC 7.64 3.80 - 9.90 K/cumm Comment:Testing performed by : [address] [address] Hgb 12.6 11.9 - 15.5 g/dL MIGUELINA FINE Comment:Testing performed by : [address] [address] Hct 39.2 35.6 - 45.5 % MIGULEINA FINE Comment:Testing performed by : [address] [address] Plt 262 150 - 400 K/cumm MIGUELINA FINE Comment:Testing performed by : [address] [address] MPV 8.7(L) 9.1 - 12.3 fL MIGUELINA FINE Comment:Testing performed by : [address] [address] RBC 4.25 3.90 - 5.20 M/cumm MIGUELINA FINE Comment:Testing performed by : [address], [address] MCV 92.2 81.3 - 96.4 fL MIGUELINA FINE Comment:Testing performed by : [address] [address] MCH 29.6 27.1 - 33.3 pg MIGUELINA FINE Comment:Testing performed by : [address] [address] MCHC 32.1(L) 32.3 - 35.7 g/dL MIGUELINA FINE Comment:Testing performed by : [address], [address] RDW CV 13.4 11.1 - 14.9 % MIGUELINA FINE Comment:Testing performed by : [address], [address] RDW SD 46.0 35.7 - 48.1 fL MIGUELINA Comment:Testing performed by : [address] [address] NRBC abs 0.00 0.00 - 0.01 K/cumm MIGUELINA Comment:Testing performed by : [address], [address] Blood 06/19/2024 1:16 PM CDT 06/19/2024 1:40 PM CDT Benedict Decker MD LAB BLOOD ORDERABLES Final Result [facility] [address] [facility] Department of Laboratories [place], [place] [id number] * Vitamin D 25 hydroxy (06/19/2024 1:16 PM CDT) [facility] Vitamin D 25-OH 38.0 30.0 - 80.0 ng/mL Blood 06/19/2024 1:16 PM CDT 06/19/2024 5:13 PM CDT us Benedict Decker MD LAB BLOOD ORDERABLES Final Result Performing Organization Address City/[facility] Co de Phone Number [address] [address] * PTH (06/19/2024 1:16 PM CDT) [facility] PTH 49 15 - 65 pg/mL Comment:Testing performed by : [address] [address] Blood 06/19/2024 1:1 6 PM CDT 06/19/2024 1:40 PM CDT Result [facility] us Benedict Decker MD LAB BLOOD ORDERABLES Final Result Performing Organization Address [facility] Co de Phone Number [address] [address] * (ABNORMAL) Renal function panel (06/19/2024 1:16 PM CDT) [facility] Sodium 141 135 - 145 mmol/L Comment:Testing performed by : [address] [address] Potassium, pl 4.4 3.3 - 4.9 mmol/L MIGUELINA Comment:Testing performed by : [address] [address] Chloride 104 97 - 110 mmol/L MIGUELINA Comment:Testing performed by : [address] [address] CO2 29 22 - 32 mmol/L MIGUELINA Comment:Testing performed by : [address] [address] Anion gap 8 2 - 15 mmol/L MIGUELINA Comment:Testing performed by : [address] [address] BUN 19 6 - 25 mg/dL MIGUELINA Comment:Testing performed by : [address] [address] Creatinine 1.51(H) 0.60 - 1.10 mg/dL MIGUELINA Comment:Testing performed by : [address] [address] Glucose 74 70 - 199 mg/dL MIGUELINA Comment: Interpretive Data Fasting glucose >/= 126 mg/dl is diagnostic for diabetes. Fasting is defined as no caloric intake for at least 8 hours. Fasting glucose between 100 mg/dl to 125 mg/dl is diagnostic of prediabetes. In a patient with classic symptoms of hyperglycemia or hyperglycemic crisis, a random glucose >/= 200 mg/dl is diagnostic for diabetes. In the absence of unequivocal hyperglycemia, results should be confirmed by repeat testing. The classification and Diagnosis of Diabetes Diabetes Care 202; 46: S19-S40. Current interpretive data was last revised 2022. Testing performed by: [address] [address] Calcium 9.8 8.5 - 10.3 mg/dL MIGUELINA Comment:Testing performed by : [address] [address] Phosphorus, pl 3.1 2.3 - 4.5 mg/dL MIGUELINA Comment:Testing performed by : [address] [address] Albumin 4.1 3.5 - 5.0 g/dL MIGUELINA Comment:Testing performed by : [address] [address] Blood 06/19/2024 1:16 PM CDT 06/19/2024 1:40 PM CDT Benedict Decker MD LAB BLOOD ORDERABLES Final Result Performing Organization Address City/State/[facility] Co de Phone Number [facility] [address] [facility] [place] [address] from Last 3 Months Insurance MEDICARE FOR LIFE MEDICARE FOR LIFE MEDICARE FOR LIFE Advance Directives For more information, please contact: [phone] * Full Code (Latest Code Status on File) Date Activated Date Inactivated Comments 09/08/2022 9:23 AM 09/08/2022 3:46 PM * Full Code Date Activated Date Inactivated Comments 03/30/2022 7:13 AM 03/30/2022 1:38 PM Care Teams Corporate Development Officer Relationship Specialty Start Date End Date Yvan Best MD PCP - General Family Medicine 12/29/21
--- OUTSIDE RECORDS SUMMARY | 2024-07-19 14:05 | XMS_ITS | Data Portability ---
Author Organization [facility], Main Office Address [address] [place] [address] Care Team Providers Care A/C Tech Name Role Phone LINDA BEST Primary Care Provider LINDA BEST Referring Provider [phone] Assessment Encounter Date Assessment Date Assessment LastModified [...] patient than half the time spent in ahwk-nm-mcxk care per Not available 08/03/2022 09:48:59 08/15/2022 [...] than half of this time spent in dxcj-sa-nima care Not available 09/04/2022 09:30:31 09/26/2022 09/26/2022 [...] more than half the time spent in lrmr-ee-plxq care. Not available 09/26/2022 16:28:20 11/14/2022 11/14/2022 [...] patient more than half of this in rjfm-zn-zfel conversation Not available 11/14/2022 14:22:48 Plan of Treatment Reminders Order Date Submit Date Provider Last Modified By Organization Details Last Modified Time Details Appointments None recorded. Lab None recorded. Referral None recorded. Procedures knee aspiration/ injection (PROC) 2022 023 [email or web address] In-Office Order, Internal Use Only DO Not Attach Compendium DO Not Attach Compendium, Do Not Delete/merge, [id number] 3 14:13:15 injection/a spiration joint/bursa (PROC) - in office procedure, administere d by provider 2022 023 [email or web address] In-Office Order, Internal Use Only DO Not Attach Compendium DO Not Attach Compendium, Do Not Delete/merge, [id number] 3 16:19:44 Surgeries None recorded. Imaging XR, knee 2022 023 [email or web address] [facility] [place], [address], [place], [address], 3 09:30:42 XR, knee 2022 023 [email or web address] [facility] [place], [address], [place], [address], 3 12:03:43 Medication Orders ropivacaine (PF) 5 mg/mL (0.5 %) injection solution 2022 023 [email or web address] Not available 4 10:44:31 Monovisc 88 mg/4 mL intra-artic ular syringe 2022 023 [email or web address] Not available 4 10:43:34 Kenalog 10 mg/mL suspension for injection 2022 023 [email or web address] [facility] In [facility], [facility] [place], [address], 3 14:49:39 ropivacaine (PF) 5 mg/mL (0.5 %) injection solution 2022 023 [email or web address] [facility] [address] In [facility] [address], [place], [address], 10:44:31 Patient TargetsNo targets recorded. Patient Instructions Encounter Date Encounter Id Patient Instructions Last Modified By Organization Details Last Modified Time 03/16/2023 [id number] plantar fasciitis: exercises Not available 04/04/2023 13:37:58 plantar fasciiti s education Not available 04/04/2023 13:37:58 achilles tendon: exercises Not available 04/04/2023 13:38:16 achilles tendonitis education Not available 04/04/2023 13:38:15 Reason for Referral None Reported. Results Created Date Observation Date Name Description Value Unit Range Abnormal Flag Note LastModifiedBy Organization Detail LastModifiedTime 07/19/19 XR, knee No observ ation record ed. [facility] [place] [address], [place], [address], 08/03/2022 09:46:25 07/20/1912/16/2021 XR, knee No observ ation record ed. [email or web address] Not Available 2022 09:29:43 07/28/1907/27/2022 MRI, knee, w/o contr ast No observ ation record ed. [email or web address] [place] [address], [place], [address], 07/27/2022 15:57:52 08/16/19 XR, knee No observ ation record ed. [facility] [place] [address], [place], [address], 09/04/2022 09:25:55 09/06/1907/26/2022 MRI, knee, w/o contr ast No observ ation record ed. [email or web address] Not Available 2022 18:27:13 07/24/19 24 07/20/2023 XR, abdom en + pelvi s No observ ation record ed. [facility] [address], [place], [address], 07/25/2023 12:41:53 Result Notes None recorded. Problems Name Problem SNOMED Code Status Onset Date Resolution Date Notes Provider Name and Address Organization Details Recorded Time Pain of right knee joint 3641190698160 00 Active 2022 Sophie Patterson RMNeftali davidson, [place] - [facility] 3 13:54:25 Pain of bilateral knee joints 4696365813870 04 Active 2022 Sophie Patterson RMA null, [place] - [facility] 3 15:03:57 Osteoarthr itis of right knee joint 6918230408793 00 Active 2022 Sophie Patterson RMA null, [place] - [facility] 3 13:55:23 Arthritis 7969918 Active 2023 Jessica davidson, [place] - [facility] 4 10:46:01 Bowel problem 762802126 Active 2023 Jessica davidson, [place] - [facility] 4 10:46:11 Breast problem 463285467 Active 2023 Jessica davidson, [place] - [facility] 4 10:46:24 Dizziness 454941531 Active 2023 Jessica davidson, [place] - [facility] 4 10:46:32 Disorder of eye 098684468 Active 2023 Jessica davidson, [place] - [facility] 4 10:46:40 Headache 42329289 Active 2023 Jessica davidson, [place] - [facility] 4 10:46:52 Migraine 49402995 Active 2023 Jessica davidson, [place] - [facility] 4 10:47:06 Plantar fasciitis of right foot 6470394612732 9101 Active 2023 Emanuel Edward DPM [address], [address], [place], [address] , [facility] [employer] 10:49:42 Right Achilles tendinitis 7295813433781 02 Active 2023 Emanuel Edward DPM [address], [address], [place], [address] , [facility] [place] [employer] [facility] 10:49:48 Notes:URINARY/BLADDER/KIDNEY Problem Notes None recorded. Procedures Surgical History Date Name Laterality Status Provider Name and Address Organization Details Recorded Time 03/16/19 Plantar Fascia Injection Right Foot completed Emanuel Edward DPM [address], [address], [place], [address], [facility] 03/16/2023 10:49:32 Hysterectomy completed Sophie Patterson [facility] 07/18/2022 13:53:25 Breast Surgery completed Sophie santana [facility] 07/18/2022 13:53:33 Knee Surgery completed Sophie Patterson [facility] 07/18/2022 13:53:50 Imaging Results Imaging Date Name Status LastModified by Organiz ation Details LastModified Time 07/18/2022 XR, knee completed [facility] [place] [address], [place], [address], 08/03/2022 09:46:25 12/16/2021 XR, knee completed Information no t available 07/19/2022 09:29:43 07/27/2022 MRI, knee, w/o contrast completed [email or web address] [facility] [address], [place], [address], 07/27/2022 15:57:52 08/15/2022 XR, knee completed [facility] [place] [address], [place], [address], 09/04/2022 09:25:55 07/26/2022 MRI, knee, w/o contrast completed Information not available 09/05/2022 18:27:13 07/20/2023 XR, abdomen + pelvis completed [place] [id number], [place], [address], 07/25/2023 12:41:53 Procedure Notes None recorded. Medical Equipment None Reported. Allergies Allergen ID Allergen Name Allergen Category Reaction Reaction Severity Criticality Documentation Date Start Date Code Code System Note Provider Name and Address Organization Details Recorded Time 75604 Product containin g penicilli n (product) medicatio n Not available Not available Not available 07/18/2022 05696 8001 SNOMED Sophie Patterson RMA null, [facility] 13:52:22 35932 Celebrex medicatio n Not available Not available Not available 07/18/2022 80202 7 RxNorm Sophie Patterson RMA null, [facility] 13:52:34 99284 Nexium medicatio n Not available Not available Not available 07/18/2022 25010 9 RxNorm Sophie Patterson RMA null, [facility] 13:52:44 Medications Name Sig Start Date Stop [...] e, administ ered by provider 09/[address] [facility]: [id number] 4-20 Not Available Not Available Not [...] Available Not Available Not Available BD Precision [place] 25 gauge x 1 needle INJECT INTRAMUS CULARLY IN DELTOID AREA ONCE A MONTH 07/18 completed Not Available Not Available Not Available BD SafetyGli de Needle 25 gauge x 1 active Not Available Not Available Not Available ropivacai ne (PF) 5 mg/mL (0.5 %) injection solution in office 03/[address] [facility] 20496-76 06-04 lot [id number] exp:10/24 23 Not Available Not Available Not Available Monovisc 88 mg/4 mL intra-art icular syringe in office 03/16 completed [facility]: 48549-50 20- lot: [id number] exp:05/03 Not Available Not Available Not [...] Updated DateTime 07/18/2022 152.4 cm 28.5 kg/m2 06778.49 g Sophie Leonardo [facility] [employer] [facility] 07/18/2022 14:00:06 Date Recorded Body height Provider Name an d Address Organization Details Last Updated DateTime 08/15/2022 152.4 cm Sophie Leonardo [facility] [employer] [facility] 08/15/2022 15:00:31 Date Recorded Body height Provider Name an d Address Organization Details Last Updated DateTime 09/26/2022 152.4 cm Sophie Patterson [facility] [employer] [facility] [employer] [facility] 09/26/2022 14:47:10 Date Recorded Body height Provider Name an d Address Organization Details Last Updated DateTime 11/14/2022 152.4 cm Sophie Leonardo [facility] [employer] [facility] [employer] [facility] 11/14/2022 13:53:48 Date Recorded Body height Heart rate Respiratory rate Oxygen saturation Oxygen saturation in Arterial blood by Pulse oximetry Systolic blood pressure Diastolic blood pressure Provider Name and Address Organization Details Last Updated DateTime 152.4 cm 76 /min 14 /min 98 % 98 % 152 mm[Hg] 91 mm[Hg] Kayleigh Jarvis [employer] [facility] 10:06:23 Date Recorded Body mass index (BMI) Body weight Provider Name and Address Organization Details Last Updated DateTime 03/16/2023 24.4 kg/m2 80573.05 g Jessica Cook [place] - [facility] [employer] 03/16/2023 10:41:34 Social History None recorded. Functional Status Question Answer Note LastModified by Organization D etails LastModified Time What is your level of alcohol consumption? None [email or web address] Information not available 03/16/2023 Mental Status None recorded. Family History Nothing Reported. Medical History Condition Response ARTHRITIS Y HEADACHES/MIGRAINES Y URINARY/BLADDER/KIDNEY PROBLEMS Y BOWEL PROBLEMS Y DIZZINESS Y Gynecological HistoryNo gynecological history recorded. Obstetrics History GPAL:G 0 P 0 0 0 0 Past Encounters Encounter ID Performer Location Encounter Start Date Encounter Closed Date Diagnosis/Indication Diagnosis SNOMED-CT Code Diagnosis ICD10 Code Diagnosis Note [id number] Jaskaran Elliott MD [facility] [place] [address] [place] [address] 07/18/2022 13:26:54 08/03/2022 12:03:43 Pain of right knee joint 5172526289 56420 M25.561 [id number] Jaskaran Elliott MD [facility] [place] [address] [place] [address] 08/15/2022 14:43:37 09/05/2022 09:30:42 Pain of right knee joint 4079998299 28834 M25.561 [id number] Jaskaran Elliott MD [facility] [place] [address] [place] [address] 09/26/2022 14:33:27 09/26/2022 16:36:07 Pain of right knee joint 7612476041 54469 M25.862 [id number] Jaskaran Elliott MD [facility] [place] [address] [place] [address] 11/14/2022 13:46:58 11/14/2022 14:35:49 Osteoarthritis of right knee joint 3102487925 52901 M17.11 [id number] Emanuel Edward DPM [facility] [place] [address] [place] [address] 03/16/2023 09:54:32 04/04/2023 19:07:32 Plantar fasciitis of right foot 7768243386 1886864 M72.2 injection, right plantar heel onlyrice therapystr etching revieweded ucated on shoe gearfollow up in 4 weeks Right Achi lles tendinitis 8423086930 64726 M76.61 as above Health Concerns Section Related Observation LastModified by Organization Detai ls LastModified Time None Recorded Concern Status LastModified by Organization Details LastModified Time None Recorded Advance Directives Directive None Recorded Payers Encounter Date Sequence Insurance Name Policy Number Policy [place] Covered Member ID Kan Member ID Guarantor Name 07/18/2022 [place] Benita Giron [id number] Benita Giron 07/18/2022 2 [place] [employer] [place] Benita Giron [id number] Benita Giron 08/15/2022 1 [place] Benita Giorn [id number] Benita Giron 08/15/2022 2 [place] [employer] [place] Benita Giron [id number] Benita Giron 09/26/2022 1 [place] Benita Giron [id number] Benita Giron 09/26/2022 2 [place] [employer] [place] Benita Giron [id number] Benita Giron 11/14/2022 1 [place] Benita Giron [id number] Benita Giron 11/14/2022 2 [place] [employer] () Benita Giron [id number] Benita Giron 03/16/2023 1 [place] Benita Giron [id number] Benita Giron 03/16/2023 2 [place] () Benita Giron [id number] Benita Giron Notes Date Note Type Note Provider Name and Address Organization Details Recorded Time 07/18/2022 text/html patient is a 67-year-old female referred better high at [place] for evaluation of her right knee. She [...] Patient moved here September of 2021 from [place]. Her knee replacement was in [place]. The Jaskaran Elliott MD [address], [place] [address], [place], [address], [employer] 08/03/2022 09:49:15 03/16/2023 text/html . Patient is [...] other complaints. Emanuel Edward DPM [address], [facility] [address], [place], [address], [employer] 04/04/2023 13:39:11 OBGyn Episode No OBEpisode recorded.
--- OUTSIDE RECORDS SUMMARY | 2024-07-19 14:05 | XMS_ITS | Clinical Summary ---
Author Organization [facility] Address [address] [place] [address] Care Team Providers Care Granular Operator Name Role Phone Benedict Decker MD Unavailable [phone] Kellie Vernon Primary Care Provider [phone] Source Comments [facility],non-owned Affiliates and Associated Physician Practices is amultiple site organization consisting of ambulatory clinics and hospital sitesin [place], [place], [place] and [place]. This disclosure is being madepursuant to the Care Everywhere program and may not contain all information available regarding this patient. Last updated 17.[facility] Allergies Active Allergy Reactions Criticality Noted Date [...] document. Alwaysverify current medications with the patient. Atogepant (Qulipta) 60 MG TABSIndications:M igraine Reasons: Migraine Headache 01/11/202 4 Active colestipol (Colestid) 1 GM tablet 4 Active cyanocobalamin (Vitamin B-12) injection 3 Active cycloSPORINE (Restasis) 0.05 % ophthalmic suspension 1 (one) drop 2 times daily Active diphenoxylate-atr opine (Lomotil) 2.5-0.025 MG tablet Take 1 (one) tablet by mouth 3 times daily as needed Active DULoxetine (Cymbalta) 60 MG capsule 4 Active fludrocortisone (Florinef) 0.1 MG tablet 3 Active levothyroxine (Synthroid) 75 MCG tablet 3 Active onabotulinumtoxin A (Botox) 100 units injection Every 90 days Active potassium citrate (Urocit K 10) 10 MEQ (1080 MG) tablet 3 Active traZODone (Desyrel) 50 MG tablet PLEASE SEE ATTACHED FOR DETAILED DIRECTIONS 3 Active BD SafetyGlide Shielded Needle 25G X 1 MISC 3 Active traMADol (Ultram) 50 MG tablet 4 Active carvedilol (Coreg) 12.5 MG tablet Take 1 (one) tablet by mouth 2 times daily with morning and evening meal 4 Active gabapentin (Neurontin) 300 MG capsuleIndication s:Other migraine without status migrainosus, not intractable Take 1 (one) capsule by mouth 3 times daily 90 capsule 4 Active fish oil/omega-3 fatty acids (Promega;Cardi-Om ega 3) 1111.1111 mg/ml syringe Take 0.45 mL by mouth 4 times daily Active diazePAM (Valium) 5 MG tablet Take 1 (one) tablet by mouth every 6 hours as needed Active Calcium Polycarbophil (Fiber) 625 MG Take 1 (one) tablet by mouth 2 times daily Active mupirocin calcium (Bactroban) 2 % cream Apply to affected area 3 times daily 15 g 5 Active mupirocin (Bactroban) 2 % ointment Apply to affected area 2 times daily 5 Active valACYclovir (Valtrex) 1 GM tabletIndications :Scalp lesion Take 1 (one) tablet by mouth 3 times daily 21 tablet 5 Active mupirocin (Bactroban) 2 % ointmentIndicatio ns:Scalp lesion Apply to affected area 3 times daily 22 g 5 Active clobetasol (Temovate) 0.05 % ointmentIndicatio ns:Rash and other nonspecific skin eruption Apply to rash on the forehead and scalp twice daily as needed. Use for a maximum for 1 week then take a 3-4 day break before resuming. 60 g 1 5 Active doxycycline hyclate 100 MG tabletIndications :Rash and other nonspecific skin eruption TAKE 1 (ONE) TABLET BY MOUTH 2 TIMES DAILY FOR 21 DAYS FOR ACNE 42 tablet 5 Active triamcinolone acetonide (Kenalog) 0.1 % ointmentIndicatio ns:Rash and other nonspecific skin eruption Apply pea size amount to red and itchy areas up to BID PRN rash/pruritus, use 2 weeks max then 4-5 day holiday before restarting. 80 g 3 5 Active doxycycline hyclate 100 MG tabletIndications :Rash and other nonspecific skin eruption Take 1 (one) tablet by mouth 2 times daily 60 tablet 2 5 Active Active Problems Problem Noted Date Diagnosed [...] Encounters Date Type Department Care Team Description 07/10/2024 8:30 AM CDT Office Visit [facility] - Dermatology [address] [place] [address], [place] [address] Derrell Ovalle MD Rash and other nonspecific skin eruption (Primary Dx); Senile purpura 07/10/2024 Travel 06/25/2024 Telephone [facility] - Plastic Surgery [address] [place] [address], [place] [address] Juan Samson MD Appointment 06/17/2024 Results [facility] [address] [place] [phone] Derrell Ovalle MD 06/12/2024 11:00 AM CDT [facility] [address] [place] [phone] Derrell Ovalle MD Rash and other nonspecific skin eruption (Primary Dx) 06/12/2024 Travel 06/12/2024 Refill [facility] - Dermatology [address] [place] [phone] Derrell Ovalle MD Refill Request 06/05/2024 1:45 PM CDT Office Visit [facility] - Plastic Surgery [address] [facility] [address] [place] [address] Juan Samson MD Impetigo (Primary Dx) 06/05/2024 Travel 05/28/2024 9:00 AM CDT Office Visit [facility] - Infectious Disease [address] [place] [address] Ricky Sherman MD Rash (Primary Dx) 05/28/2024 Travel 05/21/2024 Refill [facility] Dermatology [address] [place] [phone] Derrell Ovalle MD Refill Request 05/07/2024 Orders Only [facility] - Plastic Surgery [address] [place] [phone] Juan Samson MD Scalp lesion 05/03/2024 Telephone [facility] Dermatology [address] , [facility] [address] [place] [address] Derrell Ovalle MD 04/28/2024 Refill [facility] - Dermatology [address] [place] [address] [place] [phone] Derrell Ovalle MD Refill Request from Last 3 Months Immunizations Immunization Administration Dates Next Due INFLUENZA VACCINE, QUADR. 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, [place] [address] [place] [address] Juan Samson MD [address] [place] [address] 10/09/2024 10:00 AM CDT Office Visit [facility]erm[facility] [address] [place] [phone] Derrell Ovalle MD [address] [facility] [address] [place] [phone] Health Maintenance Due Date Last Done Comments [...] 2 - PCV) 02/10/2020 02/09/2019 COVID-19 VACCINE (1 - 2023-2 5 season) 2023 INFLUENZA VACCINE (Season Ended) 2024 12/13/2018, 01/05/2010 COLONOSCOPY - COLON CA SCREENING 12/05/2028 12/05/2018 Colorectal Cancer Screening 12/05/2028 BONE DENSITY TESTING [...] to complete this topic MENINGOCOCCAL (Group B) VACCINE SHARED DECISION-MAKING Aged Out No longer eligible based on patient's age to complete this topic MENINGOCOCCAL GROUPS A/C/Y/W VACCINE Aged Out No longer eligible b ased on patient's age to complete this topic Medical Devices Implanted Type Area Ed Tech Device Identifier Shelf Expiration Date Model / Serial / Lot Ultratine Forehead 3.5 Bioabsorbable Implant Implanted:Qty: 2 on 11/17/2023 by Juan Samson MD at [facility] Forehead [employer] 07/03/2025 [id number] / / [id number] Procedures Procedure Name Priority Date/Time Associated Diagnosis Comments CULTURE AEROBIC Routine 06/15/2024 9:00 AM CDT Rash and other nonspecific skin eruption from Last 3 Months Results * CULTURE AEROBIC (06/15/2024 9:00 AM CDT) Pathologist [facility] Comment: CULTURE, AEROBIC BACTERIA Micro Number: [id number] Test Status: Final Specimen Source: Face Specimen Quality: Adequate Result: Growth of skin marshall (note: Growth does not include S. aureus, beta-hemolytic Streptococci or P. aeruginosa). Comment: No collection date was provided. The specimen is generally defined as stable up to 48 hours. The result(s) need(s) to be interpreted cautiously. Clinicopathologic correlation is required. Repeat testing is recommended as clinically indicated. NO COLLECTION DATE RECEIVED. WE HAVE USED THE DATE THE SPECIMEN WAS RECEIVED BY THIS LABORATORY THE COLLECTION DATE. IF THIS IS INCORRECT, PLEASE CONTACT CLIENT SERVICES. PHONE NUMBER: [phone] Test Performed at: [facility] [address] RACHELE LEMUS MD Microbiology FACE STRUCTURE / Unknown 06/13/2024 12:15 AM CDT Derrell Ovalle MD LAB - MICROBIOLOGY ORDERABLES Final Result [address] [address] from Last 3 [place] [phone] Advance Directives * Full Code (Latest Code Status on File) Date Activated Date Inactivated Comments 11/17/2023 3:46 PM 11/18/2023 4:34 PM Care Teams Granular Operator Relationship Specialty Start Date End Date Kellie Vernon PCP - General 03/01/24 Benedict Decker MD [facility] [address] [address] Nephrology 11/04/21
--- OUTSIDE RECORDS SUMMARY | 2024-07-19 14:05 | XMS_ITS | Encounter Summary ---
Author Organization [facility] Health Address [address] [place] [address] Care Team Providers Care Office Correspondent Name Role Phone Yvan Best Primary Care Provider Benedict Ansari MD Unavailable [phone] Kellie Vernon Primary Care Provider [phone] Reason for Visit * Reason Onset Date Comments Appointment 05/18/2023 Encounter Details Date Type Department Care Team (Late st Contact Info) Description 05/18/2023 Telephone [facility] - Centralized Scheduling [address] [place] [address] Yeny Wilde MD [address] [facility] [place] [address] Appointment Social History Tobacco Use Types Packs/Day Years Used Date Smoking Tobacco: Never Smokeless Tobacco: Never Alcohol Use Standard Drinks/Week Comments Never 0 (1 standard drink = 0.6 oz pur e alcohol) Comments Unknown Sex and Gender Information Value Date Recorded Sex Assigned at Not on file 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 Gender Identity Not on file Sexual Orientation Not on file documented as of this encounter Miscellaneous Notes * Telephone Encounter - Wendie Mo - 05/18/2023 4:24 PM CDT Patient called for her appt in August with Dr Wilde, she would like to know if there was anything sooner cbn [phone] documented in this encounter Plan of Treatment Upcoming Encounters Date Type Department Care Team (Late st Contact Info) Description 09/04/2024 1:30 PM CDT [facility] Visit [facility] [address], [address] [place] [address] Juan Samson MD [address] [place] [address] 10/09/2024 10:00 AM CDT Office Visit [facility] - Dermatology [address] [place] [address], [place] [address] Derrell Ovalle MD [address] [place] [address] [address] [place] [address] documented as of this encounter Visit Diagnoses Not on filedocumented in this encounter Care Teams Office Correspondent Relationship Specialty Start Date End Date Yvan Best PCP - General 02/03/23 02/29/24 Kellie Vernon PCP - General 03/01/24 Benedict Decker MD [address] [place] [address] Nephrology 11/04/21 documented as of this encounter
--- OUTSIDE RECORDS SUMMARY | 2024-07-19 14:05 | XMS_ITS | Encounter Summary ---
Author Organization [facility] Address [address] [place] [address] Care Team Providers Care Veterinary Dentist Name Role Phone Ronal Adhikari DO Unavailable None, Provider Primary Care Provider Unavaila ble Encounter Details Date Type Department Care Team (Late st Contact Info) Description 12/08/2023 Prep for Procedure [facility] [place] [address] Rolf Prather, DPM [address] [address] Social History Tobacco Use Types [...] on file documented as of this encounter Functional Status * Calculated C-SSRS Risk Score (Lifetime/Recent) Answer Date of Assessment Author Status No Risk Indicated 12/08/2023 8:15 AM CDT Lizet Alarcon, RN Active * [place] Suicide Severity Rating Scale (Screener/Recent Self-Report) Question Answer Date of Assessment Author Status 1. Wish to be (Past 1 Month) No 12/08/2023 8:15 AM CDT Lizet Alarcon RN Active 2. Non-Specific Active Suicidal Thoughts (Past 1 Month) No 12/08/2023 8:15 AM CDT Lizet Alarcon RN Active 6. Suicidal Behavior (Lifetime) No 12/08/2023 8:15 AM CDT Lizet Alarcon RN Active documented as of this encounter Plan of Treatment Not on file documented as of this encounter Results * (ABNORMAL) BASIC METABOLIC PANEL (12/08/2023 7:40 AM CDT) [facility] GLUCOSE 101(H) 70 - 99 MG/DL 12/08/2023 8:[address] [facility] BUN 18 7 - 18 MG/DL 12/08/2023 8:[address] [facility] CREATININE S/P/B 1.51(H) 0.55 - 1.02 MG/DL 12/08/2023 8:[address] [facility] SODIUM S/P/B 133(L) 136 - 145 MMOL/L 12/08/2023 8:[address] [facility] POTASSIUM S/P/B 4.2 3.5 - 5.1 MMOL/L 12/08/2023 8:[address] [facility] CHLORIDE S/P/B 99 97 - 115 MMOL/L 12/08/2023 8:[address] [facility] CO2 28.9 21 - 32 MMOL/L 12/08/2023 8:[address] [facility] CALCIUM S/P/B 9.6 8.5 - 10.1 MG/DL 12/08/2023 8:[address] [facility] ANION GAP 5.1 2 - 10 MMOL/L 12/08/2023 8:[address] [facility] BUN CREATININE RATIO 11.9 6 - 26 12/08/2023 8:[address] [facility] GFR ESTIMATE 37(L) >90 ML/MIN/1.7 3 M2 12/08/2023 8:[address] [facility] Comment: NOTE: eGFR is not calculated for patients <18 years of age or gender unknown. This is an estimated GFR calculation using the new CKD EPI creatinine equation without race and so does not require a correction factor for race. This estimated GFR should not be used for calculating drug doses. 12/08/2023 7:40 AM CDT Hillary Escudero [facility] Final R esult [facility] [address] [place] [address], [place] [phone] documented in this encounter Visit Diagnoses Diagnosis Preoperative testing- Primary Preoperative examination, unspecified documented in this encounter Care Teams Veterinary Dentist Relationship Specialty Start Date End Date None, Provider, PCP - General UNKNOWN PHYSICIAN SPECIALTY 12/08/23 Ronal Adhikari DO [address] [place] [address] INTERNAL MEDICINE 11/30/23 documented as of this encounter
--- OUTSIDE RECORDS SUMMARY | 2024-07-19 14:05 | XMS_ITS | Continuity of Care Document ---
Author Name [facility] Organization [facility] Care Team Providers Care Clock Smith Name Role Phone [facility] Unavailable Unavailable Medications Combined list of outpatient medications from Department of Defense and Veterans Affairs facilities.Medications provided include 1) outpatient medications from the last 15 months, and 2) patient-reported medications. Medication Details Route Status Patient Instructions Prescription Expires Prescription Number Last Dispense Date Ordering Provider Order Date Order Qty Source BELSOMRA (SUVOREXANT ), 10 MG, TABLET, ORAL, MERCK SHARP & D, 30 ea. BLIST PACK Active [id number] 2023 20 Pharmac y Data Transac tion Service Facilit y BELSOMRA (SUVOREXANT ), 10 MG, TABLET, ORAL, MERCK SHARP & D, 30 ea. BLIST PACK Cancele d [id number] : 2023 0 Pharmac y Data Transac tion Service Facilit y BELSOMRA (SUVOREXANT ), 10 MG, TABLET, ORAL, MERCK SHARP & D, 30 ea. BLIST PACK Cancele d [id number] : 2023 0 Pharmac y Data Transac tion Service Facilit y BELSOMRA (SUVOREXANT ), 10 MG, TABLET, ORAL, MERCK SHARP & D, 30 ea. BLIST PACK Active [id number] 2023 30 Pharmac y Data Transac tion Service Facilit y BELSOMRA (SUVOREXANT ), 10 MG, TABLET, ORAL, MERCK SHARP & D, 30 ea. BLIST PACK Cancele d [id number] : 2023 0 Pharmac y Data Transac tion Service Facilit y BELSOMRA (SUVOREXANT ), 10 MG, TABLET, ORAL, MERCK SHARP & D, 30 ea. BLIST PACK Cancele d [id number] : 2023 0 Pharmac y Data Transac tion Service Facilit y BELSOMRA (SUVOREXANT ), 15 MG, TABLET, ORAL, MERCK SHARP & D, 30 ea. BLIST PACK Cancele d [id number] : 2023 0 Pharmac y Data Transac tion Service Facilit y BELSOMRA (SUVOREXANT ), 15 MG, TABLET, ORAL, MERCK SHARP & D, 30 ea. BLIST PACK Cancele d [id number] : 2023 0 Pharmac y Data Transac tion Service Facilit y CARVEDILOL (carvedilol ), 6.25 MG, TABLET, ORAL, [employer], 500 ea. BOTTLE Active [id number] 2023 360 Pharmac y Data Transac tion Service Facilit y CARVEDILOL (carvedilol ), 6.25 MG, TABLET, ORAL, [facility], 500 ea. BOTTLE Cancele d [id number] : 2023 0 Pharmac y Data Transac tion Service Facilit y CARVEDILOL (carvedilol ), 6.25 MG, TABLET, ORAL, [employer], 500 ea. BOTTLE Active [id number] 2023 168 Pharmac y Data Transac tion Service Facilit y CARVEDILOL (carvedilol ), 6.25 MG, TABLET, ORAL, [facility], 500 ea. BOTTLE Active [id number] 2023 360 Pharmac y Data Transac tion Service Facilit y CLOBETASOL PROPIONATE (CLOBETASOL PROPIONATE) , 0.05%, CREAM(GM), TOPICAL, [employer], 60 g JAR Active [id number] 2023 60 Pharmac y Data Transac tion Service Facilit y CYCLOSPORIN E (cyclospori ne), 0.05 %, DROPERETTE, OPHTHALMIC, [employer] 30 ea. VIAL Active [id number] 2023 60 Pharmac y Data Transac tion Service Facilit y DROXIDOPA (droxidopa) , 200 MG, CAPSULE, ORAL, [facility], 90 ea. BOTTLE Cancele d [id number] : 2023 0 Pharmac y Data Transac tion Service Facilit y DROXIDOPA (droxidopa) , 200 MG, CAPSULE, ORAL, [facility], 90 ea. BOTTLE Cancele d [id number] : 2023 0 Pharmac y Data Transac tion Service Facilit y DROXIDOPA (droxidopa) , 200 MG, CAPSULE, ORAL, [facility], 90 ea. BOTTLE Cancele d [id number] : 2023 0 Pharmac y Data Transac tion Service Facilit y DULOXETINE HCL (duloxetine HCl), 60 MG, CAPSULE DR, ORAL, [employer] 1000 ea. BOTTLE Active [id number] 2023 90 Pharmac y Data Transac tion Service Facilit y FUROSEMIDE (furosemide ), 20 MG, TABLET, ORAL, [employer], 1000 ea. BOTTLE Active [id number] 2023 10 Pharmac y Data Transac tion Service Facilit y GABAPENTIN (gabapentin ), 100 MG, CAPSULE, ORAL, [employer] 500 ea. BOTTLE Active [id number] 2023 90 Pharmac y Data Transac tion Service Facilit y GABAPENTIN (gabapentin ), 100 MG, CAPSULE, ORAL, CIPLA [employer] 500 ea. BOTTLE Active [id number] 2023 90 Pharmac y Data Transac tion Service Facilit y GABAPENTIN (gabapentin ), 100 MG, CAPSULE, ORAL, CIPLA [employer] 500 ea. BOTTLE Cancele d [id number] : 2023 0 Pharmac y Data Transac tion Service Facilit y GABAPENTIN (gabapentin ), 100 MG, CAPSULE, ORAL, CIP[employer] 500 ea. BOTTLE Active [id number] 2023 30 Pharmac y Data Transac tion Service Facilit y GABAPENTIN (gabapentin ), 100 MG, CAPSULE, ORAL, [employer] 500 ea. BOTTLE Active [id number] 2023 30 Pharmac y Data Transac tion Service Facilit y HYDRALAZINE HCL (hydralazin e HCl), 25 MG, TABLET, ORAL, [employer], 100 ea. BOTTLE Active [id number] 2023 540 Pharmac y Data Transac tion Service Facilit y Hydrochloro thiazide (Hydrochlor othiazide), 25mg, Tablet, Oral, [employer], 1000 Ea. Bottle Active [id number] 2023 90 Pharmac y Data Transac tion Service Facilit y LUER-BERTRAND SYRINGE-NEE DLE (syringe with needle,disp osable, 3 mL), 23GX1 , DISP SYRIN, MISCELL, [facility], 100 ea. BOX Active [id number] 2023 3 Pharmac y Data Transac tion Service Facilit y METHYLPREDN ISOLONE (METHYLPRED NISOLONE), 4MG, TAB DS PK, ORAL, [employer], 21 ea. DOSE-PACK Active [id number] 2023 21 Pharmac y Data Transac tion Service Facilit y Nitrofurant oin ([employer]) 100 CAPSULE in 1 BOTTLE Cancele d [id number] : 2023 0 Pharmac y Data Transac tion Service Facilit y POTASSIUM CITRATE (POTASSIUM CITRATE), 10MEQ, TABLET SA, ORAL, UPSHER LOPEZ, 100 ea. BOTTLE Cancele d [id number] : 2023 0 Pharmac y Data Transac tion Service Facilit y POTASSIUM CITRATE (POTASSIUM CITRATE), 10MEQ, TABLET SA, ORAL, UPSHER LOPEZ, 100 ea. BOTTLE Cancele d [id number] : 2023 0 Pharmac y Data Transac tion Service Facilit y POTASSIUM CITRATE (POTASSIUM CITRATE), 10MEQ, TABLET SA, ORAL, UPSHER LOPEZ, 100 ea. BOTTLE Cancele d [id number] : 2023 0 Pharmac y Data Transac tion Service Facilit y POTASSIUM CITRATE (POTASSIUM CITRATE), 10MEQ, TABLET SA, ORAL, RJ LOPEZ, 100 ea. BOTTLE Active [id number] 2023 200 Pharmac y Data Transac tion Service Facilit y SAFETY-BERTRAND SAFETY SYRINGES (syringe,sa fety with needle,3mL) , 23GX1 , DISP SYRIN, MISCELL, [facility], 100 ea. BOX Cancele d [id number] : 2023 0 Pharmac y Data Transac tion Service Facilit y SULFAMETHOX AZOLE-TRIME THOPRIM (SULFAMETHO XAZOLE/TRIM ETHOPRIM), 400MG-80MG, TABLET, ORAL, [facility], 100 ea. BOTTLE Active [id number] 2023 14 Pharmac y Data Transac tion Service Facilit y SYNTHROID (LEVOTHYROX INE SODIUM), 75MCG, TABLET, ORAL, [facility] 1000 ea. BOTTLE Active [id number] 2023 90 Pharmac y Data Transac tion Service Facilit y SYNTHROID (LEVOTHYROX INE SODIUM), 75MCG, TABLET, ORAL, [facility] 1000 ea. BOTTLE Active [id number] 2023 90 Pharmac y Data Transac tion Service Facilit y TIZANIDINE HCL (TIZANIDINE HCL), 4 MG, TABLET, ORAL, [facility], 150 ea. BOTTLE Active [id number] 2023 90 Pharmac y Data Transac tion Service Facilit y TIZANIDINE HCL (TIZANIDINE HCL), 4 MG, TABLET, ORAL, [facility], 150 ea. BOTTLE Active [id number] 2023 90 Pharmac y Data Transac tion Service Facilit y TRIAMCINOLO NE ACETONIDE (TRIAMCINOL ONE ACETONIDE), 0.1%, CREAM(GM), TOPICAL, FOUGERA, 80 g JAR Cancele d [id number] : 2023 0 Pharmac y Data Transac tion Service Facilit y TRIAMCINOLO NE ACETONIDE (TRIAMCINOL ONE ACETONIDE), 0.1%, CREAM(GM), TOPICAL, FOUGERA, 80 g JAR Cancele d [id number] : 2023 0 Pharmac y Data Transac tion Service Facilit y Immunizations Combined list of available immunizations from the Department of Defense and Veterans Affairs facilities. Immunization Series Date Given Administered By Site Reaction Lot Number CVX Code Drug Computer Customer Support Specialist Status Comments Source influenza, high-dose, quadrivalent 2020 GLADIS, () Not Given influenza , high-dose , quadrival ent [facility] COVID-19, mRNA, LNP-S, PF, 100 mcg or 50 mcg dose 2020 GLADIS, () Not Given COVID-19, mRNA, LNP-S, PF, 100 mcg or 50 mcg dose [facility] influenza, high-dose, quadrivalent 2019 ANGELIC, () Not Given influenza , high-dose , quadrival ent [facility] Influenza, seasonal, injectable, preservative free 2014 TARIRAH, () Not Given Influenza , seasonal, injectabl e, preservat obi free [facility] influenza virus vaccine, split virus (incl. purified surface antigen)-reti red CODE 1 2009 Unknown, Provider [id number] [employer] (CSL) complet ed influenza virus vaccine, split virus (incl. purified surface antigen)- retired CODE [facility] Social History Combined list of available smoking, tobacco, and other social history from Department of Defense and Veterans Affairs facilities. Social History Type Response Date Comment Sourc e This section is an empty social history section. [facility]
--- OUTSIDE RECORDS SUMMARY | 2024-07-19 14:05 | XMS_ITS | Encounter Summary ---
Author Organization [facility] Health Address [address] [place] [address] Care Team Providers Care Master Glazier Name Role Phone Benedict Decker MD Unavailable [phone] Kellie Vernon Primary Care Provider [phone] Encounter Details Date Type Department Care Team (Late st Contact Info) Description 05/03/2024 Telephone [facility] - Dermatology [address], [address] [place] [address] Derrell Ovalle MD [address] [place] [address] Social History Tobacco Use Types Packs/Day Years Used Date Smoking Tobacco: Never Smokeless Tobacco: Never Alcohol Use Standard Drinks/Week Comments Yes 0 (1 standard drink = 0.6 oz pur e alcohol) very rare Comments No Sex and Gender Information Value Date Recorded Sex Assigned at Not on file 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 Please reach out to pt for further instructions. CH MECHANIC documented in this encounter Plan of Treatment Upcoming Encounters Date Type Department Care Team (Late st Contact Info) Description 09/04/2024 1:30 PM CDT Office Visit [facility] - Plastic Surgery [address], [address] [place] [address] Juan Samson MD [address] [place] [address] 10/09/2024 10:00 AM CDT Office Visit [facility] Dermatology [address] [place] [address], [place] [address] Derrell Ovalle MD [address] [place] [address] [address] [place] [address] documented as of this encounter Visit Diagnoses Not on filedocumented in this encounter Care Teams Master Glazier Relationship Specialty Start Date End Date Kellie Vernon PCP - General 03/01/24 Benedict Decker MD [address] [place] [address] [place] [address] Nephrology 11/04/21 documented as of this encounter
--- OUTSIDE RECORDS SUMMARY | 2024-07-19 14:05 | XMS_ITS | Encounter Summary ---
Author Organization [facility] Healthcare Address [address] [place] [address] Care Team Providers Care Business Editor Name Role Phone Yvan Best MD Primary Care Provider [phone] Encounter Details Date Type Department Care Team (Late st Contact Info) Description 06/19/2024 Results Follow-Up [facility] Group Nephrology at [address] [place] [address] Benedict Decker MD [facility] [address] [address] Social History Tobacco Use Types Packs/Day Years [...] on file 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
--- OUTSIDE RECORDS SUMMARY | 2024-07-19 14:05 | XMS_ITS | Clinical Summary ---
Author Organization [facility] Address [address] [place] [address] Care Team Providers Care Manager English Name Role Phone Ronal Adhikari DO Unavailable [...] to walk Tape Rash Medium 08/26/2021 Medications Victoria-3 Fatty Acids (OMEGA 3 500 OR) Take [...] 2023-2 5 season) 2023 12/26/2022 PHQ-2 (Physician Qagan Tayagungin) 03/06/2024 RSV Immunization or 60+ Years (1 - 1-dose 75+ series) 01/16/2028 Dexa Scan (General) Completed 05/31/2021 Zoster Vaccines Completed 05/04/2022, 01/07/2022 Pneumococcal Vaccine: 50+ Years Completed 12/26/2022 Meningococcal B Vaccine Aged Out No l onger eligible based on patient's age to complete this topic Meningococcal Vaccine Aged Out No raina sharad eligible based on patient's age to complete this topic RSV Immunizations Under 20 Months Aged Out No longer eligible b ased on patient's age to complete this topic Medical Devices Implanted Type Area Dictating Machine Mechanic Device Identifier Shelf Expiration Date Model / Serial / Lot Graft Jacket Now Implanted:Qty: 1 on 12/08/2023 by Rolf Prather DPM at [facility] Right: Foot 05/28/2024 [id number] / / [id number] [employer]flow Implanted:Qty: 1 on 12/08/2023 by Rolf Prather DPM at [facility] Right: Foot 03/30/2028 [id number] / [id number] / Insurance MEDICARE MEDICARE Care Teams Manager English Relationship Specialty Start Date End Date None, Provider, MD PCP - General UNKNOWN PHYSICIAN SPECIALTY 12/08/23 Ronal Adhikari DO [address] [place] [address] INTERNAL MEDICINE 11/30/23
--- OUTSIDE RECORDS SUMMARY | 2024-07-19 14:05 | XMS_ITS | Encounter Summary ---
Author Organization [facility] Address [address] [place] [address] Care Team Providers Care Cyber Ops Planner Name Role Phone Benedict Decker MD Unavailable [phone] Kellie Vernon Primary Care Provider [phone] Encounter Details Date Type Department Care Team (Late Contact Info) Description 06/17/2024 Results Follow-Up [facility] - Dermatology [address] [place] [address], [facility] [place] [address] Derrell Ovalle MD [address] [place] [address] [place] [address] Social History Tobacco Use Types [...] on file 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 Gender Identity Not on file Sexual Orientation Not on file documented as of this encounter Plan of Treatment Upcoming Encounters Date Type Department Care Team (Late Contact Info) Description 09/04/2024 1:30 PM CDT Office Visit [facility] - Plastic Surgery [address], [facility] [address] [place] [address] Juan Samson MD [address] [place] [address] [place] [address] 10/09/2024 10:00 AM CDT Office Visit [facility] - Dermatology [address] [place] [address], [place] [address] Derrell Ovalle MD [address] [place] [address] [address] [place] [address] documented as of this encounter Visit Diagnoses Not on filedocumented in this encounter Care Teams Cyber Ops Planner Relationship Specialty Start Date End Date Saulo Kellie PCP - General 03/01/24 Benedict Decker MD [facility] [place] [address] Nephrology 11/04/21 documented as of this encounter
--- OUTSIDE RECORDS SUMMARY | 2024-07-19 14:05 | XMS_ITS | Clinical Summary ---
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 Active cycloSPORINE (RESTASIS) 0.05 % ophthalmic emulsion 1 drop 2 (two) times a day Active docusate sodium (COLACE) 100 mg capsuleIndicati ons:constipatio n Take 1 capsule (100 mg total) by mouth nightly Active vitamins A,C,E-zinc-ebony er 7,160-113-100 semg-aj-ujvr tablet,delayed release (DR/EC) Take by mouth 2 (two) times a day Active jlibw-0-jvb-epa -dpa-fish oil 1,050-1,200 mg capsule 1 capsule [...] Diagnosed Date Orthostatic dizziness 10/11/2022 Dysphagia 07/06/2022 Encounters Date Type Department Care Team Description 06/19/2024 1:30 PM CDT Office Visit [facility] Nephrology at [address] [phone] Benedict Decker MD Stage 3b chronic kidney disease (HCC) (Primary Dx); Nephrolithiasis; 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); Secondary hyperparathyroidism 06/19/2024 1:05 PM CDT Lab [facility] [address] [place] [address] Stage 3b chronic kidney disease (HCC) 06/19/2024 Results Follow-Up [facility] Nephrology at [address] [place] [address] Benedict Decker MD from Last 3 Months Surgical History Surgery Date Site/Laterality Comments CHOLECYSTECTOMY [...] on file Legal 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 Gender Identity Not on file Sexual Orientation [...] 06/19/2024 1:24 PM CDT Plan of Treatment Health Maintenance Due Date Last Done Comments Breast Cancer Screening-Mammogram 1955 Colon Cancer Screening-Colonoscopy 1955 Depression Screening 1955 Hepatitis C Screening 1955 DTaP/Tdap/Td Vaccine (1 - Tdap) 01/16/1964 Hepatitis B Screening 1971 Well Visit 65+ 2018 Pneumococcal vaccine 65+ (2 of 2 - PCV) 02/10/2020 02/09/2019 Zoster Vaccine (2 of 2) 03/04/2022 01/07/2022 Osteoporosis Screening-Bone Density Scan 06/01/2023 05/31/2021, 05/31/2021 Fall Risk Assessment 09/09/2023 09/08/2022 Influenza Vaccine (Season Ended) 2024 01/06/2022, 12/13/2018, 01/05/2010 Procedures Procedure Name Priority Date/Time Associated Diagnosis [...] was last revised 2018. Testing performed by: [address] [address] Creatinine Ur 150.0 mg/dL MIGUELINA Comment: Interpretive Data No reference range established. Current interpretive data was last revised 2018. Testing performed by: [address] [address] Protein/creatinin e ratio 106.7 0.0 - 180.0 mg/g CR MIGUELINA Comment:Testing performed by : [address] [address] Urine 06/19/2024 1:19 PM CDT 06/19/2024 4:04 PM CDT Benedict Decker MD LAB URINE ORDERABLES Final Result MIGUELINA [address] [facility] Department [place] [address] * (ABNORMAL) eGFR (06/19/2024 1:16 PM CDT) Pathologist [facility] eGFR 37(L) >=60 mL/min/1. 73 m2 Comment: [...] of Race in Diagnosing Kidney Disease, JASN 202). The CKD-EPI equation should not be used for patients with unstable renal function and has not been validated in children and those over 70. Current interpretive data was last reviewed 2021. Testing performed by: [address] [address] Blood 06/19/2024 1:16 PM CDT 06/19/2024 1:40 PM CDT Benedict Decker MD LAB BLOOD ORDERABLES Final Result MIGUELINA [address] [facility] Department [place] [address] * Differential, auto (06/19/2024 1:16 PM CDT) Neutrophil abs 4.53 1.50 - 6.50 K/cumm Comment:Testing performed by : [address] [address] Imm gran abs 0.02 0.00 - 0.10 K/cumm MIGUELINA Comment:Testing performed by : [address] [address] Lymphocyte abs 2.41 0.80 - 3.30 K/cumm MIGULEINA Comment:Testing performed by : [address] [address] Monocyte abs 0.50 0.20 - 0.80 K/cumm MIGUELINA Comment:Testing performed by : [address] [address] Eosinophil abs 0.15 0.00 - 0.50 K/cumm MIGUELINA Comment:Testing performed by : [address] [address] Basophil abs 0.03 0.00 - 0.10 K/cumm MIGUELINA Comment:Testing performed by : [address] [address] Neutrophil pct 59.3 % MIGUELINA Comment: Interpretive Data Percent cell count reference ranges are not reported, since discordance with absolute values may lead to misinterpretation of CBC data. Current Interpretive Data was last revised on 2017. Testing performed by: [address] [address] Imm gran pct 0.3 % CERNER Comment: Interpretive Data Percent cell count reference ranges are not reported, since discordance with absolute values may lead to misinterpretation of CBC data. Current Interpretive Data was last revised on 2017. Testing performed by: [address] [address] Lymphocyte pct 31.5 % CERNER Comment: Interpretive Data Percent cell count reference ranges are not reported, since discordance with absolute values may lead to misinterpretation of CBC data. Current Interpretive Data was last revised on 2017. Testing performed by: [address] [address] Monocyte pct 6.5 % [facility] [place] Comment: Interpretive Data Percent cell count reference ranges are not reported, since discordance with absolute values may lead to misinterpretation of CBC data. Current Interpretive Data was last revised on 2017. Testing performed by: [address] [address] Eosinophil pct 2.0 % [facility] [place] Comment: Interpretive Data Percent cell count reference ranges are not reported, since discordance with absolute values may lead to misinterpretation of CBC data. Current Interpretive Data was last revised on 2017. Testing performed by: [address] [address] Basophil pct 0.4 % [facility] [place] Comment: Interpretive Data Percent cell count reference ranges are not reported, since discordance with absolute values may lead to misinterpretation of CBC data. Current Interpretive Data was last revised on 2017. Testing performed by: [address] [address] Blood 06/19/2024 1:16 PM CDT 06/19/2024 1:40 PM CDT Benedict Decekr MD LAB BLOOD ORDERABLES Final Result MIGUELINA [address] [facility] Department [place] [address] * (ABNORMAL) CBC with auto differential (06/19/2024 1:16 PM CDT) WBC 7.64 3.80 - 9.90 K/cumm Comment:Testing performed by : [address] [address] Hgb 12.6 11.9 - 15.5 g/dL MIGUELINA Comment:Testing performed by : [address] [address] Hct 39.2 35.6 - 45.5 % MIGUELINA Comment:Testing performed by : [address] [address] Plt 262 150 - 400 K/cumm MIGUELINA Comment:Testing performed by : [address] [address] MPV 8.7(L) 9.1 - 12.3 fL MIGUELINA Comment:Testing performed by : [address] [address] RBC 4.25 3.90 - 5.20 M/cumm MIGUELINA Comment:Testing performed by : [address] [address] MCV 92.2 81.3 - 96.4 fL MIGUELINA Comment:Testing performed by : [address] [address] MCH 29.6 27.1 - 33.3 pg MIGUELINA Comment:Testing performed by : [address] [address] MCHC 32.1(L) 32.3 - 35.7 g/dL MIGUELINA Comment:Testing performed by : [address] [address] RDW CV 13.4 11.1 - 14.9 % MIGUELINA Comment:Testing performed by : [address] [address] RDW SD 46.0 35.7 - 48.1 fL MIGUELINA FINE Comment:Testing performed by : [facility], [address] [place] [address]., [address] NRBC abs 0.00 0.00 - 0.01 K/cumm MIGUELINA FINE Comment:Testing performed by : [facility], [address] [place] [address]., [address] Blood 06/19/2024 1:16 PM CDT 06/19/2024 1:40 PM CDT Benedict Decker MD LAB BLOOD ORDERABLES Final Result [address] [employer] [place] [address] * Vitamin D 25 hydroxy (06/19/2024 1:16 PM CDT) Vitamin D 25-OH 38.0 30.0 - 80.0 ng/mL Blood 06/19/2024 1:16 PM CDT 06/19/2024 5:13 PM CDT Benedict Decker MD LAB BLOOD ORDERABLES Final Result Performing Organization Address [facility] Co de Phone Number [address] [employer] [place] [address] * PTH (06/19/2024 1:16 PM CDT) Pathologist [facility] PTH 49 15 - 65 pg/mL Comment:Testing performed by : [facility], [address] [place] [address]., [address] Blood 06/19/2024 1:16 PM CDT 06/19/2024 1:40 PM CDT us Benedict Decker MD LAB BLOOD ORDERABLES Final Result Performing Organization Address [facility] Co de Phone Number [address] [employer] [place] [address] * (ABNORMAL) Renal function panel (06/19/2024 1:16 PM CDT) Sodium 141 135 - 145 mmol/L Comment:Testing performed by : [address] [address] Potassium, pl 4.4 3.3 - 4.9 mmol/L MIGUELINA Comment:Testing performed by : [address], [place]., [address] Chloride 104 97 - 110 mmol/L MIGUELINA Comment:Testing performed by : [address], [place]., [address] CO2 29 22 - 32 mmol/L MIGUELINA Comment:Testing performed by : [address], [place]., [address] Anion gap 8 2 - 15 mmol/L MIGUELINA Comment:Testing performed by : [address], [place]., [address] BUN 19 6 - 25 mg/dL MIGUELINA Comment:Testing performed by : [address], [place]., [address] Creatinine 1.51(H) 0.60 - 1.10 mg/dL MIGUELINA Comment:Testing performed by : [address], [place]., [address] Glucose 74 70 - 199 mg/dL [facility] [place] Comment: Interpretive Data Fasting glucose >/= 126 [...] classification and Diagnosis of Diabetes Diabetes Care 2021; 46: S19-S40. Current interpretive data was last revised 2022. Testing performed by: [address], [place]., [address] Calcium 9.8 8.5 - 10.3 mg/dL MIGUELINA Comment:Testing performed by : [address], [place]., [address] Phosphorus, pl 3.1 2.3 - 4.5 mg/dL MIGUELINA FINE Comment:Testing performed by : [facility], [address] [place] [address]., [address] Albumin 4.1 3.5 - 5.0 g/dL MIGUELINA FINE Comment:Testing performed by : [facility], [address] [place] [address]., [address] Blood 06/19/2024 1:16 PM CDT 06/19/2024 1:40 PM CDT Benedict Decker MD LAB BLOOD ORDERABLES Final Result MIGUELINA [address] [facility] Department [place] [address] from Last 3 Months Insurance MEDICARE FOR LIFE MEDICARE FOR LIFE MEDICARE FOR LIFE Advance Directives For more information, please contact: [phone] * Full Code (Latest Code Status on File) Date Activated Date Inactivated Comments 09/08/2022 9:23 AM 09/08/2022 3:46 PM * Full Code Date Activated Date Inactivated Comments 03/30/2022 7:13 AM 03/30/2022 1:38 PM Care Teams Maintenance Construction Helper Relationship Specialty Start Date End Date Yvan Best MD PCP - General Family Medicine 12/29/21
--- OUTSIDE RECORDS SUMMARY | 2024-07-19 14:06 | XMS_ITS | Continuity of Care Document ---
Author Organization [facility] Address [address] [place], [place] [address] Care Team Providers Care Brewery Worker Name Role Phone [facility] Unavailable Unavail able Procedures Procedure Date Cysto W/litho And Stent Insert 19 Urography Retrograde Pt doc no events on discharg Pt w/o preop order iv ab pro Advance Directives Directive Yes / No Effective Date File Name No Information Encounters Encounter Description Practice Location Reason(s) For Visit Diagnoses Date Provider Providers Copied on Encounter [facility], [address] [place] [address], [address], [facility] No Information 9 [facility]. [address] [place] [address], [id number], . tel:[phone] Referring Provider: Jake Ford, [address] [place] [address], [address] . tel:[phone] Family History Family Member Type Diagnosis Age At Onset No Information Payers Payer name Insurance type Covered democrat ID Authorkaterina tijoe(s) Medicare [id number] Prime [id number] Social History Type Description Quantity Date Captured Comments Sex Female Smoking Status No Information Chief Complaint And Reason For Visit No Information Reason For Referral Reason For Referral No Information History Of Present Illness Encounter Date Complaint History Of Prese nt Illness No Information Functional Status Date Functional Assessmen t No Information Instructions Date Instruction Additional Infor mation No Information Assessments Type Assessment Date No Information Patient Care Teams Name Effective Dates (start - stop) Status Members No Information
--- OUTSIDE RECORDS SUMMARY | 2024-07-19 14:06 | XMS_ITS | Data Portability ---
Author Organization [place] [facility] Address [address] [place] [address] Care Team Providers Care Bait Digger Name Role Phone KEVIN ASKEW Referring Provider [phone] DACIA MG Primary Care Provider [phone] KEVIN ASKEW Orthopedic Surgeon [phone] Assessment No assessment recorded. Plan of Treatment [...] in a dose pack 2023 024 [email or web address] [facility] [address] In Psychiatric, [facility] [place], [address], 4 17:24:46 Patient TargetsNo targets recorded. Patient InstructionsNo [...] view No observ ation record ed. rhanegan [facility] [address], [place], [address], 10/03/2023 11:17:42 Result Notes None recorded. Problems Name Problem SNOMED Code Status Onset Date Resolution Date Notes Provider Name and Address Organization Details Recorded Time Anxiety 73862397 Active 2023 Skylar davidson, [facility] 4 09:35:22 Chronic kidney disease 752645984 Active 2023 Skylar Merino null, [facility] 4 09:35:31 Diarrhea 73981881 Active 2023 Skylar Wilber null, [facility] 4 09:35:39 Dysuria 55031732 Active 2023 Skylar Merino null, [facility] 4 09:35:46 Esophageal dysmotility 301133119 Active 2023 Skylar Merino null, [facility] 4 09:36:00 Hyperlipide trevor 84699373 Active 2023 Skylar Merino null, [facility] 4 09:36:07 Hypothyroid ism 59919454 Active 2023 Skylar Merino null, [facility] 4 09:36:17 Irritable bowel syndrome 80643246 Active 2023 Skylar Merino null, [facility] 4 09:36:29 Pain of left hand 3950105665344 03 Active 2023 Skylar Merino null, [facility] 4 10:08:28 Pain of right wrist 0064641135266 00 Active 2023 Earl davidson, [facility] 17:12:19 Secondary osteoarthri tis of bilateral hands Active 2023 Kevin Askew MD [address] [place], [address], [place] [facility] 17:23:51 Problem Notes None recorded. Procedures Surgical History Date Name Laterality Status Provider Name and Address Organization Details Recorded Time Appendectomy completed Skylar Daltonrobert [facility] 09/08/2023 09:38:03 arthroplasty of knee completed Skylar Daltonrobert [facility] 09/08/2023 09:38:32 [facility] 09/08/2023 09:38:41 Richy fundoplication completed Skylar Daltonrobert [facility] 09/08/2023 09:38:54 Imaging Results Imaging Date [...] hand, 3 or more view completed rhanegan [facility] [address], [place], [address], 10/03/2023 11:17:42 Procedure Notes None recorded. Medical Equipment None Reported. Allergies Allergen ID Allergen Name Allergen Category Reaction Reaction Severity Criticality Documentation Date Start Date Code Code System Note Provider Name and Address Organization Details Recorded Time 852533 aloe extract food,medi cation itching Not available Not available 09/08/2023 48877 RxNorm Skylar Wilber [facility], [facility] 4 09:30:27 687971 celecoxib medicatio n hives Not available Not available 09/08/2023 73415 7 RxNorm Skylar Wilber [facility], [facility] 4 09:30:41 006581 Product containin g penicilli n (product) medicatio n Not available Not available Not available 09/08/2023 88574 8001 SNOMED Skylar Wilber [facility], [facility] 4 09:30:58 350292 adhesive environme nt,medica tion Not available Not available Not available 09/08/2023 39572 UNK Skylar Merino [facility], [facility] 4 09:31:11 694549 esomepraz ole Not available Not available Not available Not available 09/08/2023 13264 2 RxNorm Skylar Merino [facility], [facility] 4 09:31:21 Medications Name Sig Start [...] Updated DateTime 4 152.4 cm 27.3 kg/m2 31872.9 3 g 142 /min 96 % 96 % 117 mm[Hg] 74 mm[Hg] Skylar Merino [facility] 16:44:41 Social History Question Answer Notes LastModified by Memamp Details LastModified Time Tobacco Smoking Status Never Smoker Skylar Merino [facility] 09/08/2023 09:37:49 What Was The Date Of Your Most Recent Tobacco Screening? 11/02/2023 Information not available 10/19/2023 Sex: Unknown Functional Status Question Answer Note LastModified by Memamp Details LastModified Time Do you use any illicit or recreational drugs? No Information not available 09/14/2023 Do you or have you ever used any other forms of tobacco or nicotine? No Information not available 09/08/2023 Mental Status None recorded. Family History Nothing Reported. Medical History Condition Response HIGH CHOLESTEROL / HYPERLIPIDEMIA Y ANXIETY DISORDER Y Gynecological HistoryNo gynecological history recorded. Obstetrics History GPAL:G 0 P 0 0 0 0 Past Encounters Encounter ID Performer Location Encounter Start Date Encounter Closed Date Diagnosis/Indication Diagnosis SNOMED-CT Code Diagnosis ICD10 Code Diagnosis Note [id number] Kevin Askew MD [facility] [address] [address] 09/14/2023 15:26:15 09/14/2023 17:28:11 Body mass index 25-29 - overweight 891145808 Z68.27 Pain of right wrist 3169 680295 84305 M25.531 sterile technique standard protocol injected the right scaphotrap ezoid joint with 2 cc of xylocaine and 2 cc or 80 mg of Kenalog sterile technique standard protocol. She can continue with protective bracing. No improvemen t over time consider resection of the proximal half of the trapezoid with palmaris longus tendon interposit ion Secondary osteoarthritis of bilateral hands 5532211958 8594296 M19.241 We will put her on Medrol Dosepak for the flare-up of the arthritis in both hands. We will see her in 6 weeks for follow-up. Health Concerns Section Related Observation LastModified by Organization Detai ls LastModified Time None Recorded Concern Status LastModified by Organization Details LastModified Time None Recorded Advance Directives Directive None Recorded Payers Insurance Date Sequence Insurance Name Policy Number Policy [place] Covered Member ID [place] Member ID Guarantor Name 09/14/2023 2 [employer] - FOR LIFE (MEDICARE SUPPLEMENT) Benita Giron [id number] Benita Giron 09/14/2023 1 [place] Benita Giron [id number] Benita Giron Notes Date Note Type Note Provider Name and Address Organization Details Recorded Time 09/14/2023 text/html patient years ag o had left and right [facility] arthroplasties. She has developed fzeo-cj-yhth at the right scaphotrapezoid joint and having lot of pain on the right. Patient still has some pain intermittently on the left comes in for evaluation no triggering or numbing or tingling Kevin Askew MD [address] [place], [address], [facility] 09/14/2023 17:24:39 OBGyn Episode No OBEpisode recorded.
[2024-07-19 14:33] LABS: Estimated Glomerular Filt Rate 26
== END 2024-07-19 14:02 | disposition home or self-care (01) ==
PROVIDERS: PCP Nurse Practitioner Family; Visit Provider Urology
DX: N28.89 Other specified disorders of kidney and ureter (principal)
CPT/HCPCS: 74018

== ENCOUNTER 2024-07-23 10:05 | Outpatient (CLI) | payer MEDICARE, OTHER, SELFPAY ==
--- NOTE | ~2024-07-23 | MR_ITS ---
MRI of the brain Clinical History: Spondylosis, headache Technique: Axial and sagittal T1-weighted images were acquired. These were followed by axial T2-weigh cooper, diffusion weighted, gradient, and FLAIR images. Following intravenous administration of 12 cc Mu ltiHance gadolinium, T1-weighted fat-sat imaging was performed in the axial and coronal planes. Findings: There is no acute infarct, intracranial hemorrhage, or mass lesion. Moderate chronic microv ascular ischemic change present in the periventricular white matter bilaterally. Ventricles and subarachnoid spaces are mildly dilated. Orbits are unremarkable. Paranasal sinuses and mastoid air cells are clear. Major intracranial flow voids are intact. Sagittal midline structures are intact. No abnormal postcontrast enhancement identified. IMPRESSION: No acute infarct, intracranial hemorrhage, or mass lesion. Moderate chronic microvascular ischemic change. Reviewed, dictated and finalized at [facility].
== END 2024-07-23 10:06 | disposition home or self-care (01) ==
LOC: MICIMG 10:07
PROVIDERS: PCP Nurse Practitioner Family; Visit Provider Nurse Practitioner Adult Health
DX: M47.812 Spondylosis without myelopathy or radiculopathy, cervical region (principal); R29.898 Other symptoms and signs involving the musculoskeletal system
CPT/HCPCS: 70553; A9577

== ENCOUNTER 2024-07-26 13:07 | Outpatient (CLI) | payer MEDICARE, OTHER, SELFPAY ==
--- NOTE | ~2024-07-26 | CT_ITS ---
Non-contrast CT scan of the Abdomen and Pelvis Clinical indication: Left renal mass Technique: 2.5 mm axial scans were obtained through the abdomen and pelvis without intravenous or or al contrast. Dose reduction technique was used on this scan by utilizing automated exposure control a nd iterative reconstruction technique. The dose-length product (DLP) was 324.11 mGy-cm. COMPARISON: 10/07/2023 Findings: Images through the lung bases reveal no abnormalities. The liver, spleen, pancreas, right kidney, and adrenals appear normal. Left kidney is atrophic, with overall stable appearance is similar to prior exam. 4 mm nonobstructing stone present. Cholecystectom y clips are present. There is no aortic aneurysm. There is no evidence of bowel obstruction. Images through the pelvis were performed. There is no evidence of ascites or lymphadenopathy. Urinary bladder unremarkable. No pelvic mass seen. Impression: Stable atrophic appearance of left kidney with 4 mm nonobstructing left renal stone. Reviewed, dictated and finalized at location . Impression: Stable atrophic appearance of left kidney with 4 mm nonobstructing left renal s tone.
--- OUTSIDE RECORDS SUMMARY | 2024-07-26 13:12 | XMS_ITS | Referral Summary ---
Author Organization [facility] Address [address] [place] [address] Care Team Providers Care Clinical Editor Name Role Phone Yvan Best MD Primary Care Provider [phone] Encounters Date Type Department Care Team Description 06/19/2024 Results Follow-Up [facility] Nephrology at [address] [address] Benedict Decker MD Protein / creatinine ratio, urine, random, PTH, Renal function panel, Additional followed-up results: 3 06/19/2024 1:05 PM CDT Lab [facility] Lab [address] [place] [address] Stage 3b chronic kidney disease (HCC) 06/19/2024 1:30 PM CDT Office Visit [facility] Nephrology at [address] [place] [address] Benedict Decker MD Stage 3b chronic [...] 1 tablet (75 mcg total) 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 Testing performed by: [address] [address] Creatinine Ur 150.0 mg/dL MIGUELINA Comment: Interpretive Data No reference range established. Current interpretive data was last revised 2018. Testing performed by: [address] [address] Protein/creatinin e ratio 106.7 0.0 - 180.0 mg/g CR MIGUELINA Comment:Testing performed by : [address] [address] Urine 06/19/2024 1:19 PM CDT 06/19/2024 4:04 PM CDT Benedict Decker MD LAB URINE ORDERABLES Final Result Performing Organization Address [facility] Co de Phone Number MIGUELINA [address] [place] [address] * (ABNORMAL) eGFR (06/19/2024 1:16 PM CDT) [...] was last reviewed 2021. Testing performed by: [address] [address] Blood 06/19/2024 1:16 PM CDT 06/19/2024 1:40 PM CDT Benedict Decker MD LAB BLOOD ORDERABLES Final Result Performing Organization Address City/[facility]/ZIP Co de Phone Number MIGUELINA [facility] [place] [address] * Differential, auto (06/19/2024 1:16 PM CDT) Neutrophil abs 4.53 1.50 - 6.50 K/cumm Comment:Testing performed by : [address] [address] Imm gran abs 0.02 0.00 - 0.10 K/cumm [facility] Comment:Testing performed by : [address] [address] Lymphocyte abs 2.41 0.80 - 3.30 K/cumm [facility] Comment:Testing performed by : [address] [address] Monocyte abs 0.50 0.20 - 0.80 K/cumm [facility] Comment:Testing performed by : [address], [place]., [address] Eosinophil abs 0.15 0.00 - 0.50 K/cumm [facility] Comment:Testing performed by : [address] [address] Basophil abs 0.03 0.00 - 0.10 K/cumm [facility] Comment:Testing performed by : [address] [address] Neutrophil pct 59.3 % [facility] Comment: Interpretive Data Percent cell count reference ranges are not reported, since discordance with absolute values may lead to misinterpretation of CBC data. Current Interpretive Data was last revised on 2017. Testing performed by: [address] [address] Imm gran pct 0.3 % [facility] Comment: Interpretive Data Percent cell count reference ranges are not reported, since discordance with absolute values may lead to misinterpretation of CBC data. Current Interpretive Data was last revised on 2017. Testing performed by: [address] [address] Lymphocyte pct 31.5 % [facility] Comment: Interpretive Data Percent cell count reference ranges are not reported, since discordance with absolute values may lead to misinterpretation of CBC data. Current Interpretive Data was last revised on 2017. Testing performed by: [address] [address] Monocyte pct 6.5 % [facility] Comment: Interpretive Data Percent cell count reference ranges are not reported, since discordance with absolute values may lead to misinterpretation of CBC data. Current Interpretive Data was last revised on 2017. Testing performed by: [address] [address] Eosinophil pct 2.0 % MIGUELINA FINE Comment: Interpretive Data Percent cell count reference ranges are not reported, since discordance with absolute values may lead to misinterpretation of CBC data. Current Interpretive Data was last revised on 2017. Testing performed by: [address] [address] Basophil pct 0.4 % MIGUELINA FINE Comment: Interpretive Data Percent cell count reference ranges are not reported, since discordance with absolute values may lead to misinterpretation of CBC data. Current Interpretive Data was last revised on 2017. Testing performed by: [address] [address] Blood 06/19/2024 1:16 PM CDT 06/19/2024 1:40 PM CDT Benedict Decker MD LAB BLOOD ORDERABLES Final Result [facility] Department [place] [address] * (ABNORMAL) CBC with auto differential (06/19/2024 1:16 PM CDT) WBC 7.64 3.80 - 9.90 K/cumm Comment:Testing performed by : [address] [address] Hgb 12.6 11.9 - 15.5 g/dL MIGUELINA FINE Comment:Testing performed by : [address] [address] Hct 39.2 35.6 - 45.5 % MIGUELINA FINE Comment:Testing performed by : [address] [address] Plt 262 150 - 400 K/cumm MIGUELINA FNIE Comment:Testing performed by : [address] [address] MPV 8.7(L) 9.1 - 12.3 fL MIGUELINA FINE Comment:Testing performed by : [address], [address] RBC 4.25 3.90 - 5.20 M/cumm MIGUELINA FINE Comment:Testing performed by : [address] [address] MCV 92.2 81.3 - 96.4 fL MIGUELINA FINE Comment:Testing performed by : [address], [address] MCH 29.6 27.1 - 33.3 pg MIGUELINA FINE Comment:Testing performed by : [address] [address] MCHC 32.1(L) 32.3 - 35.7 g/dL MIGUELINA FINE Comment:Testing performed by : [address], [address] RDW CV 13.4 11.1 - 14.9 % MIGUELINA FINE Comment:Testing performed by : [address], [address] RDW SD 46.0 35.7 - 48.1 fL MIGUELINA Comment:Testing performed by : [address], [address] NRBC abs 0.00 0.00 - 0.01 K/cumm MIGUELINA Comment:Testing performed by : [address], [address] Blood 06/19/2024 1:16 PM CDT 06/19/2024 1:40 PM CDT Benedict Decker MD LAB BLOOD ORDERABLES Final Result MIGUELINA [facility] Department [place] [address] * Vitamin D 25 hydroxy (06/19/2024 1:16 PM CDT) Vitamin D 25-OH 38.0 30.0 - 80.0 ng/mL Blood 06/19/2024 1:16 PM CDT 06/19/2024 5:13 PM CDT us Benedict Decker MD LAB BLOOD ORDERABLES Final Result [facility] [place] [address] * PTH (06/19/2024 1:16 PM CDT) PTH 49 15 - 65 pg/mL Comment:Testing performed by : [address] [address] Blood 06/19/2024 1:16 PM CDT 06/19/2024 1:40 PM CDT Benedict Decker MD LAB BLOOD ORDERABLES Final Result Performing Organization Address [facility] Co de Phone Number [facility]ONG[address] [place] [address] * (ABNORMAL) Renal function panel (06/19/2024 1:16 PM CDT) Pathologist [facility] Sodium 141 135 - 145 mmol/L Comment:Testing performed by : [address] [address] Potassium, pl 4.4 3.3 - 4.9 mmol/L MIGUELINA Comment:Testing performed by : [address] [address] Chloride 104 97 - 110 mmol/L MIGUELINA Comment:Testing performed by : [address] [address] CO2 29 22 - 32 mmol/L MIGUELINA Comment:Testing performed by : [address] [address] Anion gap 8 2 - 15 mmol/L MIGUELINA Comment:Testing performed by : [address] [address] BUN 19 6 - 25 mg/dL MIGUELINA Comment:Testing performed by : [address] [address] Creatinine 1.51(H) 0.60 - 1.10 mg/dL MIGUELINA Comment:Testing performed by : [address] [address] Glucose 74 70 - 199 mg/dL MIGUELINA [...] was last revised 2022. Testing performed by: [address] [address] Calcium 9.8 8.5 - 10.3 mg/dL MIGUELINA Comment:Testing performed by : [address] [address] Phosphorus, pl 3.1 2.3 - 4.5 mg/dL MIGUELINA Comment:Testing performed by : [address] [address] Albumin 4.1 3.5 - 5.0 g/dL MIGUELINA Comment:Testing performed by : [address] [address] Blood 06/19/2024 1:16 PM CDT 06/19/2024 1:40 PM CDT Benedict Decker MD LAB BLOOD ORDERABLES Final Result [facility] [facility] Department [place] [address] from Last 3 Months Insurance MEDICARE FOR LIFE MEDICARE FOR LIFE MEDICARE FOR LIFE Advance Directives For more information, please contact: [phone] * Full Code (Latest Code Status on File) Date Activated Date Inactivated Comments 09/08/2022 9:23 AM 09/08/2022 3:46 PM * Full Code Date Activated Date Inactivated Comments 03/30/2022 7:13 AM 03/30/2022 1:38 PM Care Teams Clinical Editor Relationship Specialty Start Date End Date Yvan Best MD PCP - General Family Medicine 12/29/21
--- OUTSIDE RECORDS SUMMARY | 2024-07-26 13:12 | XMS_ITS | Continuity of Care Document ---
Author Name [facility] Organization [facility] Care Team Providers Care Project Builder Name Role Phone [facility] Unavailable Unavailable Medications Combined list of outpatient [...] & D, 30 ea. BLIST PACK Active [id number] 2023 20 Pharmac y Data Transac tion Service Facilit y BELSOMRA (SUVOREXANT ), 10 MG, TABLET, ORAL, MERCK SHARP & D, 30 ea. BLIST PACK Cancele d [id number] : 2023 0 Pharmac y Data Transac tion Service Facilit y BELSOMRA (SUVOREXANT ), 10 MG, TABLET, ORAL, MERCK SHARP & D, 30 ea. BLIST PACK Cancele d [id number] : 2023 0 Pharmac y Data Transac tion Service Facilit y BELSOMRA (SUVOREXANT ), 10 MG, TABLET, ORAL, MERCK SHARP & D, 30 ea. BLIST PACK Active [id number] 2023 30 Pharmac y Data Transac tion Service Facilit y BELSOMRA (SUVOREXANT ), 10 MG, TABLET, ORAL, MERCK SHARP & D, 30 ea. BLIST PACK Cancele d [id number] : 2023 0 Pharmac y Data Transac tion Service Facilit y BELSOMRA (SUVOREXANT ), 15 MG, TABLET, ORAL, MERCK SHARP & D, 30 ea. BLIST PACK Cancele d [id number] : 2023 0 Pharmac y Data Transac tion Service Facilit y BELSOMRA (SUVOREXANT ), 15 MG, TABLET, ORAL, MERCK SHARP & D, 30 ea. BLIST PACK Cancele d [id number] : 2023 0 Pharmac y Data Transac tion Service Facilit y CARVEDILOL (carvedilol ), 6.25 MG, TABLET, ORAL, [employer], 500 ea. BOTTLE Active [id number] 2023 360 Pharmac y Data Transac tion Service Facilit y CARVEDILOL (carvedilol ), 6.25 MG, TABLET, ORAL, [employer], 500 ea. BOTTLE Cancele d [id number] : 2023 0 Pharmac y Data Transac tion Service Facilit y CARVEDILOL (carvedilol ), 6.25 MG, TABLET, ORAL, [employer], 500 ea. BOTTLE Active [id number] 2023 168 Pharmac y Data Transac tion Service Facilit y CARVEDILOL (carvedilol ), 6.25 MG, TABLET, ORAL, [employer], 500 ea. BOTTLE Active [id number] 2023 360 Pharmac y Data Transac tion Service Facilit y CLOBETASOL PROPIONATE (CLOBETASOL PROPIONATE) , 0.05%, CREAM(GM), TOPICAL, abcdexperts [facility], 60 g JAR Active [id number] 4 2023 60 Pharmac y Data Transac tion Service Facilit y CYCLOSPORIN E (cyclospori ne), 0.05 %, DROPERETTE, OPHTHALMIC, [employer] 30 ea. VIAL Active [id number] 2023 60 Pharmac y Data Transac tion Service Facilit y DROXIDOPA (droxidopa) , 200 MG, CAPSULE, ORAL, [facility] [employer], 90 ea. BOTTLE Cancele d [id number] : 2023 0 Pharmac y Data Transac tion Service Facilit y DROXIDOPA (droxidopa) , 200 MG, CAPSULE, ORAL, [employer], 90 ea. BOTTLE Cancele d [id number] : 2023 0 Pharmac y Data Transac tion Service Facilit y DROXIDOPA (droxidopa) , 200 MG, CAPSULE, ORAL, [employer], 90 ea. BOTTLE Cancele d [id number] : 2023 0 Pharmac y Data Transac tion Service Facilit y DULOXETINE HCL (duloxetine HCl), 60 MG, CAPSULE DR, ORAL, [employer] 1000 ea. BOTTLE Active [id number] 4 2023 90 Pharmac y Data Transac tion Service Facilit y FUROSEMIDE (furosemide ), 20 MG, TABLET, ORAL, [employer], 1000 ea. BOTTLE Active [id number] 2023 10 Pharmac y Data Transac tion Service Facilit y GABAPENTIN (gabapentin ), 100 MG, CAPSULE, ORAL, CIP[employer] 500 ea. BOTTLE Active [id number] 2023 90 Pharmac y Data Transac tion Service Facilit y GABAPENTIN (gabapentin ), 100 MG, CAPSULE, ORAL, CIP[employer] 500 ea. BOTTLE Active [id number] 2023 90 Pharmac y Data Transac tion Service Facilit y GABAPENTIN (gabapentin ), 100 MG, CAPSULE, ORAL, CIPLA [employer] 500 ea. BOTTLE Cancele d [id number] : 2023 0 Pharmac y Data Transac tion Service Facilit y GABAPENTIN (gabapentin ), 100 MG, CAPSULE, ORAL, CIPLA [employer] 500 ea. BOTTLE Active [id number] 2023 30 Pharmac y Data Transac tion Service Facilit y GABAPENTIN (gabapentin ), 100 MG, CAPSULE, ORAL, CIPLA [employer] 500 ea. BOTTLE Active [id number] 2023 30 Pharmac y Data Transac tion Service Facilit y HYDRALAZINE HCL (hydralazin e HCl), 25 MG, TABLET, ORAL, [employer], 100 ea. BOTTLE Active [id number] 2023 540 Pharmac y Data Transac tion Service Facilit y Hydrochloro thiazide (Hydrochlor othiazide), 25mg, Tablet, Oral, [employer], 1000 Ea. Bottle Active [id number] 2023 90 Pharmac y Data Transac tion Service Facilit y METHYLPREDN ISOLONE (METHYLPRED NISOLONE), 4MG, TAB DS PK, ORAL, [employer], 21 ea. DOSE-PACK Active [id number] 2023 21 Pharmac y Data Transac tion Service Facilit y Nitrofurant oin ([employer]) 100 CAPSULE in 1 BOTTLE Cancele d [id number] : 2023 0 Pharmac y Data Transac tion Service Facilit y POTASSIUM CITRATE (POTASSIUM CITRATE), 10MEQ, TABLET SA, ORAL, UPSHER LOPEZ, 100 ea. BOTTLE Cancele d [id number] : 2023 0 Pharmac y Data Transac tion Service Facilit y POTASSIUM CITRATE (POTASSIUM CITRATE), 10MEQ, TABLET SA, ORAL, UPSHER LOPEZ, 100 ea. BOTTLE Cancele d [id number] : 2023 0 Pharmac y Data Transac tion Service Facilit y POTASSIUM CITRATE (POTASSIUM CITRATE), 10MEQ, TABLET SA, ORAL, UPSHER LOPEZ, 100 ea. BOTTLE Cancele d [id number] : 2023 0 Pharmac y Data Transac tion Service Facilit y POTASSIUM CITRATE (POTASSIUM CITRATE), 10MEQ, TABLET SA, ORAL, UPSHER LOPEZ, 100 ea. BOTTLE Active [id number] 2023 200 Pharmac y Data Transac tion Service Facilit y SAFETY-BERTRAND SAFETY SYRINGES (syringe,sa fety with needle,3mL) , 23GX1 , DISP SYRIN, MISCELL, [facility], 100 ea. BOX Cancele d [id number] : 2023 0 Pharmac y Data Transac tion Service Facilit y SULFAMETHOX AZOLE-TRIME THOPRIM (SULFAMETHO XAZOLE/TRIM ETHOPRIM), 400MG-80MG, TABLET, ORAL, [employer], 100 ea. BOTTLE Active [id number] 2023 14 Pharmac y Data Transac tion Service Facilit y SYNTHROID (LEVOTHYROX INE SODIUM), 75MCG, TABLET, ORAL, [facility] 1000 ea. BOTTLE Active [id number] 4 2023 90 Pharmac y Data Transac tion Service Facilit y SYNTHROID (LEVOTHYROX INE SODIUM), 75MCG, TABLET, ORAL, [facility] 1000 ea. BOTTLE Active [id number] 4 2023 90 Pharmac y Data Transac tion Service Facilit y TIZANIDINE HCL (TIZANIDINE HCL), 4 MG, TABLET, ORAL, [employer] [facility], 150 ea. BOTTLE Active [id number] 2023 90 Pharmac y Data Transac tion Service Facilit y TIZANIDINE HCL (TIZANIDINE HCL), 4 MG, TABLET, ORAL, [employer] [facility], 150 ea. BOTTLE Active [id number] 4 2023 90 Pharmac y Data Transac tion Service Facilit y TRIAMCINOLO NE ACETONIDE (TRIAMCINOL ONE ACETONIDE), 0.1%, CREAM(GM), TOPICAL, FOUGERA, 80 g JAR Cancele d [id number] : 2023 0 Pharmac y Data Transac tion Service Facilit y TRIAMCINOLO NE ACETONIDE (TRIAMCINOL ONE ACETONIDE), 0.1%, CREAM(GM), TOPICAL, FOUGERA, 80 g JAR Cancele d [id number] : 2023 0 Pharmac y Data Transac tion Service Facilit y Immunizations Combined list of available immunizations from the Department of Defense and Veterans Affairs facilities. Immunization Series Date Given Administered By Site Reaction Lot Number CVX Code Drug Warehouse Picker Status Comments Source influenza, high-dose, quadrivalent 2020 GLADIS, () Not Given influenza , high-dose , quadrival ent DoD COVID-19, mRNA, LNP-S, PF, 100 mcg or 50 mcg dose 2020 GLADIS, () Not Given COVID-19, mRNA, LNP-S, PF, 100 mcg or 50 mcg dose DoD influenza, high-dose, quadrivalent 2019 ANGELIC, () Not Given influenza , high-dose , quadrival ent DoD Influenza, seasonal, injectable, preservative free 2014 TARIRAH, () Not Given Influenza , seasonal, injectabl e, preservat obi free [facility] influenza virus vaccine, split virus (incl. purified surface antigen)-reti red CODE 1 2009 Unknown, Provider [id number] 15 [employer], [employer] (CSL) complet ed influenza virus vaccine, split virus (incl. purified surface antigen)- retired CODE DoD Social History Combined list of available smoking, tobacco, and other social history from Department of Defense and Veterans Affairs facilities. Social History Type Response Date Comment Sour e This section is an empty social history section. DoD
--- OUTSIDE RECORDS SUMMARY | 2024-07-26 13:12 | XMS_ITS | Encounter Summary ---
Author Organization [facility] Healthcare Address [address] [place] [address] Care Team Providers Care City Council Member Name Role Phone Yvan Best MD Primary Care Provider [phone] Encounter Details Date Type Department Care Team (Late st Contact Info) Description 06/19/2024 Results Follow-Up [facility] Nephrology at [address] [place] [address] Benedict Decker MD [facility] [address] [address] Protein / creatinine ratio, urine, random, PTH, Renal function panel, Additional followed-up results: 3 Social History Tobacco Use Types Packs/Day Years [...] on file 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
--- OUTSIDE RECORDS SUMMARY | 2024-07-26 13:12 | XMS_ITS | Encounter Summary ---
Author Organization [facility] Address [address] [facility] [place] [address] Care Team Providers Care Agency Development Manager Name Role Phone Benedict Decker MD Unavailable [phone] Kellie Vernon Primary Care Provider [phone] Encounter Details Date Type Department Care Team (Late Contact Info) Description 06/17/2024 Results Follow-Up [facility] - Dermatology [address] [place] [address], [facility] [place] [phone] Derrell Ovalle MD [address] [place] [address] [place] [address] Social History Tobacco Use Types [...] on file 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 Gender Identity Not on file Sexual Orientation Not on file documented as of this encounter Plan of Treatment Upcoming Encounters Date Type Department Care Team (Late Contact Info) Description 09/04/2024 1:30 PM CDT Office Visit [facility] - Plastic Surgery [address], [facility] [address] [place] [id number] Juan Samson MD [address] [place] [address] [place] [address] 10/09/2024 10:00 AM CDT Office Visit [facility] - Dermatology [address] [place] [address], [place] [phone] Derrell Ovalle MD [address] [place] [address] [address] [place] [phone] documented as of this encounter Visit Diagnoses Not on filedocumented in this encounter Care Teams Agency Development Manager Relationship Specialty Start Date End Date Saulo Kellie PCP - General 03/01/24 Benedict Decker MD [facility] [place] [address] [place] [address] Nephrology 11/04/21 documented as of this encounter
--- OUTSIDE RECORDS SUMMARY | 2024-07-26 13:13 | XMS_ITS | Data Portability ---
Author Organization [facility] (In patient) Address [address] [place] [address] Care Team Providers Care Union Representative Name Role Phone LUIS SELLERS Primary Care Provider [phone] MALAIKA STONE Referring Provider [phone] LUIS SELLERS Primary Care Provider Assessment Encounter [...] Assessment: Chronic lateral epicondylitis right elbow Plan: Sherwood decision was made for lateral epicondylar injection. [...] For Internal Use Only, Do Not Delete/merge, [id number] 17:44:54 XR, knee, 3 view 021 In-House Test, For Internal Use Only, Do Not Delete/merge, 22353 18:27:32 Medication Orders Medrol (Blayne) 4 mg tablets in a dose pack 022 022 [facility] [id number], [address], [place], [address], 15:37:24 Patient TargetsNo targets recorded. Patient Instructions Encounter Date Encounter Id Patient Instructions Last Modified By Organization Details Last Modified Time 09/17/2020 [id number] This encounter was documented with the use of voice recognition software and may contain errors. [email or web address] Not available 09/17/2020 14:33:31 02/22/2021 [id number] This encounter was documented with the use of voice recognition software and may contain errors. [email or web address] Not available 02/22/2021 16:35:27 04/14/2021 [id number] This encounter was documented with the use of voice recognition software and may contain errors. Not available 04/14/2021 11:32:19 05/10/2021 [id number] This encounter was documented with the use of voice recognition software and may contain errors. Not available 05/10/2021 15:58:36 08/11/2021 [id number] This encounter was documented with the use of voice recognition software and may contain errors. [email or web address] Not available 08/11/2021 14:43:05 Reason for Referral None Reported. Results Created Date Observation Date Name Description Value Unit Range Abnormal Flag Note LastModifiedBy Organization Detail LastModifiedTime 09/18/19 21 XR, knee, 3 view No observ ation record ed. In-House Test For Internal Use Only, Do Not Delete/merge, [id number] 09/18/2020 13:48:01 02/23/20 21 XR, elbow , 3 or more view No observ ation record ed. In-House Test For Internal Use Only, Do Not Delete/merge, [id number] 02/22/2021 17:53:12 Result Notes None recorded. Problems Name Problem SNOMED Code Status Onset Date Resolution Date Notes Provider Name and Address Organization Details Recorded Time Muscle weakness 22573610 Active Sydney Jeffrey null, [place] - [facility] 16:33:18 Knee stiff 564589305 Active Sydney Jeffrey [place] [facility] 16:33:18 Knee pain Active Sydney Jeffrey null[place] - [facility] 16:33:18 Joint stiffness 73666424 Active Sydney Jeffrey [place], [place] [facility] 16:33:18 Shoulder joint painful on movement 273608581 Active Sydney Jeffrey null, [place] - [facility] 16:33:18 Impingemen t syndrome of shoulder region 589546647 Active Sydney Jeffrey null, - [facility] 16:33:18 Glenoid labrum tear 100118824 Active Sydney Jeffrey null, - [facility] 16:33:18 Pain of shoulder region 64656844 Active Sydney Jeffrey null, [facility] 16:33:18 Shoulder stiff 449822538 Active Sydney Jeffrey null, - [facility] 16:33:18 Shoulder girdle weakness 305451053 Active Sydney Jeffrey null, - [facility] 16:33:18 Chronic pain syndrome 620393910 Active Sydney Jeffrey null, - [facility] 16:33:18 Low back pain 617694003 Active Sydney Jeffrey null, [facility] 16:33:18 Lumbosacra l radiculiti s 77704597 Active Sydney Jeffrey null, - [facility] 16:33:18 Lumbar spondylosi s 547741030 Active Sydney Jeffrey null, - [facility] 16:33:18 Pain of wrist region 53233556 Active Sydney Jeffrey null, - [facility] 16:33:18 Foot pain 06816735 Active Sydney Jeffrey null, - [facility] 16:33:18 Sprain of ankle 92750163 Active David Fagan Jr, MD [address] [place], [address] [facility] - [facility] 16:27:09 Sprain of wrist 32131247 Active Sydney Jeffrey null, - [facility] 16:33:18 Sprain of right wrist 1857685721777 9103 Active Sydney Jeffrey null, - [facility] 16:33:18 Small joint arthritis 590835953 Active Sydney Jeffrey null, - [facility] 16:33:18 Interverte bral disc disorder 65206104 Active Sydney Murphy null, [place] - [facility] 16:33:18 Pain in right hand 8101423116600 09 Active 2018 Meet Ballesteros null, [place] - [facility] 13:55:15 Ankle pain 654764079 Active 2021 Kasandra Bahena null, [place] - [facility] 15:39:50 Problem Notes None recorded. Procedures Surgical History Date Name Laterality Status Provider Name and Address Organization Details Recorded Time 10/14/19 50075: Therapeutic Exercise (1:1) completed Yousuf Gonzalez [address], [address], [place] - [facility] 10/14/2019 11:55:43 10/14/19 82428: Neuromuscular Re-Education completed Yousuf Gonzalez [address], [address], [place] [facility] 10/14/2019 13:56:24 10/14/19 G0283: E-Stim - Unattended completed Yousuf Gonzalez [address], [address], [place] - [facility] 10/14/2019 11:55:43 10/10/19 92649: Therapeutic Exercise (1:1) completed Yousuf Gonzalez [address], [address], [place] [facility] 10/10/2019 10:41:42 10/10/19 31954: Neuromuscular Re-Education completed Yousuf Gonzalez [address], [address], [place] [facility] 10/10/2019 12:04:18 10/10/19 G0283: E-Stim - Unattended completed Yousuf Gonzalez [address], [address], [place] - [facility] 10/10/2019 10:41:42 10/09/19 15014: Therapeutic Exercise (1:1) completed Yousuf Gonzalez [address], [address], [place] - [facility] 10/09/2019 14:20:53 10/09/19 20 49678: Neuromuscular Re-Education completed Yousuf Gonzalez, KATHRIN [address] [place] [address] [place], [address], [place] [facility] 10/09/2019 11:29:36 10/09/19 20 G0283: E-Stim - Unattended completed Yousuf Gonzalez, KATHRIN [address] [place] [address] [place], [address], [place] [facility] 10/09/2019 11:29:36 10/04/19 20 11957: Therapeutic Exercise (1:1) completed THELMA MONZON [address] [place] [address] [place], [address], [place] [facility] 10/04/2019 12:55:15 10/04/19 55917: Neuromuscular Re-Education completed THELMA SALASMAHASKA HEALTHEdmundo [address] [place] [address] [place], [address], [place] [facility] 10/04/2019 10:12:26 10/04/19 20 G0283: E-Stim - Unattended completed THELMA MONZON [address] [place] [address] [place], [address], [place] [facility] 10/04/2019 10:12:26 10/01/19 20 64324: Therapeutic Exercise (1:1) completed Yousuf Gonzalez, KATHRIN [address] [place] [address] [place], [address], [place] [facility] 10/01/2019 15:58:55 10/01/19 20 08081: Neuromuscular Re-Education completed Yousuf Gonzalez, HOUSE REPAIRER [address] [place] [address] [place], [address], [place] [facility] 10/01/2019 15:58:55 10/01/19 20 G0283: E-Stim - Unattended completed Yousuf Gonzalez, KATHRIN [address] [place] [address] [place], [address], [place] [facility] 10/01/2019 15:58:55 09/27/19 20 27313: Therapeutic Exercise (1:1) completed THELMA MONZON [address] [place] [address] [place], [address], [facility] - [facility] 09/27/2019 10:16:56 09/27/19 15802: Neuromuscular Re-Education completed [address], [address], [facility] - [facility] 09/27/2019 10:16:24 09/27/19 G0283: E-Stim - Unattended completed [address] [place], [address], [facility] - [facility] 09/27/2019 10:16:52 09/23/19 PT Evaluation completed [address] [place], [address], [facility] - [facility] 09/23/2019 12:49:42 09/23/19 82940: Therapeutic Exercise (1:1) completed [address], [address], [facility] - [facility] 09/23/2019 12:49:37 09/23/19 07660: ADL/Self Care Management completed [address] [place], [address], [facility] - [facility] 09/23/2019 12:49:40 09/13/19 20 Intramuscular Depo-Medrol completed Carrie Cedeno [place] - [facility] 09/13/2019 09:39:21 08/22/19 20 FS Injection - Knee completed David Fagan Jr, MD [address] [place] [address], [address], [place] - [facility] 08/23/2019 13:10:51 06/26/19 20 FS Injection - Knee completed David Fagan Jr, MD [address] [place] [address], [address], [facility] - [facility] 06/26/2019 13:24:21 11/16/19 19 Foulkes off BASAL JNT INJ completed Peter Gilmore [place] - [facility] 11/15/2018 14:33:55 07/07/19 19 PT Evaluation completed Yarely Nicolas, PT, MS, ATC, CSCS [address] [place] [address], [address], [place] [facility] 07/06/2018 11:19:57 07/07/19 19 21178: Therapeutic Exercise (1:1) completed Yarely Nicolas, PT, MS, ATC, [address], [address], [place] - [facility] 07/06/2018 11:20:28 07/07/19 19 38725: Manual Therapy completed Yarely Nicolas PT, MS, ATC, [address], [address], [place] [facility] 07/06/2018 11:20:13 06/26/19 19 FS Injection - Shoulder completed Franco Porter PA-C [address] [place] [address], [address], [place] - [facility] 06/25/2018 17:14:28 05/25/19 19 FS Injection - Knee completed David Fagan Jr, MD [address] [place] [address], [address], [place] [facility] 05/28/2018 18:03:37 01/11/20 18 FS Injection - Knee completed David Fagan Jr, MD [address] [place] [address], [address], [place] - [facility] 01/11/2018 13:38:23 Imaging Results Imaging Date Name Status LastModified by Organiz ation Details LastModified Time 09/17/2020 XR, knee, 3 view completed In-House Test For Internal Use Only, Do Not Delete/merge, [id number] 09/18/2020 13:48:01 02/22/2021 XR, elbow, 3 or more view completed In-House Test For Internal Use Only, Do Not Delete/merge, 33654 02/22/2021 17:53:12 Procedure Notes None recorded. Medical Equipment None Reported. Allergies Allergen ID Allergen Name Allergen Category Reaction Reaction Severity Criticality Documentation Date Start Date Code Code System Note Provider Name and Address Organization Details Recorded Time 374863 Celebrex medicatio n rash severe Not available 10/30/2015 82408 7 RxNorm Sophie Clubb null, - [facility] 14:29:38 670214 adhesive environme nt,medica tion rash severe Not available 10/30/2015 52611 UNK Sophie Clubb null, [facility] 14:29:38 141659 Nexium medicatio n other severe Not available 10/30/2015 42880 9 RxNorm PER PATIE NT WHOL E BODY HURTS Rosemarie Sanabria null, [facility] 10:30:06 05417 gabapenti n medicatio n Not available Not available Not available 04/15/2014 21909 RxNorm Sophie Clubb null, - [facility] 14:29:38 33946 latex environme nt,medica tion rash severe Not available 04/15/2014 71642 91 RxNorm Irish Frank null, [facility] 23:35:37 73383 Substance with sulfonami de structure and antibacte rial mechanism of action (substanc e) medicatio n Not available Not available Not available 04/15/2014 82886 8003 SNOMED Sophie Clubb null, [facility] 14:29:38 07602 ampicilli n medicatio n Not available Not available Not available 04/15/2014 733 RxNorm Sophie Clubb null, [facility] 14:29:38 68975 codeine medicatio n Not available Not available Not available 04/15/2014 2670 RxNorm Sophie Clubb null, - [facility] 14:29:38 31596 Product containin g penicilli n (product) medicatio n other severe Not available 04/15/2014 21174 8001 SNOMED PER PATIE NT CAN' T [...] Not Available Not Available Not Available vitamin F80-cahjx acid injection solution Take by injection route. [...] Available Not Avai lable Not Available vitamin K12-qpbcu acid active Not Available Not Available Not [...] Updated DateTime 09/17/2020 152.4 cm 24.4 kg/m2 45002.05 g Veronique BOTELLO - [facility] 09/17/2020 14:33:36 Date Recorded Body height Body mass index (BMI) Body weight Provider Name and Address Organization Details Last Updated DateTime 02/22/2021 152.4 cm 24.4 kg/m2 39078.05 g Maricarmen BOTELLO - [facility] 02/22/2021 16:50:44 Date Recorded Body height Body mass index (BMI) Body weight Provider Name and Address Organization Details Last Updated DateTime 04/14/2021 152.4 cm 24.4 kg/m2 33208.05 g Maricarmen BOTELLO - [facility] 04/14/2021 11:32:25 Date Recorded Body height Body mass index (BMI) Body weight Provider Name and Address Organization Details Last Updated DateTime 05/10/2021 152.4 cm 24.4 kg/m2 89923.05 g Maricarmen BOTELLO - [facility] 05/10/2021 15:58:44 Date Recorded Body height Body mass index (BMI) Body weight Provider Name and Address Organization Details Last Updated DateTime 08/11/2021 152.4 cm 24.4 kg/m2 34011.05 g Kasandra Bahena AYAN Cuellar [facility] 08/11/2021 14:43:24 Social History Question Answer Notes LastModified by Kleo Details LastModified Time Tobacco Smoking Status Never Smoker Sophie AYAN [facility] 03/10/2015 11:31:38 Auto Related Injury? No Information not available 05/10/2021 How Much Tobacco Do You Chew? None Information not available 04/15/2014 Which Illicit Or Recreational Drugs Have You Used? None Information not available 03/10/2015 Which Of Your Hands Is Dominant? Right Information not available 04/15/2014 Currently ? No [email or web address] Information not available 11/15/2018 [facility] not available 05/10/2021 What Was The Date Of Your Most Recent Tobacco Screening? 07/06/2018 Information not available 05/10/2021 If Injured, Is Litigation Ongoing? No Information not available 05/10/2021 How Much Tobacco Do You Smoke? No Information not available 04/15/2014 Work Related Injury? No Information not available 05/10/2021 Sex: Unknown Functional Status Question Answer Note [facility]Modified by [facility] Details LastModified Time What is your level of alcohol consumption? None Information not available 03/10/2015 Do you or have you ever used smokeless tobacco? Never used smokeless tobacco Information not available 05/10/2021 Are you currently employed? No Information not available 06/02/2014 Do you or have you ever used e-cigarettes or vape? Never used electronic cigarettes Information not available 05/10/2021 Mental Status None recorded. Family History Relationship Description Onset Age of this Age Resolved Age Notes LastModified by Organization Details LastModified Time Father Malignant neoplastic disease [email or web address] Not available 2015 16:34:31 Father Heart disease [email or web address] Not available 2015 16:34:31 Father Osteoarthrit is Not available 2021 15:54:47 Father Osteoporosis Not avail able 05/10/2021 15:54:48 Mother Diabetes mellitus [email or web address] Not available 2015 16:34:31 Mother Osteoporosis Not avail able 05/10/2021 15:54:48 Medical History [...] SNOMED-CT Code Diagnosis ICD10 Code Diagnosis Note [id number] MON[facility] (PT) [address] [place] [address] 01/22/2014 16:31:18 02/08/2014 09:16:55 Replacement of total knee joint 208407133 Muscle weakness 62258347 Knee stiff 243618196 Knee pain 39769624 [id number] Aguilar Hudson PT, Cert. MDT Re[facility] (PT) [address] [place] [address] 01/24/2014 10:24:29 01/24/2014 14:09:35 Replacement of total knee joint 376198798 Muscle weakness 64014531 Knee stiff 639473048 Knee pain 39277631 [id number] Aguilar Hudson PT, Cert. MDT Re[facility] FS (PT) [address] [place] [address] 01/27/2014 13:31:37 01/27/2014 15:16:07 Replacement of total knee joint 466431770 Muscle weakness 60266250 Knee stiff 562936581 Knee pain 40423139 [id number] Erin Matta, PT, Cert. MDT [facility] (PT) [address] [place] [address] 01/29/2014 15:57:39 01/29/2014 17:27:52 Replacement of total knee joint 571107683 Muscle weakness 01164389 Knee stiff 884366026 Knee pain 57004803 [id number] Erin Matta PT, Cert. MDT [facility] (PT) [address] [place] [address] 02/03/2014 14:10:59 02/03/2014 17:33:49 Replacement of total knee joint 658732436 Muscle weakness 86838579 Knee stiff 966612899 Knee pain 85656601 [id number] Aguilar Hudson , PT, Cert. MDT [facility] (PT) [address] [place] [address] 02/05/2014 16:34:20 02/05/2014 18:20:26 Replacement of total knee joint 544199552 Muscle weakness 08390761 Knee stiff 632310943 Knee pain 71580187 [id number] Erin Matta, PT, Cert. MDT [facility] (PT) [address] [place] [address] 02/07/2014 16:26:44 02/07/2014 18:22:42 Replacement of total knee joint 496834873 Muscle weakness 36550420 Knee stiff 467885359 Knee pain 25026489 [id number] Melisa Jarrett, PT, Cert. MDT [facility] (PT) [address] [place] [address] 02/11/2014 16:33:00 02/12/2014 09:13:56 Replacement of total knee joint 360358524 Muscle weakness 25461038 Knee stiff 641173264 Knee pain 58983573 [id number] Melisa Jarrett, PT, Cert. MDT [facility] (PT) [address] [place] [address] 02/14/2014 16:29:57 02/18/2014 03:45:45 Replacement of total knee joint 067569899 Muscle weakness 26858988 Knee stiff 986523956 Knee pain 29090172 [id number] Aguilar Hudson , PT, Cert. MDT [facility] (PT) [address] [place] [address] 02/17/2014 17:23:04 02/17/2014 18:49:31 Replacement of total knee joint 640147522 Muscle weakness 33258507 Knee stiff 775181015 Knee pain 60357469 [id number] Erin Matta, PT, Cert. MDT [facility] (PT) [address] [place] [address] 02/20/2014 16:27:58 02/23/2014 20:07:15 Replacement of total knee joint 052520151 Muscle weakness 70715892 Knee stiff 168865496 Knee pain 42219649 [id number] Aguilar Hudson , PT, Cert. MDT Re[facility] FS (PT) [address] [place] [address] 02/21/2014 16:18:58 02/21/2014 18:37:16 Replacement of total knee joint 821918168 Muscle weakness 88333929 Knee stiff 188977267 Knee pain 57551694 [id number] Erin Matta, PT, Cert. MDT Re[facility] (PT) [address] [place] [address] 02/24/2014 16:27:36 02/24/2014 17:46:33 Replacement of total knee joint 488780212 Muscle weakness 08716855 Knee stiff 937357512 Knee pain 99691168 [id number] Melisa Jarrett PT, Cert. MDT Re[facility] (PT) [address] [place] [address] 02/25/2014 16:27:48 02/25/2014 18:11:53 Replacement of total knee joint 126644195 Muscle weakness 44286998 Knee stiff 160657016 Knee pain 58103407 [id number] Melisa Jarrett, PT, Cert. MDT Re[facility] (PT) [address] [place] [address] 02/26/2014 08:43:34 02/26/2014 13:09:21 Replacement of total knee joint 174827120 Muscle weakness 77705513 Knee stiff 652218562 Knee pain 47742847 [id number] Aguilar Hudson , PT, Cert. MDT [facility] (PT) [address] [place] [address] 03/03/2014 16:23:19 03/04/2014 11:36:29 Replacement of total knee joint 889018033 Muscle weakness 22646295 Knee stiff 442115776 Knee pain 03349802 [id number] Erin Matta, PT, Cert. MDT [facility] (PT) [address] [place] [address] 03/05/2014 10:56:47 03/05/2014 14:32:09 Replacement of total knee joint 228379673 Muscle weakness 19676272 Knee stiff 823275240 Knee pain 75253945 [id number] Aguilar Hudson , PT, Cert. MDT [facility] (PT) [address] [place] [address] 03/12/2014 16:40:38 03/13/2014 07:48:50 Replacement of total knee joint 058374729 Muscle weakness 04007094 Knee stiff 848744550 Knee pain 58038616 [id number] Erin Matta, PT, Cert. MDT Re[facility] FS (PT) [address] [place] [address] 03/14/2014 16:32:38 03/16/2014 20:52:13 Replacement of total knee joint 117558136 Muscle weakness 65861042 Knee stiff 551252152 Knee pain 27724269 [id number] Aguilar Hudson , PT, Cert. MDT Rehab (PT) [address] [place], [place] [address] [address] 03/17/2014 15:03:28 03/17/2014 16:40:46 Replacement of total knee joint 733050192 Muscle weakness 20484459 Knee stiff 672138987 Knee pain 63062867 [id number] Margaret Duggan, PT, MPT, Cert. DN Re[facility] (PT) [address] [place], [place] [address] [address] 03/19/2014 14:58:26 03/20/2014 07:40:27 Replacement of total knee joint 881876546 Muscle weakness 26538469 Knee stiff 028405626 Knee pain 10219243 [id number] Aguilar Hudson PT, Cert. MDT Rehab (PT) [address] [place], [place] [address] [address] 03/21/2014 14:58:24 03/23/2014 16:06:49 Replacement of total knee joint 301498259 Muscle weakness 46658094 Knee stiff 476403228 Knee pain 88980004 [id number] Margaret Duggan, PT, MPT, Cert. [facility] (PT) [address] [place], [place] [address] [address] 03/24/2014 14:26:36 03/24/2014 16:34:32 Replacement of total knee joint 837675577 Muscle weakness 70254539 Knee stiff 504070343 Knee pain 13078338 [id number] Aguilar Hudson , PT, Cert. MDT Re[facility] (PT) [address] [place], [place] [address] [address] 03/26/2014 14:51:14 03/26/2014 16:40:21 Replacement of total knee joint 459246782 Muscle weakness 82796582 Knee stiff 970033922 Knee pain 49986644 [id number] Margaret Duggan, PT, MPT, Cert. [facility] Re[facility] (PT) [address] [place], [place] [address] [address] 03/28/2014 14:58:17 03/28/2014 17:43:22 Replacement of total knee joint 231860320 Muscle weakness 28853469 Knee stiff 228681303 Knee pain 28042895 [id number] Marcela Wallace, PT, DPT, Cert. MDT Re[facility] (PT) [address] [place], [place] [address] [address] 04/02/2014 14:45:32 04/02/2014 16:25:27 Replacement of total knee joint 425524871 Muscle weakness 95558084 Knee stiff 277484885 Knee pain 00329809 [id number] Aguilar Hudson , PT, Cert. MDT Re[facility] (PT) [address] [place], [place] [address] [address] 04/04/2014 15:02:50 04/07/2014 08:22:55 Replacement of total knee joint 535612530 Muscle weakness 64949871 Knee stiff 845005178 Knee pain 66519239 [id number] Margaret Duggan, PT, MPT, Cert. [facility] (PT) [address] [place], [place] [address] [address] 04/07/2014 15:08:39 04/07/2014 17:07:59 Replacement of total knee joint 904038148 Muscle weakness 15092810 Knee stiff 983500513 Knee pain 20974296 [id number] Margaret Duggan, PT, MPT, Cert. [facility] (PT) [address] [place], [place] [address] [address] 04/11/2014 14:58:03 04/11/2014 17:15:04 Replacement of total knee joint 745531831 Muscle weakness 14422921 Knee stiff 296525057 Knee pain 31144275 [id number] Margaret Duggan, PT, MPT, Cert. DN Re[facility] (PT) [address] [place], [place] [address] [address] 04/14/2014 10:45:31 04/14/2014 13:14:56 Replacement of total knee joint 907856728 Muscle weakness 76114688 Knee stiff 796552715 Knee pain 50857049 [id number] Aguilar Hudson , PT, Cert. MDT Re[facility] (PT) [address] [place], [place] [address] [address] 04/16/2014 14:57:17 04/17/2014 08:22:55 Replacement of total knee joint 160230104 Muscle weakness 17397226 Knee stiff 419768559 Knee pain 34962540 [id number] David Fagan Jr, MD [facility] [address] [place] [address] 04/17/2014 15:18:54 04/17/2014 16:23:12 Postoperative visit 004474405 Joint stiffness 40526871 [id number] [facility] (PT) [address] [place], [place] [address] [address] 04/18/2014 09:39:25 04/18/2014 16:15:59 Replacement of total knee joint 183908838 Muscle weakness 73608951 Knee stiff 900207615 Knee pain 95783206 [id number] David Fagan Jr, MD [facility] [address] [place] [address] 06/02/2014 16:00:59 06/02/2014 16:49:08 Postoperative visit 917963331 [id number] David Fagan Jr, MD [facility] [address] [place] [address] 09/10/2014 16:02:59 09/10/2014 17:50:13 Replacement of total knee joint 201026017 [id number] David Fagan Jr, MD [facility] [address] [place] [address] 10/08/2014 15:14:38 10/08/2014 15:46:56 Impingement syndrome of shoulder region 720883869 Shoulder j oint painful on movement 252065908 [id number] David Fagan Jr, MD [facility] [address] [place] [address] 11/27/2014 15:30:01 11/27/2014 16:12:38 Shoulder joint painful on movement 535063500 Impingemen t syndrome of shoulder region 035926056 [id number] David Fagan Jr, MD [facility] [address] [place] [address] 12/24/2014 16:19:36 12/24/2014 17:20:24 Postoperative visit 455492938 Z09 Impingemen t syndrome of shoulder region 843232593 M75.41 Glenoid labrum tear 3 81603 S43.431S [id number] Avery Rowland MD [facility] [address] [place] [address] 12/29/2014 16:01:28 12/29/2014 17:20:25 Shoulder joint painful on movement [id number] M25.519 [id number] Bree Andria, OTR/L, CHT Rehab (OT) [address] [place] [address] 31894-059 4 01/01/2015 14:03:21 01/01/2015 14:45:28 Joint stiffness 79811865 M25.611 [id number] Bree Andria, OTR/L, CHT Rehab (OT) [address] [place] [address] 61926-835 4 01/13/2015 13:26:56 01/13/2015 14:26:59 Joint stiffness 88399632 M25.611 [id number] Bree Andria, OTR/L, CHT Rehab (OT) [address] [place] [address] 87747-444 4 2015 10:13:49 2015 11:12:43 Joint stiffness 80055962 M25.611 [id number] Bree Andria, OTR/L, CHT Rehab (OT) [address] [place] [address] 28696-743 4 01/20/2015 09:55:55 01/20/2015 10:29:07 Joint stiffness 76637629 M25.611 [id number] Bree Andria, OTR/L, CHT Rehab (OT) [address] [place] [address] 15346-319 4 01/22/2015 09:44:09 01/22/2015 10:30:02 Joint stiffness 60533801 M25.611 [id number] Bree Ayers, OTR/L, CHT Rehab (OT) [address] [facility],[place] [address] 4 01/26/2015 14:38:42 01/26/2015 15:41:52 Joint stiffness 32496088 M25.611 [id number] Avery Rowland MD [facility] Office [address] [place] [address] 22246-542 8 01/26/2015 15:48:37 01/26/2015 16:39:41 Pain of shoulder region 19146951 M25.511 [id number] Avery Rowland MD [facility] Office [address] [place] [address] 26113-927 8 03/09/2015 15:51:22 03/09/2015 16:54:06 Impingement syndrome of shoulder region 269057835 M75.41 Joint stiffness 07161782 M25.611 [id number] Avery Rowland MD [facility] Office [address] [place] [address] 84338-648 8 03/10/2015 11:07:32 03/10/2015 16:35:18 [id number] HENRRY PrattT, CERT MDT Rehab FS (PT) [address] [place] [address] 55895-080 8 03/20/2015 13:58:33 03/20/2015 15:55:06 Pain of shoulder region 40467648 M25.511 Shoulder stiff 512281469 M25.611 Shoulder g irdle weakness 792426066 M99.07 [id number] HENRRY PrattT, CERT MDT Rehab FS (PT) [address] [place] [address] 33945-867 8 03/23/2015 16:45:04 03/23/2015 18:18:17 Pain of shoulder region 96335902 M25.511 Shoulder stiff 095135294 M25.611 Shoulder g irdle weakness 515917863 M99.07 [id number] Erin Matta, PT, Cert. MDT Rehab FS (PT) [address] [place] [address] 48871-647 8 03/25/2015 16:04:55 03/25/2015 17:57:12 Pain of shoulder region 41429470 M25.511 Shoulder stiff 577770261 M25.611 Shoulder g irdle weakness 518700049 M99.07 [id number] Melisa Jarrett, PT, Cert. MDT Rehab FS (PT) [address] [place] [address] 91432-306 8 03/27/2015 15:58:13 03/27/2015 16:44:13 Pain of shoulder region 81308196 M25.511 Shoulder stiff 116295112 M25.611 Shoulder g irdle weakness 552723576 M99.07 [id number] Melisa Jarrett PT, Cert. MDT Rehab FS (PT) [address] [place] [address] 07723-443 8 03/30/2015 16:04:40 03/30/2015 16:57:44 Pain of shoulder region 44532909 M25.511 Shoulder stiff 229512497 M25.611 Shoulder g irdle weakness 857982820 M99.07 [id number] Pam Hicks DPT, CERT MDT Rehab FS (PT) [address] [place] [address] 54235-768 8 04/01/2015 16:12:03 04/01/2015 18:01:18 Pain of shoulder region 41008311 M25.511 Shoulder stiff 362576541 M25.611 Shoulder g irdle weakness 085254623 M99.07 [id number] Avery Rowland MD [facility] Office [address] [place] [address] 91418-600 8 04/03/2015 10:00:37 04/03/2015 10:41:44 Aftercare 081124915 Z47.89 [id number] Pam Hicks DPT, CERT MDT Rehab FS (PT) [address] [place] [address] 73916-501 8 04/03/2015 10:46:02 04/06/2015 09:32:43 Pain of shoulder region 77798514 M25.511 Shoulder stiff 675376429 M25.611 Shoulder g irdle weakness 855603661 M99.07 [id number] Pam Hicks DPT, CERT MDT Rehab FS (PT) [address] [place] [address] 06988-125 8 04/06/2015 16:29:17 04/06/2015 18:03:08 Pain of shoulder region 64342890 M25.511 Shoulder stiff 572541999 M25.611 Shoulder g irdle weakness 381793013 M99.07 [id number] Pam Hicks DPT, CERT MDT Rehab FS (PT) [address] [place] [address] 01603-771 8 04/08/2015 16:37:27 04/08/2015 17:26:08 Pain of shoulder region 10946917 M25.511 Shoulder stiff 737573373 M25.611 Shoulder g irdle weakness 717834594 M99.07 [id number] Pam Hicks DPT, CERT MDT Rehab FS (PT) [address] [place] [address] 83525-331 8 04/10/2015 16:39:00 04/10/2015 17:50:35 Pain of shoulder region 35989069 M25.511 Shoulder stiff 604929067 M25.611 Shoulder g irdle weakness 722945458 M99.07 [id number] Pam Hicks DPT, CERT MDT Rehab FS (PT) [address] [place] [address] 51377-887 8 04/13/2015 16:34:16 04/14/2015 13:49:33 Pain of shoulder region 38667879 M25.511 Shoulder stiff 507477771 M25.611 Shoulder g irdle weakness 331355799 M99.07 [id number] Pam Hicks DPT, CERT MDT Rehab FS (PT) [address] [place] [address] 74111-841 8 04/15/2015 16:33:49 04/15/2015 17:12:18 Pain of shoulder region 82016860 M25.511 Shoulder stiff 351600734 M25.611 Shoulder g irdle weakness 179879099 M99.07 [id number] Avery Rowland MD [facility] Office [address] [place] [address] 20828-433 8 04/17/2015 15:09:14 04/17/2015 15:39:32 Aftercare 116839513 Z47.89 [id number] Pam Hicks DPT, CERT MDT Rehab FS (PT) [address] [place] [address] 46813-257 8 04/20/2015 16:22:24 04/20/2015 17:37:26 Pain of shoulder region 80369697 M25.511 Shoulder stiff 524002923 M25.611 Shoulder g irdle weakness 169761050 M99.07 [id number] Pam Hicks DPT, CERT MDT Rehab FS (PT) [address] [place] [address] 8 04/22/2015 16:30:00 04/23/2015 13:38:05 Pain of shoulder region 33686884 M25.511 Shoulder stiff 583108832 M25.611 Shoulder g irdle weakness 808874707 M99.07 [id number] Pam Hicks DPT, CERT MDT Rehab FS (PT) [address] [place] [address] 74904-308 8 04/24/2015 16:28:16 04/24/2015 17:36:47 Pain of shoulder region 65324887 M25.511 Shoulder stiff 069949976 M25.611 Shoulder g irdle weakness 168026509 M99.07 [id number] Pam Hicks DPT, CERT MDT Rehab FS (PT) [address] [place] [address] 35718-629 8 04/27/2015 16:00:10 04/27/2015 18:18:10 Pain of shoulder region 72057896 M25.511 Shoulder stiff 929802502 M25.611 Shoulder g irdle weakness 052424491 M99.07 [id number] Pam Hicks DPT, CERT MDT Rehab FS (PT) [address] [place] [address] 31157-960 8 04/29/2015 16:32:15 04/29/2015 17:46:59 Pain of shoulder region 69960027 M25.511 Shoulder stiff 040558236 M25.611 Shoulder g irdle weakness 699694882 M99.07 [id number] Pam Hicks DPT, CERT MDT Rehab FS (PT) [address] [place] [address] 27265-551 8 05/01/2015 16:31:11 05/01/2015 18:28:42 Pain of shoulder region 80451820 M25.511 Shoulder stiff 369563275 M25.611 Shoulder g irdle weakness 665578427 M99.07 [id number] Pam Hikcs DPT, CERT MDT Rehab FS (PT) [address] [place] [address] 94331-777 8 05/04/2015 14:57:29 05/04/2015 15:36:22 Pain of shoulder region 48795547 M25.511 Shoulder stiff 397658256 M25.611 Shoulder g irdle weakness 329153439 M99.07 [id number] Ced Chan MD [facility] Office [address] [place] [address] 65665-138 8 05/04/2015 15:51:43 05/04/2015 17:05:33 Aftercare 586629169 Z47.89 [id number] Pam Hicks DPT, CERT MDT Rehab FS (PT) [address] [place] [address] 23728-002 8 05/06/2015 17:00:49 05/06/2015 17:42:10 Pain of shoulder region 19497317 M25.511 Shoulder stiff 455041250 M25.611 Shoulder g irdle weakness 380101235 M99.07 [id number] eMlisa Jarrett PT, Cert. MDT Rehab FS (PT) [address] [place] [address] 49407-858 8 05/08/2015 16:30:58 05/08/2015 17:40:40 Pain of shoulder region 12700643 M25.511 Shoulder stiff 463319627 M25.611 Shoulder g irdle weakness 308429453 M99.07 [id number] Pam Hicks DPT, CERT MDT Rehab FS (PT) [address] [place] [address] 16621-302 8 05/11/2015 16:21:02 05/12/2015 12:53:21 Pain of shoulder region 29304771 M25.511 Shoulder stiff 139448835 M25.611 Shoulder g irdle weakness 107056018 M99.07 [id number] Melisa Jarrett PT, Cert. MDT Rehab FS (PT) [address] [place] [address] 17495-634 8 05/22/2015 16:32:55 05/22/2015 17:23:06 Pain of shoulder region 31805222 M25.511 Shoulder stiff 847420415 M25.611 Shoulder g irdle weakness 761042019 M99.07 [id number] Pam Hicks DPT, CERT MDT Rehab FS (PT) [address] [place] [address] 25635-795 8 05/25/2015 15:06:36 05/25/2015 17:36:39 Pain of shoulder region 03300871 M25.511 Shoulder stiff 916462131 M25.611 Shoulder g irdle weakness 827501590 M99.07 [id number] Avery Rowland MD [facility] Office [address] [place] [address] 67632-209 8 05/25/2015 15:57:35 05/25/2015 17:12:46 Aftercare 280329630 Z47.89 [id number] Pam Hicks DPT, CERT MDT Rehab FS (PT) [address] [place] [address] 79326-614 8 05/27/2015 16:33:19 05/27/2015 17:55:22 Pain of shoulder region 35740127 M25.511 Shoulder stiff 134958690 M25.611 Shoulder g irdle weakness 240023249 M99.07 [id number] Pam Hicks DPT, CERT MDT Rehab FS (PT) [address] [place] [address] 29400-842 8 05/29/2015 16:30:21 05/29/2015 17:12:38 Pain of shoulder region 25526882 M25.511 Shoulder stiff 864130012 M25.611 Shoulder g irdle weakness 525003598 M99.07 [id number] Pam Hicks DPT, CERT MDT Rehab FS (PT) [address] [place] [address] 44200-079 8 06/01/2015 16:29:04 06/01/2015 18:16:29 Pain of shoulder region 21384582 M25.511 Shoulder stiff 596475302 M25.611 Shoulder g irdle weakness 569268154 M99.07 [id number] Pam Hicks DPT, CERT MDT Rehab FS (PT) [address] [place] [address] 26686-371 8 06/03/2015 16:23:12 06/03/2015 18:01:17 Pain of shoulder region 44909803 M25.511 Shoulder stiff 057088247 M25.611 Shoulder g irdle weakness 136779894 M99.07 [id number] Pam Hicks DPT, CERT MDT Rehab FS (PT) [address] [place] [address] 41058-147 8 06/05/2015 16:19:28 06/05/2015 16:55:18 Pain of shoulder region 23667503 M25.511 Shoulder stiff 006964212 M25.611 Shoulder g irdle weakness 788023839 M99.07 [id number] Pam Hicks DPT, CERT MDT Rehab FS (PT) [address] [place] [address] 70847-809 8 06/08/2015 16:33:24 06/08/2015 17:23:33 Pain of shoulder region 12161552 M25.511 Shoulder stiff 038080318 M25.611 Shoulder g irdle weakness 972565277 M99.07 [id number] Pam Hicks DPT, CERT MDT Rehab FS (PT) [address] [place] [address] 15919-993 8 06/12/2015 16:16:03 06/12/2015 17:52:48 Pain of shoulder region 12567580 M25.511 Shoulder stiff 076588298 M25.611 Shoulder g irdle weakness 913684094 M99.07 [id number] Pam Hicks DPT, CERT MDT Rehab FS (PT) [address] [place] [address] 8 06/15/2015 15:59:58 06/16/2015 15:58:40 Pain of shoulder region 51724555 M25.511 Shoulder stiff 776797475 M25.611 Shoulder g irdle weakness 678527776 M99.07 [id number] Pam Hicks DPT, CERT MDT Rehab FS (PT) [address] [place] [address] 78600-209 8 06/19/2015 16:32:51 06/19/2015 17:07:36 Pain of shoulder region 54456258 M25.511 Shoulder stiff 049829793 M25.611 Shoulder g irdle weakness 714243535 M99.07 [id number] Avery Rowland MD [facility] Office [address] [place] [address] 51918-662 8 06/22/2015 15:08:34 06/22/2015 15:37:37 Knee pain 30970986 M25.562 Aftercare 397004254 Z47. 89 [id number] Avery Rowland MD [facility] Office [address] [place] [address] 78468-741 8 07/31/2015 07:57:20 07/31/2015 08:34:51 Knee pain 63874022 M25.562 M25.561 [id number] Avery Rowland MD [facility] Office [address] [place] [address] 61809-280 8 10/02/2015 08:11:12 10/02/2015 08:40:18 Aftercare 359625601 Z47.89 Knee pain 75879804 M25.5 62 M25.561 [id number] FRIDA Joseph [facility] Office [address] [place] [address] 93304-067 8 10/21/2015 09:03:34 10/21/2015 09:49:02 Knee pain 12849409 M25.562 History of total knee arthroplasty 4427750568 105 Z96.659 Chronic pain syndrome 37 8776145 G89.4 [id number] FRIDA Joseph [facility] Office [address] [place] [address] 95231-543 8 10/30/2015 14:09:29 10/30/2015 14:47:06 [id number] Avery Rowland MD [address] 19360-212 8 11/02/2015 15:54:36 11/02/2015 16:45:42 Pain of shoulder region 12977722 M25.511 [id number] José Miguel Gregory MD [facility] FS_FAC [address] [place] [address] 8 11/05/2015 10:07:00 11/05/2015 11:42:27 [id number] FRIDA Joseph [facility] Office [address] [place] [address] 79538-031 8 12/02/2015 08:54:12 12/02/2015 09:24:56 Knee pain 59201524 M25.562 History of total knee arthroplasty 9752663351 105 Z96.659 Chronic pain syndrome 37 3802685 G89.4 Low back pain 138173814 M54.5 Lumbosacra l radiculitis 93048390 M54.17 Lumbar spondylosis 70517 0009 M47.896 [id number] Callum Cota [facility] [address] [place] [address] 4 12/10/2015 14:50:46 12/13/2015 23:48:27 Pain of wrist region 46322763 M25.531 Foot pain 80478257 M79.6 71 Sprain of ankle 49022515 S93.431A Sprain of wrist 18300663 S63.521A [id number] Avery Rowland MD [facility] Office [address] [place] [address] 87134-979 8 12/22/2015 15:14:43 12/22/2015 15:48:42 Knee pain 31111030 M25.562 M25.561 Pain of sh [place]ulder region 47086988 M25.511 Aftercare 778250242 Z47. 89 [id number] Peter Gilmore MD [facility] Office [address] [place] [address] 98673-215 4 12/31/2015 12:59:15 12/31/2015 17:47:29 Pain of wrist region 94644589 M25.531 Sprain of right wrist 11 81507324 3065050 S63.501A Small joint arthritis 25 3778592 M15.2 [id number] David Fagan Jr, MD [facility] Office [address] [place] [address] 13786-776 8 01/04/2016 15:51:38 01/04/2016 16:43:41 Sprain of ankle 32982507 S93.491D [id number] FRIDA Joseph [facility] [address] [place] [address] 8 01/06/2016 10:00:10 01/06/2016 10:28:37 Lumbar spondylosis 656646413 M47.896 Chronic pain syndrome 37 9979434 G89.4 Knee pain 77445272 M25.5 62 Knee stiff 970971978 M25 .669 Interverte bral disc disorder 21866451 M51.9 Lumbosacra l radiculitis 02547675 M54.17 History of total knee arthroplasty 6402566926 105 Z96.659 [id number] FRIDA Joseph [facility] [address] [place] [address] 8 01/11/2016 15:48:12 01/11/2016 16:16:26 [id number] José Miguel Gregory MD [facility] FS_FAC [address] [place] [address] 8 01/12/2016 13:55:53 01/12/2016 16:18:32 [id number] David Fagan Jr, MD [facility] [address] [place] [address] 8 02/01/2016 16:30:11 02/01/2016 16:56:36 Sprain of ankle 40801269 S93.491D [id number] Brianne Yao , PT Rehab FS (PT) [address] [place] [address] 01764-428 8 02/04/2016 13:53:09 02/09/2016 13:56:00 Ankle pain 230417627 M25.571 Muscle weakness 37676735 M62.81 [id number] Brianne Yao , PT Rehab FS (PT) [address] [place] [address] 8 02/09/2016 12:07:19 02/09/2016 13:56:23 Ankle pain 108601808 M25.571 Muscle weakness 68904402 M62.81 [id number] Brianne Yao , PT Rehab FS (PT) [address] [place] [address] 92311-287 8 02/11/2016 12:46:06 02/12/2016 10:34:30 Ankle pain 875825065 M25.571 Muscle weakness 93334770 M62.81 [id number] Peter Gilmore MD [facility] Office [address] [facility] [place] [address] 4 02/11/2016 14:35:34 02/11/2016 18:08:34 Sprain of right wrist 8640505376 5347792 S63.501A [id number] FRIDA Joseph [facility] [address] [place] [address] 8 02/12/2016 09:14:44 02/12/2016 10:17:15 Knee pain 49798021 M25.562 Low back pain 907713107 M54.5 Lumbosacra l radiculitis 53733076 M54.17 Lumbar spondylosis 32785 0009 M47.896 [id number] Brianne Yao , PT Rehab FS (PT) [address] [place] [address] 8 02/16/2016 11:54:42 02/16/2016 13:59:31 Ankle pain 754006742 M25.571 Muscle weakness 26015830 M62.81 [id number] Brianne Najma , PT Rehab FS (PT) [address] [place] [address] 8 02/18/2016 11:58:33 02/18/2016 13:49:09 Ankle pain 781079859 M25.571 Muscle weakness 24460385 M62.81 [id number] Frank Amado MD [facility] Office [address] [place] [address] 8 02/18/2016 13:01:11 02/18/2016 14:24:05 Lumbar radiculopathy 085743187 M54.16 Spinal lowell nosis of lumbar region 61235161 M48.06 [id number] David Fagan Jr, MD [facility] Office [address] [place] [address] 8 01/10/2018 09:36:06 01/10/2018 10:23:49 Knee pain 19860236 M25.569 Osteoarthr itis of knee 595136357 M17.11 [id number] David Fagan Jr, [facility] [address] [place] [address] 60039-842 4 05/04/2018 08:41:12 05/04/2018 09:26:56 Pain in right knee 2423550362 51645 M25.561 History of total knee arthroplasty 1216047967 105 Z96.577 [id number] David Fagan Jr, MD [facility] [address] [place] [address] 98501-122 4 05/14/2018 15:48:13 05/14/2018 16:26:07 Osteoarthritis of right knee joint 6914713435 05445 M17.11 [id number] David Fagan Jr, MD [facility] [address] [place] [address] 24933-404 4 05/24/2018 09:20:29 05/24/2018 10:15:07 Osteoarthritis of right knee joint 7456691872 32167 M17.11 [id number] Avery Rowland MD [facility] [address] [place] [address] [place] [address] 4 06/25/2018 15:11:58 06/25/2018 16:58:47 Pain of right shoulder joint 5660131777 0352172 M25.235 [id number] Yarely Nicolas, PT, MS, ATC, CSCS Rehab DC (PT) [address] [place], [place] [address]god[place] [address] 4 07/06/2018 09:48:17 07/06/2018 11:21:45 Shoulder stiff 606401284 M25.612 Pain of sh [facility] region 20309112 M25.444 [id number] Peter Gilmore MD [facility] Office [address] [place] [address] [place] [address] 4 11/15/2018 13:37:20 11/15/2018 14:45:05 Pain in right hand 6072012391 53289 M79.045 [id number] David Fagan Jr, MD [facility] [address] [place] [address] [place] [address] 4 06/26/2019 09:53:42 06/26/2019 11:05:28 Knee pain 38780176 M25.569 Osteoarthr itis of right knee joint 0804207450 91549 M17.11 Chronic pa in following left total knee arthroplasty 8998390914 8878019 T84.84XD [id number] David Fagan Jr, MD [facility] [address] [place] [address] [place] [address] 4 08/22/2019 09:26:46 08/22/2019 10:00:20 Osteoarthritis of right knee joint 8097133667 80881 M17.11 [id number] Frank Bonilla III, MD [facility] [address] [place] [address] [place] [address] 4 09/13/2019 08:53:40 09/17/2019 10:44:34 Low back pain 442562958 M54.5 Degenerati on of lumbar intervertebral disc 21787916 M51.36 Lumbar radiculopathy 128 947558 M54.16 [id number] THELMA MONZON Rehab (PT) [facility] [place] [address] 4 09/23/2019 11:05:00 09/23/2019 12:50:42 Low back pain 145913204 M54.5 Lumbar radiculopathy 128 620354 M54.16 Muscle weakness 61615081 M62.81 [id number] THELMA MONZON Rehab (PT) [address] [place] [address] [place] [address] 4 09/27/2019 08:56:56 09/27/2019 11:07:03 Low back pain 519860971 M54.5 Lumbar radiculopathy 128 177321 M54.16 Muscle weakness 71984913 M62.81 [id number] Josef Martinez, PT Rehab (PT) [facility] [place] [address] 4 10/01/2019 15:51:38 10/01/2019 17:42:39 Low back pain 744036063 M54.5 Lumbar radiculopathy 128 361107 M54.16 Muscle weakness 89848551 M62.81 [id number] Frank Bonilla III, MD [facility] [address] [place] [address] [place] [address] 4 10/04/2019 09:25:51 10/08/2019 10:30:55 Neck pain 00439648 M54.2 Low back pain 652187910 M54.5 [id number] THELMA MONZON Rehab (PT) [address] [place] [address] [place] [address] 4 10/04/2019 10:09:35 10/04/2019 12:55:44 Low back pain 502587075 M54.5 Lumbar radiculopathy 128 276315 M54.16 Muscle weakness 60030934 M62.81 [id number] Josef Martinez, PT Rehab (PT) [facility] [place] [address] 4 10/09/2019 11:24:01 10/09/2019 14:21:41 Low back pain 675031724 M54.5 Lumbar radiculopathy 128 469505 M54.16 Muscle weakness 34394670 M62.81 [id number] Josef Martinez, PT Rehab (PT) [address] [place], [place] [address] [address] 4 10/10/2019 10:27:31 10/10/2019 12:05:27 Low back pain 733996444 M54.5 Lumbar radiculopathy 128 010529 M54.16 Muscle weakness 85228871 M62.81 [id number] Josef Martinez, PT Rehab (PT) [address] [place], [place] [address] [address] 4 10/14/2019 11:46:13 10/14/2019 14:15:55 Low back pain 357119005 M54.5 Lumbar radiculopathy 128 880706 M54.16 Muscle weakness 29583124 M62.81 [id number] Josef Martinez, PT Rehab (PT) [address] [place], [place] [address] [address] 4 10/16/2019 11:25:41 10/16/2019 13:48:18 Low back pain 127347114 M54.5 Lumbar radiculopathy 128 775687 M54.16 Muscle weakness 76046081 M62.81 [id number] Frank Bonilla III, MD [facility] [address] [place], [place] [address] [address] 4 10/23/2019 08:36:37 10/28/2019 08:55:42 Low back pain 940322544 M54.5 Degenerati on of lumbar intervertebral disc 88750710 M51.36 Cervical spondylosis 387 526910 M47.812 Degenerati on of cervical intervertebral disc 86666655 M50.30 [id number] David Fagan Jr, MD [facility] [address] [place], [place] [address] [address] 4 10/24/2019 10:30:28 10/24/2019 11:05:08 Knee pain 39129555 M25.569 Contusion of left knee 7911852206 1613280 S80.02XA [id number] David Fagan Jr, MD [facility] [address] [place], [place] [address] [address] 4 06/01/2020 15:58:48 06/01/2020 16:43:12 History of total knee arthroplasty 7015807350 105 Z96.652 Knee pain 05731321 M25.5 69 [id number] David Fagan Jr, MD [facility] [address] [place] [address] [place] [address] 4 09/17/2020 14:20:57 09/17/2020 15:37:22 Pain in right knee 6838292758 42694 M25.561 Osteoarthr itis of right knee joint 5604870577 16524 M17.11 [id number] David Fagan Jr, MD [facility] [address] [place] [address] [place] [address] 4 02/22/2021 15:42:35 02/22/2021 17:05:16 Pain of right elbow joint 5393039219 5780587 M25.698 [id number] David Fagan Jr, MD [facility] [address] [place] [address] [place] [address] 4 04/14/2021 11:17:52 04/14/2021 11:52:45 Pain of right elbow joint 1975311872 0336515 M25.521 Lateral ep icondylitis of right humerus 8234339338 48766 M77.11 Swelling o f right upper limb 0450777178 0294367 R22.31 [id number] David Fagan Jr, MD [facility] [address] [place] [address] [place] [address] 4 05/10/2021 15:48:45 05/10/2021 16:34:59 Lateral epicondylitis of right humerus 7525584635 24727 M77.11 [id number] David Fagan Jr, MD [facility] [address] [place] [address] [place] [address] 4 08/11/2021 14:16:48 08/11/2021 15:40:36 Ankle pain 338560943 M25.579 Lateral ep icondylitis of right humerus 9272387538 75997 M77.11 Health Concerns Section Related Observation LastModified by Organization Detai ls LastModified Time None Recorded Concern Status LastModified by Organization Details LastModified Time None Recorded Advance Directives Directive None Recorded Payers Insurance Date Sequence Insurance Name Policy Number Policy Kan Covered Member ID Kan Member ID Guarantor Name 08/20/2021 CGS (MEDICARE DME [place]ION C) Benita Giron [id number] Benita Giron 05/09/2021 2 [employer] - FOR LIFE (MEDICARE SUPPLEMENT) MSFT/E7 Benita Giron [id number] Benita Finley Mack 01/09/2018 3 [place]7 Benita Giron [id number] Benita Finley Mack 10/02/2015 1 [place] PLAN (PPO) [id number] Frank Finley Mack [id number] Benita Finley Mack 05/09/2021 3 [place] Benita Mack [id number] Benita Finley Mack 08/20/2021 2 [employer] - FOR LIFE (MEDICARE SUPPLEMENT) Frank Mack [id number] Benita Finley Mack 08/06/2018 1 [employer] - NATIONAL POS - OPEN ACCESS Frank Mack [id number] Benita Finley Mack 09/01/2021 1 [place] Benita Giron [id number] Benita Giron Notes Date Note Type Note [...] total knee arthroplasty. David Fagan Jr, MD [address] [place], [id number], [place] [facility] 09/18/2020 13:48:29 02/22/2021 text/html Patient is [...] that has resolved. David Fagan Jr, MD [address] [place] [address], [phone], [facility] 02/22/2021 17:53:29 04/14/2021 text/html Patient is [...] any neck pain. David Fagan Jr, MD [address] [place] [address], [phone], [facility] 04/14/2021 11:55:39 05/10/2021 text/html Patient returns today for follow-up lateral epicondylitis right elbow. She states that she is no better after taking the Dosepak. She continues to have some swelling in the forearm with pain when lifting objects and extending the elbow. David Fagan Jr, MD [address] [place] [address], [phone], [facility] 05/10/2021 17:29:05 08/11/2021 text/html Patient returns [...] of the ankle. David Fagan Jr, MD [address] [place] [address], [phone], [place] - [facility] 08/11/2021 16:22:56 OBGyn Episode No OBEpisode recorded.
--- OUTSIDE RECORDS SUMMARY | 2024-07-26 13:13 | XMS_ITS | Clinical Summary ---
Author Organization [facility] Local Matters Address [address] [place] [address] Care Team Providers Care Brigadier Name Role Phone Benedict Decker MD Unavailable [phone] Kellie Vernon Primary Care Provider [phone] Source Comments [facility],non-owned Affiliates and Associated Physician Practices is amultiple site organization consisting of ambulatory clinics and hospital sitesin [place], [place], [place] and [place]. This disclosure is being madepursuant to the Care Everywhere program and may not contain all information available regarding this patient. Last updated 17.[facility] Allergies Active Allergy Reactions Criticality Noted Date [...] Office Visit [facility] - Dermatology [address] [place] [address], [place] [phone] Derrell Ovalle MD Rash and other nonspecific skin eruption (Primary Dx); Senile purpura 07/10/2024 Travel 06/25/2024 Telephone [facility] - Plastic Surgery [address] [place] [address], [place] [address] Juan Samson MD Appointment 06/17/2024 Results Follow[facility]Up [facility] Derm[facility] [address] [place] [phone] Derrell Ovalle MD 06/12/2024 11:00 AM CDT Office [facility] [address] [place] [phone] Derrell Ovalle MD Rash and other nonspecific skin eruption (Primary Dx) 06/12/2024 Travel 06/12/2024 Refill [facility] - Dermatology [address] [place] [phone] Derrell Ovalle MD Refill Request 06/05/2024 1:45 PM CDT Office Visit [facility] - Plastic Surgery [address] [facility] [address] [place] [address] Juan Samson MD Impetigo (Primary Dx) 06/05/2024 Travel 05/28/2024 9:00 AM CDT Office Visit [facility] - Infectious Disease [address] [place] [phone] Ricky Sherman MD Rash (Primary Dx) 05/28/2024 Travel 05/21/2024 Refill [facility] Dermatology [address] [place] [phone] Derrell Ovalle MD Refill Request 05/07/2024 Orders Only [facility] - Plastic Surgery [address] [place] [phone] Juan Samson MD Scalp lesion 05/03/2024 Telephone [facility] [address] , [facility] [address] [place] [address] Derrell Ovalle MD 04/28/2024 Refill [facility] Derm[facility]ology [address] [place] [address] [place] [phone] Derrell Ovalle MD Refill Request from Last [...] on file Legal Sex Female 6:12 AM RN ASSESSMENT Gender Identity Not on file Sexual Orientation [...] Visit [facility], [place] [address] [place] [address] Juan Samson MD [address] [place] [address] 10/09/2024 10:00 AM CDT Office Visit [facility] Derm[facility]ology [address] [place] [phone] Derrell Ovalle MD [address] [facility] [address] [place] [phone] Health Maintenance Due Date Last Done Comments [...] this topic Medical Devices Implanted Type Area Industrial Rehabilitation Consultant Device Identifier Shelf Expiration Date Model / Serial / Lot Ultratine Forehead 3.5 Bioabsorbable Implant Implanted:Qty: 2 on 11/17/2023 by Juan Samson MD at [facility] Forehead [employer] 07/03/2025 [id number] / / [id number] Procedures Procedure Name Priority Date/Time Associated Diagnosis Comments CULTURE AEROBIC Routine 06/15/2024 9:00 AM CDT Rash and other nonspecific skin eruption from Last 3 Months Results * CULTURE AEROBIC (06/15/2024 9:00 AM CDT) Pathologist [facility] Culture [facility] Comment: CULTURE, AEROBIC BACTERIA Micro Number: [id number] Test Status: Final Specimen Source: Face Specimen [...] INCORRECT, PLEASE CONTACT CLIENT SERVICES. PHONE NUMBER: [phone] Test Performed at: [employer] [address] RACHELE LEMUS MD Microbiology FACE STRUCTURE / Unknown 06/13/2024 12:15 AM CDT Derrell Ovalle MD LAB - MICROBIOLOGY ORDERABLES Final Result [address] [address] from Last 3 [place] [phone] Advance Directives * Full Code (Latest Code Status on File) Date Activated Date Inactivated Comments 11/17/2023 3:46 PM 11/18/2023 4:34 PM Care Teams Brigadier Relationship Specialty Start Date End Date Kellie Vernon PCP - General 03/01/24 Benedict Decker MD [facility] [address] [address] Nephrology 11/04/21
--- OUTSIDE RECORDS SUMMARY | 2024-07-26 13:13 | XMS_ITS | Encounter Summary ---
Author Organization [facility] Health Address [address] [place] [address] Care Team Providers Care Pv Installer Tech Name Role Phone Benedict Decker MD Unavailable [phone] Kellie Vernon Primary Care Provider [phone] Encounter Details Date Type Department Care Team (Late st Contact Info) Description 05/03/2024 Telephone [facility] Derm[facility]ology [address], [address] [place] [address] Derrell Ovalle MD [address] [place] [address] Social History Tobacco Use Types Packs/Day Years Used Date Smoking Tobacco: Never Smokeless Tobacco: Never Alcohol Use Standard Drinks/Week Comments Yes 0 (1 standard drink = 0.6 oz pur e alcohol) very rare Comments No Sex and Gender Information Value Date Recorded Sex Assigned at Not on file Legal Sex Female 6:12 AM 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 Please reach out to pt for further instructions. ADMINISTRATOR documented in this encounter Plan of Treatment Upcoming Encounters Date Type Department Care Team (Late st Contact Info) Description 09/04/2024 1:30 PM CDT Office Visit [facility] - Plastic Surgery [address], [address] [place] [address] Juan Samson MD [address] [place] [address] 10/09/2024 10:00 AM CDT Office Visit [facility] [address] [place] [address], [place] [phone] Derrell Ovalle MD [address] [place] [address] [address] [place] [address] documented as of this encounter Visit Diagnoses Not on filedocumented in this encounter Care Teams Pv Installer Tech Relationship Specialty Start Date End Date Kellie Vernon PCP - General 03/01/24 Benedict Decker MD [address] [facility] [address] [place] [address] Nephrology 11/04/21 documented as of this encounter
--- OUTSIDE RECORDS SUMMARY | 2024-07-26 13:13 | XMS_ITS | Clinical Summary ---
Author Organization [facility] Address [address] [place] [address] Care Team Providers Care Nuclear Reactor Engineer Name Role Phone Yvan Best MD Primary Care Provider [phone] Allergies Active Allergy Reactions Criticality Noted Date [...] 1 tablet (75 mcg total) by mouth supervisor cytogenetic laboratory before breakfast Active cycloSPORINE (RESTASIS) 0.05 % ophthalmic emulsion 1 drop 2 (two) times a day Active docusate sodium (COLACE) 100 mg capsuleIndicati ons:constipatio n Take 1 capsule (100 mg total) by mouth nightly Active vitamins A,C,E-zinc-ebony er 7,160-113-100 gako-kf-dgrm tablet,delayed release (DR/EC) Take by mouth 2 (two) times a day Active lfjkx-2-dha-epa -dpa-fish oil 1,050-1,200 mg capsule 1 capsule [...] Description 06/19/2024 1:30 PM CDT Office Visit [facility] Nephrology at [address] [phone] Benedict Decker MD Stage 3b chronic kidney disease (HCC) (Primary Dx); Nephrolithiasis; 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 Testing performed by: [address] [address] Creatinine Ur 150.0 mg/dL MIGUELINA Comment: Interpretive Data No reference range established. Current interpretive data was last revised 2018. Testing performed by: [address] [address] Protein/creatinin e ratio 106.7 0.0 - 180.0 mg/g CR MIGUELINA Comment:Testing performed by : [address] [address] Urine 06/19/2024 1:19 PM CDT 06/19/2024 4:04 PM CDT Benedict Decker MD LAB URINE ORDERABLES Final Result [facility] [address] [facility] Department [place] [address] * (ABNORMAL) eGFR (06/19/2024 1:16 [...] was last reviewed 2021. Testing performed by: [address] [address] Blood 06/19/2024 1:16 PM CDT 06/19/2024 1:40 PM CDT Benedict Decker MD LAB BLOOD ORDERABLES Final Result M[facility] [address] [facility] Department [place] [address] * Differential, auto (06/19/2024 1:16 PM CDT) Neutrophil abs 4.53 1.50 - 6.50 K/cumm Comment:Testing performed by : [address] [address] Imm gran abs 0.02 0.00 - 0.10 K/cumm MIGUELINA Comment:Testing performed by : [address] [address] Lymphocyte abs 2.41 0.80 - 3.30 K/cumm MIGUELINA Comment:Testing performed by : [address] [address] Monocyte abs 0.50 0.20 - 0.80 K/cumm MIGUELINA Comment:Testing performed by : [address] [address] Eosinophil abs 0.15 0.00 - 0.50 K/cumm MIGUELINA Comment:Testing performed by : [address] [address] Basophil abs 0.03 0.00 - 0.10 K/cumm MIGUELINA Comment:Testing performed by : [address] [address] Neutrophil pct 59.3 % [facility] Comment: Interpretive Data Percent cell count reference ranges are not reported, since discordance with absolute values may lead to misinterpretation of CBC data. Current Interpretive Data was last revised on 2017. Testing performed by: [address] [address] Imm gran pct 0.3 % [facility] Comment: Interpretive Data Percent cell count reference ranges are not reported, since discordance with absolute values may lead to misinterpretation of CBC data. Current Interpretive Data was last revised on 2017. Testing performed by: [address] [address] Lymphocyte pct 31.5 % [facility] Comment: Interpretive Data Percent cell count reference ranges are not reported, since discordance with absolute values may lead to misinterpretation of CBC data. Current Interpretive Data was last revised on 2017. Testing performed by: [address] [address] Monocyte pct 6.5 % [facility] Comment: Interpretive Data Percent cell count reference ranges are not reported, since discordance with absolute values may lead to misinterpretation of CBC data. Current Interpretive Data was last revised on 2017. Testing performed by: [address] [address] Eosinophil pct 2.0 % [facility] Comment: Interpretive Data Percent cell count reference ranges are not reported, since discordance with absolute values may lead to misinterpretation of CBC data. Current Interpretive Data was last revised on 2017. Testing performed by: [address] [address] Basophil pct 0.4 % [facility] Comment: Interpretive Data Percent cell count reference ranges are not reported, since discordance with absolute values may lead to misinterpretation of CBC data. Current Interpretive Data was last revised on 2017. Testing performed by: [address] [address] Blood 06/19/2024 1:16 PM CDT 06/19/2024 1:40 PM CDT us Benedict Decker MD LAB BLOOD ORDERABLES Final Result [facility] [address] [facility] Department of Laboratories [place], [place] [id number] * (ABNORMAL) CBC with auto differential (06/19/2024 1:16 PM CDT) WBC 7.64 3.80 - 9.90 K/cumm Comment:Testing performed by : [address] [address] Hgb 12.6 11.9 - 15.5 g/dL MIGUELINA Comment:Testing performed by : [address], [address] Hct 39.2 35.6 - 45.5 % MIGUELINA Comment:Testing performed by : [address] [address] Plt 262 150 - 400 K/cumm MIGUELINA Comment:Testing performed by : [address] [address] MPV 8.7(L) 9.1 - 12.3 fL MIGUELINA Comment:Testing performed by : [address] [address] RBC 4.25 3.90 - 5.20 M/cumm MIGUELINA Comment:Testing performed by : [address] [address] MCV 92.2 81.3 - 96.4 fL MIGUELINA Comment:Testing performed by : [address] [address] MCH 29.6 27.1 - 33.3 pg MIGUELINA Comment:Testing performed by : [address] [address] MCHC 32.1(L) 32.3 - 35.7 g/dL MIGUELINA Comment:Testing performed by : [address] [address] RDW CV 13.4 11.1 - 14.9 % MIGUELINA Comment:Testing performed by : [address], [address] RDW SD 46.0 35.7 - 48.1 fL MIGUELINA FINE Comment:Testing performed by : [facility], [address] [place] [address]., [address] NRBC abs 0.00 0.00 - 0.01 K/cumm MIGUELINA FINE Comment:Testing performed by : [facility], [address] [place] [address]., [address] Blood 06/19/2024 1:16 PM CDT 06/19/2024 1:40 PM CDT us Benedict Decker MD LAB BLOOD ORDERABLES Final Result Performing Organization Address City/[facility]/ZIP Co de Phone Number HONG[address] [place] [address] * Vitamin D 25 hydroxy (06/19/2024 1:16 PM CDT) Pathologist [facility] Vitamin D 25-OH 38.0 30.0 - 80.0 ng/mL Blood 06/19/2024 1:16 PM CDT 06/19/2024 5:13 PM CDT us Benedict Decker MD LAB BLOOD ORDERABLES Final Result Performing Organization Address [facility] Co de Phone Number [address] [place] [address] * PTH (06/19/2024 1:16 PM CDT) Pathologist [facility] PTH 49 15 - 65 pg/mL Comment:Testing performed by : [facility], [address] [place] [address]., [address] Blood 06/19/2024 1:16 PM CDT 06/19/2024 1:40 PM CDT us Benedict Decker MD LAB BLOOD ORDERABLES Final Result Performing Organization Address City/[facility] Co de Phone Number [address] [place] [address] * (ABNORMAL) Renal function panel (06/19/2024 1:16 PM CDT) Sodium 141 135 - 145 mmol/L Comment:Testing performed by : [address] [address] Potassium, pl 4.4 3.3 - 4.9 mmol/L MIGUELINA Comment:Testing performed by : [address] [address] Chloride 104 97 - 110 mmol/L MIGUELINA Comment:Testing performed by : [address] [address] CO2 29 22 - 32 mmol/L MIGUELINA Comment:Testing performed by : [address] [address] Anion gap 8 2 - 15 mmol/L MIGUELINA Comment:Testing performed by : [address] [address] BUN 19 6 - 25 mg/dL MIGUELINA Comment:Testing performed by : [address] [address] Creatinine 1.51(H) 0.60 - 1.10 mg/dL MIGUELINA Comment:Testing performed by : [address] [address] Glucose 74 70 - 199 mg/dL MIGUELINA [...] was last revised 2022. Testing performed by: [address] [address] Calcium 9.8 8.5 - 10.3 mg/dL MIGUELINA Comment:Testing performed by : [address] [address] Phosphorus, pl 3.1 2.3 - 4.5 mg/dL MIGUELINA FINE Comment:Testing performed by : [facility], [address] [place] [address]., [address] Albumin 4.1 3.5 - 5.0 g/dL MIGUELINA FINE Comment:Testing performed by : [facility], [address] [place] [address]., [address] Blood 06/19/2024 1:16 PM CDT 06/19/2024 1:40 PM CDT Benedict Decker MD LAB BLOOD ORDERABLES Final Result Performing Organization Address City/State/[facility] Co de Phone Number MIGUELINA [address] [facility] Department [place] [address] from Last 3 Months Insurance MEDICARE [facility] Address: [address] [address] [place] [address] FOR LIFE MEDICARE FOR LIFE MEDICARE FOR LIFE Advance Directives For more information, please contact: [phone] * Full Code (Latest Code Status on File) Date Activated Date Inactivated Comments 09/08/2022 9:23 AM 09/08/2022 3:46 PM * Full Code Date Activated Date Inactivated Comments 03/30/2022 7:13 AM 03/30/2022 1:38 PM Care Teams Nuclear Reactor Engineer Relationship Specialty Start Date End Date Yvan Best MD PCP - General Family Medicine 12/29/21
--- OUTSIDE RECORDS SUMMARY | 2024-07-26 13:14 | XMS_ITS | Encounter Summary ---
Author Organization [facility] Health Address [address] [place] [address] Care Team Providers Care Staff Psychologist Name Role Phone Yvan Best Primary Care Provider Benedict Ansari MD Unavailable [phone] Kellie Vernon Primary Care Provider [phone] Reason for Visit * Reason Onset Date Comments Appointment 05/18/2023 Encounter Details Date Type Department Care Team (Late st Contact Info) Description 05/18/2023 Telephone [facility] - Centralized Scheduling [address] [place] [address] Yeny Wilde MD [address] [facility] DEPT [place] [address] Appointment Social History Tobacco Use Types Packs/Day Years Used Date Smoking Tobacco: Never Smokeless Tobacco: Never Alcohol Use Standard Drinks/Week Comments Never 0 (1 standard drink = 0.6 oz pur e alcohol) Comments Unknown Sex and Gender Information Value Date Recorded Sex Assigned at Not on file Legal Sex Female 6:12 AM 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 Gender Identity Not on file Sexual Orientation Not on file documented as of this encounter Miscellaneous Notes * Telephone Encounter - Wendie Mo - 05/18/2023 4:24 PM CDT Patient called for her appt in August with Dr Wilde, she would like to know if there was anything sooner cbn [phone] documented in this encounter Plan of Treatment Upcoming Encounters Date Type Department Care Team (Late st Contact Info) Description 09/04/2024 1:30 PM CDT Office Visit [facility] - [facility] [address], [address] [place] [address] Juan Samson MD [address] [place] [address] 10/09/2024 10:00 AM CDT Office Visit [facility] - Dermatology [address] [place] [address], [place] [address] Derrell Ovalle MD [address] [place] [address] [address] [place] [address] documented as of this encounter Visit Diagnoses Not on filedocumented in this encounter Care Teams Staff Psychologist Relationship Specialty Start Date End Date Yvan Best PCP - General 02/03/23 02/29/24 Kellie Vernon PCP - General 03/01/24 Benedict Decker MD [address] [facility] [place] [address] Nephrology 11/04/21 documented as of this encounter
--- OUTSIDE RECORDS SUMMARY | 2024-07-26 13:14 | XMS_ITS | Data Portability ---
Author Organization [facility] [employer], Main Office Address [address] [place] [address] Care Team Providers Care Airline Customer Service Agent Name Role Phone LINDA BEST Primary Care Provider [phone] LINDA BEST Referring Provider [phone] Assessment Encounter Date Assessment Date Assessment LastModified [...] patient than half the time spent in ksxl-vn-fwjv care per Not available 08/03/2022 09:48:59 08/15/2022 [...] than half of this time spent in urwy-yf-djnj care Not available 09/04/2022 09:30:31 09/26/2022 09/26/2022 [...] more than half the time spent in sucy-it-ahyz care. Not available 09/26/2022 16:28:20 11/14/2022 11/14/2022 [...] patient more than half of this in vbnp-dr-guuq conversation Not available 11/14/2022 14:22:48 Plan of Treatment Reminders Order Date Submit Date Provider Last Modified By Organization Details Last Modified Time Details Appointments None recorded. Lab None recorded. Referral None recorded. Procedures knee aspiration/ injection (PROC) 2022 023 [email or web address] In-Office Order, Internal Use Only DO Not Attach Compendium DO Not Attach Compendium, Do Not Delete/merge, [id number] 3 14:13:15 injection/a spiration joint/bursa (PROC) - in office procedure, administere d by provider 2022 023 [email or web address] In-Office Order, Internal Use Only DO Not Attach Compendium DO Not Attach Compendium, Do Not Delete/merge, [id number] 3 16:19:44 Surgeries None recorded. Imaging XR, knee 2022 023 [email or web address] [facility] [place], [address], [place], [address], 3 09:30:42 XR, knee 2022 023 [email or web address] [facility] [place], [address], [place], [address], 3 12:03:43 Medication Orders ropivacaine (PF) 5 mg/mL (0.5 %) injection solution 2022 023 [email or web address] Not available 4 10:44:31 Monovisc 88 mg/4 mL intra-artic ular syringe 2022 023 [email or web address] Not available 4 10:43:34 Kenalog 10 mg/mL suspension for injection 2022 023 [email or web address] [facility] In [facility], [facility] [place], [address], 3 14:49:39 ropivacaine (PF) 5 mg/mL (0.5 %) injection solution 2022 023 [email or web address] [facility] [id number] In [facility] [address], [place], [address], 10:44:31 Patient TargetsNo targets recorded. Patient Instructions Encounter Date Encounter Id Patient Instructions Last Modified By Organization Details Last Modified Time 03/16/2023 [id number] plantar fasciitis: exercises Not available 04/04/2023 13:37:58 plantar fasciiti s education Not available 04/04/2023 13:37:58 achilles tendon: exercises Not available 04/04/2023 13:38:16 achilles tendonitis education Not available 04/04/2023 13:38:15 Reason for Referral None Reported. Results Created Date Observation Date Name Description Value Unit Range Abnormal Flag Note LastModifiedBy Organization Detail LastModifiedTime 07/19/19 XR, knee No observ ation record ed. [facility] [place] [address], [place], [address], 08/03/2022 09:46:25 07/20/1912/16/2021 XR, knee No observ ation record ed. [email or web address] Not Available 2022 09:29:43 07/28/1907/27/2022 MRI, knee, w/o contr ast No observ ation record ed. [email or web address] [place] [address], [place], [address], 07/27/2022 15:57:52 08/16/19 XR, knee No observ ation record ed. [facility] [place] [address], [place], [address], 09/04/2022 09:25:55 09/06/1907/26/2022 MRI, knee, w/o contr ast No observ ation record ed. [email or web address] Not Available 2022 18:27:13 07/24/19 24 07/20/2023 XR, abdom en + pelvi s No observ ation record ed. [facility] [address], [place], [address], 07/25/2023 12:41:53 Result Notes None recorded. Problems Name Problem SNOMED Code Status Onset Date Resolution Date Notes Provider Name and Address Organization Details Recorded Time Pain of right knee joint 1626456777726 00 Active 2022 Sophie Patterson RMNeftali davidson, [place] [facility] 3 13:54:25 Pain of bilateral knee joints 7272071729739 04 Active 2022 Sophie Patterson RMA null, [place] [facility] 3 15:03:57 Osteoarthr itis of right knee joint 0558173768659 00 Active 2022 Sophie Patterson RMA null, [place] - [facility] 3 13:55:23 Arthritis 7929234 Active 2023 Jessica davidson, [place] - [facility] 4 10:46:01 Bowel problem 968058516 Active 2023 Jessica davidson, [place] - [facility] 4 10:46:11 Breast problem 117299041 Active 2023 Jessica davidson, [place] [facility] 4 10:46:24 Dizziness 010014155 Active 2023 Jessica davidson, [place] - [facility] 4 10:46:32 Disorder of eye 103865676 Active 2023 Jessica davidson, [place] - [facility] 4 10:46:40 Headache 29282367 Active 2023 Jessica davidson, [place] [facility] 4 10:46:52 Migraine 37163017 Active 2023 Jessica davidson, [place] - [facility] 4 10:47:06 Plantar fasciitis of right foot 2143677077370 9101 Active 2023 Emanuel Edward DPM [address], [address], [place], [address] , [facility] [employer] 10:49:42 Right Achilles tendinitis 3279076215219 02 Active 2023 Emanuel Edward DPM [address], [address], [place], [address] , [facility] - [facility] [place] [employer] [facility] 10:49:48 Notes:URINARY/BLADDER/KIDNEY Problem Notes None recorded. Procedures Surgical History Date Name Laterality Status Provider Name and Address Organization Details Recorded Time 03/16/19 Plantar Fascia Injection Right Foot completed Emanuel Edward DPM [address], [address], [place], [address], [facility] - [facility] 03/16/2023 10:49:32 Hysterectomy completed Sophie Patterson [facility] 07/18/2022 13:53:25 Breast Surgery completed Sophie santana [facility] 07/18/2022 13:53:33 Knee Surgery completed Sophie Patterson [facility] 07/18/2022 13:53:50 Imaging Results Imaging Date Name Status LastModified by Organiz ation Details LastModified Time 07/18/2022 XR, knee completed [facility] [place] [address], [place], [address], 08/03/2022 09:46:25 12/16/2021 XR, knee completed Information no t available 07/19/2022 09:29:43 07/27/2022 MRI, knee, w/o contrast completed [email or web address] [facility] [address], [place], [address], 07/27/2022 15:57:52 08/15/2022 XR, knee completed [facility] [place] [address], [place], [address], 09/04/2022 09:25:55 07/26/2022 MRI, knee, w/o contrast completed Information not available 09/05/2022 18:27:13 07/20/2023 XR, abdomen + pelvis completed [place] [id number], [place], [address], 07/25/2023 12:41:53 Procedure Notes None recorded. Medical Equipment None Reported. Allergies Allergen ID Allergen Name Allergen Category Reaction Reaction Severity Criticality Documentation Date Start Date Code Code System Note Provider Name and Address Organization Details Recorded Time 58098 Product containin g penicilli n (product) medicatio n Not available Not available Not available 07/18/2022 50648 8001 SNOMED Sophie Patterson RMA null, [facility] 13:52:22 20473 Celebrex medicatio n Not available Not available Not available 07/18/2022 91080 7 RxNorm Sophie Patterson RMA null, [facility] 13:52:34 06014 Nexium medicatio n Not available Not available Not available 07/18/2022 54609 9 RxNorm Sophie Patterson RMA null, [facility] 13:52:44 Medications Name Sig Start Date Stop [...] e, administ ered by provider 09/26 completed [facility]: [id number] 4-20 Not Available Not Available Not [...] Available Not Available Not Available BD Precision [place] 25 gauge x 1 needle INJECT INTRAMUS CULARLY IN DELTOID AREA ONCE A MONTH 07/18 completed Not Available Not Available Not Available BD SafetyGli de Needle 25 gauge x 1 active Not Available Not Available Not Available ropivacai ne (PF) 5 mg/mL (0.5 %) injection solution in office 03/16 completed [facility] 36902-03 06-04 lot [id number] exp:10/24 23 Not Available Not Available Not Available Monovisc 88 mg/4 mL intra-art icular syringe in office 03/16 completed [facility] [place]: [address]8536-14 20- lot: [id number] exp:05/03 Not Available Not Available Not [...] Updated DateTime 07/18/2022 152.4 cm 28.5 kg/m2 51997.49 g Sophie Leonardo [facility] [employer] [facility] [employer] 07/18/2022 14:00:06 Date Recorded Body height Provider Name an d Address Organization Details Last Updated DateTime 08/15/2022 152.4 cm Sophie [facility] [employer] [facility] [employer] 08/15/2022 15:00:31 Date Recorded Body height Provider Name an d Address Organization Details Last Updated DateTime 09/26/2022 152.4 cm Sophie Patterson [facility] [employer] [facility] [employer] [facility] 09/26/2022 14:47:10 Date Recorded Body height Provider Name an d Address Organization Details Last Updated DateTime 11/14/2022 152.4 cm Sophie Leon[facility] [employer] [facility] [employer] [facility] 11/14/2022 13:53:48 Date Recorded Body height Heart rate Respiratory rate Oxygen saturation Oxygen saturation in Arterial blood by Pulse oximetry Systolic blood pressure Diastolic blood pressure Provider Name and Address Organization Details Last Updated DateTime 152.4 cm 76 /min 14 /min 98 % 98 % 152 mm[Hg] 91 mm[Hg] Kayleigh Jarvis [employer] [facility] [employer] 10:06:23 Date Recorded Body mass index (BMI) Body weight Provider Name and Address Organization Details Last Updated DateTime 03/16/2023 24.4 kg/m2 64240.05 g Jessica Cook [place] - [facility] [employer] [facility] 03/16/2023 10:41:34 Social History None recorded. Functional [...] SNOMED-CT Code Diagnosis ICD10 Code Diagnosis Note [id number] Jaskaran Elliott MD [facility] [place] [address] [place] [address] 07/18/2022 13:26:54 08/03/2022 12:03:43 Pain of right knee joint 8644757263 59360 M25.561 [id number] Jaskaran Elliott MD [facility] [place] [address] [place] [address] 08/15/2022 14:43:37 09/05/2022 09:30:42 Pain of right knee joint 5080457262 48167 M25.561 [id number] Jaskaran Elliott MD [facility] [place] [address] [place] [address] 09/26/2022 14:33:27 09/26/2022 16:36:07 Pain of right knee joint 6379188160 63939 M25.207 [id number] Jaskaran Elliott MD [facility] [place] [address] [place] [address] 11/14/2022 13:46:58 11/14/2022 14:35:49 Osteoarthritis of right knee joint 4481241214 67818 M17.[id number] [facility] [place] [address] [place] [address] 03/16/2023 09:54:32 04/04/2023 19:07:32 Plantar fasciitis of right foot 0448330879 2532211 M72.2 injection, right plantar heel onlyrice therapystr etching revieweded ucated on shoe gearfollow up in 4 weeks Right Achi lles tendinitis 9726398615 93415 M76.61 as above Health Concerns Section Related Observation LastModified by Organization Detai ls LastModified Time None Recorded Concern Status LastModified by Organization Details LastModified Time None Recorded Advance Directives Directive None Recorded Payers Encounter Date Sequence Insurance Name Policy Number Policy Kan Covered Member ID Kan Member ID Guarantor Name 07/18/2022 1 [place] Benita Giron [id number] Benita Giron 07/18/2022 2 [employer] () Benita Giron [id number] Benita Giron 08/15/2022 1 [place] Benita Giron [id number] Benita Giron 08/15/2022 2 [employer] () Benita Giron [id number] Benita Giron 09/26/2022 1 [place] Benita Giron [id number] Benita Giron 09/26/2022 2 [employer] () Benita Giron [id number] Benita Giron 11/14/2022 1 [place] Benita Giron [id number] Benita Giron 11/14/2022 2 [place] () Benita Giron [id number] Benita Giron 03/16/2023 1 [place] Benita Giron [id number] Benita Grion 03/16/2023 2 [employer] - [employer] () Benita Giron [id number] Benita Giron Notes Date Note Type Note Provider Name and Address Organization Details Recorded Time 07/18/2022 text/html patient is a 67-year-old female referred better high at [facility] for evaluation of her right knee. She [...] Patient moved here September of 2021 from [place]. Her knee replacement was in [place]. The Jaskaran Elliott MD [address], [place] [address], [place], [address], [employer] 08/03/2022 09:49:15 03/16/2023 text/html . Patient is [...] complaints. Emanuel Edward DPM [address], [facility] [address], [place], [address], [employer] 04/04/2023 13:39:11 OBGyn Episode No OBEpisode recorded.
--- OUTSIDE RECORDS SUMMARY | 2024-07-26 13:14 | XMS_ITS | Data Portability ---
Author Organization [place] [facility], [facility] V[facility] Address [address] [place] [address] Care Team Providers Care Office Administrator Name Role Phone KEVIN ASKEW Referring Provider [phone] DACIA MG Primary Care Provider [phone] KEVIN ASKEW Orthopedic Surgeon [phone] Assessment No assessment recorded. Plan of Treatment [...] in a dose pack [email or web address] [facility] [address] In [facility], [facility] [place], [address], 4 17:24:46 Patient TargetsNo targets recorded. Patient [...] view No observ ation record ed. [email or web address] [facility] [address], [place], [address], 10/03/2023 11:17:42 Result Notes None recorded. Problems Name Problem SNOMED Code Status Onset Date Resolution Date Notes Provider Name and Address Organization Details Recorded Time Anxiety 47928020 Active 2023 Skylar davidson, [facility] 4 09:35:22 Chronic kidney disease 491543399 Active 2023 Skylar Merino null, [facility] 4 09:35:31 Diarrhea 14988595 Active 2023 Skylar Wilber null, [facility] 4 09:35:39 Dysuria 31416620 Active 2023 Skylar Merino null, [facility] 4 09:35:46 Esophageal dysmotility 037935355 Active 2023 Skylar Merino null, [facility] 4 09:36:00 Hyperlipide trevor 17786584 Active 2023 Skylar Merino null, [facility] 4 09:36:07 Hypothyroid ism 07028753 Active 2023 Skylar Merino null, [facility] 4 09:36:17 Irritable bowel syndrome 93931619 Active 2023 Skylar Merino null, [facility] 4 09:36:29 Pain of left hand 3053487281469 03 Active 2023 Skylar Merino null, [facility] 4 10:08:28 Pain of right wrist 0188567963880 00 Active 2023 Earl davidson, [facility] 17:12:19 Secondary osteoarthri tis of bilateral hands Active 2023 Kevin Askew MD [address] [place], [address], [place] [facility] 17:23:51 Problem Notes None recorded. Procedures Surgical History Date Name Laterality Status Provider Name and Address Organization Details Recorded Time Appendectomy completed Skylar Daltonrobert [facility] 09/08/2023 09:38:03 arthroplasty of knee completed Skylar Daltonrobert [facility] 09/08/2023 09:38:32 [facility] 09/08/2023 09:38:41 Richy fundoplication completed Skylar Daltonrobert [facility] 09/08/2023 09:38:54 Imaging Results Imaging Date Name [...] hand, 3 or more view completed [email or web address] [facility] [address], [place], [address], 10/03/2023 11:17:42 Procedure Notes None recorded. Medical Equipment None Reported. Allergies Allergen ID Allergen Name Allergen Category Reaction Reaction Severity Criticality Documentation Date Start Date Code Code System Note Provider Name and Address Organization Details Recorded Time 996380 aloe extract food,medi cation itching Not available Not available 09/08/2023 58496 RxNorm Syklar Wilber [facility], [facility] 4 09:30:27 573361 celecoxib medicatio n hives Not available Not available 09/08/2023 70356 7 RxNorm Skylar Wilber [facility], [facility] 4 09:30:41 585964 Product containin g penicilli n (product) medicatio n Not available Not available Not available 09/08/2023 42393 8001 SNOMED Skylar Wilber [facility], [facility] 4 09:30:58 383740 adhesive environme nt,medica tion Not available Not available Not available 09/08/2023 89163 UNK Skylar Merino [facility], [facility] 4 09:31:11 [id number] esomepraz ole Not available Not available Not available Not available 09/08/2023 63599 2 RxNorm Skylar Merino [facility], [facility] 4 09:31:21 Medications Name Sig Start Date [...] Updated DateTime 4 152.4 cm 27.3 kg/m2 00509.9 3 g 142 /min 96 % 96 % 117 mm[Hg] 74 mm[Hg] Skylar Merino [facility] 16:44:41 Social History Question Answer Notes LastModified by SIGKAT Details LastModified Time Tobacco Smoking Status Never Smoker Skylar Merino [facility] 09/08/2023 09:37:49 What Was The Date Of Your Most Recent Tobacco Screening? 11/02/2023 Information not available 10/19/2023 Sex: Unknown Functional Status Question Answer Note LastModified by SIGKAT Details LastModified Time Do you use any [...] SNOMED-CT Code Diagnosis ICD10 Code Diagnosis Note [id number] Kevin Askew MD [facility] [address] [address] 09/14/2023 15:26:15 09/14/2023 17:28:11 Body mass index 25-29 - overweight 690108581 Z68.27 Pain of right wrist 3169 057127 49356 M25.531 sterile technique standard protocol injected the right scaphotrap ezoid joint with 2 cc of xylocaine and 2 cc or 80 mg of Kenalog sterile technique standard protocol. She can continue with protective bracing. No improvemen t over time consider resection of the proximal half of the trapezoid with palmaris longus tendon interposit ion Secondary osteoarthritis of bilateral hands 6338902639 0318394 M19.241 We will put her on Medrol [...] - FOR LIFE (MEDICARE SUPPLEMENT) Benita Giron [id number] Benita Giron 09/14/2023 1 [place] Benita Giron [id number] Benita Giron Notes Date Note Type Note Provider Name and Address Organization Details Recorded Time 09/14/2023 text/html patient years ag o had left and right [facility] arthroplasties. She has developed xnfs-ze-rjnb at the right scaphotrapezoid joint and having lot of pain on the right. Patient still has some pain intermittently on the left comes in for evaluation no triggering or numbing or tingling Kevin sAkew MD [address] [place], [address], [facility] 09/14/2023 17:24:39 OBGyn Episode No OBEpisode recorded.
[2024-07-26 13:42] LABS: Estimated Glomerular Filt Rate 28
== END 2024-07-26 13:08 | disposition home or self-care (01) ==
PROVIDERS: PCP Nurse Practitioner Family; Visit Provider Urology
DX: N20.0 Calculus of kidney (principal)
CPT/HCPCS: 74176

== ENCOUNTER 2024-08-27 10:17 | Outpatient (CLI) | payer MEDICARE, OTHER, SELFPAY ==
[2024-08-27 13:51] LABS: Free T3 2.97 pg/mL (2.45-5.93); Free T4 Free Thyroxine 1.45 ng/dL (0.78-2.19)
[2024-08-27 14:07] LABS: Thyroid Stimulating Hormone 0.294 uIU/mL (0.465-4.680)
[2024-08-28 08:13] LABS: LH. 18.9 mIU/mL
== END 2024-08-27 10:18 | disposition home or self-care (01) ==
PROVIDERS: PCP Nurse Practitioner Family; Visit Provider Nurse Practitioner Family
DX: E03.9 Hypothyroidism, unspecified (principal); R51.9 Headache, unspecified; R53.83 Other fatigue
CPT/HCPCS: 36415; 82670; 83001; 83002; 84403; 84439; 84443; 84481

== ENCOUNTER 2024-10-07 12:57 | Outpatient (CLI) | payer MEDICARE, OTHER, SELFPAY ==
--- OUTSIDE RECORDS SUMMARY | 2024-10-07 13:06 | XMS_ITS | Clinical Summary ---
Author Organization [facility] Address [address] [place] [address] Care Team Providers Care High School Admissions Representative Name Role Phone Yvan Best MD Primary Care Provider [phone] Allergies Active Allergy Reactions Criticality Noted Date [...] 1 tablet (75 mcg total) by mouth peeled potato inspector before breakfast Active cycloSPORINE (RESTASIS) 0.05 % ophthalmic emulsion 1 drop 2 (two) times a day Active docusate sodium (COLACE) 100 mg capsuleIndicati ons:constipatio n Take 1 capsule (100 mg total) by mouth nightly Active vitamins A,C,E-zinc-ebony er 7,160-113-100 yvgg-xs-opta tablet,delayed release (DR/EC) Take by mouth 2 (two) times a day Active xjdub-0-mls-epa -dpa-fish oil 1,050-1,200 mg capsule 1 capsule [...] Encounters Date Type Department Care Team Description 08/19/2024 8:21 AM CDT - 08/19/2024 11:59 PM CDT Hospital Encounter [facility] - Imaging [address] [place] [phone] (Idiopathic) normal pressure hydrocephalus (HCC); Other abnormalities of gait and mobility Discharge Disposition: Discharge to home or self care 08/19/2024 Orders Only [facility] - Interventional Radiology [address] [place] [phone] Guy Hays RN 08/16/2024 Telephone [facility] - Interventional Radiology [address] [place] [phone] Guy Hays RN 08/16/2024 Orders Only [facility] - Interventional Radiology [address] [place] [phone] Guy Hays, RN from Last 3 Months Surgical History Surgery Date Site/Laterality Comments CHOLECYSTECTOMY APPENDECTOMY MURPHY FUNDOPLICATION HYSTERECTOMY N/A OTHER SURGICAL HISTORY 03/15/2022 Right eyelid lift ESOPHAGEAL DILATION IR LUMBAR PUNCTURE, THERAPEU TIC INCL FLUORO GUIDANCE 08/19/2024 N/A Medical History Medical History Date Comments Kidney [...] making you feel afraid or unsafe? 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 Gender Identity Not on file Sexual Orientation Not on file Obstetrics History Last Filed Vital Signs Vital Sign Reading Time Taken Comments Blood Pressure 160/83 08/19/2024 10:55 AM CDT Pulse 62 08/19/2024 10:55 AM CDT Temperature 35.7 C (96.2 F) 08/19/2024 8:35 AM CDT Respiratory Rate 16 08/19/2024 8:35 AM CDT Oxygen Saturation 100% 08/19/2024 10:55 AM CDT Inhaled Oxygen Concentration - - Weight 64.4 kg (142 lb) 08/19/2024 8:35 AM CDT Height 152.4 cm (5') 08/19/2024 8:35 AM CDT Body Mass Index 27.73 08/19/2024 8:35 AM CDT Plan of Treatment Health Maintenance [...] Osteoporosis Screening-Bone Density Scan 06/01/2023 05/31/2021, 05/31/2021 Influenza Vaccine (#1) 2024 , 12/13/2018, 01/05/2010 Fall Risk Assessment 08/19/2025 08/19/2024 Procedures Procedure Name Priority Date/Time Associated Diagnosis Comments IR LUMBAR PUNCTURE, THERAPEUTIC INCL FLUORO GUIDANCE Schedule Routine, Read Routine (OP Routine) 08/19/2024 10:26 AM CDT (Idiopathic) normal pressure hydrocephalus (HCC) Other abnormalities of gait and mobility from Last 3 Months Results * IR Lumbar Puncture, Therapeutic incl Fluoro Guidance (08/19/2024 10:26 AM CDT) Anatomical Region Laterality Modality Spine N/A Radio Fluoroscop y 08/19/2024 10:5 8 AM CDT Impressions 08/19/2024 10:58 AM CDT 1. Successful lumbar puncture under fluoroscopic guidance without complication. 2. 26.5 mL clear colorless CSF removed for therapeutic purposes. Of note, the collection was terminated early secondary to patient headaches and lightheadedness. 3. The opening pressure was 12 cm H2O. There was no closing pressure FLUOROSCOPY TIME: 0.5 minutes REFERENCE AIR KERMA: 31.7 mGy Electronically signed by: Shahida Hightower PA-C Narrative 08/19/2024 10:58 AM CDT EXAMINATION: LUMBAR PUNCTURE UNDER FLUOROSCOPIC GUIDANCE 08/19/2024. CLINICAL INDICATION: Concern for normal pressure hydrocephalus. TECHNIQUE: The risks of a lumbar puncture, including bleeding, spinal hematoma, infection, irritation or damage to nerves causing pain or permanent injury, spinal headache, and CSF leak requiring blood patch were explained to the patient and written and verbal informed consent obtained. The patient was placed prone on the fluoroscopy table and the low back prepped and draped in sterile fashion. A sterile tray was utilized for the procedure. A timeout was performed. 1% lidocaine was used for local anesthesia. Utilizing fluoroscopic guidance, a 22-gauge 3.5 inch spinal needle was directed into the thecal sac via a left L3-L4 interlaminar approach. The opening pressure was 12 cm H2O. Approximately 26.5 mL of clear colorless CSF was obtained. Of note, the CSF collection was terminated early secondary to patient headaches and lightheadedness. There was no closing pressure. The stylet was returned and the needle was removed. Hemostasis was achieved at the skin site. A Band-Aid was applied. The patient tolerated the procedure well without any immediate complications. No labs were ordered for the CSF and therefore it was disposed of properly. This procedure was performed by myself in conjunction with Sophie Douglas PA-C, who was present during the entire procedure. FINDINGS: Fluoroscopic and cross table lateral radiographs demonstrate needle placement in the left L3-L4 intralaminar space. Procedure Note Shahida Hightower PA - 08/19/2024 EXAMINATION: LUMBAR PUNCTURE UNDER FLUOROSCOPIC GUIDANCE 08/19/2024. CLINICAL INDICATION: Concern for normal pressure hydrocephalus. TECHNIQUE: The risks of a lumbar puncture, including bleeding, spinal hematoma, infection, irritation or damage to nerves causing pain or permanent injury, spinal headache, and CSF leak requiring blood patch were explained to the patient and written and verbal informed consent obtained. The patient was placed prone on the fluoroscopy table and the low back prepped and draped in sterile fashion. A sterile tray was utilized for the procedure. A timeout was performed. 1% lidocaine was used for local anesthesia. Utilizing fluoroscopic guidance, a 22-gauge 3.5 inch spinal needle was directed into the thecal sac via a left L3-L4 interlaminar approach. The opening pressure was 12 cm H2O. Approximately 26.5 mL of clear colorless CSF was obtained. Of note, the CSF collection was terminated early secondary to patient headaches and lightheadedness. There was no closing pressure. The stylet was returned and the needle was removed. Hemostasis was achieved at the skin site. A Band-Aid was applied. The patient tolerated the procedure well without any immediate complications. No labs were ordered for the CSF and therefore it was disposed of properly. This procedure was performed by myself in conjunction with Sophie Douglas PA-C, who was present during the entire procedure. FINDINGS: Fluoroscopic and cross table lateral radiographs demonstrate needle placement in the left L3-L4 intralaminar space. IMPRESSION: 1. Successful lumbar puncture under fluoroscopic guidance without complication. 2. 26.5 mL clear colorless CSF removed for therapeutic purposes. Of note, the collection was terminated early secondary to patient headaches and lightheadedness. 3. The opening pressure was 12 cm H2O. There was no closing pressure FLUOROSCOPY TIME: 0.5 minutes REFERENCE AIR KERMA: 31.7 mGy Electronically signed by: Shahida Hightower PA-C Kimberly Ziegler MD IM IR PROCEDURES Final Result from Last 3 Months Insurance MEDICARE [employer] MEDICARE [facility] MEDICARE FOR LIFE Advance Directives For more information, please contact: [phone] * Full Code (Latest Code Status on File) Date Activated Date Inactivated Comments 08/19/2024 10:57 AM 08/20/2024 4:47 AM * Full Code Date Activated Date Inactivated Comments 09/08/2022 9:23 AM 09/08/2022 3:46 PM * Full Code Date Activated Date Inactivated Comments 03/30/2022 7:13 AM 03/30/2022 1:38 PM Care Teams High School Admissions Representative Relationship Specialty Start Date End Date Yvan Best MD PCP - General Family Medicine 12/29/21
--- OUTSIDE RECORDS SUMMARY | 2024-10-07 13:06 | XMS_ITS | Continuity of Care Document ---
Author Name [facility] Organization [facility] Care Team Providers Care Bead Cutter Name Role Phone [facility] Unavailable Unavailable Medications Combined list of outpatient [...] & D, 30 ea. BLIST PACK Active [id number] 2023 20 Pharmac y Data Transac tion Service Facilit y BELSOMRA (SUVOREXANT ), 10 MG, TABLET, ORAL, MERCK SHARP & D, 30 ea. BLIST PACK Cancele d [id number] : 2023 0 Pharmac y Data Transac tion Service Facilit y BELSOMRA (SUVOREXANT ), 15 MG, TABLET, ORAL, MERCK SHARP & D, 30 ea. BLIST PACK Cancele d [id number] : 2023 0 Pharmac y Data Transac tion Service Facilit y BELSOMRA (SUVOREXANT ), 15 MG, TABLET, ORAL, MERCK SHARP & D, 30 ea. BLIST PACK Cancele d [id number] : 2023 0 Pharmac y Data Transac tion Service Facilit y CYCLOSPORIN E (cyclospori ne), 0.05 %, DROPERETTE, OPHTHALMIC, [employer] 30 ea. VIAL Active [id number] 2023 60 Pharmac y Data Transac tion Service Facilit y DROXIDOPA (droxidopa) , 200 MG, CAPSULE, ORAL, [employer], 90 ea. BOTTLE Cancele d [id number] : 2023 0 Pharmac y Data Transac tion Service Facilit y DULOXETINE HCL (duloxetine HCl), 60 MG, CAPSULE DR, ORAL, [employer] 1000 ea. BOTTLE Active [id number] 2023 90 Pharmac y Data Transac tion Service Facilit y Hydrochloro thiazide (Hydrochlor othiazide), 25mg, Tablet, Oral, [employer], 1000 Ea. Bottle Active [id number] 2023 90 Pharmac y Data Transac tion Service Facilit y Nitrofurant oin ([employer]) 100 CAPSULE in 1 BOTTLE Cancele d [id number] : 2023 0 Pharmac y Data Transac tion Service Facilit y POTASSIUM CITRATE (POTASSIUM CITRATE), 10MEQ, TABLET SA, ORAL, UPSHER LOPEZ, 100 ea. BOTTLE Cancele d [id number] : 2023 0 Pharmac y Data Transac tion Service Facilit y POTASSIUM CITRATE (POTASSIUM CITRATE), 10MEQ, TABLET SA, ORAL, UPSHER LOPEZ, 100 ea. BOTTLE Cancele d [id number] : 2023 0 Pharmac y Data Transac tion Service Facilit y SAFETY-BERTRAND SAFETY SYRINGES (syringe,sa fety with needle,3mL) , 23GX1, DISP SYRIN, MISCELL, BD MEDICAL SURG, 100 ea. BOX Cancele d [id number] : 2023 0 Pharmac y Data Transac tion Service Facilit y SULFAMETHOX AZOLE-TRIME THOPRIM (SULFAMETHO XAZOLE/TRIM ETHOPRIM), 400MG-80MG, TABLET, ORAL, [employer]ARM, 100 ea. BOTTLE Active [id number] 2023 14 Pharmac y Data Transac tion Service Facilit y TRIAMCINOLO NE ACETONIDE (TRIAMCINOL ONE ACETONIDE), 0.1%, CREAM(GM), TOPICAL, FOUGERA, 80 g JAR Cancele d [id number] : 2023 0 Pharmac y Data Transac tion Service Facilit y Immunizations Combined list of available immunizations from the Department of Defense and Veterans Affairs facilities. Immunization Series Date Given Administered By Site Reaction Lot Number CVX Code Drug Bilingual Speech Language Pathologist Status Comments Source influenza, high-dose, quadrivalent 2020 GLADIS, () Not Given influenza , high-dose , quadrival ent [facility] COVID-19, mRNA, LNP-S, PF, 100 mcg or 50 mcg dose 2020 GLADIS, () Not Given COVID-19, mRNA, LNP-S, PF, 100 mcg or 50 mcg dose DoD influenza, high-dose, quadrivalent 2019 ANGELIC, () Not Given influenza , high-dose , quadrival ent [facility] Influenza, seasonal, injectable, preservative free 2014 TARIRAH, () Not Given Influenza , seasonal, injectabl e, preservat obi free [facility] influenza virus vaccine, split virus (incl. purified surface antigen)-reti red CODE 1 2009 Unknown, Provider [id number] [employer] (CSL) complet ed influenza virus vaccine, split virus (incl. purified surface antigen)- retired CODE DoD Social History Combined list of available smoking, tobacco, and other social history from Department of Defense and Veterans Affairs facilities. Social History Type Response Date Comment Sourc e This section is an empty social history section. [facility]
--- OUTSIDE RECORDS SUMMARY | 2024-10-07 13:06 | XMS_ITS | Encounter Summary ---
Author Organization [facility] Address [address] [facility] [place] [address] Care Team Providers Care Sales Research Analyst Name Role Phone Yvan Best Primary Care Provider UnavailBenedict Schaeffer MD Unavailable [phone] Kellie Vernon Primary Care Provider [phone] Unknown, Provider Primary Care Provider Unavaila ble Reason for Visit * Reason Onset Date Comments Appointment 05/18/2023 Encounter Details Date Type Department Care Team (Late st Contact Info) Description 05/18/2023 Telephone [facility] - Centralized Scheduling [facility] [place] [address] Yeny Wilde MD [address] [facility] DEPT [place] [address] Appointment Social History Tobacco Use Types Packs/Day Years Used Date Smoking Tobacco: Never Smokeless Tobacco: Never Alcohol Use Standard Drinks/Week Comments Never 0 (1 standard drink = 0.6 oz pur e alcohol) Comments Unknown Sex and Gender Information Value Date Recorded Sex Assigned at Not on file 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 Gender Identity Not on file Sexual Orientation Not on file documented as of this encounter Miscellaneous Notes * Telephone Encounter - Wendie Mo - 05/18/2023 4:24 PM CDT Patient called for her appt in August with Dr Wilde, she would like to know if there was anything sooner [facility] [phone] documented in this encounter Plan of Treatment Upcoming Encounters Date Type Department Care Team (Late st Contact Info) Description 10/09/2024 10:00 AM CDT Office Visit [facility] - Dermatology [address] [place] [address], [place] [address] Derrell Ovalle MD [address] [place] [address] [address] [place] [phone] 11/13/2024 1:45 PM CDT Office Visit [facility] - Plastic Surgery [facility] [facility] [address] [place] [phone] Juan Samson MD [facility] [place] [address] documented as of this encounter Visit Diagnoses Not on filedocumented in this encounter Care Teams Sales Research Analyst Relationship Specialty Start Date End Date Yvan Best PCP - General 02/03/23 02/29/24 Kellie Vernon PCP - General 03/01/24 10/06/24 Unknown, Provider PCP - General 10/07/24 Benedict Decker MD [address] [place] [address] Nephrology 11/04/21 documented as of this encounter
--- OUTSIDE RECORDS SUMMARY | 2024-10-07 13:06 | XMS_ITS | Encounter Summary ---
Author Organization [facility] Address [address] [place] [address] Care Team Providers Care Ignition Mechanic Name Role Phone Benedict Decker MD Unavailable [phone] Kellie Vernon Primary Care Provider [phone] Unknown, Provider Primary Care Provider Unavaila ble Encounter Details Date Type Department Care Team (Late st Contact Info) Description 05/03/2024 Telephone [facility] - Dermatology [address], [address] [place] [address] Derrell Ovalle MD [address] [facility] [address] [place] [address] Social History Tobacco Use Types Packs/Day Years Used Date Smoking Tobacco: Never Smokeless Tobacco: Never Alcohol Use Standard Drinks/Week Comments Yes 0 (1 standard drink = 0.6 oz pur e alcohol) very rare Comments No Sex and Gender Information Value Date Recorded Sex Assigned at Not on file 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 Please reach out to pt for further instructions. COACH documented in this encounter Plan of Treatment Upcoming Encounters Date Type Department Care Team (Late st Contact Info) Description 10/09/2024 10:00 AM CDT Office Visit [facility] - Dermatology [address] [facility], [place] [address] Derrell Ovalle MD [address] [place] [address] [address] [place] [address] 11/13/2024 1:45 PM CDT Office Visit [facility] - Plastic Surgery [address], [facility] [address] [place] [phone] Juan Samson MD [address] [place] [phone] documented as of this encounter Visit Diagnoses Not on filedocumented in this encounter Care Teams Ignition Mechanic Relationship Specialty Start Date End Date Kellie Vernon PCP - General 03/01/24 10/06/24 Unknown, Provider PCP - General 10/07/24 Benedict Decker MD [address] [address] Nephrology 11/04/21 documented as of this encounter
--- OUTSIDE RECORDS SUMMARY | 2024-10-07 13:06 | XMS_ITS | Referral Summary ---
Author Organization [facility] Address [facility] [place] [address] Care Team Providers Care Government Affairs Director Name Role Phone Yvan Best MD Primary Care Provider [phone] Encounters Date Type Department Care Team Description 08/19/2024 Orders Only [facility] - Interventional Radiology [address] [place] [phone] Guy Hays, RN 08/19/2024 8:21 AM CDT - 08/19/2024 11:59 PM CDT Hospital Encounter [facility] - Imaging [address] [place] [phone] (Idiopathic) normal pressure hydrocephalus (HCC); Other abnormalities of gait and mobility Discharge Disposition: Discharge to home or self care 08/16/2024 Telephone [facility] - Interventional Radiology [address] [place] [phone] Guy Hays, RN 08/16/2024 Orders Only [facility] - Interventional Radiology [address] [place] [phone] Guy Hays, RN from Last 3 Months Allergies Active Allergy Reactions Criticality Noted Date Comments Adhesive Rash Medium 12/16/2021 Aloe-Lact Ac-Ceramide 3,3b,6,1 Rash Medium 10/13 /2022 Celecoxib Hives Medium 12/16/2021 Esomeprazole Fatigue Low [...] 1 tablet (75 mcg total) by mouth remote encoding center manager before breakfast Active cycloSPORINE (RESTASIS) 0.05 % ophthalmic emulsion 1 drop 2 (two) times a day Active docusate sodium (COLACE) 100 mg capsuleIndicati ons:constipatio n Take 1 capsule (100 mg total) by mouth nightly Active vitamins A,C,E-zinc-ebony er 7,160-113-100 qnzc-hf-pldj tablet,delayed release (DR/EC) Take by mouth 2 (two) times a day Active fnpej-4-kcz-epa -dpa-fish oil 1,050-1,200 mg capsule 1 capsule [...] on file 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 Gender Identity Not on file Sexual Orientation [...] 08/19/2024 8:35 AM CDT Plan of Treatment Not on file [...] by: Shahida Hightower PA-C Kimberly Ziegler MD IMG IR PROCEDURES Final Result from Last 3 Months Insurance MEDICARE FOR LIFE MEDICARE FOR LIFE MEDICARE [facility] FOR LIFE Advance Directives For more information, please contact: [phone] * Full Code (Latest Code Status on File) Date Activated Date Inactivated Comments 08/19/2024 10:57 AM 08/20/2024 4:47 AM * Full Code Date Activated Date Inactivated Comments 09/08/2022 9:23 AM 09/08/2022 3:46 PM * Full Code Date Activated Date Inactivated Comments 03/30/2022 7:13 AM 03/30/2022 1:38 PM Care Teams Government Affairs Director Relationship Specialty Start Date End Date Yvan Best MD PCP - General Family Medicine 12/29/21
--- OUTSIDE RECORDS SUMMARY | 2024-10-07 13:06 | XMS_ITS | Clinical Summary ---
Author Organization [facility] Address [address] [place] [address] Care Team Providers Care Applications Developer Name Role Phone Benedict Decker MD Unavailable [phone] Unknown, Provider Primary Care Provider Unavaila ble Source Comments [facility],non-owned Affiliates and Associated Physician Practices is amultiple site organization consisting of ambulatory clinics and hospital sitesin [place], [place], [place] and [place]. This disclosure is being madepursuant to the Care Everywhere program and may not contain all information available regarding this patient. Last updated 17.[facility] Allergies Active Allergy Reactions Criticality Noted Date [...] 60 MG TABSIndications:M igraine Reasons: Migraine Headache Active colestipol (Colestid) 1 GM tablet 4 [...] times daily 60 tablet 2 5 Active gabapentin (Neurontin) 400 MG capsule Take 1 (one) capsule by mouth 3 times daily Active Active Problems Problem Noted Date Diagnosed [...] Encounters Date Type Department Care Team Description 09/17/2024 Travel 09/04/2024 1:30 PM CDT Office Visit [facility] - Plastic Surgery [address], [address] [place] [address] Juan Samson MD Impetigo (Primary Dx); Other migraine without status migrainosus, not intractable 09/04/2024 Travel 07/10/2024 8:30 AM CDT Office Visit [facility] - Dermatology [address] [place] [phone] Derrell Ovalle MD Rash and other nonspecific skin eruption (Primary Dx); Senile purpura 07/10/2024 Travel from Last 3 Months Immunizations Immunization Administration [...] on file 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 Gender Identity Not on file Sexual Orientation Not on file Last Filed Vital Signs Vital Sign Reading Time Taken Comments Blood Pressure 121/77 09/04/2024 1:43 PM CDT Pulse 66 09/04/2024 1:43 PM CDT Temperature 36.9 C (98.4 F) 09/04/2024 1:43 PM CDT Respiratory Rate 16 09/04/2024 1:43 PM CDT Oxygen Saturation 95% 09/04/2024 1:43 PM CDT Inhaled Oxygen Concentration - - Weight 64.5 kg (142 lb 3.2 oz) 09/04/2024 1:43 P M CDT Height 152.4 cm (5') 09/04/2024 1:43 PM CDT Body Mass Index 27.77 09/04/2024 1:43 PM CDT Plan of Treatment Upcoming Encounters Date Type Department Care Team (Late st Contact Info) Description 10/09/2024 10:00 AM CDT Office Visit [facility] - Dermatology [address] [place] [phone] Derrell Ovalle MD [address] [place] [address] [address] [place] [address] 11/13/2024 1:45 PM CDT Office Visit [facility] - Plastic Surgery [address], [address] [place] [address] uJan Samson MD [address] [place] [address] Health Maintenance Due Date Last Done Comments COLOGUARD (AGES 45-75) - COL ON CA SCREENING [address] CT COLONOGRAPHY - COLON CA SCREENING [...] - 2023-2 5 season) 2023 INFLUENZA VACCINE (#1) 2024 9, 01/05/2010 COLON MONITORING 12/05/2028 12/05/2018 COLONOSCOPY - COLON CA SCREENING 12/05/2028 12/05/2018 [...] this topic Medical Devices Implanted Type Area Mechanical Test Engineer Device Identifier Shelf Expiration Date Model / Serial / Lot Ultratine Forehead 3.5 Bioabsorbable Implant Implanted:Qty: 2 on 11/17/2023 by Juan Samson MD at [facility] Forehead [employer] 07/03/2025 [id number] / / [id number] Insurance MEDICARE [facility] Advance Directives * Full Code (Latest Code Status on File) Date Activated Date Inactivated Comments 11/17/2023 3:46 PM 11/18/2023 4:34 PM Care Teams Applications Developer Relationship Specialty Start Date End Date Unknown, Provider PCP - General 10/07/24 Benedict Decker MD [address] [facility] [place] [address] Nephrology 11/04/21
[2024-10-07 15:56] LABS: Thyroid Stimulating Hormone Reflex 0.504 uIU/mL (0.465-4.68)
== END 2024-10-07 12:58 | disposition home or self-care (01) ==
LOC: ANHGOSHLAB 12:58
PROVIDERS: PCP Nurse Practitioner Family; Visit Provider Nurse Practitioner Family
DX: E03.9 Hypothyroidism, unspecified (principal)
CPT/HCPCS: 36415; 84443

== ENCOUNTER 2024-10-14 11:15 | Outpatient (RCR) | payer MEDICARE, OTHER, SELFPAY ==
--- NOTE | 2024-09-20 11:12 | OPREHPOC ---
Outpatient Therapy Plan of Care This is a Multidisciplinary Plan of Care that may contain components documented by all disciplines (PT, OT, and ST.) PT Problem 1 PT Problem #1 Knowledge Deficit PT Goal 1 Goal / Goal Update [place] with HEP Target Visit 4 PT Goal 2 Goal / Goal Update Patient will report no pain greater than 2/10 consistently Target Visit 8 PT Problem 2 PT Problem #2 Impaired Gait PT Goal 1 Goal / Goal Update Ambulate with even stride length bilaterally. Target Visit 8 PT Problem 3 PT Problem #3 Impaired Strength PT Goal 1 Goal / Goal Update 1. Improve nate hip abduction strength to 4/5 to improve lateral hip stability 2. Improve nate hip flexion strength to 4+/5 to improve nate foot clearance Target Visit 8
--- NOTE | 2024-09-20 11:12 | PTOPEVAL1 ---
Assessment and note entered by Yang Dockery, PT Evaluation Information Assessment Status Evaluation Diagnosis Trochanteric pain syndrome ICD-10 Condition Codes (PT) Pain in right hip M25.551,Pain in left hip M25.552 Onset January 2024 Subjective Information Reports that she has had pain for a while not but did not attribute it to a hip issue. She has had 4 falls in the past couple months. She had imaging on 09/13/24. She has pain on both of her hips and the right hip seems to give her more pain. She is occasionally having pain during the day. 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 She needs frequent rests to relieve her hip pain. She has history of therapy intervention for her right foot. She met with neurosurgeon yesterday and will be having a shunt installed RAQUEL. Reported Pain Level Pain Score 2: Self Report Assessment PT Clinical Summary Patient presents with hip weakness and pain generated with increased activity and ambulation. Patient has notable lateral and anterior hip weakness with signs and symptoms consistent with trochanteric pain syndrome. Patient will benefit from skilled therapy to address these deficits. Plan of Care Interventions Gait Training,Manual Therapy,Neuro Re-education, Therapeutic Activities,Therapeutic Exercise PT Services Indicated Yes Treatment Frequency and 2x/week for 8 visits Duration These treatments will address the objective and functional deficits as defined above. The patient will be advanced safely and appropriately in order for the patient to progress towards his/her prior level of function. Additional exercises will be introduced and as well as a comprehensive home exercise program upon discharge, if needed, ?to ensure carryover of functional gains achieved in the clinic. This treatment plan has been reviewed and agreement upon by the patient.
--- NOTE | 2024-10-01 14:21 | PCPTNOTE ---
Pt was a no call, no show to her appointment today.
== END 2024-12-19 23:59 | disposition home or self-care (01) ==
LOC: ANHGOSHPT 11:15
PROVIDERS: PCP Nurse Practitioner Family; Visit Provider Orthopaedic Surgery
DX: M70.61 Trochanteric bursitis, right hip (principal); M70.62 Trochanteric bursitis, left hip
CPT/HCPCS: 36415; 84443; 97110; 97140; 97161

== ENCOUNTER 2025-01-01 12:13 | Outpatient (CLI) | payer MEDICARE, OTHER, SELFPAY ==
--- NOTE | ~2025-01-01 | XR_ITS ---
EXAMINATION: XR wrist RT min 3V, 01/01/2025 12:32 CDT HISTORY: Pain in right wrist, fell on monday, pain since COMPARISON: No comparisons available. Findings: No acute fracture or malalignment. Moderate degenerative changes of the first metacarpal carpal joint with sequelae of previous surgery. There are severe degenerative changes of the visualized first metacarpal phalangeal joint with fusion of the joint space. Soft tissues unremarkable. Impression: No acute fracture or malalignment. Reviewed, dictated and finalized at location P. Impression: No acute fracture or malalignment.
== END 2025-01-01 12:14 | disposition home or self-care (01) ==
LOC: GOSHIMG 12:14
PROVIDERS: PCP Neurological Surgery; Visit Provider Nurse Practitioner Family
DX: M25.531 Pain in right wrist (principal)
CPT/HCPCS: 73110

== ENCOUNTER 2025-01-21 14:09 | Outpatient (NON) | payer MEDICARE, OTHER, SELFPAY | END 2025-01-21 14:10 | disposition home or self-care (01) | LOC: ANHGOSHLAB 14:10 | PROVIDERS: PCP Nurse Practitioner Family; Visit Provider Nurse Practitioner Family | DX: N30.90 Cystitis, unspecified without hematuria (principal) | CPT/HCPCS: 87077; 87086; 87186 ==

== ENCOUNTER 2025-02-24 15:56 | Emergency (ER) | payer MEDICARE, OTHER, SELFPAY ==
--- NOTE | ~2025-02-24 | CT_ITS ---
EXAMINATION: CT lumbar spine wo con DATE: 02/24/2025 20:45 INDICATION: Low back pain TECHNIQUE: Computed tomography (CT) of the lumbar spine was performed without intravenous contrast. The dose-length product was 474.90 mGy-cm. Automated exposure control and iterative reconstruction technique were employed. COMPARISON: None FINDINGS: There is diffuse idiopathic skeletal hyperostosis (DISH) of the lumbar spine. Vertebral body heights are maintained. There is disc narrowing at L5-S1. No acute fracture, subluxation or dislocation. There is mild bilateral neural foraminal narrowing at L5-S1 secondary to annular disc bulging and facet hypertrophy. No evidence for spondylolisthesis. IMPRESSION: 1. Mild lumbar spondylosis with bilateral neural foraminal narrowing at L5-S1. Reviewed, dictated and finalized at location O. LITIES OPERATOR
--- NOTE | ~2025-02-24 | CT_ITS ---
EXAMINATION: CT abdomen pelvis w con DATE: 02/24/2025 19:45 INDICATION: Back pain. Abdominal pain. TECHNIQUE: Computed tomography (CT) of the abdomen and pelvis was performed with 100 mL Omnipaque 350 intravenous contrast. Automated exposure control and iterative reconstruction technique were employed. The dose-length product was 327.77 mGy-cm. COMPARISON: CT abdomen and pelvis 07/26/2024 FINDINGS: The visualized portions of lung bases demonstrate mild atelectasis. No pleural effusion. The heart size is normal. No pericardial effusion. The liver and spleen are normal. There are changes of cholecystectomy. There are 13 mm and 9 mm cystic lesions in the pancreas. The pancreatic duct is normal in caliber. The adrenal glands are normal. There are cysts in right kidney measuring up to 9 mm. There is moderate atrophy of left kidney. There is a 5 mm stone in left kidney. There are changes of appendectomy. There is a ventriculoperitoneal shunt. There are no dilated loops of bowel. There is a small volume of ascites. There is a small volume of gas in the bladder lumen, likely from recent ins trumentation. There is subcutaneous fat stranding in anterior abdominal wall, consistent with inflammation versus scarring. There is mild thoracic spondylosis and moderate lumbar spondylosis. IMPRESSION: 1. Subcutaneous fat stranding in anterior abdominal wall, consistent with inflammation versus scarring. 2. Low risk cystic lesions of the pancreas measuring up to 13 mm. The differential diagnosis includes pseudocyst, intraductal papillary mucinous neoplasm (IPMN), mucinous cystic neoplasm (MCN), serous cystadenoma, and neuroendocrine tumor. Consider abdomen MRI without and with contrast in 2 years. 3. Small volume of ascites. Reviewed, dictated and finalized at location E. LEVEL BUSINESS ANALYST IMPRESSION: 1. Subcutaneous fat stranding in anterior abdominal wall, consistent with infla mmation versus scarring. 2. Low risk cystic lesions of the pancreas measuring up to 13 mm. The different ial diagnosis includes pseudocyst, intraductal papillary mucinous neoplasm (IPM N), mucinous cystic neoplasm (MCN), serous cystadenoma, and neuroendocrine tumo r. Consider abdomen MRI without and with contrast in 2 years. 3. Small volume of ascites.
[2025-02-24 16:22] VITALS: BP 148/73; PULSE 83; RESP 16; TEMP 36.6; O2SAT 98
[2025-02-24 17:04] LABS: Add Urine Microscopic? YES; Appearance Urine Clear (Clear); Glucose Urine UA Negative (Negative); Leukocyte Esterase Ur 1+ LEU/UL (Negative); Nitrate Urine Negative (Negative); Specific Grav Ur 1.017 (1.001-1.035)
--- OUTSIDE RECORDS SUMMARY | 2025-02-24 17:09 | XMS_ITS | Encounter Summary ---
Author Organization [facility] Address [address] [place] [address] Care Team Providers Care Maintenance Pipefitter Name Role Phone Ronal Adhikari DO Unavailable None, Provider Primary Care Provider Unavaila ble Encounter Details Date Type Department Care Team (Late st Contact Info) Description 12/08/2023 Prep for Procedure [facility] [place] [address] Rolf Prather, DPM [address] [address] Social History Tobacco Use Types [...] - 99 MG/DL 12/08/2023 8:12 AM CDT [facility] BUN 18 7 - 18 MG/DL 12/08/2023 8:12 AM CDT [facility] CREATININE S/P/B 1.51(H) 0.55 - 1.02 MG/DL 12/08/2023 8:12 AM CDT [facility] SODIUM S/P/B 133(L) 136 - 145 MMOL/L 12/08/2023 8:12 AM CDT [facility] POTASSIUM S/P/B 4.2 3.5 - 5.1 MMOL/L 12/08/2023 8:12 AM CDT [facility] CHLORIDE S/P/B 99 97 - 115 MMOL/L 12/08/2023 8:12 AM CDT [facility] CO2 28.9 21 - 32 MMOL/L 12/08/2023 8:12 AM T [facility] CALCIUM S/P/B 9.6 8.5 - 10.1 MG/DL 12/08/2023 8:12 AM T [facility] ANION GAP 5.1 2 - 10 MMOL/L 12/08/2023 8:12 AM T [facility] BUN CREATININE RATIO 11.9 6 - 26 12/08/2023 8:12 AM T [facility] GFR ESTIMATE 37(L) >90 ML/MIN/1.7 3 M2 12/08/2023 8:12 AM T [facility] Comment: NOTE: eGFR is not calculated for patients <18 years of age or gender unknown. This is an estimated GFR calculation using the new CKD EPI creatinine equation without race and so does not require a correction factor for race. This estimated GFR should not be used for calculating drug doses. 12/08/2023 7:40 AM CDT Hillary Escudero MANAGER OF INTERNAL LABORATORY Final R esult [facility] [address] [place] [address], documented in this encounter Visit Diagnoses Diagnosis Preoperative testing- Primary Preoperative examination, unspecified documented in this encounter Care Teams Maintenance Pipefitter Relationship Specialty Start Date End Date None, Provider, PCP - General UNKNOWN PHYSICIAN SPECIALTY 12/08/23 Ronal Adhikari DO [address] [place] [address] INTERNAL MEDICINE 11/30/23 documented as of this encounter
--- OUTSIDE RECORDS SUMMARY | 2025-02-24 17:09 | XMS_ITS | Clinical Summary ---
Author Organization [facility] Address [address] [place] [id number] Care Team Providers Care Settlement Processor Name Role Phone Unavailable Primary Care Provider Unavailabl e Allergies Active Allergy Reactions Criticality Noted Date Comments Acetaminophen Other (See Comments) Medium 11/17/2023 No vomiting just sick to my stomach Adhesive Rash Medium 08/26/2021 Aloe Itching Medium 10/23/2023 Aloe-Lact Ac-Ceramide 3,3b,6,1 Rash Medium 12/16/2021 Celecoxib Anaphylaxis,Hives,O ther (See Comments),Rash High 08/26/2021 Other reaction(s): Not available Ciprofloxacin Palpitations,Rash Medium 08/26/2021 Does not remember Esomeprazole Other (See Comments),Hives,Itc zohreh,Muscle Pain,Palpitations High 08/26/2021 All over body soreness Other reaction(s): Not available Ibuprofen Other (See Comments) Medium 11/17/2023 Latex Hives,Rash High 10/23/2023 Penicillins Nausea and Vomiting,Other (See Comments),Palpitati ons Medium 08/26/2021 [address]ity to [address] Sulfamethoxazole-Trimeth oprim Other (See Comments) 04/01/2024 Itching to cheeks/neck, redness to skin Medications Syringe with Needle, Disp, (BD Luer-Claudy Syringe) 3 mL 23 x 1 Syringe USE TO INJECT B12 MONTHLY Active Safety Harper (BD SafetyGlide Needle) 25 gauge x 1 Needle Active omega-3 fatty acids (FISH OIL CONCENTRATE ORAL) Take 500 mg by mouth. Active onabotulinumtoxin A (Botox) 100 unit Recon Soln every 90 days. Active pilocarpine (SALAGEN) 5 mg Tablet TAKE 1 TABLET BY MOUTH THREE TIMES A DAY NEEDED FOR DRY MOUTH 09/27/19 25 Active potassium CITRATE (UROCIT-K) 10 mEq (1,080 mg) Extended Release tablet Take 10 mEq by mouth 3 times daily. 03/02/20 23 Active BD Luer-Claudy Syringe 3 mL 23 x 1 Syringe USE TO INJECT B12 09/19/19 25 Active tiZANidine (ZANAFLEX) 4 mg Tablet Take 4 mg by mouth. Active traMADol (ULTRAM) 50 mg tablet Take 50 mg by mouth every 6 hours as needed for Pain. 09/18/19 24 Active traZODone (DESYREL) 100 mg tablet TAKE ONE AND ONE-HALF TABLETS BY MOUTH EVERY DAY AT BEDTIME 11/23/19 25 Active triamcinolone acetonide (KENALOG) 0.1 % Cream APPLY TOPICALLY TO AFFECTED AREA(S) TWICE A DAY Active valACYclovir (VALTREX) 1 gram tablet Take 1,000 mg by mouth. 03/27/19 25 Active calcium polycarbophiL (FIBERCON) 625 mg tablet Take 625 mg by mouth 2 times daily. Active colestipoL (COLESTID) 1 gram tablet Take 1,000 mg by mouth 2 times daily. 04/10/19 24 Active cyanocobalamin (VITAMIN B-12) 1,000 mcg/mL Solution Inject by intramuscular injection. 05/10/19 23 Active cycloSPORINE (RESTASIS) 0.05 % emulsion Active diphenoxylate-atr opine 2.5 mg-0.025 mg tablet Take 1 Tablet by mouth 3 times daily as needed. Active docusate sodium (COLACE) 100 mg capsule Take 100 mg by mouth daily at bedtime. Active fludrocortisone (FLORINEF) 0.1 mg tablet 01/14/20 23 Active fluticasone propionate (FLONASE) 50 mcg/spray [place], Suspension nasal inhaler 12/05/19 25 Active gabapentin (NEURONTIN) 300 mg capsule Take 300 mg by mouth. 12/13/19 24 Active hyoscyamine ER 0.375 mg tablet,extended release,12 hr TAKE 1 TABLET (0.375 MG) ORALLY EVERY 12 HOURS 05/19/19 23 Active Synthroid 75 mcg tablet Take 75 mcg by mouth daily in the morning. 02/02/20 23 Active methocarbamoL (ROBAXIN) 750 mg tablet take 1 tablet by mouth three times a day as needed for pain 11/08/19 25 Active metoprolol tartrate (LOPRESSOR) 25 mg tablet Take 1 Tablet by mouth 2 times daily. 11/09/19 25 Active DULoxetine (CYMBALTA) 60 mg Capsule, Delayed Release(E.C.) Take 1 Capsule by mouth daily. 12/20/19 25 Active Active Problems No known active problems Encounters Date Type Department Care Team Description 12/30/[address] [phone] Provider, Abstract 12/25/2024 9:30 AM CDT Procedure visit [address] [phone] Kevin Baptiste MD Chronic migraine w/o aura w/o status migrainosus, not intractable (Primary Dx) 12/25/2024 External Device Data [facility] ABSTRACTION Provider, Abstract 12/24/2024 External Device Data [facility] ABSTRACTION Provider, Abstract 12/11/[address] [address] David Angelo (Manager Outpatient), UPHOLSTERY RESTORER Valium 12/10/2024 External Device Data [facility] ABSTRACTION Provider, Abstract 12/10/2024 External Device Data [facility] ABSTRACTION Provider, Abstract 12/10/2024 External Device Data [facility] ABSTRACTION Provider, Abstract 12/09/2024 Orders Only [address] [phone] David Angelo (Manager Outpatient), UPHOLSTERY RESTORER 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) 12/06/2024 1:20 PM CDT Office Visit [address] [phone] David Angelo (Manager Outpatient), UPHOLSTERY RESTORER Chronic migraine w/o aura w/o status migrainosus, not intractable (Primary Dx); Occipital neuralgia, unspecified laterality; Neck pain; Arthralgia, unspecified joint from Last 3 Months Social History Tobacco Use Types Packs/Day Years Used Date Smoking Tobacco: Never Assessed Comments Unknown Sex and Gender Information Value Date Recorded Sex Assigned at Not on file Legal Sex Female 1:52 PM CDT Gender Identity Not on file Sexual Orientation Not on file Last Filed Vital Signs Vital Sign Reading Time Taken Comments Blood Pressure 150/81 12/06/2024 1:45 PM CDT Pulse 71 12/06/2024 1:42 PM CDT Temperature - - Respiratory Rate - - Oxygen Saturation 93% 12/06/2024 1:42 PM CDT Inhaled Oxygen Concentration - - Weight 66.1 kg (145 lb 12.8 oz) 12/25/2024 9:20 AM CDT Height 152.4 cm (5') 12/25/2024 9:20 AM CDT Body Mass Index 28.47 12/25/2024 9:20 AM CDT Plan of Treatment Upcoming Encounters Date Type Department Care Team (Late st Contact Info) Description 03/20/2025 9:15 AM CONTACT LENS BLOCKER AND CUTTER Procedure visit [facility] Neurology [facility] [address] [address] [place] [address] [facility] [address] [place] [phone] Health Maintenance Due Date Last Done Comments DTAP/TDAP/TD VACCINES (1 - Tdap) 01/16/1972 Traditional Medicare (ACO) Annual Wellness Visit 01/15 BREAST CANCER SCREENING 1993 COLORECTAL SCREENING 1998 Colorectal Cancer Screening 1998 FIT-DNA Q 3 years 1998 FIT/FOBT Q 1 year 1998 Flex Sig/CT Colonography Q 5 years 1998 ZOSTER VACCINE (1 of 2) 2003 OSTEOPOROSIS SCREENING 2018 PNEUMOCOCCAL VACCINE 50+ YEARS (2 of 2 - PCV) 02/10/20 20 02/09/2019 INFLUENZA VACCINE (#1) 2024 12/13/2018 RSV VACCINE (60+ or ) (1 - 1-dose 75+ series) 01/16/2028 Insurance MEDICARE PART A AND B [facility]
--- OUTSIDE RECORDS SUMMARY | 2025-02-24 17:09 | XMS_ITS | Clinical Summary ---
Author Organization [facility] [place] [address] [place] [address] Care Team Providers Care Trimmer And Reinforcer Name Role Phone Kellie Babb MASON HELPER Primary Care Provider [phone] Allergies Active Allergy Reactions Criticality Noted Date Comments Acetaminophen Other (See comments) 01/10/2025 Stomach pain Adhesive Rash Medium 12/16/2021 Aloe-Lact Ac-Ceramide 3,3b,6,1 Rash Medium 12/16/2021 Celecoxib Hives Medium 12/16/2021 Esomeprazole Fatigue Low 12/16/2021 Ibuprofen Other (See comments) 01/10/2025 Stomach pain Penicillins Unknown 12/16/2021 Medications diazePAM (VALIUM) 5 mg tablet Take 1 tablet (5 mg total) by mouth as needed Take prior to botox injections. Active diphenoxylate-a tropine (LOMOTIL) 2.5-0.025 mg per tabletIndicatio ns:diarrhea Take 1 tablet by mouth 4 (four) times a day as needed for diarrhea Active fludrocortisone 0.1 mg tablet Take 1 tablet (0.1 mg total) by mouth with lunch Active cycloSPORINE (RESTASIS) 0.05 % ophthalmic emulsion Administer 1 drop into both eyes 2 (two) times a day Active docusate sodium (COLACE) 100 mg capsuleIndicati ons:constipatio n Take 1 capsule (100 mg total) by mouth nightly Active ovxzd-9-ffo-epa -dpa-fish oil 1,050-1,200 mg capsule Take 1 capsule by mouth 4 (four) times a day Active potassium citrate ER (UROCIT-K) 10 mEq (1,080 mg) CR tablet Take 1 tablet (10 mEq total) by mouth 3 (three) times a day Active cyanocobalamin (Vitamin B-12) 1,000 mcg/mL injection Inject into the muscle as instructed every 30 (thirty) days [address] (CYMBALTA) 60 mg capsule Take 1 capsule (60 mg total) by mouth every morning 3 Active colestipoL (COLESTID) 1 gram tablet Take 1 tablet (1 g total) by mouth 2 (two) times a day Active polycarbophil (FIBERCON) 625 mg tablet Take 1 tablet (625 mg total) by mouth 2 (two) times a day Active traMADoL (ULTRAM) 50 mg tablet Take 1 tablet (50 mg total) by mouth every 6 (six) hours as needed for pain Active gabapentin (NEURONTIN) 300 mg capsule Take 1 capsule (300 mg total) by mouth 3 (three) times a day Active tiZANidine (ZANAFLEX) 4 mg tablet Take 1 tablet (4 mg total) by mouth every 6 (six) hours as needed for muscle spasms Active levothyroxine (SYNTHROID) 75 mcg tablet Take 1 tablet (75 mcg total) 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 Active fluticasone propionate (FLONASE) 50 mcg/actuation nasal spray Administer 2 sprays into each nostril every morning Active ascorbic acid/collagen hydr (COLLAGEN PLUS VITAMIN C ORAL) Take 1 tablet by mouth every morning Active metoprolol tartrate (LOPRESSOR) 25 mg immediate release tablet Take 1 tablet (25 mg total) by mouth 2 (two) times a day Active oxyCODONE (ROXICODONE) 5 mg immediate release tabletIndicatio ns:Pain Take 1 tablet (5 mg total) by mouth every 6 (six) hours as needed for pain 28 tablet 5 Active Active Problems Problem Noted Date Diagnosed Date Normal pressure hydrocephalus 01/09/2025 Orthostatic dizziness 10/11/2022 Dysphagia 07/06/2022 Encounters Date Type Department Care Team Description 01/09/2025 1:20 PM CORPORATE RECYCLING MANAGER Anesthesia Event [facility] Operating Room [address] [place] [phone] Nestor Abad MD [place], Kimberly Carol, NP 01/09/2025 1:00 PM CORPORATE RECYCLING MANAGER - 01/09/2025 4:00 PM CORPORATE RECYCLING MANAGER Surgery [facility] Operating Room [address] [place] [phone] Kimberly Ziegler MD STEALTH Guided Placemen of Right Occipital Ventriculoperitoneal Shunt 01/09/2025 10:37 AM CORPORATE RECYCLING MANAGER - 01/10/2025 7:23 PM CORPORATE RECYCLING MANAGER Hospital Encounter [facility] [address] [place] [phone] Kimberly Ziegler MD Normal pressure hydrocephalus (HCC) (Primary Dx) Discharge Disposition: Discharge to home or self care 01/03/2025 3:33 PM CDT - 01/03/2025 11:59 PM CDT Hospital Encounter [facility] - Imaging [address] [place] [phone] (Idiopathic) normal pressure hydrocephalus (HCC) Discharge Disposition: Discharge to home or self care 12/26/2024 Orders Only [facility] Pre Anesthesia Testing [address] [place] [phone] ProviderKiran MD 12/24/2024 10:00 AM CDT Pre-Admission Testing [facility] Pre Anesthesia Testing [address] [place] [phone] Preop testing (Primary Dx) 12/18/2024 1:15 PM CDT Office Visit [facility] Nephrology at [address] [place] [phone] Benedict Decker MD Stage 3b chronic kidney disease (HCC) (Primary Dx); Nephrolithiasis; 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); Secondary hyperparathyroidism 12/12/2024 Telephone [facility] Pre Anesthesia Testing [address] [place] [phone] Eneida Mccauley 12/11/2024 1:25 PM CDT Lab [address] [address] Stage 3b chronic kidney disease (HCC) 12/09/2024 1:05 PM CDT Lab [address] [address] Stage 3b chronic kidney disease (HCC) from Last 3 Months Surgical History Surgery Date Site/Laterality Comments CHOLECYSTECTOMY APPENDECTOMY MURPHY FUNDOPLICATION HYSTERECTOMY N/A OTHER SURGICAL HISTORY 03/15/2022 Right eyelid lift ESOPHAGEAL DILATION IR LUMBAR PUNCTURE, THERAPEUTIC INCL FLUORO GUIDANCE 08/19/2024 N/A REDUCTION MAMMAPLASTY ROTATOR CUFF REPAIR Bilateral REPLACEMENT TOTAL KNEE Left ANKLE SURGERY Right ELBOW SURGERY Right OTHER SURGICAL HISTORY 11/17/2023 Endoscopic decompression and avulsion of bilateral supraorbital, supratrochlear, zygomaticotemporal, and auricular temporal nerves; endoscopic brow lift, ligation of bilateral supraorbital and superficial temporal vessels (Dr Samson) Medical History Medical History Date Comments Kidney stones Chronic diarrhea Hypothyroidism Depression Migraine CKD (chronic kidney disease) Delayed emergence from general anesthesia SAGE (obstructive sleep apnea) IBS (irritable bowel syndrome) Osteoarthritis History of Askew's palsy 2003 Family History Medical History Relation Name Comments solitary kidney Brother Heart disease Father Stomach cancer Maternal Grandmother Cancer Sister Relation Name Status Comments Brother Father Maternal Grandmother Sister Social History Tobacco Use Types Packs/Day Years Used Date Smoking Tobacco: Never Smokeless Tobacco: Never Tobacco Cessation:Counseling Given: Not Answered Alcohol Use Standard Drinks/Week Comments Never 0 (1 standard drink = 0.6 oz pur e alcohol) PHQ-2 Answer Date Recorded PHQ-2 Total Score (If total score is 3 or more points, staff should administer the PHQ-9) 0 01/09/2025 Social Connection and Isolation Panel Answer Date Recorded In a typical week, how many times do you talk on the phone with family, friends, or neighbors? More than three times a week 01/10/2025 How often do you get togethe r with friends or relatives? More than three times a week 01/10/2025 How often do you attend chur or restorationist services? More than 4 times per year 01/10/2025 Do you belong to any clubs o r organizations such as taoist groups, unions, fraternal or athletic groups, or school groups? No 01/10/2025 How often do you attend meet ings of the clubs or organizations you belong to? Never 01/10/2025 Are you , , di vorced, , never , or living with a partner? 01/10/2025 AUDIT-C Answer Date Recorded Q1: How often do you have a drink containing alcohol? Never 01/09/2025 Q2: How many drinks containi ng alcohol do you have on a typical day when you are drinking? Patient does not drink Q3: How often do you have si x or more drinks on one occasion? Never 01/09/2025 Overall Financial Resource Strain (CARDIA) Answe r Date Recorded How hard is it for you to pa y for the very basics like food, housing, medical care, and heating? Not hard at all 01/10/2025 Hunger Vital Sign Answer Date Recorded Within the past 12 months, y ou worried that your food would run out before you got the money to buy more. Never true 01/11/20 25 Within the past 12 months, t he food you bought just didn't last and you didn't have money to get more. Never true 01/10/2025 PRAPARE - Transportation Answer Date Re corded In the past 12 months, has l ack of transportation kept you from medical appointments or from getting medications? No 09/2024 In the past 12 months, has l ack of transportation kept you from meetings, work, or from getting things needed for daily living? No 01/10/2025 Housing Stability Vital Sign Answer Livan e Recorded In the last 12 months, was t here a time when you were not able to pay the mortgage or rent on time? No 01/10/2025 In the past 12 months, how m any times have you moved where you were living? 0 01/10/2025 At any time in the past 12 m [facility], were you homeless or living in a fdc (including now)? No 01/10/2025 [facility] Utilities Answer Date Recorded In the past 12 months has th e electric, gas, oil, or water company threatened to shut off services in your home? No 01/10/2025 Personal Safety Answer Date Recorded Have you ever been in or are you currently in a harmful physical or emotional relationship or is someone making you feel afraid or unsafe? Denies 01/09/2025 Comments No Sex and Gender Information Value Date Recorded Sex Assigned at Not on file Legal Sex Female 2:18 AM CORPORATE RECYCLING MANAGER Gender Identity Not on file Sexual Orientation Not on file Last Filed Vital Signs Vital Sign Reading Time Taken Comments Blood Pressure 150/90 01/10/2025 4:10 PM CORPORATE RECYCLING MANAGER Pulse 88 01/10/2025 4:10 PM CORPORATE RECYCLING MANAGER Temperature 36.8 C (98.2 F) 01/10/2025 4:10 PM CORPORATE RECYCLING MANAGER Respiratory Rate 18 01/10/2025 4:10 PM CORPORATE RECYCLING MANAGER Oxygen Saturation 98% 01/10/2025 4:10 PM CORPORATE RECYCLING MANAGER Inhaled Oxygen Concentration - - Weight 66.5 kg (146 lb 9.7 oz) 01/09/2025 6:07 P M CORPORATE RECYCLING MANAGER Height 152.4 cm (5') 01/09/2025 6:07 PM CORPORATE RECYCLING MANAGER Body Mass Index 28.63 01/09/2025 6:07 PM CORPORATE RECYCLING MANAGER Plan of Treatment Health Maintenance Due Date Last Done Comments Breast Cancer Screening-Mammogram 1955 Colon Cancer Screening-Colonoscopy 1955 Hepatitis C Screening 1955 DTaP/Tdap/Td Vaccine (1 - Tdap) 01/16/1964 Hepatitis B Screening 1971 Well Visit 65+ 2018 Pneumococcal vaccine 65+ (2 of 2 - PCV) 02/10/2020 02/09/2019 Osteoporosis Screening-Bone Density Scan 06/01/2023 05/31/2021, 05/31/2021 Influenza Vaccine (#1) 2024 , 01/06/2022, 12/13/2018, Additional history exists Depression Screening 12/11/2025 12/11/2024 Fall Risk Assessment 01/10/2026 01/10/2025 Zoster Vaccine Completed 05/04/2022, 01/07/2022 Medical Devices Implanted Type Area Unindentured Apprentice Device Identifier Shelf Expiration Date Model / Serial / Lot [employer] Shunt Ventricular Snap Regular Strata Ii 120cm [id number] - [id number] Implanted:Qty: 1 on 01/09/2025 by Kimberly Ziegler MD at [facility] Right: Occipital Lobe [employer] 02/27/2026 [id number] / / [id number] Procedures Procedure Name Priority Date/Time Associated Diagnosis Comments XR VENTRICULOPERITONEAL SHUNT SERIES (ADULT) IP Routine 01/09/2025 6:57 PM CORPORATE RECYCLING MANAGER CT HEAD WO CONTRAST IP Routine 01/09/2025 6:32 PM CORPORATE RECYCLING MANAGER ND AN PROCEDURE PLACEHOLDER Routine 01/09/2025 1:48 PM CORPORATE RECYCLING MANAGER ND AN ELECTIVE ENDOTRACHEAL AIRWAY Routine 01/09/2025 1:48 PM CORPORATE RECYCLING MANAGER LAPAROSCOPY OPERATIVE 01/09/2025 1:19 PM CORPORATE RECYCLING MANAGER NPH (normal pressure hydrocephalus) INSERTION / REVISION SHUNT - VENTRICULOPERITONEAL 01/09/2025 1:19 PM CORPORATE RECYCLING MANAGER NPH (normal pressure hydrocephalus) TYPE AND SCREEN STAT 01/09/2025 12:50 PM CORPORATE RECYCLING MANAGER B CHECK SAMPLE STAT 01/09/2025 12:21 PM CORPORATE RECYCLING MANAGER CT HEAD STEALTH WO CONTRAST Schedule Routine, Read Routine (OP Routine) 01/03/2025 4:07 PM CDT (Idiopathic) normal pressure hydrocephalus (HCC) URINE CULTURE Routine 12/25/2024 2:43 PM CDT REFLEXIVE URINE CULTURE Routine 12/26/19 2:43 PM CDT URINALYSIS AND REFLEX TO MICROSCOPIC AND CULTURE Routine 12/25/2024 2:43 PM CDT ECG 12-LEAD Routine 12/24/2024 12:21 PM CDT Preop testing PROTIME-INR Routine 12/24/2024 12:04 PM CDT Preop testing APTT Routine 12/24/2024 12:04 PM CDT Preop testing PROTEIN / CREATININE RATIO, URINE, RANDOM Routine 12/11/2024 1:28 PM CDT Stage 3b chronic kidney disease (HCC) EGFR Routine 12/09/2024 1:11 PM CDT Stage 3b chronic kidney disease (HCC) DIFFERENTIAL AUTO Routine 12/09/2024 1:11 PM CDT Stage 3b chronic kidney disease (HCC) PTH Routine 12/09/2024 1:11 PM CDT Stage 3b chronic kidney disease (HCC) CBC WITH AUTO DIFFERENTIAL Routine 12/09/2024 1:11 PM CDT Stage 3b chronic kidney disease (HCC) VITAMIN D 25 HYDROXY Routine 12/09/2024 1:11 PM CDT Stage 3b chronic kidney disease (HCC) RENAL FUNCTION PANEL Routine 12/09/2024 1:11 PM CDT Stage 3b chronic kidney disease (HCC) from Last 3 Months Results * XR Ventriculoperitoneal Shunt Series (01/09/2025 6:57 PM CORPORATE RECYCLING MANAGER) Anatomical Region Laterality Modality Head and Neck N/A Radio Fluoroscop y 01/10/2025 10:0 5 AM CORPORATE RECYCLING MANAGER Impressions 01/10/2025 10:05 AM CORPORATE RECYCLING MANAGER AP and lateral radiographs of the head and neck, chest and abdomen were obtained. A total of 8 radiographs were performed. A ventriculoperitoneal shunt enters the calvarium via a right parietal approach. The catheter tubing courses along the right head, neck and chest and terminates along the left side of the lower abdomen. The visualized portions of the catheter are intact. There is multilevel cervical spondylosis; mild anterolisthesis is seen at C4-5. There is multilevel thoracolumbar spondylosis. The cardiac silhouette is normal in size. There is mild bibasilar atelectasis. The bowel gas pattern is nonspecific. Two small metallic densities project over the right lower quadrant/right iliac bone. Findings were discussed with nurse caring for patient. No foreign bodies were reported on or in patient's gown. Patient reportedly also denies swallowing foreign bodies. Correlate clinically. Electronically signed by: Hermann Majano M.D. Narrative 01/10/2025 10:05 AM CORPORATE RECYCLING MANAGER EXAMINATION: XR VENTRICULOPERITONEAL SHUNT SERIES (ADULT) HISTORY: Status post ANTIQUE FURNITURE RESTORER shunt placement. COMPARISON: CT head dated 01/09/2025. Procedure Note Hermann Majano MD - 01/10/2025 EXAMINATION: XR VENTRICULOPERITONEAL SHUNT SERIES (ADULT) HISTORY: Status post ANTIQUE FURNITURE RESTORER shunt placement. COMPARISON: CT head dated 01/09/2025. IMPRESSION: AP and lateral radiographs of the head and neck, chest and abdomen were obtained. A total of 8 radiographs were performed. A ventriculoperitoneal shunt enters the calvarium via a right parietal approach. The catheter tubing courses along the right head, neck and chest and terminates along the left side of the lower abdomen. The visualized portions of the catheter are intact. There is multilevel cervical spondylosis; mild anterolisthesis is seen at C4-5. There is multilevel thoracolumbar spondylosis. The cardiac silhouette is normal in size. There is mild bibasilar atelectasis. The bowel gas pattern is nonspecific. Two small metallic densities project over the right lower quadrant/right iliac bone. Findings were discussed with nurse caring for patient. No foreign bodies were reported on or in patient's gown. Patient reportedly also denies swallowing foreign bodies. Correlate clinically. Electronically signed by: Hermann Majano M.D. us Kimberly Ziegler MD IMG XR PROCEDURES Final Result * CT Head WO Contrast (01/09/2025 6:32 PM CORPORATE RECYCLING MANAGER) Anatomical Region Laterality Modality Head and Neck N/A Computed Tomogra phy 01/10/2025 7:18 AM CORPORATE RECYCLING MANAGER Impressions 01/10/2025 8:58 AM CORPORATE RECYCLING MANAGER Interval right parietal approach ventricular catheter placement with expected small volume pneumocephalus. No ventriculomegaly or significant change in ventricular caliber. Dictated by: Sav Lindquist MD The radiology attending physician has personally reviewed this study, and had reviewed and/or edited this written report and agrees with it. Electronically signed by: Berny Dean MD Narrative 01/10/2025 8:58 AM CORPORATE RECYCLING MANAGER EXAMINATION: CT head without contrast HISTORY: Shunt placement TECHNIQUE: CT of the head was performed with images acquired from skull base to vertex without intravenous contrast. COMPARISON: 01/03/2025 FINDINGS: Interval placement of a right parietal approach ventricular catheter with tip terminating at midline within the right lateral ventricle. There is expected small volume pneumocephalus and a tiny focus of intraventricular gas. Subcutaneous emphysema is also noted along the scalp and right neck soft tissues along the course of the catheter tubing. No organized scalp collection. No significant interval change in ventricular caliber. There is no acute intracranial hemorrhage. No mass effect or midline shift is present. The white-white matter differentiation is normal. Lens replacements. The visualized portions of the mastoids are normal. The visualized portions of the paranasal sinuses are normal. No acute fractures are identified. Procedure Note Berny Dean MD PhD - 01/10/2025 EXAMINATION: CT head without contrast HISTORY: Shunt placement TECHNIQUE: CT of the head was performed with images acquired from skull base to vertex without intravenous contrast. COMPARISON: 01/03/2025 FINDINGS: Interval placement of a right parietal approach ventricular catheter with tip terminating at midline within the right lateral ventricle. There is expected small volume pneumocephalus and a tiny focus of intraventricular gas. Subcutaneous emphysema is also noted along the scalp and right neck soft tissues along the course of the catheter tubing. No organized scalp collection. No significant interval change in ventricular caliber. There is no acute intracranial hemorrhage. No mass effect or midline shift is present. The white-white matter differentiation is normal. Lens replacements. The visualized portions of the mastoids are normal. The visualized portions of the paranasal sinuses are normal. No acute fractures are identified. IMPRESSION: Interval right parietal approach ventricular catheter placement with expected small volume pneumocephalus. No ventriculomegaly or significant change in ventricular caliber. Dictated by: Sav Lindquist MD The radiology attending physician has personally reviewed this study, and had reviewed and/or edited this written report and agrees with it. Electronically signed by: Berny Dean MD Kimberly Ziegler MD IM CT PROCEDURES Final Result * ND AN ELECTIVE ENDOTRACHEAL AIRWAY, ND AN PROCEDURE PLACEHOLDER (01/09/2025 1:48 PM CORPORATE RECYCLING MANAGER) Narrative Rosemarie Soto CRNA - 01/09/2025 1:48 PM CORPORATE RECYCLING MANAGER Rosemarie Soto CRNA 01/09/2025 2:29 PM Airway Patient location: OR Urgency: elective Date/time: 01/09/2025 1:30 PM Indications for airway management: anesthesia Difficult airway: no Staff: Placed by: KAREEM: Rosemarie Soto CRNA Other staff: Neyda Hayes Emergent airway documentation: Risks and benefits discussed: yes Consent obtained: yes Consent given by: patient Airway prep: Preoxygenated: yes Patient position: sniffing Mask difficulty assessment: 1 - vent by mask Sedation level during airway: GA Final airway details: Final airway type: endotracheal airway Tube type: ETT ETT size: 7.0 mm Cuffed: yes Technique used for successful ETT placement: direct laryngoscopy Devices/Methods used in placement: stylet Insertion site: oral Blade type: Krystal Blade size: 3 Cormack-Lehane (direct): grade IIa - partial view of glottis Cuff volume: 7 mL Cuff inflated with: air ETT to teeth: 21 cm Placement verified by: auscultation and CO2 detection Airway secured with: silk tape Number of attempts: 1 Additional comments: ETT atraumatically inserted by Neyda [place] with direct supervision by KAREEM us Nestor Abad MD ANESTHESIA ORDERABLES Edite d Result - Final * Type and screen (01/09/2025 12:50 PM CORPORATE RECYCLING MANAGER) Sandra, indirect Negative ABO Rh O Positive [facility] Blood 01/09/2025 12:5 0 PM CORPORATE RECYCLING MANAGER 01/09/2025 12:58 PM CORPORATE RECYCLING MANAGER Narrative [facility] - 01/09/2025 1:35 PM CORPORATE RECYCLING MANAGER Has the patient had Daratumumab or Isatuximab in the past 6 months?->Unknown us Kimberly Ziegler MD LAB BLOOD BANK TEST ELIE [place] Final Result [facility] [address] [place] [address] * Check Sample (01/09/2025 12:21 PM CORPORATE RECYCLING MANAGER) ABO Rh O Positive [facility] OTHER 01/09/2025 12:2 1 PM CORPORATE RECYCLING MANAGER 01/09/2025 12:27 PM CORPORATE RECYCLING MANAGER us Kimberly Ziegler MD LAB BLOOD ORDERABLES Fin al Result [facility] [address] [place] [address] MBC * CT Head Stealth WO Contrast (01/03/2025 4:07 PM CDT) Anatomical Region Laterality Modality Head and Neck N/A Computed Tomogra phy 01/03/2025 4:50 PM CDT Impressions 01/03/2025 4:50 PM CDT No acute intracranial abnormality No definite evidence of ventriculomegaly regarding the patient's age. Electronically signed by: Spike Tarango MD, PHD Narrative 01/03/2025 4:50 PM CDT EXAMINATION: CT head without contrast HISTORY: NPH TECHNIQUE: CT of the head was performed with images acquired from skull base to vertex without intravenous contrast. COMPARISON: None Available. FINDINGS: Hypoattenuation along the frontal horn of the lateral ventricle within the white matter, nonspecific, likely on the basis of small vessel disease. There is no acute intracranial hemorrhage. Ventricles are of normal size and morphology. No mass effect or midline shift is present. The white-white matter differentiation is normal. The visualized portions of the orbits are normal. The visualized portions of the mastoids are normal. The visualized portions of the paranasal sinuses are normal. No fractures are identified. Procedure Note Spike Tarango MD PhD - 01/03/2025 EXAMINATION: CT head without contrast HISTORY: NPH TECHNIQUE: CT of the head was performed with images acquired from skull base to vertex without intravenous contrast. COMPARISON: None Available. FINDINGS: Hypoattenuation along the frontal horn of the lateral ventricle within the white matter, nonspecific, likely on the basis of small vessel disease. There is no acute intracranial hemorrhage. Ventricles are of normal size and morphology. No mass effect or midline shift is present. The white-white matter differentiation is normal. The visualized portions of the orbits are normal. The visualized portions of the mastoids are normal. The visualized portions of the paranasal sinuses are normal. No fractures are identified. IMPRESSION: No acute intracranial abnormality No definite evidence of ventriculomegaly regarding the patient's age. Electronically signed by: Spike Tarango MD, PHD Kimberly Ziegler MD IMG CT PROCEDURES Final Result * REFLEXIVE URINE CULTURE (12/25/2024 2:43 PM CDT) Urine culture [facility] Comment:CULTURE INDICATED - RESULTS TO FOLLOW 12/25/2024 2:43 PM CDT 12/25/2024 2:45 PM CDT Result [facility] Kimberly Ziegler MD LAB MICROBIOLOGY - [facility] ORDERABLES Final Result [facility] [address] [place] [phone] * (ABNORMAL) Urinalysis reflex to microscopic and culture (12/25/2024 2:43 PM CDT) Color, ur [facility]LLOW [facility] Appearance, ur CLOUDY(A) CLEAR [facility] Specific gravity 1.015 1.001 - 1.035 [facility]- [facility] pH, ur 7.5 5.0 - 8.0 [facility] [facility] Glucose, ur NEGATIVE NEGATIVE [facility] Bilirubin, ur NEGATIVE NEGATIVE [facility] Ketones, ur NEGATIVE NEGATIVE [facility] Blood, ur NEGATIVE NEGATIVE [facility] Protein, ur, quant NEGATIVE NEGATIVE [facility] [place] Nitrites, ur POSITIVE(A) NEGATIVE [facility] Leukocyte esterase, ur 3+(A) NEGATIVE [facility] WBC, ur > OR = 60(A) < OR = 5 /HPF [facility] RBC, ur NONE SEEN < OR = 2 /HPF [facility] [place] Epithelial cells, squamous, ur 0-5 < OR = 5 /HPF [facility] Bacteria, ur, quant MANY(A) NONE SEEN /HPF [facility] Hyaline cast NONE SEEN NONE SEEN /LPF [facility] Note [facility] Comment: This urine was analyzed for the presence of WBC, RBC, bacteria, casts, and other formed elements. Only those elements seen were reported. 12/25/2024 2:43 PM CDT 12/25/2024 2:45 PM CDT Kimberly Ziegler MD LAB MICROBIOLOGY - [facility] AL ORDERABLES Final Result [facility] [address] [place] [address] * (ABNORMAL) Urine culture (12/25/2024 2:43 PM CDT) Urine culture (A) [facility] Comment: CULTURE, URINE, ROUTINE Micro Number: [id number] Test Status: Final Specimen Source: Urine Specimen Quality: Adequate Result: Greater than 100,000 CFU/mL of Escherichia coli E.coli INT KARIME AMOX/CLAVULANATE S <=2 AMP/SULBACTAM S <=2 CEFAZOLIN NR <=1 2 CEFEPIME S <=0.12 CEFTAZIDIME S <=0.5 CEFTRIAXONE S <=0.25 CIPROFLOXACIN S <=0.06 GENTAMICIN S <=1 IMIPENEM S <=0.25 LEVOFLOXACIN S <=0.12 MEROPENEM S <=0.25 NITROFURANTOIN S <=16 PIP/TAZOBACTAM S <=4 TRIMETHOPRIM/SULFA S <=20 S = Susceptible I = Intermediate R = Resistant NS = Not susceptible SDD = Susceptible Dose Dependent * = Not Tested NR = Not Reported NN = See Therapy Comments THERAPY COMMENTS Note 1: For infections other than uncomplicated UTI caused by E. coli, K. pneumoniae or P. mirabilis: Cefazolin is resistant if KARIME > or = 8 mcg/mL. (Distinguishing susceptible versus intermediate for isolates with KARIME < or = 4 mcg/mL requires additional testing.) Note 2: For uncomplicated UTI caused by E. coli, K. pneumoniae or P. mirabilis: Cefazolin is susceptible if KARIME <32 mcg/mL and predicts susceptible to the oral agents cefaclor, cefdinir, cefpodoxime, cefprozil, cefuroxime, cephalexin and loracarbef. 12/25/2024 2:43 PM CDT 12/25/2024 2:45 PM CDT Kimberly Ziegler MD LAB MICROBIOLOGY - GENER AL ORDERABLES Final Result Performing Organization Address [facility] de Phone Number [facility] [address] [place] [address] * ECG 12 lead (12/24/2024 12:21 PM CDT) 12/24/2024 12:2 1 PM CDT Narrative [facility] - 12/24/2024 9:00 PM CDT Vent Rate: 69 bpm RR Interval: 860 msec ND Interval: 188 msec QRS Duration: 128 msec QT Interval: 425 msec QTC Interval: 445 msec P-R-T [place]: 64 - -67 - 37 degrees IMPRESSION: Normal sinus rhythm RIGHT BUNDLE BRANCH BLOCK POOR R WAVE PROGRESSION ABNORMAL RHYTHM ECG Electronically Signed By: Vitaly Combs MD Cami Summers NP ECG ORDERABLES Kathy l Result Performing Organization Address [facility] Phone Number [facility] [employer] [facility] * aPTT (12/24/2024 12:04 PM CDT) aPTT 29 26 - 38 sec Comment: Interpretive Data Heparin therapeutic range: 66.0 - 100.0 seconds. Range based on correlation with therapeutic heparin activity range of 0.3 - 0.7 Units/mL. Current interpretive data was last revised on 2022. Blood 12/24/2024 12:0 4 PM CDT 12/24/2024 12:04 PM CDT Kimberly Ziegler MD LAB BLOOD ORDERABLES Fin al Result Performing Organization Address [facility] Co de Phone Number [facility] [address] [facility] [place] [address] * Protime-INR (12/24/2024 12:04 PM CDT) Pathologist [facility] PT 11.0 10.2 - 13.5 sec INR 0.97 0.90 - 1.20 [facility] Comment: Interpretive data Oral anticoagulant therapeutic ranges: Venous thromboembolism prophylaxis or treatment: 2.0-3.0 CARDIOLOGY Standard range: 2.0-3.0 High-intensity range: 2.5-3.5 Refer to indication-specific guidelines for appropriate target ranges for prosthetic heart valve replacement. Current interpretive data was last revised on 2019. Blood 12/24/2024 12:0 4 PM CDT 12/24/2024 12:04 PM CDT Kimebrly Ziegler MD LAB BLOOD ORDERABLES Fin al Result Performing Organization Address [facility] de Phone Number [facility] [address] [facility] [place] [address] * Protein / creatinine ratio, urine, random (12/11/2024 1:28 PM CDT) Pathologist [facility] Protein, ur, quant 15.0 mg/dL Comment: Interpretive Data No reference range established. Current interpretive data was last revised 2018. Creatinine Ur 165.0 mg/dL [facility] Comment: Interpretive Data No reference range established. Current interpretive data was last revised 2018. Protein/creatinin e ratio 90.9 0.0 - 180.0 mg/g CR [facility] Urine 12/11/2024 1:28 PM CDT 12/11/2024 6:13 PM CDT us Benedict Decker MD LAB URINE ORDERABLES Final Result Performing Organization Address [facility] Co de Phone Number [facility] Department [place] [address] * (ABNORMAL) eGFR (12/09/2024 1:11 PM CDT) [facility] eGFR 35(L) >=60 mL/min/1. 73 m2 Comment: Interpretive Data [...] Current interpretive data was last reviewed 2021. Blood 12/09/2024 1:11 PM CDT 12/09/2024 6:08 PM CDT Benedict Decker MD LAB BLOOD ORDERABLES Final Result [facility] [address] [facility] Department [place] [address] * Differential, auto (12/09/2024 1:11 PM CDT) [facility] Neutrophil abs 5.97 1.50 - 6.50 K/cumm Imm gran abs 0.07 0.00 - 0.10 K/cumm [facility] Lymphocyte abs 3.18 0.80 - 3.30 K/cumm [facility] Monocyte abs 0.59 0.20 - 0.80 K/cumm [facility] Eosinophil abs 0.19 0.00 - 0.50 K/cumm [facility] Basophil abs 0.04 0.00 - 0.10 K/cumm [facility] Neutrophil pct 59.4 % [facility] Comment: Interpretive Data Percent cell count reference ranges are not reported, since discordance with absolute values may lead to misinterpretation of CBC data. Current Interpretive Data was last revised on 2017. Imm gran pct 0.7 % [facility] Comment: Interpretive Data Percent cell count reference ranges are not reported, since discordance with absolute values may lead to misinterpretation of CBC data. Current Interpretive Data was last revised on 2017. Lymphocyte pct 31.7 % [facility] Comment: Interpretive Data Percent cell count reference ranges are not reported, since discordance with absolute values may lead to misinterpretation of CBC data. Current Interpretive Data was last revised on 2017. Monocyte pct 5.9 % [facility] Comment: Interpretive Data Percent cell count reference ranges are not reported, since discordance with absolute values may lead to misinterpretation of CBC data. Current Interpretive Data was last revised on 2017. Eosinophil pct 1.9 % [facility] Comment: Interpretive Data Percent cell count reference ranges are not reported, since discordance with absolute values may lead to misinterpretation of CBC data. Current Interpretive Data was last revised on 2017. Basophil pct 0.4 % [facility] Comment: Interpretive Data Percent cell count reference ranges are not reported, since discordance with absolute values may lead to misinterpretation of CBC data. Current Interpretive Data was last revised on 2017. Blood 12/09/2024 1:11 PM CDT 12/09/2024 6:08 PM CDT Benedict Decker MD LAB BLOOD ORDERABLES Final Result [facility] [address] [facility] Department of Laboratories [place], [place] [id number] * (ABNORMAL) CBC with auto differential (12/09/2024 1:11 PM CDT) WBC 10.04(H) 3.80 - 9.90 K/cumm Hgb 13.0 11.9 - 15.5 g/dL [facility] Hct 41.8 35.6 - 45.5 % [facility] Plt 266 150 - 400 K/cumm [facility] MPV 9.0(L) 9.1 - 12.3 fL [facility] RBC 4.35 3.90 - 5.20 M/cumm [facility] MCV 96.1 81.3 - 96.4 fL [facility] MCH 29.9 27.1 - 33.3 pg [facility] MCHC 31.1(L) 32.3 - 35.7 g/dL [facility] RDW CV 12.4 11.1 - 14.9 % [facility] RDW SD 44.0 35.7 - 48.1 fL [facility] NRBC abs 0.00 0.00 - 0.01 K/cumm [facility] Blood 12/09/2024 1:11 PM CDT 12/09/2024 6:08 PM CDT us Benedict Decker MD LAB BLOOD ORDERABLES Final Result Performing Organization Address [facility] Co de Phone Number [address] [place] [address] * Vitamin D 25 hydroxy (12/09/2024 1:11 PM CDT) Vitamin D 25-OH 60.0 30.0 - 80.0 ng/mL Blood 12/09/2024 1:11 PM CDT 12/09/2024 6:08 PM CDT Benedict Decker MD LAB BLOOD ORDERABLES Final Result Performing Organization Address City/[facility]/ZIP Co de Phone Number [address] [place] [address] * PTH (12/09/2024 1:11 PM CDT) PTH 28 15 - 65 pg/mL Blood 12/09/2024 1:11 PM CDT 12/09/2024 6:03 PM CDT us Benedict Decker MD LAB BLOOD ORDERABLES Final Result Performing Organization Address City/[facility]/ZIP Co de Phone Number [place] [address] [facility] Department [place] [address] * (ABNORMAL) Renal function panel (12/09/2024 1:11 PM CDT) Sodium 141 135 - 145 mmol/L Potassium, pl 4.1 3.3 - 4.9 mmol/L [facility] Chloride 103 97 - 110 mmol/L [facility] CO2 30 22 - 32 mmol/L [facility] Anion gap 8 2 - 15 mmol/L [facility] BUN 19 6 - 25 mg/dL [facility] Creatinine 1.56(H) 0.60 - 1.10 mg/dL [facility] Glucose 84 70 - 199 mg/dL [facility] Comment: Interpretive Data Fasting glucose >/= 126 [...] Current interpretive data was last revised 2022. Calcium 10.0 8.5 - 10.3 mg/dL [facility] Phosphorus, pl 2.9 2.3 - 4.5 mg/dL [facility] Albumin 4.2 3.5 - 5.0 g/dL [facility] Blood 12/09/2024 1:11 PM CDT 12/09/2024 6:08 PM CDT Benedict Decker MD LAB BLOOD ORDERABLES Final Result [facility] [address] [facility] Department [place] [address] from Last 3 Months Insurance MEDICARE FOR LIFE MEDICARE FOR LIFE MEDICARE FOR LIFE Advance Directives For more information, please contact: [phone] * Full Code (Latest Code Status on File) Date Activated Date Inactivated Comments 01/09/2025 5:52 PM 01/10/2025 11:28 PM * Full Code Date Activated Date Inactivated Comments 08/19/2024 10:57 AM 08/20/2024 4:47 AM * Full Code Date Activated Date Inactivated Comments 09/08/2022 9:23 AM 09/08/2022 3:46 PM * Full Code Date Activated Date Inactivated Comments 03/30/2022 7:13 AM 03/30/2022 1:38 PM Care Teams [employer] Relationship Specialty Start Date End Date Kellie Babb, [employer] [address] [place] [address] PCP - General Family Medicine 12/27/24
--- OUTSIDE RECORDS SUMMARY | 2025-02-24 17:09 | XMS_ITS | Data Portability ---
Author Organization [facility] (In patient) Address [address] [place] [address] Care Team Providers Care Leave Manager Name Role Phone LUIS SELLERS Primary Care Provider [phone] MALAIKA STONE Referring Provider LUIS SELLERS Primary Care Provider Assessment Encounter [...] Assessment: Chronic lateral epicondylitis right elbow Plan: Millry decision was made for lateral epicondylar injection. [...] For Internal Use Only, Do Not Delete/merge, [id number] 17:44:54 XR, knee, 3 view 021 In-House Test, For Internal Use Only, Do Not Delete/merge, [id number] 18:27:32 Medication Orders Medrol (Blayne) 4 mg tablets in a dose pack 022 [facility] [id number], [address], [place], [address], 15:37:24 Patient TargetsNo targets recorded. Patient Instructions Encounter Date Encounter Id Patient Instructions Last Modified By Organization Details Last Modified Time 09/17/2020 [id number] This encounter was documented with the use of voice recognition software and may contain errors. [email or web address] Not available 09/17/2020 14:33:31 02/22/2021 [id number] This encounter was documented with the use of voice recognition software and may contain errors. [email or web address] Not available 02/22/2021 16:35:27 04/14/2021 [id number] This encounter was documented with the use of voice recognition software and may contain errors. Not available 04/14/2021 11:32:19 05/10/2021 [id number] This encounter was documented with the use of voice recognition software and may contain errors. Not available 05/10/2021 15:58:36 08/11/2021 [id number] This encounter was documented with the use of voice recognition software and may contain errors. [email or web address] Not available 08/11/2021 14:43:05 Reason for Referral None Reported. Results Created Date Observation Date Name Description Value Unit Range Abnormal Flag Note LastModifiedBy Organization Detail LastModifiedTime 09/18/19 21 XR, knee, 3 view No observ ation record ed. In-House Test For Internal Use Only, Do Not Delete/merge, [id number] 09/18/2020 13:48:01 02/23/20 21 XR, elbow , 3 or more view No observ ation record ed. In-House Test For Internal Use Only, Do Not Delete/merge, [id number] 02/22/2021 17:53:12 Result Notes None recorded. Problems Name Problem SNOMED Code Status Onset Date Resolution Date Notes Provider Name and Address Organization Details Recorded Time Muscle weakness 62695085 Active Sydney Jeffrey null, [place] [facility] 16:33:18 Knee stiff 827424302 Active Sydney Jeffrey [place] [facility] 16:33:18 Knee pain Active Sydney Jeffrey [place], [place] [facility] 16:33:18 Joint stiffness 98533281 Active Sydney Jeffrey [place], [place] [facility] 16:33:18 Shoulder joint painful on movement 367507227 Active Sydney Jeffrey [place], [place] [facility] 16:33:18 Impingemen t syndrome of shoulder region 496809038 Active Sydney Jeffrey [place], [place] [facility] 16:33:18 Glenoid labrum tear 970510848 Active Sydney Jeffrey [place], [place] [facility] 16:33:18 Pain of shoulder region 04048531 Active Sydney Jeffrey null, - [facility] 16:33:18 Shoulder stiff 886570991 Active Sydney Jeffrey [place], [place] [facility] 16:33:18 Shoulder girdle weakness 789505807 Active Sydney Jeffrey null, - [facility] 16:33:18 Chronic pain syndrome 115725192 Active Sydney Jeffrey [place], [place] [facility] 16:33:18 Low back pain 148430669 Active Sydney Jeffrey null, [facility] 16:33:18 Lumbosacra l radiculiti s 70954701 Active Sydney Jeffrey null, - [facility] 16:33:18 Lumbar spondylosi s 898412886 Active Sydney Jeffrey null, [place] [facility] 16:33:18 Pain of wrist region 61484345 Active Sydney Jeffrey null, - [facility] 16:33:18 Foot pain 11514473 Active Sydney Jeffrey null, [place] [facility] 16:33:18 Sprain of ankle 57250039 Active David Fagan Jr, MD [address] [place], [address] , - [facility] 16:27:09 Sprain of wrist 63598661 Active Sydney Jeffrey null, - [facility] 16:33:18 Sprain of right wrist 9355223249714 9103 Active Sydney Jeffrey null, - [facility] 16:33:18 Small joint arthritis 979153706 Active Sydney Jeffrey null, - [facility] 16:33:18 Interverte bral disc disorder 51853105 Active Sydney Murphy null, [place] [facility] 16:33:18 Pain of right hand 6932716127717 09 Active 2018 Meet Ballesteros null, [place] [facility] 13:55:15 Ankle pain 458204034 Active 2021 Kasandra Bahena null, [place] [facility] 15:39:50 Problem Notes None recorded. Procedures Surgical History Date Name Laterality Status Provider Name and Address Organization Details Recorded Time 08/12/19 22 FS Injection - Elbow completed David Fagan Jr, MD [address] [place] [address], [address], [place] [facility] 08/11/2021 16:20:59 05/11/19 22 FS Injection - Elbow completed David Fagan Jr, MD [address] [place] [address], [address], [place] [facility] 05/10/2021 16:27:12 10/16/19 03473: Therapeutic Exercise (1:1) completed Yousuf Gonzalez [address], [address], [place] [facility] 10/16/2019 11:58:38 10/16/19 87104: Neuromuscular Re-Education completed Yousuf Gonzalez [address], [address], [place] [facility] 10/16/2019 11:58:38 10/16/19 G0283: E-Stim - Unattended completed Yousuf Gonzalez [address], [address], [place] [facility] 10/16/2019 11:58:39 10/14/19 96463: Therapeutic Exercise (1:1) completed Yousuf Gonzalez [address], [address], [place] [facility] 10/14/2019 11:55:43 10/14/19 68065: Neuromuscular Re-Education completed Yousuf Gonzalez PTA [address] [place] [address], [address], [place] [facility] 10/14/2019 13:56:24 10/14/19 20 G0283: E-Stim - Unattended completed Yousuf Gonzalez, KATHRIN Leon [facility] [place], [address], [place] [facility] 10/14/2019 11:55:43 10/10/19 39750: Therapeutic Exercise (1:1) completed Yousuf Gonzalez, KATHRIN [address] [place] [address] [place], [address], [place] [facility] 10/10/2019 10:41:42 10/10/19 30976: Neuromuscular Re-Education completed Yousuf Gonzalez, KATHRIN [address] [place] [address] [place], [address], [place] [facility] 10/10/2019 12:04:18 10/10/19 G0283: E-Stim - Unattended completed Yousuf Gonzalez, KATHRIN [address] [place] [address] [place], [address], [place] [facility] 10/10/2019 10:41:42 10/09/19 65593: Therapeutic Exercise (1:1) completed Yousuf Gonzalez PTA [address] [place] [address] [place], [address], [place] [facility] 10/09/2019 14:20:53 10/09/19 65111: Neuromuscular Re-Education completed Yousuf Gonzalez, KATHRIN [address] [place] [address] [place], [address], [place] [facility] 10/09/2019 11:29:36 10/09/19 20 G0283: E-Stim - Unattended completed Yousuf Gonzalez, KATHRIN [address] [place] [address] [place], [address], [place] [facility] 10/09/2019 11:29:36 10/04/19 48851: Therapeutic Exercise (1:1) completed THELMA NA [address] [place] [address] [place], [address], [place] [facility] 10/04/2019 12:55:15 10/04/19 45260: Neuromuscular Re-Education completed THELMA MONZON [address] [place] [address] [place], [address], [place] [facility] 10/04/2019 10:12:26 10/04/19 20 G0283: E-Stim - Unattended completed THELMA MONZON [address] [place] [address] [place], [address], [place] [facility] 10/04/2019 10:12:26 10/01/19 20 59759: Therapeutic Exercise (1:1) completed Yousuf Gonzalez, ONLINE EDUCATION MANAGER [address] [place] [address] [place], [address], [place] - [facility] 10/01/2019 15:58:55 10/01/19 20 86170: Neuromuscular Re-Education completed Yousuf Gonzalez, KATHRIN [address] [place] [address] [place], [address], [place] [facility] 10/01/2019 15:58:55 10/01/19 20 G0283: E-Stim - Unattended completed Yousuf Gonzalez, KATHRIN [address] [place] [address] [place], [address], [place] [facility] 10/01/2019 15:58:55 09/27/19 20 85910: Therapeutic Exercise (1:1) completed THELMA MONZON [address] [place] [address] [place], [address], [place] [facility] 09/27/2019 10:16:56 09/27/19 20 23436: Neuromuscular Re-Education completed THELMA MONZON [address] [place] [address] [place], [address], [place] [facility] 09/27/2019 10:16:24 09/27/19 20 G0283: E-Stim - Unattended completed THELMA MONZON [address] [place] [address] [place], [address], [place] [facility] 09/27/2019 10:16:52 09/23/19 20 PT Evaluation completed THELMA MONZON [address] [place] [address] [place], [address], [place] [facility] 09/23/2019 12:49:42 09/23/19 20 31526: Therapeutic Exercise (1:1) completed THELMA MONZON [address] [place] [address], [address], [place] [facility] 09/23/2019 12:49:37 09/23/19 20 97460: ADL/Self Care Management completed THELMA HARRISONEdmundo [address] [place] [address], [address], [facility] - [facility] 09/23/2019 12:49:40 09/13/19 20 Intramuscular Depo-Medrol completed Carrie Cedeno [place] - [facility] 09/13/2019 09:39:21 08/22/19 20 FS Injection - Knee completed David Fagan Jr, MD [address] [place] [address], [address], [facility] - [facility] 08/23/2019 13:10:51 06/26/19 20 FS Injection - Knee completed David Fagan Jr, MD [address] [place] [address], [address], [facility] - [facility] 06/26/2019 13:24:21 11/16/19 19 Foulkes off BASAL JNT INJ completed Peter Gilmore [place] - [facility] 11/15/2018 14:33:55 07/07/19 19 PT Evaluation completed Yarely Nicolas PT, MS, ATC, [address], [address], [place] - [facility] 07/06/2018 11:19:57 07/07/19 19 25212: Therapeutic Exercise (1:1) completed Yarely Nicolas PT, MS, ATC, [address], [address], [place] [facility] 07/06/2018 11:20:28 07/07/19 19 94159: Manual Therapy completed Yarely Nicolas PT, MS, ATC, [address], [address], [facility] - [facility] 07/06/2018 11:20:13 06/26/19 19 FS Injection - Shoulder completed Franco Porter PA-C [address] [place] [address], [address], [place] [facility] 06/25/2018 17:14:28 05/25/19 19 FS Injection - Knee completed David Fagan Jr, MD [address] [place] [address] [place], [address], [place] [facility] 05/28/2018 18:03:37 01/11/20 18 FS Injection - Knee completed David Fagan Jr, MD [address] [place] [address] [place], [address], [place] [facility] 01/11/2018 13:38:23 02/18/20 16 05993: Cryotherapy completed Brianne Raikelby, PT [address] [place] [address] [place], [address], [place] [facility] 02/18/2016 13:39:33 02/18/20 16 04552: Therapeutic Exercise (1:1) completed Brianne Raikelby, PT [address] [place] [address] [place], [address], [place] [facility] 02/18/2016 13:39:33 02/16/20 16 15926: Cryotherapy completed Brianne Raikelby, PT [address] [place] [address] [place], [address], [place] [facility] 02/16/2016 13:56:41 02/16/20 16 74222: Therapeutic Exercise (1:1) completed Brianne Raikelby, PT [address] [place], [place] [address] [place], [address], [place] [facility] 02/16/2016 13:56:41 02/11/20 16 17596: Cryotherapy completed Brianne Raikelby, PT [address] [place] [address] [place], [address], [place] [facility] 02/12/2016 10:24:08 02/11/20 16 59104: Therapeutic Exercise (1:1) completed Brianne Kaashley, PT [address] [place] [address] [place], [address], [place] [facility] 02/12/2016 10:24:08 02/09/20 16 54980: Cryotherapy completed Brianneclaudia Yao, PT [address] [place] [address] [place], [address], [place] [facility] 02/09/2016 13:51:24 02/09/20 16 63409: Therapeutic Exercise (1:1) completed Brianne Yao, PT [address] [place] [address] [place], [address], [place] [facility] 02/09/2016 13:55:08 02/04/20 16 PT Evaluation completed Brianne Yao, PT [address] [place] [address] [place], [address], [place] [facility] 02/05/2016 14:22:57 02/04/20 16 37936: Cryotherapy completed Brianne Yao, PT [address] [place] [address] [place], [address], [place] [facility] 02/05/2016 14:23:30 02/04/20 16 50764: Therapeutic Exercise (1:1) completed Brianne Yao, PT [address] [place] [address] [place], [address], [place] [facility] 02/05/2016 14:23:22 01/12/20 16 MOPSI: Physican Post-Op Orders for Procedures completed José Miguel Gregory MD [address] [place], [place] [address], [address], [place] [facility] 01/25/2016 15:27:13 01/12/20 16 MOPSI: Physician Review Of H&P completed FRIDA Joseph [address] [place] [address] [place], [address], [place] [facility] 01/12/2016 14:43:33 01/12/20 16 Kumiga MOPSI Lumbar Trans HIPOLITO 1 Level - (noe) completed FRIDA Joseph [address] [place], [place] [address], [address], [place] [facility] 01/12/2016 14:43:33 11/05/19 16 MOPSI: Physican Post-Op Orders for Procedures completed José Miguel Gregory MD [address] [place], [place] [address], [address], [place] [facility] 11/18/2015 12:04:55 11/05/19 16 MOPSI: Physician Review Of H&P completed FRIDA Joseph [address] [place] [address], [address], [place] [facility] 11/05/2015 10:31:52 11/05/19 16 Andrés [facility] Genicular Nerve Blocks - (noe) completed FRIDA Joseph [address] [place] [address], [address], [place] [facility] 11/05/2015 10:31:52 06/19/19 16 81720: Cryotherapy completed Pam Hicks DPT, CERT MDT [address] [place] [address], [address], [place] [facility] 06/19/2015 17:07:08 06/19/19 16 96530: Therapeutic Exercise (1:1) completed Pam Hicks DPT, CERT MDT [address] [place] [address], [address], [place] [facility] 06/19/2015 17:07:08 06/19/19 16 15217: Manual Therapy completed Pam Hicks DPT, CERT MDT [address] [place] [address], [address], [place] [facility] 06/19/2015 17:07:08 06/15/19 16 99217: Cryotherapy completed Pam Hicks DPT, CERT MDT [address] [place] [address], [address], [place] [facility] 06/16/2015 15:58:12 06/15/19 16 19558: Therapeutic Exercise (1:1) completed Pam Hicks DPT, CERT MDT [address] [place] [address], [address], [place] [facility] 06/16/2015 15:58:12 06/15/19 16 27653: Manual Therapy completed Pam Hicks DPT, CERT MDT [address] [place] [address], [address], [place] [facility] 06/16/2015 15:58:12 06/12/19 16 23529: Cryotherapy completed Pam Hicks DPT, CERT MDT [address] [place] [address], [address], [place] [facility] 06/12/2015 17:52:22 06/12/19 16 68672: Therapeutic Exercise (1:1) completed Pam Hicks DPT, CERT MDT [address] [place], [place] [address] [place], [address], [place] [facility] 06/12/2015 17:52:22 06/12/19 16 80700: Manual Therapy completed Pam Hicks DPT, CERT MDT [address] [place] [address] [place], [address], [place] [facility] 06/12/2015 17:52:22 06/08/19 16 15203: Cryotherapy completed Pam Hicks DPT, CERT MDT [address] [place] [address] [place], [address], [place] [facility] 06/08/2015 17:01:00 06/08/19 16 50184: Therapeutic Exercise (1:1) completed Pam Hicks DPT, CERT MDT [address] [place] [address] [place], [address], [place] [facility] 06/08/2015 17:01:00 06/08/19 16 42402: Manual Therapy completed Pam Hicks DPT, CERT MDT [address] [place] [address] [place], [address], [place] [facility] 06/08/2015 17:01:00 06/05/19 16 02619: Cryotherapy completed Pam Hicks DPT, CERT MDT [address] [place] [address] [place], [address], [place] [facility] 06/05/2015 16:54:35 06/05/19 16 43101: Therapeutic Exercise (1:1) completed Pam Hicks DPT, CERT MDT [address] [place] [address] [place], [address], [place] [facility] 06/05/2015 16:54:35 06/05/19 16 62328: Manual Therapy completed Pam Hicks DPT, CERT MDT [address] [place] [address] [place], [address], [place] [facility] 06/05/2015 16:54:35 06/03/19 16 91425: Cryotherapy completed Pam Hicks DPT, ENMANUEL SALAS [address] [place] [address], [address], [place] [facility] 06/03/2015 18:00:53 06/03/19 16 46392: Therapeutic Exercise (1:1) completed Pam Hicks DPT, ENMANUEL SALAS [address] [place] [address], [address], [place] [facility] 06/03/2015 18:00:53 06/03/19 16 37304: Manual Therapy completed Pam Hicks DPT, ENMANUEL SALAS [address] [place] [address], [address], [place] [facility] 06/03/2015 18:00:53 06/01/19 16 89108: Cryotherapy completed Pam Hicks DPT, CERT MDT [address] [place] [address], [address], [place] [facility] 06/01/2015 18:16:03 06/01/19 16 02094: Therapeutic Exercise (1:1) completed Pam Hicks DPT, ENMANUEL SALAS [address] [place] [address], [address], [place] [facility] 06/01/2015 18:16:03 06/01/19 16 93122: Manual Therapy completed Pam Hicks DPT, CERT MDT [address] [place] [address], [address], [place] [facility] 06/01/2015 18:16:03 05/29/19 16 01334: Cryotherapy completed Pam Hicks DPT, CERT MDT [address] [place] [address], [address], [place] [facility] 05/29/2015 17:11:53 05/29/19 16 94922: E-Stim - Unattended completed Pam Hicks DPT, CERT MDT [address] [place] [address], [address], [place] [facility] 05/29/2015 17:11:53 05/29/19 16 68124: Therapeutic Exercise (1:1) completed Pam Hicks DPT, CERT MDT [address] [place] [address] [place], [address], [place] [facility] 05/29/2015 17:11:53 05/29/19 16 30042: Manual Therapy completed Pam Hicks DPT, CERT MDT [address] [place], [place] [address], [address], [place] [facility] 05/29/2015 17:11:53 05/27/19 16 50055: Cryotherapy completed Pam Hicks DPT, CERT MDT [address] [place] [address] [place], [address], [place] [facility] 05/27/2015 17:54:24 05/27/19 16 64199: E-Stim - Unattended completed Pam Hicks DPT, CERT MDT [address] [place] [address], [address], [place] [facility] 05/27/2015 17:54:24 05/27/19 16 03698: Therapeutic Exercise (1:1) completed Pam Hicks DPT, CERT MDT [address] [place] [address], [address], [place] [facility] 05/27/2015 17:54:24 05/27/19 16 50457: Manual Therapy completed Pam Hicks DPT, CERT MDT [address] [place] [address], [address], [place] [facility] 05/27/2015 17:54:24 05/25/19 16 09698: Cryotherapy completed Pam Hicks DPT, CERT MDT [address] [place] [address], [address], [place] [facility] 05/25/2015 17:36:15 05/25/19 16 64760: Therapeutic Exercise (1:1) completed Pam Hicks DPT, CERT MDT [address] [place] [address], [address], [place] [facility] 05/25/2015 17:36:15 05/25/19 16 15920: Manual Therapy completed Pam Hicks DPT, CERT MDT [address] [place] [address], [address], [place] [facility] 05/25/2015 17:36:15 05/22/19 16 90709: Manual Therapy completed Melisa Jarrett PT CertNahid SALAS [address] [place], [place] [address] [place], [address], [place] [facility] 05/22/2015 17:22:41 05/11/19 16 86081: Cryotherapy completed Pam Hicks DPT, CERT MDT [address] [place], [place] [address] [place], [address], [place] [facility] 05/12/2015 12:52:54 05/11/19 16 62339: Therapeutic Exercise (1:1) completed Pam Hicks DPT, CERT MDT [address] [place], [place] [address], [address], [place] [facility] 05/12/2015 12:52:54 05/11/19 16 33612: Manual Therapy completed Pam Hicks DPT, CERT MDT [address] [place] [address] [place], [address], [place] [facility] 05/12/2015 12:52:54 05/08/19 16 27637: Cryotherapy completed Melisa Jarrett PT CertNahid SALAS [address] [place] [address] [place], [address], [place] [facility] 05/08/2015 17:40:08 05/08/19 16 57794: Manual Therapy completed Melisa Jarrett PT CertNahid SALAS [address] [place] [address] [place], [address], [place] [facility] 05/08/2015 17:40:08 05/06/19 16 63519: Cryotherapy completed Pam Hicks DPT, CERT MDT [address] [place] [address] [place], [address], [place] [facility] 05/06/2015 17:41:48 05/06/19 16 76352: Therapeutic Exercise (1:1) completed Pam Hicks DPT, CERT MDT [address] [place] [address] [place], [address], [place] [facility] 05/06/2015 17:41:48 05/06/19 16 57948: Manual Therapy completed Pam Hicks DPT, ENMANUEL SALAS [address] [place], [place] [address] [place], [address], [place] [facility] 05/06/2015 17:41:48 05/04/19 16 68729: Cryotherapy completed Pam Hicks DPT, CERT MDT [address] [place], [place] [address], [address], [place] [facility] 05/04/2015 15:35:59 05/04/19 16 11311: Therapeutic Exercise (1:1) completed Pam Hicks DPT, ENMANUEL SALAS [address] [place] [address], [address], [place] [facility] 05/04/2015 15:35:59 05/04/19 16 78576: Manual Therapy completed Pam Hicks DPT, CERT MDT [address] [place] [address] [place], [address], [place] [facility] 05/04/2015 15:35:59 05/01/19 16 20586: Cryotherapy completed Pam Hicks DPT, CERT MDT [address] [place] [address] [place], [address], [place] [facility] 05/01/2015 18:27:55 05/01/19 16 73299: Therapeutic Exercise (1:1) completed Pam Hicks DPT, CERT MDT [address] [place] [address] [place], [address], [place] [facility] 05/01/2015 18:27:55 05/01/19 16 38129: Manual Therapy completed Pam Hicks DPT, CERT MDT [address] [place] [address] [place], [address], [place] [facility] 05/01/2015 18:27:55 04/29/19 16 25837: Cryotherapy completed Pam Hicks DPT, CERT MDT [address] [place] [address] [place], [address], [place] [facility] 04/29/2015 17:45:42 04/29/19 16 79629: Therapeutic Exercise (1:1) completed Pam Hicks DPT, CERT MDT [address] [place], [place] [address], [address], [place] [facility] 04/29/2015 17:45:42 04/29/19 16 10134: Manual Therapy completed Pam Hikcs DPT, CERT MDT [address] [place] [address] [place], [address], [place] [facility] 04/29/2015 17:45:42 04/27/19 16 98574: Cryotherapy completed Pam Hicks DPT, CERT MDT [address] [place] [address] [place], [address], [place] [facility] 04/27/2015 17:56:20 04/27/19 16 89849: Therapeutic Exercise (1:1) completed Pam Hicks DPT, CERT MDT [address] [place], [place] [address], [address], [place] [facility] 04/27/2015 17:56:49 04/27/19 16 77671: Manual Therapy completed Pam Hicks DPT, CERT MDT [address] [place], [place] [address], [address], [place] [facility] 04/27/2015 17:56:20 04/24/19 16 88319: Cryotherapy completed Pam Hicks DPT, CERT MDT [address] [place], [place] [address], [address], [place] [facility] 04/24/2015 17:36:21 04/24/19 16 81966: Manual Therapy completed Pam Hicks DPT, CERT MDT [address] [place], [place] [address], [address], [place] [facility] 04/24/2015 17:36:21 04/22/19 16 93036: Cryotherapy completed Pam Hicks DPT, CERT MDT [address] [place] [address] [place], [address], [place] [facility] 04/23/2015 13:37:42 04/22/19 16 91554: Therapeutic Exercise (1:1) completed Pam Hicks DPT, CERT MDT [address] [place], [place] [address], [address], [place] [facility] 04/23/2015 13:37:42 04/22/19 16 35387: Manual Therapy completed Pam Hicks DPT, CERT MDT [address] [place] [address], [address], [place] [facility] 04/23/2015 13:37:42 04/20/19 16 44473: Cryotherapy completed Pam Hicks DPT, CERT MDT [address] [place], [place] [address], [address], [place] [facility] 04/20/2015 17:36:49 04/20/19 16 20950: Manual Therapy completed Pam Hicks DPT, CERT MDT [address] [place], [place] [address], [address], [place] [facility] 04/20/2015 17:36:49 04/15/19 16 06774: Cryotherapy completed Pam Hicks DPT, CERT MDT [address] [place] [address] [place], [address], [place] [facility] 04/15/2015 17:11:54 04/15/19 16 12365: Therapeutic Exercise (1:1) completed Pam Hicks DPT, CERT MDT [address] [place], [place] [address], [address], [place] [facility] 04/15/2015 17:11:54 04/15/19 16 02565: Manual Therapy completed [facility], [facility] [place] [address], [place] [facility] 04/15/2015 17:11:54 04/13/19 16 69403: Cryotherapy completed Pam Hicks DPT, CERT MDT [address] [place] [address] AY[place] Ramos, [address], [place] [facility] 04/14/2015 13:49:01 04/13/19 16 98543: Therapeutic Exercise (1:1) completed [facility], [facility] [place] [address], [place] [facility] 04/14/2015 13:49:04/13/19 16 22532: Manual Therapy completed Pam Hicks DPT, ENMANUEL SALAS [address] [place] [address] [place], [address], [place] [facility] 04/14/2015 13:49:01 04/10/19 16 50499: Cryotherapy completed Pam Hicks DPT, ENMANUEL SALAS [address] [place], [place] [address] [place], [address], [place] [facility] 04/10/2015 17:50:09 04/10/19 16 17370: Therapeutic Exercise (1:1) completed Pam Hicks DPT, ENMANUEL SALAS [address] [place], [place] [address], [address], [place] [facility] 04/10/2015 17:50:09 04/10/19 16 62832: Manual Therapy completed Pam Hicks DPT, ENMANUEL SALAS [address] [place] [address] [place], [address], [place] [facility] 04/10/2015 17:50:09 04/08/19 16 01186: Cryotherapy completed Pam Hicks DPT, ENMANUEL SALAS [address] [place] [address] [place], [address], [place] [facility] 04/08/2015 17:25:48 04/08/19 16 96357: Therapeutic Exercise (1:1) completed Pam Hicks DPT, CERT MDT [address] [place] [address] [place], [address], [place] [facility] 04/08/2015 17:25:48 04/08/19 16 05390: Manual Therapy completed Pam Hicks DPT, ENMANUEL SALAS [address] [place] [address] [place], [address], [place] [facility] 04/08/2015 17:25:48 04/06/19 16 41820: Cryotherapy completed Pam Hicks DPT, ENMANUEL SALAS [address] [place] [address] [place], [address], [place] [facility] 04/06/2015 18:02:33 04/06/19 16 38645: Therapeutic Exercise (1:1) completed Pam Hicks DPT, CERT MDT [address] [place], [address], [place] [facility] 04/06/2015 18:02:33 04/06/19 16 75561: Manual Therapy completed Pam Hicks DPT, CERT MDT [address] [place], [place] [address], [address], [place] [facility] 04/06/2015 18:02:33 04/03/19 16 14967: Cryotherapy completed Pam Hicks DPT, CERT MDT [address] [place] [address] [place], [address], [place] [facility] 04/06/2015 09:32:17 04/03/19 16 90916: Therapeutic Exercise (1:1) completed Pam Hicks DPT, CERT MDT [address] [place] [address], [address], [place] [facility] 04/06/2015 09:32:17 04/03/19 16 35300: Manual Therapy completed Pam Hicks DPT, CERT MDT [address] [place] [address], [address], [place] [facility] 04/06/2015 09:32:17 04/01/19 16 60785: Cryotherapy completed Pam Hicks DPT, CERT MDT [address] [place] [address], [address], [place] [facility] 04/01/2015 18:00:54 04/01/19 16 70129: Therapeutic Exercise (1:1) completed Pam Hicks DPT, CERT MDT [address] [place] [address], [address], [place] [facility] 04/01/2015 18:00:54 04/01/19 16 75329: Manual Therapy completed Pam Hicks DPT, CERT MDT [address] [place] [address], [address], [place] [facility] 04/01/2015 18:00:54 03/30/19 16 17985: Cryotherapy completed Melisa Jarrett PT, Cert. SALAS [address] [place] [address], [address], [place] [facility] 03/30/2015 16:55:58 03/30/19 16 11564: Therapeutic Exercise (1:1) completed Melisa Jarrett PT, Cert. JOSUE [address] [place] [address] [place], [address], [facility] 03/30/2015 16:55:58 03/30/19 16 36708: Manual Therapy completed Melisa Jarrett PT, Cert. JOSUE [address] [place] [address] [place], [address], [facility] 03/30/2015 16:55:58 03/27/19 16 67032: Cryotherapy completed Melisa Jarrett PT, Cert. JOSUE [address] [place] [address] [place], [address], [facility] 03/27/2015 16:43:13 03/27/19 16 15784: Therapeutic Exercise (1:1) completed Melias Jarrett PT, CertNahid SALAS [address] [place] [address] [place], [address], [facility] 03/27/2015 16:43:13 03/27/19 16 07041: Manual Therapy completed Melisa Jarrett PT CertNahid SALAS [address] [place] [address] [place], [address], [facility] 03/27/2015 16:43:13 03/25/19 16 99584: Cryotherapy completed Erin Matta PT, Cert. JOSUE [address] [place] [address] [place], [address], [facility] 03/25/2015 17:56:36 03/25/19 16 25108: Therapeutic Exercise (1:1) completed Erin Matta PT, Cert. JOSUE [address] [place] [address] [place], [address], [facility] 03/25/2015 17:56:36 03/25/19 16 81303: Manual Therapy completed Erin Matta PT, Cert. JOSUE [address] [place] [address] [place], [address], [facility] 03/25/2015 17:56:36 03/25/19 16 80024: ADL/Self Care Management completed Erin Matta, PT, Cert. T [address] [place] [address], [address], [place] [facility] 03/25/2015 17:56:36 03/23/19 16 69276: Therapeutic Exercise (1:1) completed Pam Hicks DPT, ENMANUEL SALAS [address] [place] [address], [address], [place] [facility] 03/23/2015 18:17:51 03/23/19 16 35610: Manual Therapy completed Pam Hicks DPT, ENMANUEL SALAS [address] [place] [address], [address], [place] [facility] 03/23/2015 18:17:51 03/20/19 16 PT Evaluation completed Pam Hicks DPT, ENMANUEL SALAS [address] [place] [address], [address], [place] [facility] 03/20/2015 15:54:44 03/20/19 16 81565: Therapeutic Exercise (1:1) completed Pam Hicks DPT, ENMANUEL SALAS [address] [place] [address], [address], [place] [facility] 03/20/2015 15:54:44 01/27/20 15 59094: E-Stim - Unattended completed Bree Andria, OTR/L, T [address] [place] [address], [address], [place] [facility] 01/26/2015 15:41:01 01/27/20 15 06175: Therapeutic Exercise (1:1) completed Bree Andria, OTR/L, T [address] [place] [address], [address], [place] [facility] 01/26/2015 14:47:43 01/23/20 15 82566: Cryotherapy completed Bree Andria, OTR/L, T [address] [place] [address], [address], [place] [facility] 01/22/2015 10:29:33 01/23/20 15 39282: E-Stim - Unattended completed Bree Andria, OTR/L, [facility] [address] [place] [address], [address], [place] [facility] 01/22/2015 10:29:33 01/23/20 15 52684: Therapeutic Exercise (1:1) completed Bree Andria, OTR/L, T [address] [place] [address], [address], [place] [facility] 01/22/2015 10:29:33 01/21/20 15 99045: Cryotherapy completed Bree Andria, OTR/L, T [address] [place] [address], [address], [place] [facility] 01/20/2015 10:25:16 01/21/20 15 25956: E-Stim - Unattended completed Bree Andria, OTR/L, [address], [address], [place] [facility] 01/20/2015 10:25:16 01/21/20 15 83536: Therapeutic Exercise (1:1) completed Bree Andria, OTR/L, [address], [address], [place] [facility] 01/20/2015 10:25:16 01/16/20 15 20001: Cryotherapy completed Bree Andria, OTR/L, [address], [address], [place] [facility] 2015 11:11:52 01/16/20 15 90050: E-Stim - Unattended completed Bree Andria, OTR/L, [address], [address], [place] [facility] 2015 11:11:52 01/16/20 15 21746: Therapeutic Exercise (1:1) completed Bree Andria, OTR/L, [address], [address], [place] [facility] 2015 11:11:52 01/14/20 15 60701: Cryotherapy completed Bree Andria, OTR/L, [address], [address], [place] [facility] 01/13/2015 14:24:37 01/14/20 15 03673: E-Stim - Unattended completed Bree Andria, OTR/L, [address], [address], [place] [facility] 01/13/2015 14:24:37 01/14/20 15 94324: Therapeutic Exercise (1:1) completed Bree Andria, OTR/L, [address], [address], [place] [facility] 01/13/2015 14:24:37 01/02/20 15 97515: Cryotherapy completed Bree Andria, OTR/L, [address], [address], [place] [facility] 01/01/2015 14:44:51 01/02/20 15 61290: E-Stim - Unattended completed Bree Andria, OTR/L, [address], [address], [place] [facility] 01/01/2015 14:44:51 01/02/20 15 OT Evaluation completed Bree Andria, OTR/L, [address], [address], [place] [facility] 01/01/2015 14:44:51 10/09/19 15 FS Injection - Shoulder completed David Fagan Jr, MD [address] [place] [address], [address], [place] [facility] 10/09/2014 11:00:57 04/18/19 15 03192: Therapeutic Exercise (1:1) completed MONICA Faustin [address] [place] [address], [address], [place] [facility] 04/18/2014 16:15:08 04/16/19 15 27657: Therapeutic Exercise (1:1) completed MONICA Faustin [address] [place] [address], [address], [place] [facility] 04/17/2014 08:21:50 04/16/19 15 73060: Manual Therapy [place], [address], [place] [facility] 04/17/2014 08:21:50 04/14/19 15 65028: Therapeutic Exercise (1:1) [place], [address], [place] [facility] 04/14/2014 13:12:46 04/14/19 15 22524: Manual Therapy [place], [address], [place] [facility] 04/14/2014 13:12:46 04/11/19 15 47694: Therapeutic Exercise (1:1) [place], [address], [place] [facility] 04/11/2014 17:13:46 04/11/19 15 74067: Manual Therapy [place], [address], [place] [facility] 04/11/2014 17:13:46 04/07/19 15 08648: Therapeutic Exercise (1:1) [place], [address], [place] [facility] 04/07/2014 17:07:08 04/07/19 15 14000: Manual Therapy [place], [address], [place] [facility] 04/07/2014 17:07:08 04/04/19 15 52724: Therapeutic Exercise (1:1) [place], [address], [place] [facility] 04/07/2014 08:22:12 04/04/19 15 23673: Manual Therapy [place], [address], [place] [facility] 04/07/2014 08:22:12 04/02/19 15 73068: Therapeutic Exercise (1:1) [place], [address], [place] [facility] 04/02/2014 16:24:32 04/02/19 15 72221: Manual Therapy [place], [address], [place] [facility] 04/02/2014 16:24:32 03/28/19 15 55913: Therapeutic Exercise (1:1) [place], [address], [place] [facility] 03/28/2014 17:42:21 03/28/19 15 19032: Manual Therapy [place], [address], [place] [facility] 03/28/2014 17:42:21 03/26/19 15 53939: Therapeutic Exercise (1:1) [place], [address], [place] [facility] 03/26/2014 16:21:30 03/26/19 15 80641: Manual Therapy [place], [address], [place] [facility] 03/26/2014 16:21:30 03/24/19 15 97459: Therapeutic Exercise (1:1) [place], [address], [place] [facility] 03/24/2014 16:33:52 03/21/19 15 47660: Therapeutic Exercise (1:1) [place], [address], [place] [facility] 03/23/2014 16:05:20 03/21/19 15 09177: Manual Therapy [place], [address], [place] [facility] 03/23/2014 16:05:20 03/19/19 15 88238: Therapeutic Exercise (1:1) [place], [address], [place] [facility] 03/20/2014 07:39:51 03/19/19 15 77661: Manual Therapy [place], [address], [place] [facility] 03/20/2014 07:39:51 03/17/19 15 42428: Therapeutic Exercise (1:1) [place], [address], [place] [facility] 03/17/2014 16:40:02 03/17/19 15 45428: Manual Therapy [place], [address], [place] [facility] 03/17/2014 16:40:02 03/14/19 15 30030: Therapeutic Exercise (1:1) [place], [address], [place] [facility] 03/16/2014 20:51:10 03/12/19 15 18266: Therapeutic Exercise (1:1) [place], [address], [place] [facility] 03/13/2014 07:48:10 03/12/19 15 02071: Manual Therapy [place], [address], [place] [facility] 03/13/2014 07:48:10 03/05/20 14 02126: Therapeutic Exercise (1:1) [place], [address], [place] [facility] 03/05/2014 14:31:04 03/03/20 14 49463: Therapeutic Exercise (1:1) [place], [address], [place] [facility] 03/04/2014 11:35:11 02/27/20 14 25195: Therapeutic Exercise (1:1) completed MONICA Faustin [facility] [place], [address], [place] [facility] 02/26/2014 13:08:35 02/27/20 14 42355: Manual Therapy completed MONICA Faustin [facility] [place], [address], [place] [facility] 02/26/2014 13:08:35 02/26/20 14 54911: Therapeutic Exercise (1:1) completed MONICA Faustin[address] [place] [address] [place], [address], [place] [facility] 02/25/2014 18:10:59 02/26/20 14 96593: Manual Therapy completed MONICA Faustin [facility] [place], [address], [place] [facility] 02/25/2014 18:10:59 02/25/20 14 56102: Therapeutic Exercise (1:1) completed MONICA Faustin [address] [place] [address] [place], [address], [place] [facility] 02/24/2014 17:45:44 02/25/20 14 41234: Manual Therapy completed MONICA Faustin [address] [place] [address] [place], [address], [place] [facility] 02/24/2014 17:45:44 02/22/20 14 97801: Therapeutic Exercise (1:1) completed MONICA Faustin [address] [place] [address] [place], [address], [place] [facility] 02/21/2014 18:35:51 02/22/20 14 47088: Manual Therapy completed MONICA Faustin [address] [place] [address] [place], [address], [place] [facility] 02/21/2014 18:35:51 02/21/20 14 12714: Cryotherapy completed Erin Matta PT, Cert. JOSUE [address] [place] [address] [place], [address], [place] [facility] 02/23/2014 19:58:04 02/21/20 14 05609: Therapeutic Exercise (1:1) completed Erin Matta PT, Cert. JOSUE [address] [place] [address] [place], [address], [place] [facility] 02/20/2014 21:30:42 02/21/20 14 42431: Manual Therapy completed Erin Matta PT, Cert. JOSUE [address] [place] [address] [place], [address], [place] [facility] 02/20/2014 21:30:42 02/18/20 14 67599: Therapeutic Exercise (1:1) [facility] [place] [address], [place] [facility] 02/17/2014 18:48:38 02/15/20 14 98093: Therapeutic Exercise (1:1) [facility] [place], [address], [place] [facility] 02/17/2014 08:32:50 02/12/20 14 10337: Therapeutic Exercise (1:1) [place], [address], [place] [facility] 02/12/2014 09:13:25 02/08/20 14 60880: E-Stim - Direct Contact [place], [address], [place] [facility] 02/07/2014 18:21:49 02/08/20 14 00546: Therapeutic Exercise (1:1) [place], [address], [place] [facility] 02/07/2014 18:21:49 02/06/20 14 34228: E-Stim - Direct Contact [place], [address], [place] [facility] 02/05/2014 18:19:40 02/06/20 14 07050: Therapeutic Exercise (1:1) [facility] [place], [address], [place] [facility] 02/05/2014 18:19:40 02/04/20 14 75313: E-Stim - Direct Contact [facility] [place], [address], [place] [facility] 02/03/2014 17:32:46 02/04/20 14 92282: Therapeutic Exercise (1:1) [place], [address], [place] [facility] 02/03/2014 17:32:46 01/30/20 14 77217: E-Stim - Direct Contact [place], [address], [place] [facility] 01/29/2014 17:27:03 01/30/20 14 12734: Therapeutic Exercise (1:1) [place], [address], [place] [facility] 01/29/2014 17:27:03 01/28/20 14 43400: E-Stim - Direct Contact [place], [address], [place] [facility] 01/27/2014 15:14:42 01/28/20 14 87738: Therapeutic Exercise (1:1) [place], [address], [place] [facility] 01/27/2014 15:14:18 01/28/20 14 78512: Manual Therapy [place], [address], [place] [facility] 01/27/2014 15:14:42 01/25/20 14 18664: E-Stim - Direct Contact [place], [address], [place] [facility] 01/24/2014 14:08:32 01/25/20 14 32752: Therapeutic Exercise (1:1) [place], [address], [place] [facility] 01/24/2014 14:08:32 01/23/20 14 94723: E-Stim - Direct Contact completed MONICA Faustin [address] [place], [address], [facility] - [facility] 01/22/2014 20:34:07 01/23/20 14 32182: Therapeutic Exercise (1:1) completed MONICA Faustin [address] [place], [address], [facility] - [facility] 01/22/2014 20:34:07 12/04/19 14 KNEE REPLACEMENT completed Sudha Bergman [place] [facility] 02/09/2016 15:00:15 03/06/19 12 HERNIA REPAIR completed Rosemarie Sanabria [place] [facility] 11/05/2015 10:27:39 03/06/19 07 CARPAL TUNNEL RELEASE completed Rosemarie Sanabria [place] [facility] 11/05/2015 10:38:26 KNEE SURGERY completed Irish Marie [place] [facility] 04/15/2014 23:30:25 ELBOW SURGERY completed Irish Marie [place] [facility] 04/15/2014 23:30:25 SHOULDER SURGERY completed Bree Lindsey [place] [facility] 04/03/2015 10:05:44 GALLBLADDER SURGERY completed Sophie Clubb [place] [facility] 10/30/2015 14:31:14 SHOULDER SURGERY completed Elvie Olmedo [place] [facility] 01/11/2016 16:00:31 HYSTERECTOMY completed Sophie Clubb [place] [facility] 10/30/2015 14:31:14 BREAST SURGERY completed Sophie Clubb [place] [facility] 10/30/2015 14:31:14 Xcapsl ctrc rmvl cplx wo ecp completed Elvie Olmedo [place] [facility] 06/26/2019 10:29:53 HERNIA REPAIR completed Veronique Henson [place] [facility] 09/17/2020 14:33:54 CARPAL TUNNEL RELEASE completed Veronique Henson [place] [facility] 09/17/2020 14:33:54 Imaging Results None recorded. Procedure Notes None recorded. Medical Equipment None Reported. Allergies Allergen ID Allergen Name Allergen Category Reaction Reaction Severity Criticality Documentation Date Start Date Code Code System Note Provider Name and Address Organization Details Recorded Time 707409 Celebrex medicatio n rash severe Not available 10/30/2015 79959 7 RxNorm Sophie Clubb null, [facility] 14:29:38 294923 adhesive environme nt,medica tion rash severe Not available 10/30/2015 Sophie Clubb null, [facility] 14:29:38 527183 Nexium medicatio n other severe Not available 10/30/2015 40265 9 RxNorm PER PATIE NT WHOL E BODY HURTS Rosemarie Sanabria null, [facility] 6 10:30:06 90070 gabapenti n medicatio n Not available Not available Not available 04/15/2014 64401 RxNorm Sophie Clubb null, [facility] 14:29:38 77558 latex environme nt,medica tion rash severe Not available 04/15/2014 55556 91 RxNorm Irish Frank null, [facility] 23:35:37 00798 Substance with sulfonami de structure and antibacte rial mechanism of action (substanc e) medicatio n Not available Not available Not available 04/15/2014 62448 8003 SNOMED Sophie Clubb null, [facility] 14:29:38 82933 ampicilli n medicatio n Not available Not available Not available 04/15/2014 733 RxNorm Sophie Clubb null, [facility] 14:29:38 44972 codeine medicatio n Not available Not available Not available 04/15/2014 2670 RxNorm Sophie Clubb null, [facility] 14:29:38 34189 Product containin g penicilli n (product) medicatio n other severe Not available 04/15/2014 65674 8001 SNOMED PER PATIE NT CAN' T WALK AFTER Rosemarie Sanabria null, [place] [facility] 10:30:06 Medications Name Sig Start [...] Not Available Not Available Not Available vitamin F20-ukvjd acid injection solution Take by injection route. [...] Available Not Avai lable Not Available vitamin C29-zyxvf acid active Not Available Not Available Not [...] Not Available No t Available Fluzone Quad 2017-18(PF) 60 mcg(15 mcgx4)/0.5 mL intramuscul ar syringe [...] Updated DateTime 04/14/2021 152.4 cm 24.4 kg/m2 70121.05 g Maricarmen Sands [place] [facility] 04/14/2021 11:32:25 Date Recorded Body height Body mass index (BMI) Body weight Provider Name and Address Organization Details Last Updated DateTime 05/10/2021 152.4 cm 24.4 kg/m2 49412.05 g Maricarmen Sands [place] [facility] 05/10/2021 15:58:44 Date Recorded Body height Body mass index (BMI) Body weight Provider Name and Address Organization Details Last Updated DateTime 08/11/2021 152.4 cm 24.4 kg/m2 03746.05 g Kasandra Bahena [place] [facility] 08/11/2021 14:43:24 Date Recorded Body height Body mass index (BMI) Body weight Provider Name and Address Organization Details Last Updated DateTime 09/17/2020 152.4 cm 24.4 kg/m2 65955.05 g Veronique Henson [place] [facility] 09/17/2020 14:33:36 Date Recorded Body height Body mass index (BMI) Body weight Provider Name and Address Organization Details Last Updated DateTime 02/22/2021 152.4 cm 24.4 kg/m2 73222.05 stevo Sands [facility] 02/22/2021 16:50:44 Social History Question Answer Notes LastModified by Organizat ion Details LastModified Time Tobacco Smoking Status Never Smoker Sophie Raya davidson [facility] 03/10/2015 11:31:38 Auto Related Injury? No Information not available 05/10/2021 How Much Tobacco Do You Chew? None Information not available 04/15/2014 Which Illicit Or Recreational Drugs Have You Used? None Information not available 03/10/2015 Which Of Your Hands Is Dominant? Right Information not available 04/15/2014 Currently ? No [email or web address] Information not available 11/15/2018 Marital Status [email or web address] Informatio n not available 05/10/2021 What Was The Date Of Your Most Recent Tobacco Screening? 07/06/2018 Information not available 05/10/2021 If Injured, Is Litigation Ongoing? No Information not available 05/10/2021 How Much Tobacco Do You Smoke? No Information not available 04/15/2014 Work Related Injury? No Information not available 05/10/2021 Sex: Unknown Functional Status Question Answer Note LastModified by Organizat ion Details LastModified Time What is your [...] Not available 2015 16:34:31 Father Osteoarthrit is [email or web address] Not available 2021 15:54:47 Father Osteoporosis [email or web address] Not avail able 05/10/2021 15:54:48 Mother Diabetes mellitus [email or web address] Not available 2015 16:34:31 Mother Osteoporosis [email or web address] Not avail able 05/10/2021 15:54:48 Medical History Condition Response MIGRAINE HEADACHES Y THYROID DISEASE Y KIDNEY DISEASE Y DEPRESSION Y LATEX ALLERGY Y HEART DISEASE N BLOOD THINNERS Y Gynecological HistoryNo gynecological history recorded. Obstetrics History GPAL:G 0 P 0 0 0 0 Past Encounters Encounter ID Performer Location Encounter Start Date Encounter Closed Date Diagnosis/Indication Diagnosis SNOMED-CT Code Diagnosis ICD10 Code Diagnosis IMO Codes Diagnosis Note [id number] MONICA Faustin [facility] [address] [place] [address] 01/22/2014 16:31:18 02/08/2014 09:16:55 Replacement of total knee joint 988387732 Muscle weakness 44771748 Knee stiff 877787990 Knee pain 62981205 [id number] Aguilar Hudson PT, Cert. MDT [facility] (PT) [address] [place] [address] 01/24/2014 10:24:29 01/24/2014 14:09:35 Replacement of total knee joint 735657677 Muscle weakness 24123992 Knee stiff 967142883 Knee pain 11264848 [id number] Aguilar Hudson PT, Cert. MDT [facility] (PT) [address] [place] [address] 01/27/2014 13:31:37 01/27/2014 15:16:07 Replacement of total knee joint 556439551 Muscle weakness 09926445 Knee stiff 834785398 Knee pain 87937602 [id number] Erin Matta, PT, Cert. MDT [facility] (PT) [address] [place] [address] 01/29/2014 15:57:39 01/29/2014 17:27:52 Replacement of total knee joint 205906938 Muscle weakness 17964987 Knee stiff 583825163 Knee pain 68344566 [id number] Erin Matta PT, Cert. MDT [facility] (PT) [address] [place] [address] 02/03/2014 14:10:59 02/03/2014 17:33:49 Replacement of total knee joint [id number] Muscle weakness [id number] Knee stiff [id number] Knee pain [id number] Aguilar Hudson , PT, Cert. MDT Rehab FS (PT) [address] [place] [address] 02/05/2014 16:34:20 02/05/2014 18:20:26 Replacement of total knee joint [id number] Muscle weakness [id number] Knee stiff [id number] Knee pain [id number] Erin Matta, PT, Cert. MDT Rehab FS (PT) [address] [place] [address] 02/07/2014 16:26:44 02/07/2014 18:22:42 Replacement of total knee joint [id number] Muscle weakness [id number] Knee stiff 960232201 Knee pain 38440933 [id number] Melisa Jarrett PT, Cert. MDT Rehab FS (PT) [address] [place] [address] 02/11/2014 16:33:00 02/12/2014 09:13:56 Replacement of total knee joint 611606733 Muscle weakness 04187566 Knee stiff 425970775 Knee pain 61577631 [id number] Melisa Jarrett, PT, Cert. MDT Rehab FS (PT) [address] [place] [address] 02/14/2014 16:29:57 02/18/2014 03:45:45 Replacement of total knee joint 919222416 Muscle weakness 23163428 Knee stiff 801937614 Knee pain 56575083 [id number] Aguilar Hudson , PT, Cert. MDT Rehab FS (PT) [address] [place] [address] 02/17/2014 17:23:04 02/17/2014 18:49:31 Replacement of total knee joint 035216365 Muscle weakness 05030589 Knee stiff 340570773 Knee pain 76274199 [id number] Erin Matta, PT, Cert. MDT Rehab FS (PT) [address] [place] [address] 02/20/2014 16:27:58 02/23/2014 20:07:15 Replacement of total knee joint 956918762 Muscle weakness 62728256 Knee stiff 781084404 Knee pain 49590277 [id number] Aguilar Hudson , PT, Cert. MDT Rehab FS (PT) [address] [place] [address] 02/21/2014 16:18:58 02/21/2014 18:37:16 Replacement of total knee joint 320639568 Muscle weakness 04157999 Knee stiff 706496857 Knee pain 95944188 [id number] Erin Matta, PT, Cert. MDT Rehab FS (PT) [address] [place] [address] 02/24/2014 16:27:36 02/24/2014 17:46:33 Replacement of total knee joint 034899151 Muscle weakness 22781974 Knee stiff 384256579 Knee pain 43773829 [id number] Melisa Jarrett PT, Cert. MDT Rehab FS (PT) [address] [place] [address] 8 02/25/2014 16:27:48 02/25/2014 18:11:53 Replacement of total knee joint 968220446 Muscle weakness 91544114 Knee stiff 639456316 Knee pain 99941036 [id number] Melisa Jarrett, PT, Cert. MDT Rehab FS (PT) [address] [place] [address] 8 02/26/2014 08:43:34 02/26/2014 13:09:21 Replacement of total knee joint 498785086 Muscle weakness 25002323 Knee stiff 206320260 Knee pain 41204472 [id number] Aguilar Hudson , PT, Cert. MDT Rehab FS (PT) [address] [place] [address] 03/03/2014 16:23:19 03/04/2014 11:36:29 Replacement of total knee joint 353457786 Muscle weakness 96348457 Knee stiff 081536821 Knee pain 96064286 [id number] Erin Matta, PT, Cert. MDT Rehab FS (PT) [address] [place] [address] 03/05/2014 10:56:47 03/05/2014 14:32:09 Replacement of total knee joint 907947839 Muscle weakness 15661972 Knee stiff 390557972 Knee pain 29704612 [id number] Aguilar Hudson , PT, Cert. MDT Rehab FS (PT) [address] [place] [address] 8 03/12/2014 16:40:38 03/13/2014 07:48:50 Replacement of total knee joint 861277021 Muscle weakness 94505199 Knee stiff 298574716 Knee pain 89308148 [id number] Erin Matta, PT, Cert. MDT Rehab FS (PT) [address] [place] [address] 03/14/2014 16:32:38 03/16/2014 20:52:13 Replacement of total knee joint 457725019 Muscle weakness 27390962 Knee stiff 367863909 Knee pain 51534369 [id number] Aguilar Hudson , PT, Cert. MDT Rehab (PT) [address] [place] [address] 4 03/17/2014 15:03:28 03/17/2014 16:40:46 Replacement of total knee joint 080396469 Muscle weakness 76446917 Knee stiff 271086911 Knee pain 31700758 [id number] Margaret Duggan, PT, MPT, Cert. DN Rehab (PT) [address] [place] [address] 4 03/19/2014 14:58:26 03/20/2014 07:40:27 Replacement of total knee joint 976721403 Muscle weakness 25025258 Knee stiff 922726382 Knee pain 17789616 [id number] Aguilar Hudson , PT, Cert. MDT Rehab (PT) [address] [place] [address] 4 03/21/2014 14:58:24 03/23/2014 16:06:49 Replacement of total knee joint 510784110 Muscle weakness 63787054 Knee stiff 379874461 Knee pain 59995672 [id number] Margaret Duggan, PT, MPT, Cert. DN Rehab (PT) [address] [place] [address] 4 03/24/2014 14:26:36 03/24/2014 16:34:32 Replacement of total knee joint 963377354 Muscle weakness 34052704 Knee stiff 741149828 Knee pain 94934458 [id number] Aguilar Hudson , PT, Cert. MDT Rehab (PT) [address] [place] [address] 03/26/2014 14:51:14 03/26/2014 16:40:21 Replacement of total knee joint 134437944 Muscle weakness 40703821 Knee stiff 352002914 Knee pain 46265847 [id number] Margaret Duggan, PT, MPT, Cert. DN Rehab (PT) [address] [place] [address] [place] [address] 4 03/28/2014 14:58:17 03/28/2014 17:43:22 Replacement of total knee joint 643140978 Muscle weakness 76613429 Knee stiff 262462282 Knee pain 06329632 [id number] Marcela Wallace, PT, DPT, Cert. MDT Rehab (PT) [address] [place] [address] [place] [address] 4 04/02/2014 14:45:32 04/02/2014 16:25:27 Replacement of total knee joint 313584278 Muscle weakness 79857295 Knee stiff 883999259 Knee pain 57969213 [id number] Aguilar Hudson , PT, Cert. MDT Rehab (PT) [address] [place] [address] [place] [address] 04/04/2014 15:02:50 04/07/2014 08:22:55 Replacement of total knee joint 650721305 Muscle weakness 15057971 Knee stiff 421521675 Knee pain 25181921 [id number] Margaret Duggan, PT, MPT, Cert. DN Rehab (PT) [address] [place] [address] [place] [address] 4 04/07/2014 15:08:39 04/07/2014 17:07:59 Replacement of total knee joint 627810201 Muscle weakness 63442216 Knee stiff 322899668 Knee pain 70144988 [id number] Margaret Duggan, PT, MPT, Cert. DN Rehab (PT) [address] [place] [address] [place] [address] 4 04/11/2014 14:58:03 04/11/2014 17:15:04 Replacement of total knee joint 290500262 Muscle weakness 23253364 Knee stiff 118704170 Knee pain 51337402 [id number] Margaret Duggan, PT, MPT, Cert. DN Rehab (PT) [address] [place] [address] 4 04/14/2014 10:45:31 04/14/2014 13:14:56 Replacement of total knee joint 664716589 Muscle weakness 23473044 Knee stiff 162550453 Knee pain 96895025 [id number] Aguilar Hudson , PT, Cert. MDT Rehab (PT) [address] [place] [address] 4 04/16/2014 14:57:17 04/17/2014 08:22:55 Replacement of total knee joint 904362373 Muscle weakness 00754709 Knee stiff 070649819 Knee pain 61154155 [id number] David Fagan Jr, MD [facility] Office [address] [place] [address] 8 04/17/2014 15:18:54 04/17/2014 16:23:12 Postoperative visit 876842967 Joint stiffness 22865130 [id number] MONICA Faustin Rehab (PT) [address] [place] [address] 4 04/18/2014 09:39:25 04/18/2014 16:15:59 Replacement of total knee joint 563921992 Muscle weakness 07795456 Knee stiff 280518539 Knee pain 22712033 [id number] David Fagan Jr, MD [facility] Office [address] [place] [address] 8 06/02/2014 16:00:59 06/02/2014 16:49:08 Postoperative visit 063567626 [id number] David Fagan Jr, MD [facility] Office [address] [place] [address] 8 09/10/2014 16:02:59 09/10/2014 17:50:13 Replacement of total knee joint 761219522 [id number] David Fagan Jr, MD [facility] Office [address] [place] [address] 8 10/08/2014 15:14:38 10/08/2014 15:46:56 Impingement syndrome of shoulder region 172917355 Shoulder j oint painful on movement 953295690 [id number] David Fagan Jr, MD [facility] Office [address] [place] [address] 8 11/27/2014 15:30:01 11/27/2014 16:12:38 Shoulder joint painful on movement 907237671 Impingemen t syndrome of shoulder region 570592056 [id number] David Fagan Jr, MD [facility] Office [address] [place] [address] 12/24/2014 16:19:36 12/24/2014 17:20:24 Postoperative visit 911414098 Z09 Impingemen t syndrome of shoulder region 652933062 M75.41 Glenoid labrum tear 2022 27782 S43.431S [id number] Avery Rowland MD [facility] Office [address] [place] [address] 12/29/2014 16:01:28 12/29/2014 17:20:25 Shoulder joint painful on movement 321978161 M25.519 [id number] Bree Andria, OTR/L, CHT Rehab (OT) [address] [place] [address] 4 01/01/2015 14:03:21 01/01/2015 14:45:28 Joint stiffness 95135795 M25.611 [id number] Bree Andria, OTR/L, CHT Rehab (OT) [address] [place] [address] 4 01/13/2015 13:26:56 01/13/2015 14:26:59 Joint stiffness 79440666 M25.611 [id number] Bree Andria, OTR/L, CHT Rehab (OT) [address] [place] [address] 4 2015 10:13:49 2015 11:12:43 Joint stiffness 46823140 M25.611 [id number] Bree Andria, OTR/L, CHT Rehab (OT) [address] [place] [address] 4 01/20/2015 09:55:55 01/20/2015 10:29:07 Joint stiffness 04418138 M25.611 [id number] Bree Andria, OTR/L, CHT Rehab (OT) [address] [place], [place] [address] [address] 4 01/22/2015 09:44:09 01/22/2015 10:30:02 Joint stiffness 13127424 M25.611 [id number] Bree Ayers, OTR/L, CHT Rehab (OT) [address] [facility] [place] [address] 01/26/2015 14:38:42 01/26/2015 15:41:52 Joint stiffness 59786282 M25.[id number] [facility] Office [address] [place] [address] 8 01/26/2015 15:48:37 01/26/2015 16:39:41 Pain of shoulder region 81226597 M25.[id number] [facility] Office [address] [place] [address] 8 03/09/2015 15:51:22 03/09/2015 16:54:06 Impingement syndrome of shoulder region 681320453 M75.41 Joint stiffness 56103017 M25.[id number] [facility] Office [address] [place] [address] 8 03/10/2015 11:07:32 03/10/2015 16:35:18 [id number] HENRRY PrattT, CERT MDT Rehab FS (PT) [address] [place] [address]60[address] 8 03/20/2015 13:58:33 03/20/2015 15:55:06 Pain of shoulder region 82427511 M25.511 Shoulder stiff 515147530 M25.611 Shoulder g irdle weakness 471661038 M99.07 [id number] HENRRY PrattT, CERT MDT Rehab FS (PT) [address] [place] [address] 8 03/23/2015 16:45:04 03/23/2015 18:18:17 Pain of shoulder region 11358525 M25.511 Shoulder stiff 617596011 M25.611 Shoulder g irdle weakness 684627684 M99.07 [id number] Erin Matta, PT, Cert. MDT Rehab FS (PT) [address] [place] [address] 8 03/25/2015 16:04:55 03/25/2015 17:57:12 Pain of shoulder region 30738520 M25.511 Shoulder stiff 850043663 M25.611 Shoulder g irdle weakness 113641451 M99.07 [id number] Melisa Jarrett, PT, Cert. MDT Rehab FS (PT) [address] [place] [address] 8 03/27/2015 15:58:13 03/27/2015 16:44:13 Pain of shoulder region 46456499 M25.511 Shoulder stiff 667639061 M25.611 Shoulder g irdle weakness 193993504 M99.07 [id number] Melisa Jarrett PT, Cert. MDT Rehab FS (PT) [address] [place] [address] 8 03/30/2015 16:04:40 03/30/2015 16:57:44 Pain of shoulder region 88654176 M25.511 Shoulder stiff 684401361 M25.611 Shoulder g irdle weakness 051369304 M99.07 [id number] Pam Hicks DPT, CERT MDT Rehab FS (PT) [address] [place] [address]10[address] 8 04/01/2015 16:12:03 04/01/2015 18:01:18 Pain of shoulder region 97598283 M25.511 Shoulder stiff 067700171 M25.611 Shoulder g irdle weakness 057795144 M99.[id number] [facility] Office [address] [place] [address] 04/03/2015 10:00:37 04/03/2015 10:41:44 Aftercare 344188180 Z47.89 [id number] Pam Hicks DPT, CERT MDT Rehab FS (PT) [address] [place] [address] 8 04/03/2015 10:46:02 04/06/2015 09:32:43 Pain of shoulder region 40578058 M25.511 Shoulder stiff 655190419 M25.611 Shoulder g irdle weakness 001033752 M99.07 [id number] Pam Hicks DPT, CERT MDT Rehab FS (PT) [address] [place] [address] 8 04/06/2015 16:29:17 04/06/2015 18:03:08 Pain of shoulder region 25026228 M25.511 Shoulder stiff 171454067 M25.611 Shoulder g irdle weakness 217749804 M99.07 [id number] Pam Hicks DPT, CERT MDT Rehab FS (PT) [address] [place] [address]223[address] 8 04/08/2015 16:37:27 04/08/2015 17:26:08 Pain of shoulder region 55320691 M25.511 Shoulder stiff 113783800 M25.611 Shoulder g irdle weakness 555941811 M99.07 [id number] Pam Hicks DPT, CERT MDT Rehab FS (PT) [address] [place] [address] 8 04/10/2015 16:39:00 04/10/2015 17:50:35 Pain of shoulder region 00885960 M25.511 Shoulder stiff 789020800 M25.611 Shoulder g irdle weakness 752163666 M99.07 [id number] Pam Hicks DPT, CERT MDT Rehab FS (PT) [address] [place] [address] 35772[address] 8 04/13/2015 16:34:16 04/14/2015 13:49:33 Pain of shoulder region 00557234 M25.511 Shoulder stiff 460197660 M25.611 Shoulder g irdle weakness 791795704 M99.07 [id number] Pam Hicks DPT, CERT MDT Rehab FS (PT) [address] [place] [address]679[address] 8 04/15/2015 16:33:49 04/15/2015 17:12:18 Pain of shoulder region 23128108 M25.511 Shoulder stiff 483788309 M25.611 Shoulder g irdle weakness 580752989 M99.[id number] [facility] Office [address] [place] [address]12[address] 8 04/17/2015 15:09:14 04/17/2015 15:39:32 Aftercare 218030625 Z47.89 [id number] Pam Hicks DPT, CERT MDT Rehab FS (PT) [address] [place] [address]99[address] 8 04/20/2015 16:22:24 04/20/2015 17:37:26 Pain of shoulder region 92332182 M25.511 Shoulder stiff 077202608 M25.611 Shoulder g irdle weakness 883710664 M99.07 [id number] Pam Hicks DPT, CERT MDT Rehab FS (PT) [address] [place] [address] 6[address]00[address] 8 04/22/2015 16:30:00 04/23/2015 13:38:05 Pain of shoulder region 82537251 M25.511 Shoulder stiff 893432273 M25.611 Shoulder g irdle weakness 320168001 M99.07 [id number] Pam Hicks DPT, CERT MDT Rehab FS (PT) [address] [place] [address] 8 04/24/2015 16:28:16 04/24/2015 17:36:47 Pain of shoulder region 96912524 M25.511 Shoulder stiff 960333869 M25.611 Shoulder g irdle weakness 304865910 M99.07 [id number] Pam Hicks DPT, CERT MDT Rehab FS (PT) [address] [place] [address] 8 04/27/2015 16:00:10 04/27/2015 18:18:10 Pain of shoulder region 09242087 M25.511 Shoulder stiff 369345867 M25.611 Shoulder g irdle weakness 393452284 M99.07 [id number] Pam Hicks DPT, CERT MDT Rehab FS (PT) [address] [place] [address]63-207 8 04/29/2015 16:32:15 04/29/2015 17:46:59 Pain of shoulder region 72524849 M25.511 Shoulder stiff 168432357 M25.611 Shoulder g irdle weakness 718874170 M99.07 [id number] Pam Hicks DPT, CERT MDT Rehab FS (PT) [address] [place] [address] 03770-674 8 05/01/2015 16:31:11 05/01/2015 18:28:42 Pain of shoulder region 82012456 M25.511 Shoulder stiff 096207716 M25.611 Shoulder g irdle weakness 656389518 M99.07 [id number] HENRRY PrattT, CERT MDT Rehab FS (PT) [address] [place] [address] 17634-846 8 05/04/2015 14:57:29 05/04/2015 15:36:22 Pain of shoulder region 21838253 M25.511 Shoulder stiff 942292448 M25.611 Shoulder g irdle weakness 995908406 M99.[id number] [facility] Office [address] [place] [address] 98326[address]370 8 05/04/2015 15:51:43 05/04/2015 17:05:33 Aftercare 436245429 Z47.89 [id number] HERNRY PrattT, CERT MDT Rehab FS (PT) [address] [place] [address] 85763-568 8 05/06/2015 17:00:49 05/06/2015 17:42:10 Pain of shoulder region 64574362 M25.511 Shoulder stiff 819184286 M25.611 Shoulder g irdle weakness 918990623 M99.07 [id number] Melisa Jarrett PT, Cert. MDT Rehab FS (PT) [address] [place] [address] 87241-817 8 05/08/2015 16:30:58 05/08/2015 17:40:40 Pain of shoulder region 87198633 M25.511 Shoulder stiff 481400855 M25.611 Shoulder g irdle weakness 140845417 M99.07 [id number] Pam Hicks DPT, CERT MDT Rehab FS (PT) [address] [place] [address] 69445-683 8 05/11/2015 16:21:02 05/12/2015 12:53:21 Pain of shoulder region 73719166 M25.511 Shoulder stiff 970522165 M25.611 Shoulder g irdle weakness 185745888 M99.07 [id number] Melisa Jarrett PT, Cert. MDT Rehab FS (PT) [address] [place] [address] 55091-687 8 05/22/2015 16:32:55 05/22/2015 17:23:06 Pain of shoulder region 13446948 M25.511 Shoulder stiff 327276769 M25.611 Shoulder g irdle weakness 131688195 M99.07 [id number] Pam Hicks DPT, CERT MDT Rehab FS (PT) [address] [place] [address] 18023-690 8 05/25/2015 15:06:36 05/25/2015 17:36:39 Pain of shoulder region 27917743 M25.511 Shoulder stiff 405022711 M25.611 Shoulder g irdle weakness 385550637 M99.07 [id number] [facility] Office [address] [place] [address] 45738-013 8 05/25/2015 15:57:35 05/25/2015 17:12:46 Aftercare 962298837 Z47.89 [id number] Pam Hicks DPT, CERT MDT Rehab FS (PT) [address] [place] [address] 56837-256 8 05/27/2015 16:33:19 05/27/2015 17:55:22 Pain of shoulder region 77986194 M25.511 Shoulder stiff 633747693 M25.611 Shoulder g irdle weakness 131512874 M99.07 [id number] Pam Hicks DPT, CERT MDT Rehab FS (PT) [address] [place] [address] 13802-189 8 05/29/2015 16:30:21 05/29/2015 17:12:38 Pain of shoulder region 52595036 M25.511 Shoulder stiff 031050816 M25.611 Shoulder g irdle weakness 561958418 M99.07 [id number] Pam Hicks DPT, CERT MDT Rehab FS (PT) [address] [place] [address] 51505-452 8 06/01/2015 16:29:04 06/01/2015 18:16:29 Pain of shoulder region 17124115 M25.511 Shoulder stiff 072012605 M25.611 Shoulder g irdle weakness 996707203 M99.07 [id number] Pam Hicks DPT, CERT MDT Rehab FS (PT) [address] [place] [address] 33409-955 8 06/03/2015 16:23:12 06/03/2015 18:01:17 Pain of shoulder region 58280503 M25.511 Shoulder stiff 083042992 M25.611 Shoulder g irdle weakness 553516645 M99.07 [id number] Pam Hicks DPT, CERT MDT Rehab FS (PT) [address] [place] [address] 24669-861 8 06/05/2015 16:19:28 06/05/2015 16:55:18 Pain of shoulder region 51895369 M25.511 Shoulder stiff 363786416 M25.611 Shoulder g irdle weakness 368255153 M99.07 [id number] Pam Hicks DPT, CERT MDT Rehab FS (PT) [address] [place] [address] 73766-954 8 06/08/2015 16:33:24 06/08/2015 17:23:33 Pain of shoulder region 12335044 M25.511 Shoulder stiff 208041717 M25.611 Shoulder g irdle weakness 100747183 M99.07 [id number] Pam Hicks DPT, CERT MDT Rehab FS (PT) [address] [place] [address] 10322-868 8 06/12/2015 16:16:03 06/12/2015 17:52:48 Pain of shoulder region 41981042 M25.511 Shoulder stiff 698990273 M25.611 Shoulder g irdle weakness 137177843 M99.07 [id number] Pam Hicks DPT, CERT MDT Rehab FS (PT) [address] [place] [address] 90797-574 8 06/15/2015 15:59:58 06/16/2015 15:58:40 Pain of shoulder region 15985548 M25.511 Shoulder stiff 562578486 M25.611 Shoulder g irdle weakness 388132773 M99.07 [id number] Pam Hicks DPT, CERT MDT Rehab FS (PT) [address] [place] [address] 98728-258 8 06/19/2015 16:32:51 06/19/2015 17:07:36 Pain of shoulder region 47160192 M25.511 Shoulder stiff 498730253 M25.611 Shoulder g irdle weakness 947146584 M99.07 [id number] [facility] Office [address] [place] [address] 63408-557 8 06/22/2015 15:08:34 06/22/2015 15:37:37 Knee pain 44106114 M25.562 Aftercare 515342509 Z47. 89 [id number] Avery Rowland MD [address] 74076-333 8 07/31/2015 07:57:20 07/31/2015 08:34:51 Knee pain 76059490 M25.562 M25.[id number] [facility] Office [address] [place] [address] 24974-968 8 10/02/2015 08:11:12 10/02/2015 08:40:18 Aftercare 857936220 Z47.89 Knee pain 78565351 M25.5 62 M25.[id number] [facility] Office [address] [place] [address] 55251-792 8 10/21/2015 09:03:34 10/21/2015 09:49:02 Knee pain 29677133 M25.562 History of total knee arthroplasty 4097493121 105 Z96.659 Chronic pain syndrome 37 0471753 G89.4 [id number] FRIDA Joseph [facility] Office [address] [place] [address] 23986-624 8 10/30/2015 14:09:29 10/30/2015 14:47:06 [id number] Avery Rowland MD [address] 77430-996 8 11/02/2015 15:54:36 11/02/2015 16:45:42 Pain of shoulder region 06169945 M25.511 [id number] José Miguel Gregory MD [facility] FS_FAC [address] [place] [address] 8 11/05/2015 10:07:00 11/05/2015 11:42:[id number] [facility] Office [address] [place] [address] 88478-408 8 12/02/2015 08:54:12 12/02/2015 09:24:56 Knee pain 10676617 M25.562 History of total knee arthroplasty 1978604326 105 Z96.659 Chronic pain syndrome 37 9253661 G89.4 Low back pain 356190327 M54.5 Lumbosacra l radiculitis 80290627 M54.17 Lumbar spondylosis 51431 0009 M47.896 [id number] [place] [address] [place] [address] 16057-644 4 12/10/2015 14:50:46 12/13/2015 23:48:27 Pain of wrist region 29927980 M25.531 Foot pain 26907942 M79.6 71 Sprain of ankle 62043093 S93.431A Sprain of wrist 73208389 S63.521A [id number] Avery Rowland MD [facility] Office [address] [place] [address] 93922-906 8 12/22/2015 15:14:43 12/22/2015 15:48:42 Knee pain 17896871 M25.562 M25.561 Pain of sh oulder region 86216544 M25.511 Aftercare 825453587 Z47. 89 [id number] Peter Gilmore MD [address] [address]05-180 4 12/31/2015 12:59:15 12/31/2015 17:47:29 Pain of wrist region 42160397 M25.531 Sprain of right wrist 11 76207280 7984081 S63.501A Small joint arthritis 25 4637284 M15.2 [id number] David Fagan Jr, MD [facility] Office [address] [place] [address] 34002-002 8 01/04/2016 15:51:38 01/04/2016 16:43:41 Sprain of ankle 28320770 S93.491D [id number] FRIDA Joseph [facility] Office [address] [place] [address] 10205-599 8 01/06/2016 10:00:10 01/06/2016 10:28:37 Lumbar spondylosis 507788287 M47.896 Chronic pain syndrome 37 3195289 G89.4 Knee pain 33466865 M25.5 62 Knee stiff 267266165 M25 .669 Interverte bral disc disorder 05917559 M51.9 Lumbosacra l radiculitis 37176735 M54.17 History of total knee arthroplasty 4029889458 105 Z96.[id number] [facility] Office [address] [place] [address] 8 01/11/2016 15:48:12 01/11/2016 16:16:26 [id number] José Miguel Gregory MD [facility] FS_FAC [address] [place] [address] 8 01/12/2016 13:55:53 01/12/2016 16:18:32 [id number] David Fagan Jr, MD [facility] Office [address] [place] [address] 8 02/01/2016 16:30:11 02/01/2016 16:56:36 Sprain of ankle 48395754 S93.491D [id number] Brianne Yao , PT Rehab FS (PT) [address] [place] [address] 62622-068 8 02/04/2016 13:53:09 02/09/2016 13:56:00 Ankle pain 016522163 M25.571 Muscle weakness 05085579 M62.81 [id number] Brianne Yao , PT Rehab FS (PT) [address] [place] [address] 01424-737 8 02/09/2016 12:07:19 02/09/2016 13:56:23 Ankle pain 241258641 M25.571 Muscle weakness 97958005 M62.81 [id number] Brianne Yao , PT Rehab FS (PT) [address] [place] [address] 66819-634 8 02/11/2016 12:46:06 02/12/2016 10:34:30 Ankle pain 544095615 M25.571 Muscle weakness 82433967 M62.81 [id number] Peter Gilmore MD [facility] Office [address] [facility],[place] [address] 4 02/11/2016 14:35:34 02/11/2016 18:08:34 Sprain of right wrist 7352698319 8204450 S63.501A [id number] FRIDA Joseph [facility] Office [address] [place] [address] 55841-531 8 02/12/2016 09:14:44 02/12/2016 10:17:15 Knee pain 77415501 M25.562 Low back pain 999907012 M54.5 Lumbosacra l radiculitis 57191376 M54.17 Lumbar spondylosis 64789 0009 M47.896 [id number] Brianne Yao , PT Rehab FS (PT) [address] [place] [address] 02/16/2016 11:54:42 02/16/2016 13:59:31 Ankle pain [id number] M25.571 Muscle weakness [id number] M62.81 [id number] Brianne Yao , PT Rehab FS (PT) [address] [place] [address] 02/18/2016 11:58:33 02/18/2016 13:49:09 Ankle pain [id number] M25.571 Muscle weakness [id number] M62.[id number] MD [facility] Office [address] [place] [address] 02/18/2016 13:01:11 02/18/2016 14:24:05 Lumbar radiculopathy [id number] M54.16 Spinal lowell nosis of lumbar region [id number] M48.06 [id number] David Fagan Jr, MD [facility] Office [address] [place] [address] 01/10/2018 09:36:06 01/10/2018 10:23:49 Knee pain [id number] M25.569 Osteoarthr itis of knee [id number] M17.11 [id number] David Fagan Jr, [facility] [address] [place] [address] [place] [address] 05/04/2018 08:41:12 05/04/2018 09:26:56 Pain in right knee [id number] 18710 M25.561 History of total knee arthroplasty 0490348302 105 Z96.441 [id number] David [facility]agan Jr[facility] [address] [place] [address] 05/14/2018 15:48:13 05/14/2018 16:26:07 Osteoarthritis of right knee joint 5961216393 40386 M17.11 [id number] David [facility]agan Jr[facility] [address] [place] [address] 4 05/24/2018 09:20:29 05/24/2018 10:15:07 Osteoarthritis of right knee joint 0581069609 27204 M17.11 [id number] Avery Rowland MD [facility] [address] [place] [address] [place] [address] 06/25/2018 15:11:58 06/25/2018 16:58:47 Pain of right shoulder joint 7253028330 6688234 M25.633 [id number] Yarely Nicolas, PT, MS, ATC, CSCS [facility] [place] (PT) [address] [place] [address] [place] [address] 07/06/2018 09:48:17 07/06/2018 11:21:45 Shoulder stiff 822605050 M25.612 Pain of sh ould region 75457088 M25.629 [id number] Peter Gilmore MD [facility] Office [address] [place] [address] [place] [address] 11/15/2018 13:37:20 11/15/2018 14:45:05 Pain of right hand 3015046876 77362 M79.213 [id number] David Fagan Jr, [facility] [address] [place] [address] [place] [address] 4 06/26/2019 09:53:42 06/26/2019 11:05:28 Knee pain 62280757 M25.569 Osteoarthr itis of right knee joint 4739419320 43666 M17.11 Chronic pa in following left total knee arthroplasty 8574347038 1251475 T84.84XD [id number] David Fagan Jr, [facility] [address] [place] [address] [place] [address] 08/22/2019 09:26:46 08/22/2019 10:00:20 Osteoarthritis of right knee joint 3872492306 01279 M17.11 [id number] Frank Bonilla III, MD [facility] [address] [place] [address] [place] [address] 4 09/13/2019 08:53:40 09/17/2019 10:44:34 Low back pain 182899964 M54.5 Degenerati on of lumbar intervertebral disc 44305828 M51.36 Lumbar radiculopathy 128 132115 M54.16 [id number] THELMA MONZON [facility] (PT) [address] [place] [address] [place] [address] 4 09/23/2019 11:05:00 09/23/2019 12:50:42 Low back pain 857401445 M54.5 Lumbar radiculopathy 128 889194 M54.16 Muscle weakness 45382274 M62.81 [id number] THELMA MONZON [facility] (PT) [address] [place] [address] [place] [address] 09/27/2019 08:56:56 09/27/2019 11:07:03 Low back pain 309585412 M54.5 Lumbar radiculopathy 128 975214 M54.16 Muscle weakness 91765668 M62.81 [id number] Josef Martinez, PT Re[facility] (PT) [address] [place] [address] [place] [address] 10/01/2019 15:51:38 10/01/2019 17:42:39 Low back pain 764376721 M54.5 Lumbar radiculopathy 128 817066 M54.16 Muscle weakness 52316624 M62.81 [id number] Frank Bonilla III, MD [facility] [address] [place] [address] [place] [address] 10/04/2019 09:25:51 10/08/2019 10:30:55 Neck pain 17329689 M54.2 Low back pain 403192030 M54.5 [id number] THELMA NA [facility] (PT) [address] [place] [address] [place] [address] 4 10/04/2019 10:09:35 10/04/2019 12:55:44 Low back pain 123083743 M54.5 Lumbar radiculopathy 128 978880 M54.16 Muscle weakness 99562864 M62.81 [id number] Josef Martinez, PT Rehab (PT) [address] [place] [address] [place] [address] 4 10/09/2019 11:24:01 10/09/2019 14:21:41 Low back pain 094725541 M54.5 Lumbar radiculopathy 128 226284 M54.16 Muscle weakness 33746491 M62.81 [id number] Josef Martinez, PT Re[facility] (PT) [address] [place], [place] [address] [address] 4 10/10/2019 10:27:31 10/10/2019 12:05:27 Low back pain 597072003 M54.5 Lumbar radiculopathy 128 255433 M54.16 Muscle weakness 88033491 M62.81 [id number] Josef Martinez, PT Rehab (PT) [address] [place], [place] [address] [address] 10/14/2019 11:46:13 10/14/2019 14:15:55 Low back pain 680494581 M54.5 Lumbar radiculopathy 128 326979 M54.16 Muscle weakness 59930714 M62.81 [id number] Josef Martinez PT Re[facility] (PT) [address] [place], [place] [address] [address] 4 10/16/2019 11:25:41 10/16/2019 13:48:18 Low back pain 487446030 M54.5 Lumbar radiculopathy 128 834729 M54.16 Muscle weakness 88148463 M62.81 [id number] Frank Bonilla III, MD [facility] [address] [place], [place] [address] [address] 10/23/2019 08:36:37 10/28/2019 08:55:42 Low back pain 327209611 M54.5 Degenerati on of lumbar intervertebral disc 79441528 M51.36 Cervical spondylosis 387 868349 M47.812 Degenerati on of cervical intervertebral disc 01172476 M50.30 [id number] David Fagan Jr, [facility] [address] [place], [place] [address] [address] 4 10/24/2019 10:30:28 10/24/2019 11:05:08 Knee pain 51770293 M25.569 Contusion of left knee 6896993177 1592168 S80.02XA [id number] David Fagan Jr, [facility] [address] [place], [place] [address] [address] 06/01/2020 15:58:48 06/01/2020 16:43:12 History of total knee arthroplasty 2044359001 105 Z96.652 Knee pain 47988802 M25.5 69 [id number] David Fagan Jr, [facility] [address] [place], [place] [address]godfrey [place] [address] 09/17/2020 14:20:57 09/17/2020 15:37:22 Pain in right knee 3717875067 54493 M25.561 Osteoarthr itis of right knee joint 2373733282 57260 M17.11 [id number] David Fagan Jr, MD [facility] [address] [place] [address] [place] [address] 02/22/2021 15:42:35 02/22/2021 17:05:16 Pain of right elbow joint 2611707948 6575647 M25.530 [id number] David Fagan Jr, [facility] [address] [place], [place] [address]i [facility] [place] [address] 04/14/2021 11:17:52 04/14/2021 11:52:45 Pain of right elbow joint 0303432962 6015205 M25.521 Right late ral elbow tendinopathy 2652161372 27100 M77.11 Swelling o f right upper limb 3138192457 1206739 R22.31 [id number] David Fagan Jr, [facility] [address] [place] [address] [place] [address] 05/10/2021 15:48:45 05/10/2021 16:34:59 Right lateral elbow tendinopathy 4587947300 33509 M77.11 [id number] Davdi Fagan Jr, MD [facility] [address] [place] [address] [place] [address] 08/11/2021 14:16:48 08/11/2021 15:40:36 Ankle pain 750417174 M25.579 Right late ral elbow tendinopathy 0798042340 29409 M77.11 Health Concerns Section Related Observation LastModified by Organization Detai ls LastModified Time None Recorded Concern Status LastModified by Organization Details LastModified Time None Recorded Advance Directives Directive None Recorded Payers Insurance Date Sequence Insurance Name Policy Number Policy Kan Covered Member ID Kan Member ID Guarantor Name 08/20/2021 CGS (MEDICARE DME REGION C) Benita Giron [id number] Benita Finley Mack 05/09/2021 2 FOR LIFE ( - MEDICARE SUPPLEMENT) MSFT/E7 Benita Giron [id number] Benita Finley Mack 01/09/2018 3 SOUTH () MSFT/E7 Benita Finley Mack [id number] Benita Finley Mack 10/02/2015 1 [place] PLAN (PPO) [id number] Frank Finley Mack [id number] Benita Finley Mack 05/09/2021 3 [place] Benita Mack [id number] Benita Finley Mack 08/20/2021 2 FOR LIFE ( - MEDICARE SUPPLEMENT) Frank Mack [id number] Benita Finley Mack 08/06/2018 1 [employer] - NATIONAL POS - OPEN ACCESS Frank Mack [id number] Benita Finley Mack 09/01/2021 1 [place] Benita Finley Mack [id number] Benita Finley Mack Notes Date Note Type Note Provider Name and Address Organization Details Recorded Time 09/17/2020 text/html ROS as noted in the HPI patient today for follow-up of her chronic right knee pain [...] total knee arthroplasty. David Fagan Jr, MD [address] [place] [address], [phone], [place] [facility] 09/18/2020 13:48:29 02/22/2021 text/html ROS as noted in the HPI Patient is in today with chief complaint right lateral elbow discomfort. [...] that has resolved. David Fagan Jr, MD [address] [place] [address], [phone], [facility] 02/22/2021 17:53:29 04/14/2021 text/html ROS as noted in the [facility] Patient is in to see me today [...] any neck pain. David Fagan Jr, MD [address] [place] [address], [phone], [facility] 04/14/2021 11:55:39 05/10/2021 text/html ROS as noted in the [facility] Patient returns today for follow-up lateral epicondylitis right elbow. She states that she is no better after taking the Dosepak. She continues to have some swelling in the forearm with pain when lifting objects and extending the elbow. David Fagan Jr, MD [address] [place] [address], [phone], [facility] 05/10/2021 17:29:05 08/11/2021 text/html ROS as noted in the [facility] Patient returns today with complaints of recurrent [...] of the ankle. David Fagan Jr, MD [address] [place], [address], [place] [facility] 08/11/2021 16:22:56 OBGyn Episode No OBEpisode recorded.
--- OUTSIDE RECORDS SUMMARY | 2025-02-24 17:09 | XMS_ITS | Encounter Summary ---
Author Organization [facility] Address [address] [place] [address] Care Team Providers Care Facility Assistant Name Role Phone Benedict Decker MD Unavailable [phone] Unknown, Provider Primary Care Provider Unavaila ble Reason for Visit * Reason Onset Date Comments Follow-up 02/24/2025 Encounter Details Date Type Department Care Team (Late st Contact Info) Description 02/24/2025 Telephone [facility] - Plastic Surgery [address] [place] [address], 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 Pt agreeable and given number for scheduling. TY PROSECUTING ATTORNEY documented in this encounter Plan of Treatment Not on file documented as of this encounter Visit Diagnoses Not on filedocumented in this encounter Care Teams Facility Assistant Relationship Specialty Start Date End Date Unknown, Provider PCP - General 10/07/24 Benedict Decker MD [address] [place] [address] [place] [address] Nephrology 11/04/21 documented as of this encounter
--- OUTSIDE RECORDS SUMMARY | 2025-02-24 17:09 | XMS_ITS | Clinical Summary ---
Author Organization [facility] Address [address] [place] [address] Care Team Providers Care Oil Analyst Name Role Phone Ronal Adhikari DO Unavailable [...] to walk Tape Rash Medium 08/26/2021 Medications Wall-3 Fatty Acids (OMEGA 3 500 OR) Take [...] Screening 1993 Annual Medicare Wellness Visit 2018 PHQ-2 (Physician [place]) 03/06/2024 COVID-19 Vaccine (2 - 2024-2 6 season) 2024 12/26/2022 Influenza Adult (#1) 2024 RSV Immunization or 60+ Years (1 - 1-dose 75+ series) 01/16/2028 Dexa Scan (General) Completed 05/31/2021 Zoster Vaccines Completed 05/04/2022, 01/07/2022 Pneumococcal Vaccine: 50+ Years Completed 12/26/2022 Hepatitis A Vaccines Aged Out No long er eligible based on patient's age to complete this topic Meningococcal B Vaccine Aged Out No l onger eligible based on patient's age to complete this topic Meningococcal Vaccine Aged Out No raina sharad eligible based on patient's age to complete this topic RSV Immunizations Under 20 Months Aged Out No longer eligible b ased on patient's age to complete this topic Medical Devices Implanted Type Area Wire Harness Design Engineer Device Identifier Shelf Expiration Date Model / Serial / Lot Graft Jacket Now Implanted:Qty: 1 on 12/08/2023 by Rolf Prather DPM at [facility] Right: Foot 05/28/2024 [id number] / / [id number] Viaflow Implanted:Qty: 1 on 12/08/2023 by Rolf Prather DPM at [facility] Right: Foot 03/30/2028 [id number] / [id number] / Insurance [facility] MEDICARE Care Teams Oil Analyst Relationship Specialty Start Date End Date None, Provider, PCP - General UNKNOWN PHYSICIAN SPECIALTY 12/08/23 Ronal Adhikari DO [address] [place] [address] INTERNAL MEDICINE 11/30/23
--- OUTSIDE RECORDS SUMMARY | 2025-02-24 17:09 | XMS_ITS | Encounter Summary ---
Author Organization [facility] Address [address] [place] [address] Care Team Providers Care Global Transportation Manager Name Role Phone Yvan Best Primary Care Provider UnavailBenedict Schaeffer MD Unavailable [phone] Kellie Vernon Primary Care Provider [phone] Unknown, Provider Primary Care Provider Unavaila ble Reason for Visit * Reason Onset Date Comments Appointment 05/18/2023 Encounter Details Date Type Department Care Team (Late st Contact Info) Description 05/18/2023 Telephone [facility] - Centralized Scheduling Replaced by [facility] [place] [address] Yeny Wilde MD [address] [facility] [place] [address] Appointment Social History Tobacco Use Types Packs/Day Years Used Date Smoking Tobacco: Never Smokeless Tobacco: Never Alcohol Use Standard Drinks/Week Comments Never 0 (1 standard drink = 0.6 oz pur e alcohol) Comments Unknown Sex and Gender Information Value Date Recorded Sex Assigned at Not on file Legal Sex Female 6:12 AM CARD CLEANER Gender Identity Not on file Sexual Orientation Not on file documented as of this encounter Miscellaneous Notes * Telephone Encounter - Wendie Mo - 05/18/2023 4:24 PM CDT Patient called for her appt in August with Dr Wilde, she would like to know if there was anything sooner [facility] [phone] documented in this encounter Plan of Treatment Not on file documented as of this encounter Visit Diagnoses Not on filedocumented in this encounter Care Teams Global Transportation Manager Relationship Specialty Start Date End Date Yvan Best PCP - General 02/03/23 02/29/24 Kellie Vernon PCP - General 03/01/24 10/06/24 Unknown, Provider PCP - General 10/07/24 Benedict Decker MD [address] [place] [address] [place] [address] Nephrology 11/04/21 documented as of this encounter
--- OUTSIDE RECORDS SUMMARY | 2025-02-24 17:09 | XMS_ITS | Data Portability ---
Author Organization [place] [employer], Main Office Address [address] [place] [address] Care Team Providers Care Energy Crop Farmer Name Role Phone LINDA BEST Primary Care Provider [phone] LINDA BEST Referring Provider [phone] Assessment Encounter Date Assessment Date Assessment LastModified [...] patient than half the time spent in flce-tk-wfjd care per Not available 08/03/2022 09:48:59 08/15/2022 [...] than half of this time spent in tpph-gz-jrax care Not available 09/04/2022 09:30:31 09/26/2022 09/26/2022 [...] more than half the time spent in zwzr-my-fahs care. Not available 09/26/2022 16:28:20 11/14/2022 11/14/2022 [...] patient more than half of this in trnd-lq-lumz conversation Not available 11/14/2022 14:22:48 Plan of Treatment Reminders Order Date Submit Date Provider Last Modified By Organization Details Last Modified Time Details Appointments None recorded. Lab None recorded. Referral None recorded. Procedures knee aspiration/ injection (PROC) 2022 023 [email or web address] In-Office Order, Internal Use Only DO Not Attach Compendium DO Not Attach Compendium, Do Not Delete/merge, [id number] 3 14:13:15 injection/a spiration joint/bursa (PROC) - in office procedure, administere d by provider 2022 023 [email or web address] In-Office Order, Internal Use Only DO Not Attach Compendium DO Not Attach Compendium, Do Not Delete/merge, [id number] 3 16:19:44 Surgeries None recorded. Imaging XR, knee 2022 023 [email or web address] [facility] [place], [address], [place], [address], 3 09:30:42 XR, knee 2022 023 [email or web address] [facility] [place], [address], [place], [address], 3 12:03:43 Medication Orders ropivacaine (PF) 5 mg/mL (0.5 %) injection solution 2022 023 [email or web address] Not available 4 10:44:31 Monovisc 88 mg/4 mL intra-artic ular syringe 2022 023 [email or web address] Not available 4 10:43:34 Kenalog 10 mg/mL suspension for injection 2022 023 [id number], [address] , [place], [address], 3 14:49:39 ropivacaine (PF) 5 mg/mL (0.5 %) injection solution 2022 023 [email or web address] [id number] In [facility], [address], [place], [address], 10:44:31 Patient TargetsNo targets recorded. Patient Instructions Encounter Date Encounter Id Patient Instructions Last Modified By Organization Details Last Modified Time 03/16/2023 [id number] plantar fasciitis: exercises Not available 04/04/2023 13:37:58 plantar fasciiti s education Not available 04/04/2023 13:37:58 achilles tendon: exercises Not available 04/04/2023 13:38:16 achilles tendonitis education Not available 04/04/2023 13:38:15 Reason for Referral None Reported. Results Created Date Observation Date Name Description Value Unit Range Abnormal Flag Note LastModifiedBy Organization Detail LastModifiedTime 07/19/19 XR, knee No observ ation record ed. [facility] [place] [address], [place], [address], 08/03/2022 09:46:25 07/20/1912/16/2021 XR, knee No observ ation record ed. [email or web address] Not Available 2022 09:29:43 07/28/1907/27/2022 MRI, knee, w/o contr ast No observ ation record ed. [email or web address] [place] [address], [place], [address], 07/27/2022 15:57:52 08/16/19 XR, knee No observ ation record ed. [facility] [place] [address], [place], [address], 09/04/2022 09:25:55 09/06/1907/26/2022 MRI, knee, w/o contr ast No observ ation record ed. [email or web address] Not Available 2022 18:27:13 07/24/19 24 07/20/2023 XR, abdom en + pelvi s No observ ation record ed. [facility] [address], [place], [address], 07/25/2023 12:41:53 Result Notes None recorded. Problems Name Problem SNOMED Code Status Onset Date Resolution Date Notes Provider Name and Address Organization Details Recorded Time Pain of right knee joint 2829831453755 00 Active 2022 BIBIANA Gil null, [place] [facility] 3 13:54:25 Pain of bilateral knee joints 9937294918487 04 Active 2022 Sophie Patterson RMA null, [place] [facility] 3 15:03:57 Osteoarthr itis of right knee joint 0589695977659 00 Active 2022 BIBIANA Gil null, [place] [facility] 3 13:55:23 Arthritis 5149680 Active 2023 Jessica davidson, [facility] 4 10:46:01 Bowel problem 021076637 Active 2023 Jessica Cook null, [place] - [facility] 4 10:46:11 Breast problem 627385234 Active 2023 Jessica davidson, [place] - [facility] 4 10:46:24 Dizziness 477911431 Active 2023 Jessica davidson, [facility] 4 10:46:32 Disorder of eye 082236290 Active 2023 Jessica Cook null, [facility] 4 10:46:40 Headache 43510446 Active 2023 Jessica davidson, [place] - [facility] 4 10:46:52 Migraine 26964819 Active 2023 Jessica davidson, [facility] 4 10:47:06 Plantar fasciitis of right foot 9601913985165 9101 Active 2023 Emanuel Edward DPM [address], [address], [place], [address] , [facility] 4 10:49:42 Right Achilles tendinitis 4519664552070 02 Active 2023 Emanuel Edward DPM [address], [address], [place], [address] , [facility] [employer] [facility] 4 10:49:48 Notes:URINARY/BLADDER/KIDNEY Problem Notes None recorded. Procedures Surgical History Date Name Laterality Status Provider Name and Address Organization Details Recorded Time 03/16/19 24 Plantar Fascia Injection Right Foot completed Emanuel Edward DPM [address], [address], [place], [address], [facility] 03/16/2023 10:49:32 Hysterectomy completed Sophie Patterson RMA [facility] 07/18/2022 13:53:25 Breast Surgery completed Sophie santana [facility] 07/18/2022 13:53:33 Knee Surgery completed Sophie Patterson RMA [facility] 07/18/2022 13:53:50 Imaging Results None recorded. Procedure Notes None recorded. Medical Equipment None Reported. Allergies Allergen ID Allergen Name Allergen Category Reaction Reaction Severity Criticality Documentation Date Start Date Code Code System Note Provider Name and Address Organization Details Recorded Time 09332 Product containin g penicilli n (product) medicatio n Not available Not available Not available 07/18/2022 74931 8001 SNOMED Sophie Green RMA null, [facility] 13:52:22 93659 Celebrex medicatio n Not available Not available Not available 07/18/2022 00264 7 RxNorm Sophie Green, RMA null, [facility] 13:52:34 49275 Nexium medicatio n Not available Not available Not available 07/18/2022 77711 9 RxNorm Sophie Green, RMA null, [facility] 13:52:44 Medications Name Sig Start Date [...] mg/mL suspensio n for injection in office procedur e, administ ered by provider 09/[address] [facility]: [id number] 4-20 Not Available Not Available [...] Available Not Available Not Available BD Precision [place] 25 gauge x 1 needle INJECT INTRAMUS CULARLY IN DELTOID AREA ONCE A MONTH 07/18 completed Not Available Not Available Not Available BD SafetyGli de Needle 25 gauge x 1 active Not Available Not Available Not Available ropivacai ne (PF) 5 mg/mL (0.5 %) injection solution in office 03/[address] [facility] 92313-11 06-04 lot [id number] exp:10/24 23 Not Available Not Available Not Available Monovisc 88 mg/4 mL intra-art icular syringe in office 03/16 completed [facility]: [id number] lot: [id number] 71 exp:05/03 Not Available Not Available Not [...] No t Available Vitals Date Recorded Body mass index (BMI) Body weight Provider Name and Address Organization Details Last Updated DateTime 03/16/2023 24.4 kg/m2 06603.05 g Jessica Cook [facility] [employer] 03/16/2023 10:41:34 Date Recorded Body height Heart rate Respiratory rate Oxygen saturation Systolic And Diastolic Provider Name and Address Organization Details Last Updated DateTime 4 152.4 cm 76 /min 14 /min 98 % 152/91 mm[Hg] Kayleigh Jarvis [facility] [place] [employer] 4 10:06:23 Date Recorded Body height Body mass index (BMI) Body weight Provider Name and Address Organization Details Last Updated DateTime 07/18/2022 152.4 cm 28.5 kg/m2 14364.49 g BIBIANA Gil [place] [employer] [facility] 07/18/2022 14:00:06 Date Recorded Body height Provider Name an d Address Organization Details Last Updated DateTime 08/15/2022 152.4 cm BIBIANA Gil [facility] [employer] [facility] 08/15/2022 15:00:31 Date Recorded Body height Provider Name an d Address Organization Details Last Updated DateTime 09/26/2022 152.4 cm Sophie Patterson [facility] AMMY Cuellar [facility] [employer] [facility] 09/26/2022 14:47:10 Date Recorded Body height Provider Name an d Address Organization Details Last Updated DateTime 11/14/2022 152.4 cm Sophie Patterson Neftali Cuellar [facility] [employer] [facility] 11/14/2022 13:53:48 Social History None recorded. Functional Status Question [...] ICD10 Code Diagnosis IMO Codes Diagnosis Note [id number] Jaskaran Elliott MD [facility] [place] [address] [place] [address] 07/18/2022 13:26:54 08/03/2022 12:03:43 Pain of right knee joint 9788381318 68481 M25.561 [id number] Jaskaran Elliott MD [facility] [place] [address] [place] [address] 08/15/2022 14:43:37 09/05/2022 09:30:42 Pain of right knee joint 2680398891 35914 M25.561 [id number] Jaskaran Elliott MD [facility] [place] [address] [place] [address] 09/26/2022 14:33:27 09/26/2022 16:36:07 Pain of right knee joint 7052870996 82700 M25.290 [id number] Jaskaran Elliott MD [facility] [place] [address] [place] [address] 11/14/2022 13:46:58 11/14/2022 14:35:49 Osteoarthritis of right knee joint 9406771511 68848 M17.11 [id number] Emanuel Edward DPM [facility] [place] [address] [place] [address] 03/16/2023 09:54:32 04/04/2023 19:07:32 Plantar fasciitis of right foot 0721604515 0423056 M72.2 injection, right plantar heel onlyrice therapystr etching revieweded ucated on shoe gearfollow up in 4 weeks Right Achi lles tendinitis 3862245687 91364 M76.61 as above Health Concerns Section Related Observation LastModified by Organization Detai ls LastModified Time None Recorded Concern Status LastModified by Organization Details LastModified Time None Recorded Advance Directives Directive None Recorded Payers Insurance Date Sequence Insurance Name Policy Number Policy [place] Covered Member ID [place] Member ID Guarantor Name 06/23/2023 1 [place] Benita Giron [id number] Benita Giron 06/23/2023 2 [facility] [place] [place] () Benita Giron [id number] Benita Giron Notes Date Note Type Note Provider Name and Address Organization Details Recorded Time 07/18/2022 text/html patient is a 67-year-old female referred better high at [facility] for evaluation of her right knee. She [...] in [place]. The Jaskaran Elliott MD [address], [address] [facility] [address], [place], [address], [employer] 08/03/2022 09:49:15 03/16/2023 text/html . Patient is [...] complaints. Emanuel Edward DPM [address], [facility] [address], [place], [address], [employer] 04/04/2023 13:39:11 OBGyn Episode No OBEpisode recorded.
--- OUTSIDE RECORDS SUMMARY | 2025-02-24 17:09 | XMS_ITS | Encounter Summary ---
Author Organization [facility] Address [address] [place] [address] Care Team Providers Care Utilization Management Um Nurse Name Role Phone Benedict Decker MD Unavailable [phone] Kellie Vernon Primary Care Provider [phone] Unknown, Provider Primary Care Provider Unavaila ble Encounter Details Date Type Department Care Team (Late st Contact Info) Description 05/03/2024 Telephone [facility] Derm[facility] [address], [address] [place] [address] Derrell Ovalle MD [address] [facility] [address] [place] [address] Social History Tobacco Use Types Packs/Day Years Used Date Smoking Tobacco: Never Smokeless Tobacco: Never Alcohol Use Standard Drinks/Week Comments Yes 0 (1 standard drink = 0.6 oz pur e alcohol) very rare Comments No Sex and Gender Information Value Date Recorded Sex Assigned at Not on file Legal Sex Female 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 Please reach out to pt for further instructions. STRIAL TECHNOLOGIST documented in this encounter Plan of Treatment Not on file documented as of this encounter Visit Diagnoses Not on filedocumented in this encounter Care Teams Utilization Management Um Nurse Relationship Specialty Start Date End Date SauloKellie PCP - General 03/01/24 10/06/24 Unknown, Provider PCP - General 10/07/24 Benedict Decker MD [address] [place] [address] [place] [address] Nephrology 11/04/21 documented as of this encounter
--- OUTSIDE RECORDS SUMMARY | 2025-02-24 17:09 | XMS_ITS | Clinical Summary ---
Author Organization [facility] [employer] Address [address] [place] [address] Care Team Providers Care Conditioning Room Worker Name Role Phone Benedict Decker MD Unavailable [phone] Unknown, Provider Primary Care Provider Unavaila ble Source Comments [facility],non-owned Affiliates and Associated Physician Practices is amultiple site organization consisting of ambulatory clinics and hospital sitesin [place], [place], [place] and [place]. This disclosure is being madepursuant to the Care Everywhere program and may not contain all information available regarding this patient. Last updated 17.[facility] [employer] Allergies Active Allergy Reactions Criticality Noted Date [...] 60 MG TABSIndications:M igraine Reasons: Migraine Headache 4 Active colestipol (Colestid) 1 GM tablet [...] 3 times daily 90 capsule 4 Active Additional Information Patient not taking.Reported on 11/13/2024 fish oil/omega-3 fatty acids (Promega;Cardi-Om ega 3) [...] 3 times daily 15 g 5 Active Additional Information Patient not taking.Reported on 11/13/2024 mupirocin (Bactroban) 2 % ointment Apply to affected area 2 times daily 5 Active valACYclovir (Valtrex) 1 GM tabletIndications :Scalp lesion Take 1 (one) tablet by mouth 3 times daily 21 tablet 5 Active mupirocin (Bactroban) 2 % ointmentIndicatio ns:Scalp lesion Apply to affected area 3 times daily 22 g 5 Active Additional Information Patient not taking.Reported on 11/13/2024 clobetasol (Temovate) 0.05 % ointmentIndicatio ns:Rash and [...] DAYS FOR ACNE 42 tablet 5 Active Additional Information Patient not taking.Reported on 11/13/2024 triamcinolone acetonide (Kenalog) 0.1 % ointmentIndicatio ns:Rash [...] times daily 60 tablet 2 5 Active Additional Information Patient not taking.Reported on 11/13/2024 gabapentin (Neurontin) 400 MG capsule Take 1 (one) capsule by mouth 3 times daily Active pilocarpine HCl (Salagen) 5 MG tablet TAKE 1 TABLET BY MOUTH THREE TIMES A DAY NEEDED FOR DRY MOUTH Active Active Problems Problem Noted Date Diagnosed [...] Encounters Date Type Department Care Team Description 02/24/2025 Telephone [facility] - Plastic Surgery [address] [place] [address] Juan Samson MD Follow-up 01/07/2025 Telephone [facility]erm[facility]ology [address], [address] [place] [address] Derrell Ovalle MD Appointment from Last 3 Months Immunizations Immunization Administration [...] on file Legal Sex Female 6:12 AM LITIGATION ATTORNEY Gender Identity Not on file Sexual Orientation Not on file Last Filed Vital Signs Vital Sign Reading Time Taken Comments Blood Pressure 147/89 11/13/2024 2:43 PM CDT Pulse 62 11/13/2024 2:43 PM CDT Temperature 36.7 C (98.1 F) 11/13/2024 2:43 PM CDT Respiratory Rate 16 09/04/2024 1:43 PM CDT Oxygen Saturation 94% 11/13/2024 2:43 PM CDT Inhaled Oxygen Concentration - - Weight 65.8 kg (145 lb) 11/13/2024 2:43 PM CDT Height 152.4 cm (5') 11/13/2024 2:43 PM CDT Body Mass Index 28.32 11/13/2024 2:43 PM CDT Plan of Treatment Health Maintenance Due Date Last Done Comments COLOGUARD (AGES 45-75) - COLON CA SCREENING 1953 CT COLONOGRAPHY - COLON CA SCREENING 1955 FIT - COLON CA SCREENING 1953 FLEX SIG - COLON CA SCREENING 1953 LIPID TESTING 1955 MAMMOGRAM 1955 MEDICARE AWV 12 MONTHS 1953 HEPATITIS C SCREENING 01/11/1971 DTAP/TDAP/TD VACCINES (1 - Tdap) 01/16/1972 Respiratory Syncytial Virus (RSV) Vaccine Pt: or over 60 yrs (1 - Risk 50-74 years 1-dose series) 2003 ZOSTER VACCINE (1 of 2) 2003 PNEUMOCOCCAL VACCINE 50+ (2 of 2 - PCV) 02/10/2020 02/09/2019 COVID-19 VACCINE ( season) 2024 12/26/2022, 11/12/2020, 11/30/2019, Additional history exists INFLUENZA VACCINE (#1) 2024 , 12/13/2018, 01/05/2010 COLON MONITORING 12/05/2028 12/05/2018 COLONOSCOPY - [...] A/C/Y/W VACCINE Aged Out No longer eligible based on patient's age to complete this topic Medical Devices Implanted Type Area Commercial Litigation Associate Device Identifier Shelf Expiration Date Model / Serial / Lot Ultratine Forehead 3.5 Bioabsorbable Implant Implanted:Qty: 2 on 11/17/2023 by Juan Samson MD at [facility] Forehead [employer] 07/03/2025 [id number] / / [id number] Insurance MEDICARE [facility] Advance Directives * Full Code (Latest Code Status on File) Date Activated Date Inactivated Comments 11/17/2023 3:46 PM 11/18/2023 4:34 PM Care Teams Conditioning Room Worker Relationship Specialty Start Date End Date Unknown, Provider PCP - General 10/07/24 Benedict Decker MD [address] [place] [address] Nephrology 11/04/21
--- OUTSIDE RECORDS SUMMARY | 2025-02-24 17:09 | XMS_ITS | Encounter Summary ---
Author Organization [facility] Address [address] [place] [address] Care Team Providers Care Corncob Pipe Supervisor Name Role Phone Benedict Decker MD Unavailable [phone] Unknown, Provider Primary Care Provider Unavaila ble Reason for Visit * Reason Onset Date Comments Appointment 01/07/2025 Encounter Details Date Type Department Care Team (Late st Contact Info) Description 01/07/2025 Telephone [facility] Dermatology [address], [address] [place] [address] Derrell Ovalle MD [address] [place] [address] Appointment Social History Tobacco Use [...] on file 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 If someone can please assist patient as I am unable to reschedule patient. 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
--- OUTSIDE RECORDS SUMMARY | 2025-02-24 17:09 | XMS_ITS | Data Portability ---
Author Organization [place] - [facility], DISP_[facility] Vascular Address [address] [place] [address] Care Team Providers Care Return Clerk Name Role Phone KEVIN ASKEW Referring Provider [phone] DACIA MG Primary Care Provider KEVIN ASKEW Orthopedic Surgeon [phone] Assessment No assessment recorded. Plan of Treatment Reminders Order Date Submit Date Provider Last Modified By Organization Details Last Modified Time Details Appointments None recorded. Lab None recorded. Referral None recorded. Procedures None recorded. Surgeries None recorded. Imaging None recorded. Medication Orders Kenalog 40 mg/mL suspension for injection 2023 024 [email or web address] Not available 15:44:09 Medrol (Blayne) 4 mg tablets in a dose pack 2023 024 [email or web address] [facility] [address] [address] [facility], [address] [place], [address], 17:24:46 Patient TargetsNo targets recorded. Patient InstructionsNo [...] view No observ ation record ed. [email or web address] [facility] [address], [place], [address], 10/03/2023 11:17:42 Result Notes None recorded. Problems Name Problem SNOMED Code Status Onset Date Resolution Date Notes Provider Name and Address Organization Details Recorded Time Anxiety 86043252 Active 2023 Skylar davidson, [facility] 4 09:35:22 Chronic kidney disease 801456756 Active 2023 Skylar Merino null, [facility] 4 09:35:31 Diarrhea 68297143 Active 2023 Skylar Wilber null, [facility] 4 09:35:39 Dysuria 17817079 Active 2023 Skylar Merino null, [facility] 4 09:35:46 Esophageal dysmotility 017372107 Active 2023 Skylar Merino null, [facility] 4 09:36:00 Hyperlipide trevor 70055688 Active 2023 Skylar Wilber null, [facility] 4 09:36:07 Hypothyroid ism 33490450 Active 2023 Skylar Merino null, [facility] 4 09:36:17 Irritable bowel syndrome 07795598 Active 2023 Skylar Merino null, [facility] 4 09:36:29 Pain of left hand 7908643192136 03 Active 2023 Skylar Merino null, [facility] 4 10:08:28 Pain of right wrist 6150129729586 00 Active 2023 Earl Nainfeliciawero [facility] 4 17:12:19 Secondary osteoarthri tis of bilateral hands Active 2023 Kevin Askew MD [address] [place], [address], [facility] 4 17:23:51 Problem Notes None recorded. Procedures Surgical History Date Name Laterality Status Provider Name and Address Organization Details Recorded Time Appendectomy completed Skylarvielka Merino [facility] 09/08/2023 09:38:03 arthroplasty of knee completed Skylarvielka Merino [facility] 09/08/2023 09:38:32 Cholecystectomy completed Skylarvielka Merino [facility] 09/08/2023 09:38:41 Richy [facility]op[facility] 09:38:54 Imaging Results None recorded. Procedure Notes None recorded. Medical Equipment None Reported. Allergies Allergen ID Allergen Name Allergen Category Reaction Reaction Severity Criticality Documentation Date Start Date Code Code System Note Provider Name and Address Organization Details Recorded Time 429315 aloe extract food,medi cation itching Not available Not available 09/08/2023 17159 RxNorm Skylar Merino [facility] 4 09:30:27 758451 celecoxib medicatio n hives Not available Not available 09/08/2023 87823 7 RxNorm Skylar Merino [facility] 4 09:30:41 923826 Product containin g penicilli n (product) medicatio n Not available Not available Not available 09/08/2023 62102 8001 SNOMED Skylar Merino [facility] 09:30:58 712840 adhesive environme nt,medica tion Not available Not available Not available 09/08/2023 Skylar Merino [facility] 4 09:31:11 367948 esomepraz ole Not available Not available Not available Not available 09/08/2023 18582 2 RxNorm Skylar Merino [facility] 4 09:31:21 Medications Name Sig [...] (BMI) Body weight Heart rate Oxygen saturation Systolic And Diastolic Provider Name and Address Organization Details Last Updated DateTime 4 152.4 cm 27.3 kg/m2 69409.9 3 g 142 /min 96 % 117/74 mm[Hg] Skylar Perfectomax [facility] 16:44:41 Social History Question Answer Notes LastModified by Organizat ion Details LastModified Time Tobacco Smoking Status Never Smoker Skylar Grove[employer] davidson [facility] 09/08/2023 09:37:49 What Was The Date Of Your Most Recent Tobacco Screening? 11/02/2023 Information not available 10/19/2023 Sex: Unknown Functional Status Question Answer Note LastModified by Organizat ion Details LastModified Time Do you use any illicit or recreational drugs? No Information not available 09/14/2023 Do you or have you ever used any other forms of tobacco or nicotine? No Information not available 09/08/2023 Mental Status None recorded. Family History Nothing Reported. Medical History Condition Response ANXIETY DISORDER Y HIGH CHOLESTEROL / HYPERLIPIDEMIA Y Gynecological HistoryNo gynecological history recorded. Obstetrics History GPAL:G 0 P 0 0 0 0 Past Encounters Encounter ID Performer Location Encounter Start Date Encounter Closed Date Diagnosis/Indication Diagnosis SNOMED-CT Code Diagnosis ICD10 Code Diagnosis IMO Codes Diagnosis Note [id number] Kevin Askew MD DISP[facility] Orthoped[facility] [address] [place] [address] 09/14/2023 15:26:15 09/14/2023 17:28:11 Body mass index 25-29 - overweight 817003463 Z68.27 Pain of right wrist 3169 238791 07927 M25.531 sterile technique standard protocol injected the right scaphotrap ezoid joint with 2 cc of xylocaine and 2 cc or 80 mg of Kenalog sterile technique standard protocol. She can continue with protective bracing. No improvemen t over time consider resection of the proximal half of the trapezoid with palmaris longus tendon interposit ion Secondary osteoarthritis of bilateral hands 3088709579 2628022 M19.241 We will put her on Medrol [...] [place] Member ID Guarantor Name 09/14/2023 2 FOR LIFE ( - MEDICARE SUPPLEMENT) Benita Giron [id number] Benita Giron 09/14/2023 1 MEDIC[place] (MEDICARE[place] Benita Giron [id number] Benita Giron Notes Date Note Type Note Provider Name and Address Organization Details Recorded Time 09/14/2023 text/html patient years ago had left and right [facility] arthroplasties. She has developed [id number]-gm-fiwu at the right scaphotrapezoid joint and having lot of pain on the right. Patient still has some pain intermittently on the left comes in for evaluation no triggering or numbing or tingling Kevin Askew MD [address] [place], [address], [facility] 09/14/2023 17:24:39 OBGyn Episode No OBEpisode recorded.
--- OUTSIDE RECORDS SUMMARY | 2025-02-24 17:50 | XMS_ITS | Clinical Summary ---
Author Organization [facility] Address [address] [place] [address] Care Team Providers Care Software Engineer Web Applications Name Role Phone Kellie Babb COLLAR STITCHER Primary Care Provider [phone] Allergies Active Allergy Reactions Criticality Noted Date [...] (100 mg total) by mouth nightly Active mwhjv-7-bmu-epa -dpa-fish oil 1,050-1,200 mg capsule Take 1 [...] 1 tablet (75 mcg total) by mouth associate financial analyst before breakfast Active fluticasone propionate (FLONASE) 50 [...] Department Care Team Description 01/09/2025 1:20 PM SORTER LAUNDRY ARTICLES Anesthesia Event [facility] Operating Room [address] [place] [phone] Nestor Abad MD [place], Kimberly Carol, NP 01/09/2025 1:00 PM SORTER LAUNDRY ARTICLES - 01/09/2025 4:00 PM SORTER LAUNDRY ARTICLES Surgery [facility] Operating Room [address] [place] [phone] Kimberly Ziegler MD STEALTH Guided Placemen of Right Occipital Ventriculoperitoneal Shunt 01/09/2025 10:37 AM SORTER LAUNDRY ARTICLES - 01/10/2025 7:23 PM SORTER LAUNDRY ARTICLES Hospital Encounter [facility] [address] [place] [address] [phone] Kimberly Ziegler MD Normal pressure hydrocephalus (HCC) (Primary Dx) Discharge Disposition: Discharge to home or self care 01/03/2025 3:33 PM CDT - 01/03/2025 11:59 PM CDT Hospital Encounter [facility] - Imaging [address] [place] [phone] (Idiopathic) normal pressure hydrocephalus (HCC) Discharge Disposition: Discharge to home or self care 12/26/[address] [facility] Pre Anesthesia Testing [address] [place] [phone] ProviderKiran MD 12/24/2024 10:00 AM CDT Pre-Admission Testing [facility] Pre Anesthesia Testing [address] [place] [phone] Preop testing (Primary Dx) 12/18/2024 1:15 PM CDT Office Visit [facility] Nephrology at [address] [place] [phone] Benedict Decker MD Stage 3b chronic kidney disease (HCC) (Primary Dx); Nephrolithiasis; 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); Secondary hyperparathyroidism 12/12/[address] [facility] Pre Anesthesia Testing [address] [place] [phone] Eneida Mccauley 12/11/2024 1:25 PM CDT Lab [address] [address] Stage 3b chronic kidney disease (HCC) 12/09/2024 1:05 PM CDT Lab [address] [address] Stage 3b chronic kidney disease (HCC) from [...] How often do you attend chur or alevism services? More than 4 times per year 01/10/2025 Do you belong to any clubs o r organizations such as worship groups, unions, fraternal or athletic groups, or [...] any time in the past 12 [facility], were you homeless or living in a care home (including now)? No 01/10/2025 [facility] Utilities Answer Date Recorded In the past [...] on file Legal Sex Female 2:18 AM SORTER LAUNDRY ARTICLES Gender Identity Not on file Sexual Orientation Not on file Last Filed Vital Signs Vital Sign Reading Time Taken Comments Blood Pressure 150/90 01/10/2025 4:10 PM SORTER LAUNDRY ARTICLES Pulse 88 01/10/2025 4:10 PM SORTER LAUNDRY ARTICLES Temperature 36.8 C (98.2 F) 01/10/2025 4:10 PM SORTER LAUNDRY ARTICLES Respiratory Rate 18 01/10/2025 4:10 PM SORTER LAUNDRY ARTICLES Oxygen Saturation 98% 01/10/2025 4:10 PM SORTER LAUNDRY ARTICLES Inhaled Oxygen Concentration - - Weight 66.5 kg (146 lb 9.7 oz) 01/09/2025 6:07 P M SORTER LAUNDRY ARTICLES Height 152.4 cm (5') 01/09/2025 6:07 PM SORTER LAUNDRY ARTICLES Body Mass Index 28.63 01/09/2025 6:07 PM SORTER LAUNDRY ARTICLES Plan of Treatment Health Maintenance Due Date [...] 05/04/2022, 01/07/2022 Medical Devices Implanted Type Area Vice President Fixed Income Device Identifier Shelf Expiration Date Model / Serial / Lot [employer] Shunt Ventricular Snap Regular Strata Ii 120cm [id number] - [id number] Implanted:Qty: 1 on 01/09/2025 by Kimberly Ziegler MD at [facility] Right: Occipital Lobe [employer] 02/27/2026 [id number] / / [id number] Procedures Procedure Name Priority Date/Time Associated Diagnosis Comments XR VENTRICULOPERITONEAL SHUNT SERIES (ADULT) IP Routine 01/09/2025 6:[address]LES [address] HEAD WO CONTRAST IP Routine 01/09/2025 6:32 PM SORTER LAUNDRY ARTICLES GA AN PROCEDURE PLACEHOLDER Routine 01/09/2025 1:48 PM SORTER LAUNDRY ARTICLES GA AN ELECTIVE ENDOTRACHEAL AIRWAY Routine 01/09/2025 1:48 PM SORTER LAUNDRY ARTICLES LAPAROSCOPY OPERATIVE 01/09/2025 1:19 PM SORTER LAUNDRY ARTICLES NPH (normal pressure hydrocephalus) INSERTION / REVISION SHUNT - VENTRICULOPERITONEAL 01/09/2025 1:19 PM SORTER LAUNDRY ARTICLES NPH (normal pressure hydrocephalus) TYPE AND SCREEN STAT 01/09/2025 12:50 PM SORTER LAUNDRY ARTICLES B CHECK SAMPLE STAT 01/09/2025 12:[address] HEAD STEALTH WO CONTRAST Schedule Routine, [...] XR Ventriculoperitoneal Shunt Series (01/09/2025 6:57 PM SORTER LAUNDRY ARTICLES) Anatomical Region Laterality Modality Head and Neck N/A Radio Fluoroscop y 01/10/2025 10:0 5 AM SORTER LAUNDRY ARTICLES Impressions 01/10/2025 10:05 AM SORTER LAUNDRY ARTICLES AP and lateral radiographs of the head [...] Hermann Majano M.D. Narrative 01/10/2025 10:05 AM SORTER LAUNDRY ARTICLES EXAMINATION: XR VENTRICULOPERITONEAL SHUNT SERIES (ADULT) HISTORY: Status post SCARFER shunt placement. COMPARISON: CT head dated 01/09/2025. Procedure Note Hermann Majano MD - 01/10/2025 EXAMINATION: XR VENTRICULOPERITONEAL SHUNT SERIES (ADULT) HISTORY: Status post SCARFER shunt placement. COMPARISON: CT head dated 01/09/2025. [...] CT Head WO Contrast (01/09/2025 6:32 PM SORTER LAUNDRY ARTICLES) Anatomical Region Laterality Modality Head and Neck N/A Computed Tomogra phy 01/10/2025 7:18 AM SORTER LAUNDRY ARTICLES Impressions 01/10/2025 8:58 AM SORTER LAUNDRY ARTICLES Interval right parietal approach ventricular catheter placement with expected small volume pneumocephalus. No ventriculomegaly or significant change in ventricular caliber. Dictated by: Sav Lindquist MD The radiology attending physician has personally reviewed this study, and had reviewed and/or edited this written report and agrees with it. Electronically signed by: Berny Dean MD Narrative 01/10/2025 8:58 AM SORTER LAUNDRY ARTICLES EXAMINATION: CT head without contrast HISTORY: Shunt [...] and agrees with it. Electronically signed by: Benry Dean MD Kimberly Ziegler MD IM CT PROCEDURES Final Result * GA AN ELECTIVE ENDOTRACHEAL AIRWAY, GA AN PROCEDURE PLACEHOLDER (01/09/2025 1:48 PM SORTER LAUNDRY ARTICLES) Narrative Rosemarie Soto CRNA - 01/09/2025 1:48 PM SORTER LAUNDRY ARTICLES Rosemarie Soto CRNA 01/09/2025 2:29 PM Airway [...] * Type and screen (01/09/2025 12:50 PM SORTER LAUNDRY ARTICLES) Sandra, indirect Negative ABO Rh O Positive [facility] Blood 01/09/2025 12:5 0 PM SORTER LAUNDRY ARTICLES 01/09/2025 12:58 PM SORTER LAUNDRY ARTICLES Narrative [facility] - 01/09/2025 1:35 PM SORTER LAUNDRY ARTICLES Has the patient had Daratumumab or Isatuximab in the past 6 months?->Unknown us Kimberly Ziegler MD LAB BLOOD BANK TEST ELIE OVERTON Final Result [facility] [address] [place] [address] * Check Sample (01/09/2025 12:21 PM SORTER LAUNDRY ARTICLES) ABO Rh O Positive MBC HCLL OTHER 01/09/2025 12:2 1 PM SORTER LAUNDRY ARTICLES 01/09/2025 12:27 PM SORTER LAUNDRY ARTICLES us Kimberly Ziegler MD LAB BLOOD ORDERABLES Fin al Result [facility] [address] [place] [address] MBC * CT Head Stealth WO Contrast [...] CULTURE (12/25/2024 2:43 PM CDT) Urine culture [facility] Comment:CULTURE INDICATED - RESULTS TO FOLLOW 12/25/2024 2:43 PM CDT 12/25/2024 2:45 PM CDT Result [facility] Kimberly Ziegler MD LAB MICROBIOLOGY - [facility] ORDERABLES Final Result [facility] [address] [place] [address] * (ABNORMAL) Urinalysis reflex to microscopic and culture (12/25/2024 2:43 PM CDT) Color, ur YELLOW YELLOW [facility] Appearance, ur CLOUDY(A) CLEAR [facility] Specific gravity 1.015 1.001 - 1.035 [facility]- [facility] pH, ur 7.5 5.0 - 8.0 [facility] Glucose, ur NEGATIVE NEGATIVE [facility]- [place] Bilirubin, ur NEGATIVE NEGATIVE [facility]- [facility] Ketones, ur NEGATIVE NEGATIVE [facility] Blood, ur NEGATIVE NEGATIVE [facility] Protein, ur, quant NEGATIVE NEGATIVE [facility]- [place] Nitrites, ur POSITIVE(A) NEGATIVE [facility] [place] Leukocyte esterase, ur 3+(A) NEGATIVE [facility]- [facility] WBC, ur > OR = 60(A) < OR = 5 /HPF [facility] RBC, ur NONE SEEN < OR = 2 /HPF [facility]- [facility] Epithelial cells, squamous, ur 0-5 < OR = 5 /HPF [facility] Bacteria, ur, quant MANY(A) NONE SEEN /HPF [facility] Hyaline cast NONE SEEN NONE SEEN /LPF [facility] Note [facility] Comment: This urine was analyzed for the presence of WBC, RBC, bacteria, casts, and other formed elements. Only those elements seen were reported. 12/25/2024 2:43 PM CDT 12/25/2024 2:45 PM CDT Kimberly Ziegler MD LAB MICROBIOLOGY - [facility] AL ORDERABLES Final Result [facility] [address] [place] [address] * (ABNORMAL) Urine culture (12/25/2024 2:43 PM CDT) Urine culture (A) [facility] lexis [facility]ander[facility] Comment: CULTURE, URINE, ROUTINE Micro Number: [id number] Test Status: Final Specimen Source: Urine Specimen [...] AL ORDERABLES Final Result Performing Organization Address [facility] de Phone Number [facility] [address] [place] [address] * ECG 12 lead (12/24/2024 12:21 PM CDT) 12/24/2024 12:2 1 PM CDT Narrative [facility] - 12/24/2024 9:00 PM CDT Vent Rate: 69 bpm RR Interval: 860 msec GA Interval: 188 msec QRS Duration: 128 msec QT Interval: 425 msec QTC Interval: 445 msec P-R-T [place]: 64 - -67 - 37 degrees IMPRESSION: Normal sinus rhythm RIGHT BUNDLE BRANCH BLOCK POOR R WAVE PROGRESSION ABNORMAL RHYTHM ECG Electronically Signed By: Vitaly Combs MD Cami Summers NP ECG ORDERABLES Kathy l Result Performing Organization Address [facility] Phone Number [facility] [employer] [facility] * aPTT (12/24/2024 12:04 PM [...] ORDERABLES Fin al Result Performing Organization Address [facility] Co de Phone Number [facility] [address] [facility] [place] [address] * Protime-INR (12/24/2024 12:04 PM CDT) Pathologist [facility] PT 11.0 10.2 - 13.5 sec INR 0.97 0.90 - 1.20 [facility] Comment: Interpretive data Oral anticoagulant therapeutic ranges: Venous thromboembolism prophylaxis or treatment: 2.0-3.0 CARDIOLOGY Standard range: 2.0-3.0 High-intensity range: 2.5-3.5 Refer to indication-specific guidelines for appropriate target ranges for prosthetic heart valve replacement. Current interpretive data was last revised on 2019. Blood 12/24/2024 12:0 4 PM CDT 12/24/2024 12:04 PM CDT Kimberly Ziegler MD LAB BLOOD ORDERABLES Fin al Result Performing Organization Address [facility] de Phone Number [facility] [address] [facility] [place] [address] * Protein / creatinine ratio, urine, random (12/11/2024 1:28 PM CDT) Pathologist [facility] Protein, ur, quant 15.0 mg/dL Comment: Interpretive [...] URINE ORDERABLES Final Result Performing Organization Address [facility] Co de Phone Number [facility] Department [place] [address] * (ABNORMAL) eGFR (12/09/2024 1:11 PM CDT) [facility] eGFR 35(L) >=60 mL/min/1. 73 m2 Comment: [...] Decker MD LAB BLOOD ORDERABLES Final Result [facility] [address] [facility] Department [place] [address] * Differential, auto (12/09/2024 1:11 PM CDT) [facility] Neutrophil abs 5.97 1.50 - 6.50 K/cumm Imm gran abs 0.07 0.00 - 0.10 K/cumm [facility] Lymphocyte abs 3.18 0.80 - 3.30 K/cumm [facility] Monocyte abs 0.59 0.20 - 0.80 K/cumm [facility] Eosinophil abs 0.19 0.00 - 0.50 K/cumm [facility] Basophil abs 0.04 0.00 - 0.10 K/cumm [facility] Neutrophil pct 59.4 % [facility] Comment: Interpretive Data Percent cell count reference ranges are not reported, since discordance with absolute values may lead to misinterpretation of CBC data. Current Interpretive Data was last revised on 2017. Imm gran pct 0.7 % [facility] Comment: Interpretive Data Percent cell count reference ranges are not reported, since discordance with absolute values may lead to misinterpretation of CBC data. Current Interpretive Data was last revised on 2017. Lymphocyte pct 31.7 % [facility] Comment: Interpretive Data Percent cell count reference ranges are not reported, since discordance with absolute values may lead to misinterpretation of CBC data. Current Interpretive Data was last revised on 2017. Monocyte pct 5.9 % [facility] Comment: Interpretive Data Percent cell count reference ranges are not reported, since discordance with absolute values may lead to misinterpretation of CBC data. Current Interpretive Data was last revised on 2017. Eosinophil pct 1.9 % [facility] Comment: Interpretive Data Percent cell count reference ranges are not reported, since discordance with absolute values may lead to misinterpretation of CBC data. Current Interpretive Data was last revised on 2017. Basophil pct 0.4 % [facility] Comment: Interpretive Data Percent cell count reference ranges are not reported, since discordance with absolute values may lead to misinterpretation of CBC data. Current Interpretive Data was last revised on 2017. Blood 12/09/2024 1:11 PM CDT 12/09/2024 6:08 PM CDT Benedict Decker MD LAB BLOOD ORDERABLES Final Result [facility] [address] [facility] Department of Laboratories [place], [place] [id number] * (ABNORMAL) CBC with auto differential (12/09/2024 1:11 PM CDT) WBC 10.04(H) 3.80 - 9.90 K/cumm Hgb 13.0 11.9 - 15.5 g/dL [facility] Hct 41.8 35.6 - 45.5 % [facility] Plt 266 150 - 400 K/cumm [facility] MPV 9.0(L) 9.1 - 12.3 fL [facility] RBC 4.35 3.90 - 5.20 M/cumm [facility] MCV 96.1 81.3 - 96.4 fL [facility] MCH 29.9 27.1 - 33.3 pg [facility] MCHC 31.1(L) 32.3 - 35.7 g/dL [facility] RDW CV 12.4 11.1 - 14.9 % [facility] RDW SD 44.0 35.7 - 48.1 fL [facility] NRBC abs 0.00 0.00 - 0.01 K/cumm [facility] Blood 12/09/2024 1:11 PM CDT 12/09/2024 6:08 PM CDT us Benedict Decker MD LAB BLOOD ORDERABLES Final Result Performing Organization Address [facility] Co de Phone Number [address] [place] [address] * Vitamin D 25 hydroxy (12/09/2024 1:11 PM CDT) Vitamin D 25-OH 60.0 30.0 - 80.0 ng/mL Blood 12/09/2024 1:11 PM CDT 12/09/2024 6:08 PM CDT eBnedict Decker MD LAB BLOOD ORDERABLES Final Result Performing Organization Address City/[facility]/ZIP Co de Phone Number [address] [place] [address] * PTH (12/09/2024 1:11 PM CDT) PTH 28 15 - 65 pg/mL Blood 12/09/2024 1:11 PM CDT 12/09/2024 6:03 PM CDT us Benedict Decker MD LAB BLOOD ORDERABLES Final Result Performing Organization Address City[facility]/ZIP Co de Phone Number [place] [address] [facility] Department [place] [address] * (ABNORMAL) Renal function panel (12/09/2024 1:11 PM CDT) Sodium 141 135 - 145 mmol/L Potassium, pl 4.1 3.3 - 4.9 mmol/L [facility] Chloride 103 97 - 110 mmol/L [facility] CO2 30 22 - 32 mmol/L [facility] Anion gap 8 2 - 15 mmol/L [facility] BUN 19 6 - 25 mg/dL [facility] Creatinine 1.56(H) 0.60 - 1.10 mg/dL [facility] Glucose 84 70 - 199 mg/dL [facility] Comment: Interpretive Data Fasting glucose >/= 126 [...] 2022. Calcium 10.0 8.5 - 10.3 mg/dL [facility] Phosphorus, pl 2.9 2.3 - 4.5 mg/dL [facility] Albumin 4.2 3.5 - 5.0 g/dL [facility] Blood 12/09/2024 1:11 PM CDT 12/09/2024 6:08 PM CDT Benedict Decker MD LAB BLOOD ORDERABLES Final Result [facility] [address] [facility] Department [place] [address] from Last 3 Months Insurance MEDICARE FOR LIFE MEDICARE FOR LIFE MEDICARE FOR LIFE Advance Directives For more information, please contact: [phone] * Full Code (Latest Code Status on File) Date Activated Date Inactivated Comments 01/09/2025 5:52 PM 01/10/2025 11:28 PM * Full Code Date Activated Date Inactivated Comments 08/19/2024 10:57 AM 08/20/2024 4:47 AM * Full Code Date Activated Date Inactivated Comments 09/08/2022 9:23 AM 09/08/2022 3:46 PM * Full Code Date Activated Date Inactivated Comments 03/30/2022 7:13 AM 03/30/2022 1:38 PM Care Teams Software Engineer Web Applications Relationship Specialty Start Date End Date Kellie Babb, COLLAR STITCHER [address] [place] [address] PCP - General Family Medicine 12/27/24
--- OUTSIDE RECORDS SUMMARY | 2025-02-24 17:50 | XMS_ITS | Encounter Summary ---
Author Organization [facility] Address [address] [place] [address] Care Team Providers Care Admissions Assistant Name Role Phone Benedict Decker MD Unavailable [phone] Kellie Vernon Primary Care Provider [phone] Unknown, Provider Primary Care Provider Unavaila ble Encounter Details Date Type Department Care Team (Late st Contact Info) Description 05/03/2024 Telephone [facility] - Dermatology [address] [place] [address] Derrell Ovalle MD [address] [facility] [address] [place] [address] Social History Tobacco Use Types Packs/Day Years Used Date Smoking Tobacco: Never Smokeless Tobacco: Never Alcohol Use Standard Drinks/Week Comments Yes 0 (1 standard drink = 0.6 oz pur e alcohol) very rare Comments No Sex and Gender Information Value Date Recorded Sex Assigned at Not on file Legal Sex Female 6:12 AM VIDEO GAME PRODUCER Gender Identity Not on file Sexual Orientation Not on file documented as of this encounter Miscellaneous Notes * Telephone Encounter - Geovanni Tapia - 05/03/2024 8:45 AM CST Clobetasol is causing irritaions. Please reach out to pt for further instructions. O GAME PRODUCER documented in this encounter Plan of Treatment Not on file documented as of this encounter Visit Diagnoses Not on filedocumented in this encounter Care Teams Admissions Assistant Relationship Specialty Start Date End Date SauloKellie PCP - General 03/01/24 10/06/24 Unknown, Provider PCP - General 10/07/24 Benedict Decker MD [address] [place] [address] [place] [address] Nephrology 11/04/21 documented as of this encounter
--- OUTSIDE RECORDS SUMMARY | 2025-02-24 17:50 | XMS_ITS | Clinical Summary ---
Author Organization [facility] Address [address] [place] [phone] Care Team Providers Care Programmer Or Analyst Name Role Phone Unavailable Primary Care Provider [...] USE TO INJECT B12 MONTHLY Active Safety Cassandra (BD SafetyGlide Needle) 25 gauge x 1 [...] 23 Active fluticasone propionate (FLONASE) 50 mcg/spray [place], Suspension nasal inhaler 12/05/19 25 Active gabapentin [...] Type Department Care Team Description 12/30/[address] [phone] Provider, Abstract 12/25/2024 9:30 AM CDT Procedure visit [address] [address] Kevin Baptiste MD Chronic migraine w/o aura w/o status migrainosus, not intractable (Primary Dx) 12/25/2024 External Device Data [facility] ABSTRACTION Provider, Abstract 12/24/2024 External Device Data [facility] ABSTRACTION Provider, Abstract 12/11/[address] [address] David Angelo (Shellfish Weigher), RETREAD TECHNICIAN Valium 12/10/2024 External Device Data [facility] ABSTRACTION Provider, Abstract 12/10/2024 External Device Data [facility] ABSTRACTION Provider, Abstract 12/10/2024 External Device Data [facility] ABSTRACTION Provider, Abstract 12/09/2024 Orders Only [address] [address] David Angelo (Shellfish Weigher), RETREAD TECHNICIAN 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) 12/06/2024 1:20 PM CDT Office Visit [address] [phone] David Angelo (Shellfish Weigher), RETREAD TECHNICIAN Chronic migraine w/o aura w/o status migrainosus, [...] st Contact Info) Description 03/20/2025 9:15 AM WORK ORDER CLERK Procedure visit [facility] Neurology [facility] [address] [address] [place] [address] [facility] [address] [place] [phone] Health Maintenance Due Date Last Done [...] 01/16/2028 Insurance MEDICARE PART A AND B [facility] [employer]
--- OUTSIDE RECORDS SUMMARY | 2025-02-24 17:50 | XMS_ITS | Encounter Summary ---
Author Organization [facility] Address [address] [facility] [place] [address] Care Team Providers Care Casework Manager Name Role Phone Benedict Decker MD Unavailable [phone] Unknown, Provider Primary Care Provider Unavaila ble Reason for Visit * Reason Onset Date Comments Follow-up 02/24/2025 Encounter Details Date Type Department Care Team (Late st Contact Info) Description 02/24/2025 Telephone [facility] - Plastic Surgery [address] [place] [address], [facility] [place] [phone] Juan Samson MD [address] [place] [address] Follow-up Social History Tobacco Use Types [...] on file Legal Sex Female 6:12 AM TOP STOP ATTACHER Gender Identity Not on file Sexual Orientation Not on file documented as of this encounter Miscellaneous Notes * Telephone Encounter - Wendie Nava RN - 02/24/2025 11:49 AM TOP STOP ATTACHER RN returned call to pt re: returning migraines and advised making appt with Dr Samson to discuss. Pt agreeable and given number for scheduling. STOP ATTACHER documented in this encounter Plan of Treatment Not on file documented as of this encounter Visit Diagnoses Not on filedocumented in this encounter Care Teams Casework Manager Relationship Specialty Start Date End Date Unknown, Provider PCP - General 10/07/24 Benedict Decker MD [address] [facility] [address] [place] [address] [place] [address] Nephrology 11/04/21 documented as of this encounter
--- OUTSIDE RECORDS SUMMARY | 2025-02-24 17:50 | XMS_ITS | Encounter Summary ---
Author Organization [facility] Address [address] [place] [address] Care Team Providers Care Hearing Aid Technician Name Role Phone Yvan Best Primary Care Provider UnavailBenedict Schaeffer MD Unavailable [phone] Kellie Vernon Primary Care Provider Unknown, Provider Primary Care Provider Unavaila ble Reason for Visit * Reason Onset Date Comments Appointment 05/18/2023 Encounter Details Date Type Department Care Team (Late st Contact Info) Description 05/18/2023 Telephone [facility] - Centralized Scheduling [facility] [place] [address] Yeny Wilde MD [address] [facility] [place] [address] Appointment Social History Tobacco Use Types Packs/Day Years Used Date Smoking Tobacco: Never Smokeless Tobacco: Never Alcohol Use Standard Drinks/Week Comments Never 0 (1 standard drink = 0.6 oz pur e alcohol) Comments Unknown Sex and Gender Information Value Date Recorded Sex Assigned at Not on file Legal Sex Female 6:12 AM WEB OPERATIONS MANAGER Gender Identity Not on file Sexual Orientation Not on file documented as of this encounter Miscellaneous Notes * Telephone Encounter - Wendie Mo - 05/18/2023 4:24 PM CDT Patient called for her appt in August with Dr Wilde, she would like to know if there was anything sooner [facility] [phone] documented in this encounter Plan of Treatment Not on file documented as of this encounter Visit Diagnoses Not on filedocumented in this encounter Care Teams Hearing Aid Technician Relationship Specialty Start Date End Date Yvan Best PCP - General 02/03/23 02/29/24 Kellie Vernon PCP - General 03/01/24 10/06/24 Unknown, Provider PCP - General 10/07/24 Benedict Decker MD [address] [place] [address] [place] [id number] Nephrology 11/04/21 documented as of this encounter
--- OUTSIDE RECORDS SUMMARY | 2025-02-24 17:50 | XMS_ITS | Encounter Summary ---
Author Organization [facility] Address [address] [place] [address] Care Team Providers Care Clerical Warehouse Worker Name Role Phone Benedict Decker MD Unavailable [phone] Unknown, Provider Primary Care Provider Unavaila ble Reason for Visit * Reason Onset Date Comments Appointment 01/07/2025 Encounter Details Date Type Department Care Team (Late st Contact Info) Description 01/07/2025 Telephone [facility] - Dermatology [address] [place] [address] Derrell Ovalle MD [address] Dept [place] [address] Appointment Social History Tobacco Use [...] on file Legal Sex Female 6:12 AM CERTIFIED PEER SPECIALIST Gender Identity Not on file Sexual Orientation Not on file documented as of this encounter Miscellaneous Notes * Telephone Encounter - Brandon Udaycayetano - 01/07/2025 9:30 AM CST Patient contacted the office for rescheduling appointment on 01/08/25. If someone can please assist patient as I am unable to reschedule patient. IFIED PEER SPECIALIST documented in this encounter Plan of Treatment Not on file documented as of this encounter Visit Diagnoses Not on filedocumented in this encounter Care Teams Clerical Warehouse Worker Relationship Specialty Start Date End Date Unknown, Provider PCP - General 10/07/24 Benedict Decker MD [address] [place] [address] [place] [address] Nephrology 11/04/21 documented as of this encounter
--- OUTSIDE RECORDS SUMMARY | 2025-02-24 17:51 | XMS_ITS | Clinical Summary ---
Author Organization [facility] Address [address] [place] [address] Care Team Providers Care Rink Rat Name Role Phone Ronal Adhikari DO Unavailable [...] to walk Tape Rash Medium 08/26/2021 Medications [place]-3 Fatty Acids (OMEGA 3 500 OR) Take [...] Annual Medicare Wellness Visit 2018 PHQ-2 (Physician [place]) 03/06/2024 COVID-19 Vaccine (2 - 2024-2 6 [...] this topic Medical Devices Implanted Type Area Seat Cover Cutter Device Identifier Shelf Expiration Date Model / Serial / Lot Graft Jacket Now Implanted:Qty: 1 on 12/08/2023 by Rolf Prather DPM at [facility] Right: Foot 05/28/2024 [id number] / / [id number] Viaflow Implanted:Qty: 1 on 12/08/2023 by Rolf Prather DPM at [facility] Right: Foot 03/30/2028 [id number] / [id number] / Insurance [facility] MEDICARE Care Teams Rink Rat Relationship Specialty Start Date End Date None, Provider, PCP - General UNKNOWN PHYSICIAN SPECIALTY 12/08/23 Ronal Adhikari DO [address] [place] [address] INTERNAL MEDICINE 11/30/23
--- OUTSIDE RECORDS SUMMARY | 2025-02-24 17:51 | XMS_ITS | Clinical Summary ---
Author Organization [facility] Address [address] [place] [address] Care Team Providers Care Database Security Administrator Name Role Phone Benedict Decker MD Unavailable [phone] Unknown, Provider Primary Care Provider Unavaila ble Source Comments [facility],non-owned Affiliates and Associated Physician Practices is amultiple site organization consisting of ambulatory clinics and hospital sitesin [place], [place], [place] and [place]. This disclosure is being madepursuant to the Care Everywhere program and may not contain all information available regarding this patient. Last updated 17.[facility] Allergies Active Allergy Reactions Criticality Noted Date [...] [facility] - Plastic Surgery [address] [facility] [place] [address] Juan Samson MD Follow-up 01/07/2025 Telephone [facility] - Dermatology [address], [address] [place] [address] Derrell Ovalle MD Appointment from [...] on file Legal Sex Female 6:12 AM PHOTOGRAPHIC EDITOR Gender Identity Not on file Sexual Orientation [...] this topic Medical Devices Implanted Type Area Educational Technology Specialist Device Identifier Shelf Expiration Date Model / Serial / Lot Ultratine Forehead 3.5 Bioabsorbable Implant Implanted:Qty: 2 on 11/17/2023 by Juan Samson MD at [facility] Forehead [employer] 07/03/2025 [id number] / / [id number] Insurance MEDICARE [facility] Advance Directives * Full Code (Latest Code Status on File) Date Activated Date Inactivated Comments 11/17/2023 3:46 PM 11/18/2023 4:34 PM Care Teams Database Security Administrator Relationship Specialty Start Date End Date Unknown, Provider PCP - General 10/07/24 Benedict Decker MD [address] [place] [address] Nephrology 11/04/21
--- OUTSIDE RECORDS SUMMARY | 2025-02-24 17:51 | XMS_ITS | Encounter Summary ---
Author Organization [facility] Address [address] [place] [address] Care Team Providers Care Tennis Racket Repairer Name Role Phone Ronal Adhikari DO Unavailable None, Provider Primary Care Provider Unavaila ble Encounter Details Date Type Department Care Team (Late st Contact Info) Description 12/08/2023 Prep for Procedure [facility] [place] [address] Rolf Prather, DPM [address] [address] Social History Tobacco Use Types [...] - 99 MG/DL 12/08/2023 8:12 AM CDT [facility] BUN 18 7 - 18 MG/DL 12/08/2023 8:12 AM CDT [facility] CREATININE S/P/B 1.51(H) 0.55 - 1.02 MG/DL 12/08/2023 8:12 AM CDT [facility] SODIUM S/P/B 133(L) 136 - 145 MMOL/L 12/08/2023 8:12 AM CDT [facility] POTASSIUM S/P/B 4.2 3.5 - 5.1 MMOL/L 12/08/2023 8:12 AM CDT [facility] CHLORIDE S/P/B 99 97 - 115 MMOL/L 12/08/2023 8:12 AM CDT [facility] CO2 28.9 21 - 32 MMOL/L 12/08/2023 8:12 AM T [facility] CALCIUM S/P/B 9.6 8.5 - 10.1 MG/DL 12/08/2023 8:12 AM T [facility] ANION GAP 5.1 2 - 10 MMOL/L 12/08/2023 8:12 AM T [facility] BUN CREATININE RATIO 11.9 6 - 26 12/08/2023 8:12 AM T [facility] GFR ESTIMATE 37(L) >90 ML/MIN/1.7 3 M2 12/08/2023 8:12 AM T [facility] Comment: NOTE: eGFR is not calculated for patients <18 years of age or gender unknown. This is an estimated GFR calculation using the new CKD EPI creatinine equation without race and so does not require a correction factor for race. This estimated GFR should not be used for calculating drug doses. 12/08/2023 7:40 AM CDT Hillary Escudero CONTROL AREA OPERATOR LABORATORY Final R esult [facility] [address] [place] [address], documented in this encounter Visit Diagnoses Diagnosis Preoperative testing- Primary Preoperative examination, unspecified documented in this encounter Care Teams Tennis Racket Repairer Relationship Specialty Start Date End Date None, Provider, PCP - General UNKNOWN PHYSICIAN SPECIALTY 12/08/23 Ronal Adhikari DO [address] [place] [address] INTERNAL MEDICINE 11/30/23 documented as of this encounter
[2025-02-24 19:37] LABS: Hematocrit 42.5 % (37.0-47.0); Hemoglobin 13.2 g/dL (12.0-15.0); Immature Granulocyte Percent A 0.5 % (0-0.5); Lymphocytes Absolute Auto 3.37 K/mm3 (0.9-3.2); Mean Corpuscular HGB Conc 31.1 g/dl (32-36); Mean Corpuscular Hemoglobin 29.9 pg (26-34); Mean Corpuscular Volume 96.2 fl (80-100); Nucleated Red Blood Cells Absolute Auto 0.000 K/mm3 (0.0-0.012); Nucleated Red Blood Cells Perc 0.0 % (0.0-0.2); Platelet Count Result 298 k/mm3 (150-375); Red Blood Count 4.42 M/mm3 (4.2-5.4); White Blood Count 9.5 K/mm3 (4.5-10.0)
[2025-02-24 19:42] LABS: Estimated CRCL calculation 26 ml/min; Estimated Glomerular Filt Rate 34
[2025-02-24 19:53] LABS: Alanine Aminotransferase 30 U/L (6-35); Albumin Level 4.5 g/dL (3.5-5.1); Alkaline Phosphatase 85 U/L (38-126); Anion Gap 7 mmol/L (4-12); Aspartate Amino Transferase 38 U/L (14-36); Bilirubin,Total 0.6 mg/dL (0.2-1.3); Blood Urea Nitrogen 21 mg/dL (7-17); Calcium 9.5 mg/dL (8.4-10.2); Carbon Dioxide 27 mmol/L (22-30); Chloride 109 mmol/L (98-107); Estimated CRCL calculation 27 ml/min; Estimated Glomerular Filt Rate 35; Glucose 103 mg/dL (65-110); Potassium 4.7 mmol/L (3.4-5.0); Sodium 143 mmol/L (137-145); Total Protein 8.1 g/dL (6.3-8.2)
[2025-02-24 20:05] VITALS: BP 180/90; PULSE 70; RESP 14; O2SAT 96
[2025-02-24] MEDS: oxyCODONE/ACETAMINOPHEN (*CRX) 5-325 MG TABLET 1 TABLET PO (21:16)
[2025-02-24] MEDS: CYCLOBENZAPRINE HCL 10 MG TABLET PO (21:16)
[2025-02-24 21:20] VITALS: BP 152/81; PULSE 74; RESP 18; O2SAT 96
--- NOTE | 2025-02-25 02:17 | ED.GENADULT ---
HPI - General Adult General Chief complaint: Back Pain/Injury Stated complaint: lower back pain Time Seen by Provider: 02/24/25 17:13 History of Present Illness HPI narrative: 70-year-old female presenting with diffuse lower back pain without radiation that began on Monday. She was not doing anything strenuous when she first noticed the pain. She reports a significant history of kidney stones stating that she believes this is what is going on. She denies any trauma, urinary concerns, fever/chills, urinary/bowel retention/incontinence, or saddle anesthesia. Related Data Home Medications ?Medication ?Instructions ?Recorded ?Confirmed ?Last Taken ?Type psyllium husk 0.4 gram capsule 0.4 g PO BID 10/18/21 01/21/25 Unknown History (Daily Fiber) cyclosporine 0.05 % eye drops in a 1 drp EACH EYE BID 03/29/22 01/21/25 Unknown History dropperette (Restasis) omega 8-efz-wdg-fish oil 1,200 mg 1,000 cap PO BID 07/25/22 01/21/25 Unknown History (144 mg-216 mg) capsule calcium carbonate 600 mg PO BID 09/18/23 01/21/25 Unknown History triamcinolone acetonide 0.1 % topical 08/16/24 01/21/25 Unknown History topical ointment Allergies Allergy/AdvReac Type Severity Reaction Status Date / Time nitrofurantoin Allergy Intermediate Flushing Verified 02/24/25 16:25 aloe Allergy SKIN Verified 02/24/25 16:25 IRRITATION/ITCHING celecoxib (From Celebrex) Allergy Hives Verified 02/24/25 16:25 Penicillins AdvReac Severe SEVERE Verified 02/24/25 16:25 WEAKNESS/UNABLE TO WALK adhesive AdvReac SKIN Verified 02/24/25 16:25 IRRITATION esomeprazole (From Nexium) AdvReac Fatigued/AC Verified 02/24/25 16:25 HINESS Review of Systems Review of Systems: All systems reviewed & are unremarkable except as noted in HPI and below PMFSH Past Medical History Medical History Headache Dysuria Anxiety Hyperlipidemia Irritable bowel syndrome with diarrhea Esophageal dysmotility Diarrhea Colon cancer screening Chronic kidney disease Hypothyroidism Surgical History Surgical History H/O foot surgery 11/17/2023 History of cholecystectomy History of appendectomy History of Richy fundoplication History of bilateral knee arthroplasty Family History Family History Sibling Breast cancer Atrial fibrillation Cerebrovascular accident Grandparent Carcinoma of colon Father Acute myocardial infarction Mother COPD (chronic obstructive pulmonary disease) Social History Social History (Updated 01/23/25 @ 13:25 by Kate Spence MA) Smoking status: Never smoker Alcohol intake: never Substance use: never Substance use type: does not use Lack of Transportation: No Lack of Food: Never True Current Housing: I Have Housing Concerned About Future Housing: No Difficulty Paying Gas/Electric Bills: No Difficulty Paying for Meds: No Currently Unemployed: No Education: Associate Degree Difficulty w/ Childcare or Family Care: No Living arrangements: with family Additional living arrangements comments: HUSB Spiritual care concerns: No Exam Narrative: GENERAL: No acute distress. Uncomfortable. HEAD: Normocephalic, atraumatic. EYES: PERRLA and EOMI. ENT: Nares clear, no rhinorrhea or epistaxis. Mucous membranes moist. Oropharynx without tonsillar hypertrophy exudate or other lesions. Bilateral TMs pearly white non-bulging NECK: Supple. No adenopathy or masses. No carotid bruits or JVD CHEST: Clear to auscultation. No respiratory distress. No wheezes rales or rhonchi HEART: Regular rate and rhythm. No murmur heard. Normal peripheral pulses. ABDOMEN: Soft, nontender, nondistended, normal active bowel sounds. BACK: Mild lower back diffuse TTP EXTREMITIES: Normal range of motion. No edema. SKIN: Warm, dry, no rash. NEURO: No focal deficits. Alert and oriented x3. PSYCH: Normal mood and affect Course Vital Signs Vital signs: Vital Signs Temperature 98 F 02/24/25 16:22 Pulse Rate 83 02/24/25 16:22 Respiratory Rate 16 02/24/25 16:22 Blood Pressure 148/73 H 02/24/25 16:22 Pulse Oximetry 98 02/24/25 16:22 Oxygen Delivery Room Air 02/24/25 16:22 Temperature 98 F 02/24/25 16:22 Pulse Rate 74 02/24/25 21:20 Respiratory Rate 18 02/24/25 21:20 Blood Pressure 152/81 H 02/24/25 21:20 Pulse Oximetry 96 02/24/25 21:20 Oxygen Delivery Room Air 02/24/25 16:22 [facility] Narrative Medical decision making narrative: 70-year-old female presenting with diffuse lower back pain without radiation that began on Monday. She was not doing anything strenuous when she first noticed the pain. She reports a significant history of kidney stones stating that she believes this is what is going on. She denies any trauma, urinary concerns, fever/chills, urinary/bowel retention/incontinence, or saddle anesthesia. Upon my initial assessment patient is standing appearing uncomfortable but is nontoxic with stable vitals. CT back in abdomen demonstrate no acute abnormalities. Of note CT abdomen pelvis demonstrated incidental finding of a pancreatic cyst. Discussed these findings with patient advising follow-up with primary for further workup. Patient verbalized understanding. Labs within normal limits for the patient. Administered Flexeril and oxycodone and advised anti-inflammatories and Tylenol as needed for pain. Patient ambulates with a steady gait and is felt to be a reasonable candidate for continued outpatient management. Given reasons to return. Differential Diagnosis Differential Diagnosis: Differential diagnostic considerations for back pain include herniated disc, sciatica, abscess, strain/sprain, discitis, myelitis, fracture, hematoma, cauda equina, osteomyelitis, metastatic and/or primary malignancy, renal colic, pyelonephritis, AAA. Medical Records I have reviewed the following patient records and this information was taken into consideration when formulating the assessment and plan.: previous labs, previous ER visits and previous clinic visits Lab Data [facility] Lab Attestation statement: I personally reviewed the patient's lab results. 02/24/25 19:23 02/24/25 19:40 Labs: Lab Results 02/24/25 02/24/25 02/24/25 Range/Units 16:52 19:23 19:40 WBC 9.5 (4.5-10.0) K/mm3 RBC 4.42 (4.2-5.4) M/mm3 Hgb 13.2 (12.0-15.0) g/dL Hct 42.5 (37.0-47.0) % MCV 96.2 (80-100) fl MCH 29.9 (26-34) pg MCHC 31.1 L (32-36) g/dl RDW 13.0 (11.5-14.5) % Plt Count 298 (150-375) k/mm3 MPV 8.2 (7.4-10.4) fl Immature Gran % (Auto) 0.5 (0-0.5) % Neut % (Auto) 55.1 (45.5-73.1) % Lymph % (Auto) 35.6 (18.3-44.2) % [place] % (Auto) 6.1 (2.6-8.5) % Eos % (Auto) 2.4 (0-4.4) % Baso % (Auto) 0.3 (0.2-1.2) % Lymph # (Auto) 3.37 H (0.9-3.2) K/mm3 [place] # (Auto) 0.6 (0.1-0.6) K/mm3 Eos # (Auto) 0.2 (0-0.3) K/mm3 Baso # (Auto) 0.0 (0.0-0.1) K/mm3 Abs Immat Gran (auto) 0.05 H (0.00-0.031) K/mm3 Absolute Neuts (auto) 5.2 (1.3-6.7) K/mm3 Absolute Nucleated RBC 0.000 (0.0-0.012) K/mm3 Nucleated RBC % 0.0 (0.0-0.2) % Sodium 143 (137-145) mmol/L Potassium 4.7 (3.4-5.0) mmol/L Chloride 109 H (98-107) mmol/L Carbon Dioxide 27 (22-30) mmol/L Anion Gap 7 (4-12) mmol/L BUN 21 H (7-17) mg/dL Creatinine 1.47 H 1.50 H (0.7-1.0) mg/dL Estim Creat Clear Calc 27 26 ml/min Estimated GFR 35 L 34 L (59 - ) Glucose 103 (65-110) mg/dL Calcium 9.5 (8.4-10.2) mg/dL Total Bilirubin 0.6 (0.2-1.3) mg/dL AST 38 H (14-36) U/L ALT 30 (6-35) U/L Alkaline Phosphatase 85 (38-126) U/L Total Protein 8.1 (6.3-8.2) g/dL Albumin 4.5 (3.5-5.1) g/dL Urine Color Yellow (Yellow) Urine Appearance Clear (Clear) Urine pH 7.5 (5.0-9.0) Ur Specific [place] 1.017 (1.001-1.035) Urine Protein Negative (Negative) mg/dL Urine Glucose (UA) Negative (Negative) mg/dL Urine Ketones Trace H (Negative) mg/dL Ur Blood (Man) Negative (Negative) Urine Nitrate Negative (Negative) Urine Bilirubin Negative (Negative) Urine Urobilinogen 0.2 (<2.0) mg/dL Leukocyte Esterase Rfl 1+ H (Negative) ELLE/UL Urine RBC 0-2 (0-2) /hpf Urine WBC 6-10 H (0-3) /hpf Ur Squamous Epith Cells Moderate (Few) /hpf Urine Bacteria None seen /hpf Urine Casts 3-5 Imaging Data Attestation: I personally reviewed and interpreted this imaging study as follows: Radiologist's impression: ITS Impressions Abdomen/Pelvis CT 02/24/25 19:47 IMPRESSION: 1. Subcutaneous fat stranding in anterior abdominal wall, consistent with inflammation versus scarring. 2. Low risk cystic lesions of the pancreas measuring up to 13 mm. The differential diagnosis includes pseudocyst, intraductal papillary mucinous neoplasm (IPMN), mucinous cystic neoplasm (MCN), serous cystadenoma, and neuroendocrine tumor. Consider abdomen MRI without and with contrast in 2 years. 3. Small volume of ascites. Lumbar Spine CT 02/24/25 20:58 IMPRESSION: 1. Mild lumbar spondylosis with bilateral neural foraminal narrowing at L5-S1. Discharge Plan Discharge Clinical Impression: Back pain Patient Disposition: Home Condition: Stable Instructions: Acute Low Back Pain (ED) Additional Instructions: Return to the ER if you experience weakness, numbness, bowel/bladder incontinence or any other symptoms that are concerning to you Rest, use ice/heat, take anti-inflammatories (Aleve, Ibuprofen, Naproxen, etc) or Tylenol as needed for pain as well as muscle relaxer as needed for pain. Take medications with food to help prevent stomach upset. Follow up with your primary care doctor. Patient Language: Vietnamese Prescriptions: New cyclobenzaprine 10 mg tablet 10 mg PO TID PRN (Reason: muscle spasm) Qty: 20 0RF No Action psyllium husk [Daily Fiber] 0.4 gram capsule 0.4 g PO BID omega 0-jel-eoj-fish oil 1,200 (144-216) mg capsule 1,000 cap PO BID Rx Instructions: Take 2 capsules valacyclovir [Valtrex] 1 gram tablet 1,000 mg PO DAILY 7 Days Qty: 7 2RF gabapentin 300 mg capsule 300 mg PO TID Qty: 270 0RF triamcinolone acetonide 0.1 % ointment topical tramadol 50 mg tablet 50 mg PO Q6H PRN (Reason: pain) Qty: 30 2RF cephalexin 500 mg capsule 500 mg PO Q12H Qty: 14 0RF cyclosporine [Restasis] 0.05 % dropperette 1 drp EACH EYE BID (DME) BD Regular Bevel [place] 25 gauge x 5/8 needle See Rx Instructions .Route Qty: 100 1RF Rx Instructions: uswe monthly for b12 injection calcium carbonate 600 mg calcium (1,500 mg) tablet 600 mg PO BID colestipol 1 gram tablet See Rx Instructions .ROUTE .COMPLEX Qty: 180 3RF Dose Instruction: TAKE 1 TABLET BY MOUTH TWICE A DAY Rx Instructions: TAKE 1 TABLET BY MOUTH TWICE A DAY diphenoxylate-atropine 2.5-0.025 mg tablet 1 tablet PO QID PRN (Reason: diarrhea) Qty: 120 1RF cyanocobalamin (vitamin B-12) 1,000 mcg/mL solution 1,000 mcg subcut MONTHLY Qty: 3 1RF (DME) BD Luer-Claudy Syringe 3 mL 23 x 1 syringe See Rx Instructions .Route Qty: 100 1RF Rx Instructions: Use to inject B12 pilocarpine HCl 5 mg tablet 5 mg PO TID PRN (Reason: dry mouth) Qty: 270 1RF fluticasone propionate [Flonase Allergy Relief] 50 mcg/actuation spray,suspension 2 spray intranasal DAILY Qty: 16 5RF Rx Instructions: administer into each nostril trazodone 100 mg tablet 150 mg PO QHS Qty: 135 1RF potassium citrate 10 mEq (1,080 mg) tablet extended release 10 meq PO TID Qty: 270 1RF Rx Instructions: TAKE 1 TABLET BY MOUTH 3 TIMES A DAY methocarbamol 750 mg tablet 750 mg PO TID PRN (Reason: muscle pain) Qty: 90 1RF duloxetine [Cymbalta] 60 mg capsule,delayed release(DR/EC) 60 mg PO DAILY Qty: 90 3RF clobetasol 0.05 % ointment 1 applic topical BID Qty: 60 1RF bupropion HCl [Wellbutrin XL] 150 mg tablet extended release 24 hr 150 mg PO QAM Qty: 90 1RF fluconazole 150 mg tablet 150 mg PO Q72H Qty: 2 0RF metoprolol tartrate 25 mg tablet See Rx Instructions .ROUTE .COMPLEX Qty: 180 2RF Dose Instruction: TAKE 1 TABLET BY MOUTH TWICE A DAY Rx Instructions: TAKE 1 TABLET BY MOUTH TWICE A DAY levothyroxine 75 mcg tablet See Rx Instructions .ROUTE .COMPLEX Qty: 90 1RF Dose Instruction: TAKE 1 TABLET BY MOUTH EVERY DAY IN THE MORNING Rx Instructions: TAKE 1 TABLET BY MOUTH EVERY DAY IN THE MORNING fludrocortisone 0.1 mg tablet 0.1 mg PO DAILY Qty: 90 3RF Follow-up/Referrals: Kellie Babb, SPINAL SURGEON, [facility] [Primary Care Provider, Family Practice]
== END 2025-02-24 21:20 | disposition home or self-care (01) ==
PROVIDERS: Emergency Medicine; PCP Nurse Practitioner Family
DX: M54.50 Low back pain, unspecified (principal); N18.9 Chronic kidney disease, unspecified; E78.5 Hyperlipidemia, unspecified; E03.9 Hypothyroidism, unspecified; K58.0 Irritable bowel syndrome with diarrhea; F41.9 Anxiety disorder, unspecified; Z96.653 Presence of artificial knee joint, bilateral; Z87.442 Personal history of urinary calculi; Z90.49 Acquired absence of other specified parts of digestive tract; M47.816 Spondylosis without myelopathy or radiculopathy, lumbar region; K86.9 Disease of pancreas, unspecified; R93.5 Abnormal findings on diagnostic imaging of other abdominal regions, including retroperitoneum; Z79.899 Other long term (current) drug therapy
CPT/HCPCS: 36415; 72131; 74177; 80053; 81001; 85025; 99284; A9270; Q9967